=== PATIENT | male | born 1950 | race Caucasian/White ===

== ENCOUNTER → 2018-12-04 09:50 | Outpatient (CLI) | payer MEDICARE, OTHER, SELFPAY ==
[2018-12-04 10:46] LABS: BUN Creatinine Ratio 24.3 (6-22); Blood Urea Nitrogen 34 mg/dL (9-20); Calcium 10.3 mg/dL (8.4-10.2); Carbon Dioxide 28 mmol/L (22-32); Chloride 104 mmol/L (98-107); Estimated Glomerular Filt Rate 50.4 mL/min (>60); Glucose 70 mg/dL (80-110); HEMOLYSIS < 15 (0-50); Potassium 5.2 mmol/L (3.4-5.1); Sodium 141 mmol/L (137-145)
== END ==
PROVIDERS: PCP Internal Medicine; Visit Provider Internal Medicine Advanced Heart Failure and Transplant Cardiology
DX: Z94.1 Heart transplant status (principal)
CPT/HCPCS: 36415; 80048; 80197

== ENCOUNTER → 2019-02-14 08:50 | Outpatient (CLI) | payer MEDICARE, OTHER, SELFPAY ==
[2019-02-14 10:28] LABS: Hematocrit 40.4 % (41-53); Hemoglobin 13.3 g/dL (13.5-17.5); Mean Corpuscular HGB Conc 32.9 % (30-36); Mean Corpuscular Hemoglobin 30.6 PG (26-34); Mean Corpuscular Volume 92.9 fL (80-100); Platelet Count 247 X10^3/uL (150-400); Red Blood Cell Count 4.35 X10^6/uL (4.5-5.9); Red Cell Distribution Width 13.6 % (11.6-14.8)
[2019-02-14 10:31] LABS: Add Manual Diff / Slide Review YES
[2019-02-14 10:45] LABS: Alanine Aminotransferase 32 IU/L (21-72); Albumin 4.7 g/dL (3.5-5.0); Albumin Globulin Ratio 1.3 (1.0-2.8); Alkaline Phosphatase 73 U/L (38-126); Aspartate Aminotransferase 37 IU/L (17-59); BUN Creatinine Ratio 22.5 (6-22); Bilirubin Total 0.5 mg/dL (0.2-1.3); Blood Urea Nitrogen 27 mg/dL (9-20); Calcium 10.3 mg/dL (8.4-10.2); Carbon Dioxide 27 mmol/L (22-32); Chloride 105 mmol/L (98-107); Creatine Kinase 121 U/L (55-170); Estimated Glomerular Filt Rate > 60.0 mL/min (>60); Globulin 3.5 g/dL (1.7-4.1); Glucose 51 mg/dL (80-110); HEMOLYSIS < 15 (0-50); Magnesium 1.6 mg/dL (1.6-2.3); Potassium 4.6 mmol/L (3.4-5.1); Sodium 141 mmol/L (137-145); Total Protein 8.2 g/dL (6.3-8.2)
[2019-02-14 11:03] LABS: Neutrophils Absolute Manual 4550 /uL (3000-5900); RBC Morphology Normal Morphology; Total Cells Counted 100
[2019-02-19 09:43] LABS: Tacrolimus 8.9 mcg/L (5.0-20.0)
== END ==
PROVIDERS: PCP Internal Medicine; Visit Provider Internal Medicine Advanced Heart Failure and Transplant Cardiology
DX: Z94.1 Heart transplant status (principal)
CPT/HCPCS: 36415; 80053; 80197; 82550; 83735; 85025

== ENCOUNTER → 2019-03-13 08:56 | Outpatient (CLI) | payer MEDICARE, OTHER, SELFPAY ==
[2019-03-13 10:51] LABS: BUN Creatinine Ratio 22.3 (6-22); Blood Urea Nitrogen 29 mg/dL (9-20); Calcium 9.3 mg/dL (8.4-10.2); Carbon Dioxide 25 mmol/L (22-32); Chloride 108 mmol/L (98-107); Estimated Glomerular Filt Rate 54.7 mL/min (>60); Glucose 179 mg/dL (80-110); HEMOLYSIS < 15 (0-50); Potassium 4.9 mmol/L (3.4-5.1); Sodium 140 mmol/L (137-145)
[2019-03-17 08:45] LABS: Tacrolimus 6.9 mcg/L (5.0-20.0)
== END ==
PROVIDERS: PCP Internal Medicine; Visit Provider Internal Medicine Advanced Heart Failure and Transplant Cardiology
DX: Z94.1 Heart transplant status (principal)
CPT/HCPCS: 36415; 80048; 80197

== ENCOUNTER → 2019-04-12 09:36 | Outpatient (CLI) | payer MEDICARE, OTHER, SELFPAY ==
[2019-04-12 11:02] LABS: Thyroid Stimulating Hormone 2.56 uIU/mL (0.47-4.68)
== END ==
PROVIDERS: PCP Internal Medicine; Visit Provider Internal Medicine
DX: R79.89 Other specified abnormal findings of blood chemistry (principal); E03.9 Hypothyroidism, unspecified
CPT/HCPCS: 36415; 84443

== ENCOUNTER → 2019-06-05 09:01 | Outpatient (CLI) | payer MEDICARE, OTHER, SELFPAY ==
[2019-06-05 10:41] LABS: Blood Urea Nitrogen 30 mg/dL (9-20); Carbon Dioxide 27 mmol/L (22-32); Chloride 103 mmol/L (98-107); Estimated Glomerular Filt Rate > 60.0 mL/min (>60); Glucose 135 mg/dL (80-110); HEMOLYSIS < 15 (0-50); Sodium 141 mmol/L (137-145)
[2019-06-07 23:52] LABS: Tacrolimus 7.1 mcg/L (5.0-20.0)
== END ==
PROVIDERS: PCP Internal Medicine; Visit Provider Internal Medicine Advanced Heart Failure and Transplant Cardiology
DX: Z94.1 Heart transplant status (principal)
CPT/HCPCS: 36415; 80048; 80197

== ENCOUNTER → 2019-08-02 09:04 | Outpatient (CLI) | payer MEDICARE, OTHER, SELFPAY ==
[2019-08-02 10:05] LABS: Hematocrit 37.9 % (41-53); Hemoglobin 12.6 g/dL (13.5-17.5); Mean Corpuscular HGB Conc 33.4 % (30-36); Mean Corpuscular Hemoglobin 30.8 PG (26-34); Mean Corpuscular Volume 92.3 fL (80-100); Platelet Count 223 X10^3/uL (150-400); Red Cell Distribution Width 14.1 % (11.6-14.8); White Blood Cell Count 5.3 X10^3/uL (4.5-11.0)
[2019-08-02 10:08] LABS: Add Manual Diff / Slide Review YES
[2019-08-02 10:33] LABS: Neutrophils Absolute Manual 3339 /uL (3000-5900); RBC Morphology Normal Morphology; Smudge Cells 1+; Total Cells Counted 100
[2019-08-02 10:34] LABS: Alanine Aminotransferase 34 IU/L (<50); Albumin 4.8 g/dL (3.5-5.0); Albumin Globulin Ratio 1.6 (1.0-2.8); Alkaline Phosphatase 72 U/L (38-126); Aspartate Aminotransferase 33 IU/L (17-59); BUN Creatinine Ratio 23.8 (6-22); Bilirubin Total 0.4 mg/dL (0.2-1.3); Blood Urea Nitrogen 31 mg/dL (9-20); Calcium 10.4 mg/dL (8.4-10.2); Carbon Dioxide 29 mmol/L (22-32); Chloride 103 mmol/L (98-107); Creatine Kinase 112 U/L (55-170); Estimated Glomerular Filt Rate 54.7 mL/min (>60); Glucose 81 mg/dL (80-110); HEMOLYSIS < 15 (0-50); Magnesium 1.7 mg/dL (1.6-2.3); Sodium 142 mmol/L (137-145); Total Protein 7.8 g/dL (6.3-8.2)
[2019-08-05 13:21] LABS: Tacrolimus 6.8 mcg/L (5.0-20.0)
== END ==
PROVIDERS: PCP Internal Medicine; Visit Provider Internal Medicine Advanced Heart Failure and Transplant Cardiology
DX: Z94.1 Heart transplant status (principal)
CPT/HCPCS: 36415; 80053; 80197; 82550; 83735; 85025

== ENCOUNTER → 2019-12-05 08:30 | Outpatient (CLI) | payer MEDICARE, OTHER, SELFPAY ==
[2019-12-05 09:23] LABS: Add Manual Diff / Slide Review NO; Basophils Absolute Auto 100 /uL (0-100); Basophils Percent Auto 1.1 % (0-2); Eosinophils Absolute Auto 200 /uL (0-450); Eosinophils Percent Auto 3.8 % (2-4); Hematocrit 38.5 % (41-53); Hemoglobin 12.9 g/dL (13.5-17.5); Lymphocytes Absolute Auto 1000 /uL (1100-4500); Lymphocytes Percent Auto 16.2 % (25-40); Mean Corpuscular HGB Conc 33.6 % (30-36); Mean Corpuscular Hemoglobin 30.6 PG (26-34); Mean Corpuscular Volume 91.2 fL (80-100); Monocytes Absolute Auto 500 /uL (0-900); Monocytes Percent Auto 9.1 % (3-14); Neutrophils Absolute Auto 4100 /uL (1500-7000); Neutrophils Percent Auto 69.8 % (50-75); Platelet Count 223 X10^3/uL (150-400); Red Blood Cell Count 4.23 X10^6/uL (4.5-5.9); Red Cell Distribution Width 13.7 % (11.6-14.8); White Blood Cell Count 5.9 X10^3/uL (4.5-11.0)
[2019-12-05 10:06] LABS: Alanine Aminotransferase 30 IU/L (<50); Albumin 4.8 g/dL (3.5-5.0); Albumin Globulin Ratio 1.4 (1.0-2.8); Alkaline Phosphatase 66 U/L (38-126); Aspartate Aminotransferase 38 IU/L (17-59); BUN Creatinine Ratio 23.1 (6-22); Bilirubin Total 0.4 mg/dL (0.2-1.3); Blood Urea Nitrogen 28 mg/dL (9-20); Calcium 10.1 mg/dL (8.4-10.2); Carbon Dioxide 26 mmol/L (22-32); Chloride 106 mmol/L (98-107); Cholesterol 151 mg/dL (140-199); Creatine Kinase 121 U/L (55-170); Estimated Glomerular Filt Rate 59.5 mL/min (>60); Globulin 3.5 g/dL (1.7-4.1); Glucose 62 mg/dL (80-110); HDL Cholesterol 27 mg/dL (40-60); HEMOLYSIS < 15 (0-50); LDL Cholesterol Calculated 63 mg/dL (<100); Magnesium 1.7 mg/dL (1.6-2.3); Potassium 4.5 mmol/L (3.4-5.1); Sodium 142 mmol/L (137-145); Total Protein 8.3 g/dL (6.3-8.2); Triglycerides 303 mg/dL (35-150)
[2019-12-06 04:07] LABS: Tacrolimus 7.3 ng/mL (2.0-20.0)
== END ==
PROVIDERS: PCP Internal Medicine; Referring Provider Internal Medicine Advanced Heart Failure and Transplant Cardiology; Visit Provider Internal Medicine Advanced Heart Failure and Transplant Cardiology
DX: Z94.1 Heart transplant status (principal); E78.5 Hyperlipidemia, unspecified
CPT/HCPCS: 36415; 80053; 80061; 80197; 82550; 83735; 85025

== ENCOUNTER → 2020-04-03 08:38 | Outpatient (CLI) | payer MEDICARE, OTHER, SELFPAY ==
[2020-04-03 10:31] LABS: BUN Creatinine Ratio 23.7 (6-22); Blood Urea Nitrogen 27 mg/dL (9-20); Calcium 10.4 mg/dL (8.4-10.2); Carbon Dioxide 26 mmol/L (22-32); Chloride 104 mmol/L (98-107); Estimated Glomerular Filt Rate > 60.0 mL/min (>60); Glucose 61 mg/dL (80-110); HEMOLYSIS < 15 (0-50); Potassium 4.7 mmol/L (3.4-5.1); Sodium 140 mmol/L (137-145)
== END ==
PROVIDERS: PCP Internal Medicine; Referring Provider Internal Medicine; Visit Provider Internal Medicine Advanced Heart Failure and Transplant Cardiology
DX: Z94.1 Heart transplant status (principal)
CPT/HCPCS: 36415; 80048; 80195; 80197

== ENCOUNTER → 2020-04-15 09:21 | Outpatient (CLI) | payer MEDICARE, OTHER, SELFPAY ==
[2020-04-15 10:44] LABS: BUN Creatinine Ratio 24.6 (6-22); Blood Urea Nitrogen 29 mg/dL (9-20); Calcium 10.4 mg/dL (8.4-10.2); Carbon Dioxide 28 mmol/L (22-32); Chloride 105 mmol/L (98-107); Estimated Glomerular Filt Rate > 60.0 mL/min (>60); Glucose 65 mg/dL (80-110); HEMOLYSIS < 15 (0-50); Potassium 5.1 mmol/L (3.4-5.1); Sodium 141 mmol/L (137-145)
== END ==
PROVIDERS: PCP Internal Medicine; Referring Provider Internal Medicine Advanced Heart Failure and Transplant Cardiology; Visit Provider Internal Medicine Advanced Heart Failure and Transplant Cardiology
DX: Z94.1 Heart transplant status (principal)
CPT/HCPCS: 36415; 80048; 80195; 80197

== ENCOUNTER → 2020-05-01 09:14 | Outpatient (CLI) | payer MEDICARE, OTHER, SELFPAY ==
[2020-05-01 11:07] LABS: BUN Creatinine Ratio 22.6 (6-22); Blood Urea Nitrogen 24 mg/dL (9-20); Calcium 10.3 mg/dL (8.4-10.2); Carbon Dioxide 24 mmol/L (22-32); Chloride 106 mmol/L (98-107); Estimated Glomerular Filt Rate > 60.0 mL/min (>60); Glucose 103 mg/dL (80-110); HEMOLYSIS 16 (0-50); Potassium 5.2 mmol/L (3.4-5.1); Sodium 140 mmol/L (137-145)
== END ==
PROVIDERS: PCP Internal Medicine; Referring Provider Internal Medicine Advanced Heart Failure and Transplant Cardiology; Visit Provider Internal Medicine Advanced Heart Failure and Transplant Cardiology
DX: Z94.1 Heart transplant status (principal)
CPT/HCPCS: 36415; 80048; 80195; 80197

== ENCOUNTER 2020-10-30 05:48 | Emergency (ER) | payer MEDICARE, OTHER, SELFPAY ==
[2020-10-30] VITALS (25 sets, daily range): BP systolic 107–133; BP diastolic 55–80; PULSE 92–98; RESP 16–18; TEMP 36.3–37.1; O2SAT 95–98; BMI 24.7
--- NOTE | 2020-10-30 05:55 | DI.RAD.S_ITS ---
PROCEDURE: XR CHEST 1V INDICATIONS: fatigue, weakness TECHNIQUE: One view of the chest was acquired. COMPARISON: [facility], , CHEST 1 VIEW, 03/06/2015, 13:28. FINDINGS: Surgical changes and devices: Right chest wall Port-A-Cath. Abandoned cardiac pacer lead. Median sternotomy wires.. Lungs and pleura: Streaky opacities noted in the left lung base. No pleural effusions or pneumothorax. Mediastinum: Mediastinal contours appear normal. Heart size is normal. Bones and chest wall: No suspicious bony lesions. Overlying soft tissues appear unremarkable. IMPRESSION: Streaky opacities in left lung base which could represent parenchymal scarring, atelectasis or less likely pneumonia. Please correlate with clinical and laboratory data. Dictated by: Karla Dumas MD, PhD on 10/30/2020 at 9:11 Approved by: Karla Dumas MD, PhD on 10/30/2020 at 9:12
--- NOTE | 2020-10-30 05:59 | ED.SYNCOPE ---
HPI - Syncope <Bernabe SchroederDO - Last Filed: 10/31/20 02:45> General Chief Complaint: Syncope Stated Complaint: Syncope Time Seen by Provider: 10/30/20 05:50 Source: patient and EMS Mode of arrival: EMS Limitations: no limitations History of Present Illness HPI narrative: 69-year-old male with history cardiac transplant, pacemaker placement type 2 diabetes and lymphoma was recently started chemotherapy and presents by EMS for weakness, lightheadedness and collapse x3 this morning. His episodes were largely during change in position and he denies injury. He has full recall and states he did not actually pass out. He had outpatient labs a few days ago at an outside facility which were apparently abnormal. He denies any head, neck or back pain. He takes no blood thinners. He denies any chest pain but is short of breath, fatigued and weak. He has had no fever or chills. He is nauseated but denies any vomiting. He denies any dysuria, frequency or urgency. Patient denies the passage of dark/tarry stool. MD complaint: felt faint, almost passed out and collapsed Onset (ago): minute(s) Prodromal symptoms: lightheaded Injuries sustained associated with event: none Current symptoms: lightheaded Treatments prior to arrival: none Related Data Home Medications Medication Instructions Recorded Confirmed acetaminophen-pamabrom 500 mg-25 1 tab PO Q4-6H PRN 02/21/19 02/21/19 mg tablet alendronate 70 mg tablet 70 mg PO QWEEK 02/21/19 02/21/19 allopurinol 100 mg tablet 100 mg PO DAILY 02/21/19 02/21/19 ascorbic acid (vitamin C) 500 mg 500 mg PO DAILY 02/21/19 02/21/19 capsule,extended release aspirin 81 mg tablet,delayed 81 mg PO DAILY 02/21/19 02/21/19 release atorvastatin 20 mg tablet 20 mg PO DAILY 02/21/19 02/21/19 calcium carbonate 215 mg calcium 215 mg PO BID tab 02/21/19 02/21/19 (500 mg) chewable tablet carvedilol 3.125 mg tablet 3.125 mg PO BID 02/21/19 02/21/19 cholecalciferol (vitamin D3) 25 2,000 unit PO DAILY 02/21/19 02/21/19 mcg (1,000 unit) capsule ferrous sulfate 325 mg (65 mg 325 mg PO DAILY tab 02/21/19 02/21/19 iron) tablet hydralazine 50 mg tablet 50 mg PO TID 02/21/19 02/21/19 insulin aspart U-100 100 unit/mL 12 unit SUBCUT TID ml 02/21/19 02/21/19 (3 mL) subcutaneous pen insulin glargine 100 unit/mL (3 15 unit SUBCUT DAILY 02/21/19 02/21/19 mL) subcutaneous pen levothyroxine 100 mcg capsule 100 mcg PO DAILY 02/21/19 02/21/19 mycophenolate sodium 180 mg 180 mg PO BID tab 02/21/19 02/21/19 tablet,delayed release omeprazole 20 mg capsule,delayed 20 mg PO DAILY 02/21/19 02/21/19 release comb no.42-folic acid PO 02/21/19 02/21/19 tacrolimus 5 mg capsule 5 mg PO Q12H 02/21/19 02/21/19 zolpidem 10 mg tablet PO tab 02/21/19 02/21/19 Previous Rx's Medication Instructions Recorded albuterol sulfate 90 mcg/actuation 1 puff INHALATION Q6-8H PRN #6.7 02/21/19 aerosol inhaler gram azithromycin 250 mg tablet See Rx Instructions PO .COMPLEX #6 02/21/19 tab Allergies Allergy/AdvReac Type Severity Reaction Status Date / Time fish oil [FISH OIL] Allergy Unknown Verified 02/21/19 08:56 hydrocodone [HYDROCODONE] Allergy Unknown Verified 02/21/19 08:56 Review of Systems <Bernabe Schroeder DO - Last Filed: 10/31/20 02:45> Constitutional Constitutional: Denies chills, Reports fatigue, Denies fever(s), Denies frequent falls, Reports lethargy and Reports weakness Eyes Eyes: Denies change in vision, Denies eye discharge, Denies irritation and Denies loss of vision ENT Ears, Nose, Mouth, and Throat: Denies change in voice, Denies dizziness, Denies neck pain, Denies sore throat and Denies throat swelling Cardiovascular Cardiovascular: Denies chest pain, Denies irregular heart rhythm, Reports lightheadedness, Denies palpitations, Denies dyspnea, Denies dyspnea on exertion and Denies orthopnea Respiratory Respiratory: Denies cough, Denies dyspnea, Denies dyspnea on exertion and Denies wheezing Gastrointestinal Gastrointestinal: Denies abdominal pain, Denies change in bowel habits, Denies diarrhea, Denies nausea and Denies vomiting Musculoskeletal Musculoskeletal: Denies neck pain and Denies numbness Integumentary/Breasts Skin/Breast: Denies pruritus, Denies erythema, Denies rash and Denies wounds Neurologic Neurologic: Denies behavioral changes, Denies confusion, Denies dizziness, Denies frequent falls, Denies loss of vision, Denies numbness and Reports weakness Psychiatric Psychiatric: Denies anxiety, Denies behavioral changes, Denies confusion, Denies depression, Denies homicidal ideation and Denies suicidal ideation Endocrine Endocrine: Reports fatigue, Denies flushing and Denies palpitations Hematologic/Lymphatic Hematologic/Lymphatic: Denies easy bruising Allergic/Immunologic Allergic/Immunologic: Denies urticaria, Denies throat swelling and Denies wheezing Patient History <Bernabe Schroeder DO - Last Filed: 10/31/20 02:45> Social History Smoking Status: Never smoker Smoking Status: Never smoker Exam <Bernabe Schroeder DO - Last Filed: 10/31/20 02:45> Narrative Exam Narrative: GENERAL: [69] year old patient appears stated age. Well-nourished, well-developed patient, in moderate distress, clearly fatigued. HEAD: Atraumatic. Normocephalic. EYES: Pupils equal round and reactive. Extraocular motions intact. No scleral icterus. No injection or drainage. ENT: Nose without bleeding, purulent drainage. Throat without erythema, tonsillar hypertrophy or exudate. Airway patent. NECK: Trachea midline. Non tender CARDIOVASCULAR: Regular rate and rhythm without murmurs, gallops, or rubs. RESPIRATORY: Clear to auscultation. Breath sounds equal bilaterally. No wheezes, rales, or rhonchi. GASTROINTESTINAL: Abdomen soft, non-tender, nondistended. EXTREMITIES: No edema or joint tenderness. BACK: Nontender without deformity or crepitance. No flank tenderness. NEURO: AOx3. SKIN: No rash or erythema of visible areas Initial Vital Signs Initial Vital Signs: Vital Signs Temperature 97.4 F L 10/30/20 05:50 Pulse Rate 98 H 10/30/20 05:50 Respiratory Rate 18 10/30/20 05:50 Blood Pressure 121/63 10/30/20 05:50 Pulse Oximetry 97 10/30/20 05:50 <Sandra Tripp DO - Last Filed: 10/30/20 13:21> Initial Vital Signs Initial Vital Signs: Vital Signs Temperature 97.4 F L 10/30/20 05:50 Pulse Rate 98 H 10/30/20 05:50 Respiratory Rate 18 10/30/20 05:50 Blood Pressure 121/63 10/30/20 05:50 Pulse Oximetry 97 10/30/20 05:50 Course <Bernabe Schroeder DO - Last Filed: 10/31/20 02:45> Course Course Narrative: Initial evaluation and note performed by myself, records requested from . Packed cells ordered. Patient signed out to Dr. Tripp for final disposition. Orders Ordered: Discontinued Medications Heparin Sodium (Porcine) 5,000 (unit/ Sodium Chloride 50 ml) 0 unit IV NOW ONE Stop: 10/30/20 12:24 Heparin Sodium (Porcine) (Heparin 500 Unit/5 Ml Port Flush) 500 unit IV PRN PRN PRN Reason: Flush Vital Signs Vital signs: Vital Signs - 8 hr 10/30/20 05:50 10/30/20 05:51 10/30/20 06:00 Temperature 97.4 F L Pulse Rate 97 H 98 H 96 H Respiratory Rate 18 Blood Pressure 121/63 121/63 117/59 L Pulse Oximetry 96 97 96 10/30/20 06:30 10/30/20 07:00 10/30/20 07:30 Temperature Pulse Rate 97 H 96 H 96 H Respiratory Rate Blood Pressure 107/55 L 112/63 107/60 Pulse Oximetry 96 98 97 10/30/20 08:00 10/30/20 08:30 10/30/20 08:39 Temperature Pulse Rate 96 H 94 H 97 H Respiratory Rate Blood Pressure 110/56 L 115/56 L Pulse Oximetry 96 97 98 10/30/20 08:52 10/30/20 08:53 10/30/20 09:00 Temperature 98.8 F 98.4 F Pulse Rate 97 H 96 H 96 H Respiratory Rate 16 16 16 Blood Pressure 111/56 L 111/56 L 112/60 Pulse Oximetry 97 97 10/30/20 09:15 10/30/20 09:30 10/30/20 09:45 Temperature 98.4 F Pulse Rate 96 H 98 H 93 H Respiratory Rate 16 Blood Pressure 121/65 121/60 133/68 Pulse Oximetry 95 96 96 10/30/20 10:00 10/30/20 10:15 10/30/20 10:30 Temperature 98.4 F 98.5 F Pulse Rate 94 H 94 H 97 H Respiratory Rate 16 16 Blood Pressure 130/72 131/80 132/68 Pulse Oximetry 97 97 97 10/30/20 10:43 10/30/20 10:45 10/30/20 11:00 Temperature 98.0 F 97.8 F Pulse Rate 98 H 98 H 95 H Respiratory Rate 16 16 16 Blood Pressure 127/70 131/68 131/68 Pulse Oximetry 97 97 97 10/30/20 11:15 10/30/20 11:30 10/30/20 11:45 Temperature 98.5 F Pulse Rate 94 H 93 H 92 H Respiratory Rate 16 16 Blood Pressure 130/73 128/73 121/64 Pulse Oximetry 97 98 98 10/30/20 12:00 Temperature 98.4 F Pulse Rate 95 H Respiratory Rate 16 Blood Pressure 133/68 Pulse Oximetry 98 <Sandra Tripp, DO - Last Filed: 10/30/20 13:21> Orders Ordered: Discontinued Medications Heparin Sodium (Porcine) 5,000 (unit/ Sodium Chloride 50 ml) 0 unit IV NOW ONE Stop: 10/30/20 12:24 Heparin Sodium (Porcine) (Heparin 500 Unit/5 Ml Port Flush) 500 unit IV PRN PRN PRN Reason: Flush Vital Signs Vital signs: Vital Signs - 8 hr 10/30/20 05:50 10/30/20 05:51 10/30/20 06:00 Temperature 97.4 F L Pulse Rate 97 H 98 H 96 H Respiratory Rate 18 Blood Pressure 121/63 121/63 117/59 L Pulse Oximetry 96 97 96 10/30/20 06:30 10/30/20 07:00 10/30/20 07:30 Temperature Pulse Rate 97 H 96 H 96 H Respiratory Rate Blood Pressure 107/55 L 112/63 107/60 Pulse Oximetry 96 98 97 10/30/20 08:00 10/30/20 08:30 10/30/20 08:39 Temperature Pulse Rate 96 H 94 H 97 H Respiratory Rate Blood Pressure 110/56 L 115/56 L Pulse Oximetry 96 97 98 10/30/20 08:52 10/30/20 08:53 10/30/20 09:00 Temperature 98.8 F 98.4 F Pulse Rate 97 H 96 H 96 H Respiratory Rate 16 16 16 Blood Pressure 111/56 L 111/56 L 112/60 Pulse Oximetry 97 97 10/30/20 09:15 10/30/20 09:30 10/30/20 09:45 Temperature 98.4 F Pulse Rate 96 H 98 H 93 H Respiratory Rate 16 Blood Pressure 121/65 121/60 133/68 Pulse Oximetry 95 96 96 10/30/20 10:00 10/30/20 10:15 10/30/20 10:30 Temperature 98.4 F 98.5 F Pulse Rate 94 H 94 H 97 H Respiratory Rate 16 16 Blood Pressure 130/72 131/80 132/68 Pulse Oximetry 97 97 97 10/30/20 10:43 10/30/20 10:45 10/30/20 11:00 Temperature 98.0 F 97.8 F Pulse Rate 98 H 98 H 95 H Respiratory Rate 16 16 16 Blood Pressure 127/70 131/68 131/68 Pulse Oximetry 97 97 97 10/30/20 11:15 10/30/20 11:30 10/30/20 11:45 Temperature 98.5 F Pulse Rate 94 H 93 H 92 H Respiratory Rate 16 16 Blood Pressure 130/73 128/73 121/64 Pulse Oximetry 97 98 98 10/30/20 12:00 Temperature 98.4 F Pulse Rate 95 H Respiratory Rate 16 Blood Pressure 133/68 Pulse Oximetry 98 MDM - Syncope <Bernabe Schroeder, DO - Last Filed: 10/31/20 02:45> Lab Data Result diagrams: 10/30/20 06:30 10/30/20 06:30 Labs: Lab Results 10/30/20 10/30/20 10/30/20 Range/Units 06:30 06:30 06:30 WBC 2.1 L (4.5-11.0) X10^3/uL RBC 2.49 L (4.5-5.9) X10^6/uL Hgb 6.8 L* (13.5-17.5) g/dL Hct 20.4 L* (41-53) % MCV 81.9 (80-100) fL MCH 27.3 (26-34) PG MCHC 33.3 (30-36) % RDW 14.0 (11.6-14.8) % Plt Count 141 L (150-400) X10^3/uL Neut % (Auto) Physician Interventional Cardiologist Lymph % (Auto) Physician Interventional Cardiologist [place] % (Auto) Physician Interventional Cardiologist Eos % (Auto) Physician Interventional Cardiologist Baso % (Auto) Physician Interventional Cardiologist Neut # (Auto) Physician Interventional Cardiologist Lymph # (Auto) Physician Interventional Cardiologist [place] # (Auto) Physician Interventional Cardiologist Eos # (Auto) Physician Interventional Cardiologist Baso # (Auto) Physician Interventional Cardiologist Total Counted 100 Seg Neutrophils % 53.0 (38-70) % Band Neutrophils % 10.0 H (3-7) % Lymphocytes % (Manual) 7.0 L (25-45) % Atypical Lymphs % 1.0 H ( - 0) % Monocytes % (Manual) 18.0 H (2-11) % Metamyelocytes % 9.0 H (-0) % Myelocytes % 2.0 H (-0) % Neutrophils # (Manual) 1323 L (6379-8566) /uL Nucleated RBCs 2 H ( - 0) #/Diff Toxic Granulation Present H Dohle Bodies 2+ H RBC Morphology See below Anisocytosis 1+ H Sodium 131 L (137-145) mmol/L Potassium 3.8 (3.4-5.1) mmol/L Chloride 94 L (98-107) mmol/L Carbon Dioxide 34 H (22-32) mmol/L BUN 22 H (9-20) mg/dL Creatinine 0.82 (0.66-1.25) mg/dL Estimated GFR > 60.0 (>60) mL/min BUN/Creatinine Ratio 26.8 H (6-22) Glucose 163 H (80-110) mg/dL Lactate 1.9 (0.7-2.1) mmol/L Calcium 8.8 (8.4-10.2) mg/dL Total Bilirubin 0.2 (0.2-1.3) mg/dL AST 64 H (17-59) IU/L ALT 112 H (<50) IU/L Alkaline Phosphatase 143 H (38-126) U/L Total Creatine Kinase < 20 L (55-170) U/L CK-MB (CK-2) TNP CK-MB (CK-2) Rel Index TNP Troponin I < 0.012 (0.01-0.034) ng/mL C-Reactive Protein 5.3 H (<1.0) mg/dL NT-Pro-B Natriuret Pep 715 H (<125) pg/mL Total Protein 6.1 L (6.3-8.2) g/dL Albumin 3.2 L (3.5-5.0) g/dL Globulin 2.9 (1.7-4.1) g/dL Albumin/Globulin Ratio 1.1 (1.0-2.8) SARS-CoV-2 (PCR) (Negative) Blood Type Antibody Screen Crossmatch 10/30/20 10/30/20 Range/Units 06:44 07:30 WBC (4.5-11.0) X10^3/uL RBC (4.5-5.9) X10^6/uL Hgb (13.5-17.5) g/dL Hct (41-53) % MCV (80-100) fL MCH (26-34) PG MCHC (30-36) % RDW (11.6-14.8) % Plt Count (150-400) X10^3/uL Neut % (Auto) Lymph % (Auto) [place] % (Auto) Eos % (Auto) Baso % (Auto) Neut # (Auto) Lymph # (Auto) [place] # (Auto) Eos # (Auto) Baso # (Auto) Total Counted Seg Neutrophils % (38-70) % Band Neutrophils % (3-7) % Lymphocytes % (Manual) (25-45) % Atypical Lymphs % ( - 0) % Monocytes % (Manual) (2-11) % Metamyelocytes % (-0) % Myelocytes % (-0) % Neutrophils # (Manual) (6253-8922) /uL Nucleated RBCs ( - 0) #/Diff Toxic Granulation Dohle Bodies RBC Morphology Anisocytosis Sodium (137-145) mmol/L Potassium (3.4-5.1) mmol/L Chloride (98-107) mmol/L Carbon Dioxide (22-32) mmol/L BUN (9-20) mg/dL Creatinine (0.66-1.25) mg/dL Estimated GFR (>60) mL/min BUN/Creatinine Ratio (6-22) Glucose (80-110) mg/dL Lactate (0.7-2.1) mmol/L Calcium (8.4-10.2) mg/dL Total Bilirubin (0.2-1.3) mg/dL AST (17-59) IU/L ALT (<50) IU/L Alkaline Phosphatase (38-126) U/L Total Creatine Kinase (55-170) U/L CK-MB (CK-2) CK-MB (CK-2) Rel Index Troponin I (0.01-0.034) ng/mL C-Reactive Protein (<1.0) mg/dL NT-Pro-B Natriuret Pep (<125) pg/mL Total Protein (6.3-8.2) g/dL Albumin (3.5-5.0) g/dL Globulin (1.7-4.1) g/dL Albumin/Globulin Ratio (1.0-2.8) SARS-CoV-2 (PCR) Negative (Negative) Blood Type O Positive Antibody Screen Negative Crossmatch See Detail <Sandra Tripp DO - Last Filed: 10/30/20 13:21> Lab Data Attestation: I reviewed the patient's lab results. Labs: Lab Results 10/30/20 10/30/20 10/30/20 Range/Units 06:30 06:30 06:30 WBC 2.1 L (4.5-11.0) X10^3/uL RBC 2.49 L (4.5-5.9) X10^6/uL Hgb 6.8 L* (13.5-17.5) g/dL Hct 20.4 L* (41-53) % MCV 81.9 (80-100) fL MCH 27.3 (26-34) PG MCHC 33.3 (30-36) % RDW 14.0 (11.6-14.8) % Plt Count 141 L (150-400) X10^3/uL Neut % (Auto) Physician Interventional Cardiologist Lymph % (Auto) Physician Interventional Cardiologist [place] % (Auto) Physician Interventional Cardiologist Eos % (Auto) Physician Interventional Cardiologist Baso % (Auto) Physician Interventional Cardiologist Neut # (Auto) Physician Interventional Cardiologist Lymph # (Auto) Physician Interventional Cardiologist [place] # (Auto) Physician Interventional Cardiologist Eos # (Auto) Physician Interventional Cardiologist Baso # (Auto) Physician Interventional Cardiologist Total Counted 100 Seg Neutrophils % 53.0 (38-70) % Band Neutrophils % 10.0 H (3-7) % Lymphocytes % (Manual) 7.0 L (25-45) % Atypical Lymphs % 1.0 H ( - 0) % Monocytes % (Manual) 18.0 H (2-11) % Metamyelocytes % 9.0 H (-0) % Myelocytes % 2.0 H (-0) % Neutrophils # (Manual) 1323 L (2805-2974) /uL Nucleated RBCs 2 H ( - 0) #/Diff Toxic Granulation Present H Dohle Bodies 2+ H RBC Morphology See below Anisocytosis 1+ H Sodium 131 L (137-145) mmol/L Potassium 3.8 (3.4-5.1) mmol/L Chloride 94 L (98-107) mmol/L Carbon Dioxide 34 H (22-32) mmol/L BUN 22 H (9-20) mg/dL Creatinine 0.82 (0.66-1.25) mg/dL Estimated GFR > 60.0 (>60) mL/min BUN/Creatinine Ratio 26.8 H (6-22) Glucose 163 H (80-110) mg/dL Lactate 1.9 (0.7-2.1) mmol/L Calcium 8.8 (8.4-10.2) mg/dL Total Bilirubin 0.2 (0.2-1.3) mg/dL AST 64 H (17-59) IU/L ALT 112 H (<50) IU/L Alkaline Phosphatase 143 H (38-126) U/L Total Creatine Kinase < 20 L (55-170) U/L CK-MB (CK-2) TNP CK-MB (CK-2) Rel Index TNP Troponin I < 0.012 (0.01-0.034) ng/mL C-Reactive Protein 5.3 H (<1.0) mg/dL NT-Pro-B Natriuret Pep 715 H (<125) pg/mL Total Protein 6.1 L (6.3-8.2) g/dL Albumin 3.2 L (3.5-5.0) g/dL Globulin 2.9 (1.7-4.1) g/dL Albumin/Globulin Ratio 1.1 (1.0-2.8) SARS-CoV-2 (PCR) (Negative) Blood Type Antibody Screen Crossmatch 10/30/20 10/30/20 Range/Units 06:44 07:30 WBC (4.5-11.0) X10^3/uL RBC (4.5-5.9) X10^6/uL Hgb (13.5-17.5) g/dL Hct (41-53) % MCV (80-100) fL MCH (26-34) PG MCHC (30-36) % RDW (11.6-14.8) % Plt Count (150-400) X10^3/uL Neut % (Auto) Lymph % (Auto) [place] % (Auto) Eos % (Auto) Baso % (Auto) Neut # (Auto) Lymph # (Auto) [place] # (Auto) Eos # (Auto) Baso # (Auto) Total Counted Seg Neutrophils % (38-70) % Band Neutrophils % (3-7) % Lymphocytes % (Manual) (25-45) % Atypical Lymphs % ( - 0) % Monocytes % (Manual) (2-11) % Metamyelocytes % (-0) % Myelocytes % (-0) % Neutrophils # (Manual) (9950-2337) /uL Nucleated RBCs ( - 0) #/Diff Toxic Granulation Dohle Bodies RBC Morphology Anisocytosis Sodium (137-145) mmol/L Potassium (3.4-5.1) mmol/L Chloride (98-107) mmol/L Carbon Dioxide (22-32) mmol/L BUN (9-20) mg/dL Creatinine (0.66-1.25) mg/dL Estimated GFR (>60) mL/min BUN/Creatinine Ratio (6-22) Glucose (80-110) mg/dL Lactate (0.7-2.1) mmol/L Calcium (8.4-10.2) mg/dL Total Bilirubin (0.2-1.3) mg/dL AST (17-59) IU/L ALT (<50) IU/L Alkaline Phosphatase (38-126) U/L Total Creatine Kinase (55-170) U/L CK-MB (CK-2) CK-MB (CK-2) Rel Index Troponin I (0.01-0.034) ng/mL C-Reactive Protein (<1.0) mg/dL NT-Pro-B Natriuret Pep (<125) pg/mL Total Protein (6.3-8.2) g/dL Albumin (3.5-5.0) g/dL Globulin (1.7-4.1) g/dL Albumin/Globulin Ratio (1.0-2.8) SARS-CoV-2 (PCR) Negative (Negative) Blood Type O Positive Antibody Screen Negative Crossmatch See Detail Imaging Data CT scan - head: Radiologist's Impression: PROCEDURE: CT HEAD/BRAIN WO CON INDICATIONS: syncope TECHNIQUE: Noncontrast 4.5 mm thick angled axial sections acquired from the foramen magnum to the vertex, with coronal and sagittal reformats. For radiation dose reduction, the following was used: automated exposure control, adjustment of mA and/or kV according to patient size. COMPARISON: [facility], CT, HEAD WITHOUT CONTRAST, 03/29/2011, 19:05. FINDINGS: Image quality: Excellent. CSF spaces: Basal cisterns are patent. No extra-axial fluid collections. The ventricles are symmetric in size and shape. Brain: No intracranial bleeds or masses. There is moderate cerebral volume loss for age, with resultant ventricular and sulcal prominence. There are moderate periventricular and deep white matter chronic small vessel ischemic changes. There is intracranial internal carotid artery atherosclerosis. Skull and face: Calvarium and visualized facial bones appear intact, without suspicious lesions. Sinuses: Visualized sinuses and mastoids are clear. IMPRESSION: 1. No acute intracranial abnormalities. 2. Cerebral volume loss and chronic microvascular ischemic changes. Dictated by: Samuel Juan M.D. on 10/30/2020 at 8:44 Chest x-ray: Radiologist's Impression: PROCEDURE: XR CHEST 1V INDICATIONS: fatigue, weakness TECHNIQUE: One view of the chest was acquired. COMPARISON: [facility], CR, CHEST 1 VIEW, 03/06/2015, 13:28. FINDINGS: Surgical changes and devices: Right chest wall Port-A-Cath. Abandoned cardiac pacer lead. Median sternotomy wires.. Lungs and pleura: Streaky opacities noted in the left lung base. No pleural effusions or pneumothorax. Mediastinum: Mediastinal contours appear normal. Heart size is normal. Bones and chest wall: No suspicious bony lesions. Overlying soft tissues appear unremarkable. IMPRESSION: Streaky opacities in left lung base which could represent parenchymal scarring, atelectasis or less likely pneumonia. Please correlate with clinical and laboratory data. Dictated by: Karla Dumas MD, PhD on 10/30/2020 at 9:11 ECG Data Attestation: I personally reviewed and interpreted this ECG as follows: Prior ECG tracings: available for review Interpretation: Sinus rhythm rate 96 p.r. interval 166 year are S1 of 4 QTC 442 right bundle branch block noted on previous EKG but not this EKG a Q-wave noted in inferior leads [address] changes MDM Narrative Medical decision making narrative: I received sign-out from Dr. Schroeder X seen and evaluated patient myself. Patient is found to be quite anemic hemoglobin 6.8 hematocrit of 20 which is lower than his previous outpatient blood work which was 7.3 in 22.9. I believe he is symptomatic with frequent syncopal episode weakness and some shortness of breath with exertion. states that the feeling very weak yesterday she assisted him to the ground he did not fall or hit his head. 8:15 a.m. I spoke with patient's oncologist Dr. Boyle, who agrees with transfusion and discharge home if feeling better. He has standing orders to have repeat H&H. He is also scheduled to meet with new oncology Dr. Johnson early next week. Patient ambulatory in ED without difficulty overall feeling better after 2 units. Discharge Plan Departure Patient Disposition: Home Clinical Impression: Anemia Qualifiers: Anemia type: unspecified type Qualified Code(s): D64.9 - Anemia, unspecified Instructions: Anemia Activity Restrictions/Additional Instructions: *You have been diagnosed with anemia *What to do: Your weakness and passing out is likely due to low hemoglobin and blood levels. You will need to have her blood levels rechecked next week *Continue to take medications as directed *Follow up with your primary care provider in 2-3 days *Return to ER if you should have increasing shortness of breath, weakness, passing out, dizziness, lightheadedness or any new, worsening or concerning symptoms Prescriptions: No Action azithromycin 250 mg tablet See Rx Instructions PO .COMPLEX Qty: 6 RF: 0 albuterol sulfate 90 mcg/actuation HFA aerosol inhaler 1 puff INHALATION Q6-8H PRN (Reason: bronchospasm) Qty: 6.7 RF: 0 acetaminophen-pamabrom 500-25 mg tablet 1 tab PO Q4-6H PRNRF: 0 alendronate 70 mg tablet 70 mg PO QWEEK RF: 0 allopurinol 100 mg tablet 100 mg PO DAILY RF: 0 ascorbic acid (vitamin C) 500 mg capsule, extended release 500 mg PO DAILY RF: 0 aspirin [Adult Low Dose Aspirin] 81 mg tablet,delayed release (DR/EC) 81 mg PO DAILY RF: 0 atorvastatin 20 mg tablet 20 mg PO DAILY RF: 0 Antacid (calcium carbonate) 215 mg calcium (500 mg) tablet,chewable 215 mg PO BID RF: 0 carvedilol 3.125 mg tablet 3.125 mg PO BID RF: 0 cholecalciferol (vitamin D3) 1,000 unit capsule 2,000 unit PO DAILY RF: 0 ferrous sulfate 325 mg (65 mg iron) tablet 325 mg PO DAILY RF: 0 hydralazine 50 mg tablet 50 mg PO TID RF: 0 insulin aspart U-100 100 unit/mL insulin pen 12 unit SUBCUT TID RF: 0 Lantus Solostar U-100 Insulin 100 unit/mL (3 mL) insulin pen 15 unit SUBCUT DAILY RF: 0 levothyroxine 100 mcg capsule 100 mcg PO DAILY RF: 0 mycophenolate sodium 180 mg tablet,delayed release (DR/EC) 180 mg PO BID RF: 0 omeprazole 20 mg capsule,delayed release(DR/EC) 20 mg PO DAILY RF: 0 comb no.42-folic acid PO RF: 0 tacrolimus 5 mg capsule 5 mg PO Q12H RF: 0 zolpidem 10 mg tablet PO RF: 0 Referrals: Mendoza Venegas MD [Primary Care Provider] - Vijaya Johnson MD [Physician] -
[2020-10-30] MEDS: LIDOCAINE 1% (PF) 2 ML (06:25)
[2020-10-30 06:47] LABS: Mean Corpuscular HGB Conc 33.3 % (30-36); Mean Corpuscular Hemoglobin 27.3 PG (26-34); Mean Corpuscular Volume 81.9 fL (80-100); Platelet Count 141 X10^3/uL (150-400); Red Blood Cell Count 2.49 X10^6/uL (4.5-5.9); White Blood Cell Count 2.1 X10^3/uL (4.5-11.0)
[2020-10-30 06:52] LABS: Lactate (Lactic Acid) 1.9 mmol/L (0.7-2.1)
[2020-10-30 06:53] LABS: Hematocrit 20.4 % (41-53); Hemoglobin 6.8 g/dL (13.5-17.5)
[2020-10-30 06:54] LABS: Alanine Aminotransferase 112 IU/L (<50); Albumin 3.2 g/dL (3.5-5.0); Albumin Globulin Ratio 1.1 (1.0-2.8); Alkaline Phosphatase 143 U/L (38-126); Aspartate Aminotransferase 64 IU/L (17-59); BUN Creatinine Ratio 26.8 (6-22); Bilirubin Total 0.2 mg/dL (0.2-1.3); Blood Urea Nitrogen 22 mg/dL (9-20); C-Reactive Protein Quant 5.3 mg/dL (<1.0); Calcium 8.8 mg/dL (8.4-10.2); Carbon Dioxide 34 mmol/L (22-32); Chloride 94 mmol/L (98-107); Creatine Kinase < 20 U/L (55-170); Estimated Glomerular Filt Rate > 60.0 mL/min (>60); Globulin 2.9 g/dL (1.7-4.1); Glucose 163 mg/dL (80-110); HEMOLYSIS < 15 (0-50); Potassium 3.8 mmol/L (3.4-5.1); Sodium 131 mmol/L (137-145); Total Protein 6.1 g/dL (6.3-8.2)
[2020-10-30 07:02] LABS: COVID19 -Nasal RAPID Negative (Negative)
[2020-10-30 07:03] LABS: NT-proBNP (BNP-Adult 18+) 715 pg/mL (<125); Troponin I < 0.012 ng/mL (0.01-0.034)
[2020-10-30 07:51] LABS: Add Manual Diff / Slide Review YES
[2020-10-30 07:57] LABS: Neutrophils Absolute Manual 1323 /uL (3000-5900); Nucleated Red Blood Cells 2 #/Diff; Total Cells Counted 100
[2020-10-30 07:58] LABS: Anisocytosis 1+; Dohle Bodies 2+; Toxic Granulation Present
--- NOTE | 2020-10-30 08:05 | PC.NURSE ---
COnsent for blood signed by pt and placed in chart. Pt is currently resting, VSS, at bedside.
--- NOTE | 2020-10-30 08:13 | DI.CT.S_ITS ---
PROCEDURE: CT HEAD/BRAIN WO CON INDICATIONS: syncope TECHNIQUE: Noncontrast 4.5 mm thick angled axial sections acquired from the foramen magnum to the vertex, with coronal and sagittal reformats. For radiation dose reduction, the following was used: automated exposure control, adjustment of mA and/or kV according to patient size. COMPARISON: [facility], CT, HEAD WITHOUT CONTRAST, 03/29/2011, 19:05. FINDINGS: Image quality: Excellent. CSF spaces: Basal cisterns are patent. No extra-axial fluid collections. The ventricles are symmetric in size and shape. Brain: No intracranial bleeds or masses. There is moderate cerebral volume loss for age, with resultant ventricular and sulcal prominence. There are moderate periventricular and deep white matter chronic small vessel ischemic changes. There is intracranial internal carotid artery atherosclerosis. Skull and face: Calvarium and visualized facial bones appear intact, without suspicious lesions. Sinuses: Visualized sinuses and mastoids are clear. IMPRESSION: 1. No acute intracranial abnormalities. 2. Cerebral volume loss and chronic microvascular ischemic changes. Dictated by: Samuel Juan M.D. on 10/30/2020 at 8:44 Approved by: Samuel Juan M.D. on 10/30/2020 at 8:46
--- NOTE | 2020-10-30 12:10 | PC.NURSE ---
PT ambulated down ambrose with standby assist and toerated well. Pt uses walker at home. Pt denies feeling lightheaded or dizzy. called and updated on pending discharge.
== END 2020-10-30 12:33 | disposition home or self-care (01) ==
PROVIDERS: Emergency Medicine; Emergency Provider Emergency Medicine; PCP Internal Medicine
DX: D64.9 Anemia, unspecified (principal); R55 Syncope and collapse; R53.83 Other fatigue; Z95.0 Presence of cardiac pacemaker; R42 Dizziness and giddiness; Z79.82 Long term (current) use of aspirin; E11.8 Type 2 diabetes mellitus with unspecified complications; Z79.4 Long term (current) use of insulin; Z20.822 Contact with and (suspected) exposure to COVID-19
CPT/HCPCS: 36415; 36430; 70450; 71045; 80053; 82550; 83605; 83880; 84484; 85007; 85025; 86140; 86850; 86900; 86901; 87040; 87635; 93005; 99283; 99284; C9803; P9016; J1642

== ENCOUNTER 2020-11-19 09:21 | Emergency (ER) | payer MEDICARE, OTHER, SELFPAY ==
[2020-11-19 09:25] VITALS: BP 113/74; PULSE 111; PULSE 112; RESP 18; O2SAT 96; BMI 25.0
[2020-11-19 09:29] VITALS: BP 109/73; PULSE 112; RESP 21; O2SAT 96
[2020-11-19 09:30] VITALS: BP 113/74; PULSE 110; RESP 22; O2SAT 96
--- NOTE | 2020-11-19 09:35 | ED_ITS ---
HPI - General Adult General Chief complaint: Weakness Stated complaint: Can't stay awake Time Seen by Provider: 11/19/20 09:25 Source: patient and EMS Mode of arrival: EMS Limitations: no limitations History of Present Illness HPI narrative: Patient is a 69-year-old male. 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 His last chemotherapy infusion was 1 week ago. He had a distant history of Hodgkin's lymphoma. The treatment for that caused heart issues which led to a heart transplant. That was done approximately 6 years ago. He is followed by [facility]. 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 Had blood drawn. Had a hemoglobin and hematocrit of 9/28. He was told that his blood counts were low but no transfusion was administered. He did receive a transfusion approximately 1 month ago secondary to anemia. He reports that really over the past 24 hours he has been very fatigued. He states that he just feels like he wants to go to sleep. He denies any other associated symptoms Related Data Home Medications Medication Instructions Recorded Confirmed acetaminophen-pamabrom 500 mg-25 1 tab PO Q4-6H PRN 02/21/19 02/21/19 mg tablet alendronate 70 mg tablet 70 mg PO QWEEK 02/21/19 02/21/19 allopurinol 100 mg tablet 100 mg PO DAILY 02/21/19 02/21/19 ascorbic acid (vitamin C) 500 mg 500 mg PO DAILY 02/21/19 02/21/19 capsule,extended release aspirin 81 mg tablet,delayed 81 mg PO DAILY 02/21/19 02/21/19 release atorvastatin 20 mg tablet 20 mg PO DAILY 02/21/19 02/21/19 calcium carbonate 215 mg calcium 215 mg PO BID tab 02/21/19 02/21/19 (500 mg) chewable tablet carvedilol 3.125 mg tablet 3.125 mg PO BID 02/21/19 02/21/19 cholecalciferol (vitamin D3) 25 2,000 unit PO DAILY 02/21/19 02/21/19 mcg (1,000 unit) capsule ferrous sulfate 325 mg (65 mg 325 mg PO DAILY tab 02/21/19 02/21/19 iron) tablet hydralazine 50 mg tablet 50 mg PO TID 02/21/19 02/21/19 insulin aspart U-100 100 unit/mL 12 unit SUBCUT TID ml 02/21/19 02/21/19 (3 mL) subcutaneous pen insulin glargine 100 unit/mL (3 15 unit SUBCUT DAILY 02/21/19 02/21/19 mL) subcutaneous pen levothyroxine 100 mcg capsule 100 mcg PO DAILY 02/21/19 02/21/19 mycophenolate sodium 180 mg 180 mg PO BID tab 02/21/19 02/21/19 tablet,delayed release omeprazole 20 mg capsule,delayed 20 mg PO DAILY 02/21/19 02/21/19 release comb no.42-folic acid PO 02/21/19 02/21/19 tacrolimus 5 mg capsule 5 mg PO Q12H 02/21/19 02/21/19 zolpidem 10 mg tablet PO tab 02/21/19 02/21/19 famotidine 20 mg FEEDING TUBE BID 11/19/20 11/19/20 fluticasone propionate [Flonase] 2 spray INTRANASAL DAILY 11/19/20 11/19/20 oxycodone 5 mg PO Q4H 11/19/20 11/19/20 potassium chloride 20 meq PO DAILY 11/19/20 11/19/20 prochlorperazine maleate 10 mg PO BID PRN 11/19/20 11/19/20 [Compazine] rosuvastatin 20 mg PO DAILY 11/19/20 11/19/20 simethicone 80 mg PO PRN PRN 11/19/20 11/19/20 tbo-filgrastim [Granix] 300 mcg SUBCUT 11/19/20 Previous Rx's Medication Instructions Recorded albuterol sulfate 90 mcg/actuation 1 puff INHALATION Q6-8H PRN #6.7 02/21/19 aerosol inhaler gram azithromycin 250 mg tablet See Rx Instructions PO .COMPLEX #6 02/21/19 tab Allergies Allergy/AdvReac Type Severity Reaction Status Date / Time fish oil [FISH OIL] Allergy Unknown Verified 11/19/20 09:28 hydrocodone [HYDROCODONE] Allergy Unknown Verified 11/19/20 09:28 Review of Systems Constitutional Constitutional: Denies chills, Reports fatigue, Denies fever(s), Denies headache(s), Reports lethargy and Reports malaise Eyes Eyes: Denies change in vision ENT Ears, Nose, Mouth, and Throat: Denies headache(s) Cardiovascular Cardiovascular: Denies chest pain and Denies dyspnea Respiratory Respiratory: Denies dyspnea Gastrointestinal Gastrointestinal: Denies abdominal pain Musculoskeletal Musculoskeletal: Denies arthralgias and Denies myalgias Integumentary/Breasts Skin/Breast: Denies rash Neurologic Neurologic: Denies behavioral changes and Denies headache(s) Psychiatric Psychiatric: Denies behavioral changes Endocrine Endocrine: Reports fatigue Hematologic/Lymphatic On Anticoagulants: No Allergic/Immunologic Allergic/Immunologic: Denies urticaria Patient History Medical History Diabetes Lymphoma Surgical History Heart transplant status Social History Smoking Status: Never smoker Smoking Status: Never smoker Substance Use Type: does not use Exam Initial Vital Signs Initial Vital Signs: Vital Signs Pulse Rate 112 H 11/19/20 09:25 Respiratory Rate 18 11/19/20 09:25 Blood Pressure 113/74 11/19/20 09:25 Pulse Oximetry 96 11/19/20 09:25 Const General: frail appearing Limitations: mental status not altered HENMT Head: normal to inspection and normocephalic Resp Effort & Inspection: normal respiratory effort Auscultation: clear to auscultation bilaterally Cardio Rate: regular rate Rhythm: regular rhythm GI Inspection: non-distended Palpation: soft Other: G-tube site from left upper abdomen Skin Other: Patient with redness around his G-tube site. Neuro General: patient alert, patient awake and patient oriented x3 Extrem General: capillary refill normal Psych Appearance: well kempt Scores GCS Bill coma scale eye opening: Spontaneous Bill coma scale verbal response: Orientated Bill coma scale motor response: Obey commands [place] coma scale total score: 15 Course Orders Ordered: ED Orders 11/19/20 09:26 Complete Blood Count AUTO DIFF Stat Comprehensive Metabolic Panel Stat Lipase Stat Partial Thromboplastin Time Stat Prothrombin Time INR Stat Troponin & CK Cardiac Panel Stat Type and Screen Stat EKG-12 Lead Stat Vital Signs Vital signs: Vital Signs - 8 hr 11/19/20 09:25 11/19/20 09:29 11/19/20 09:30 Pulse Rate 111 H 112 H 110 H Respiratory Rate 18 21 22 Blood Pressure 113/74 109/73 113/74 Pulse Oximetry 96 96 96 11/19/20 10:00 11/19/20 10:30 11/19/20 11:00 Pulse Rate 109 H 107 H 106 H Respiratory Rate 20 23 21 Blood Pressure 111/73 105/66 104/67 Pulse Oximetry 94 95 97 Medical Decision Making Lab Data Result diagrams: 11/19/20 09:30 11/19/20 09:30 Labs: Lab Results 11/19/20 11/19/20 11/19/20 Range/Units 09:30 09:30 09:30 WBC 1.1 L* (4.5-11.0) X10^3/uL RBC 3.52 L (4.5-5.9) X10^6/uL Hgb 10.0 L (13.5-17.5) g/dL Hct 29.7 L (41-53) % MCV 84.3 (80-100) fL MCH 28.5 (26-34) PG MCHC 33.8 (30-36) % RDW 15.6 H (11.6-14.8) % Plt Count 161 (150-400) X10^3/uL Neut % (Auto) Not Reportable Lymph % (Auto) Not Reportable Rock % (Auto) Not Reportable Eos % (Auto) Not Reportable Baso % (Auto) Not Reportable Lymph # (Auto) Not Reportable [place] # (Auto) Not Reportable Baso # (Auto) Not Reportable Total Counted 50 Seg Neutrophils % 12.0 L (38-70) % Band Neutrophils % 14.0 H (3-7) % Lymphocytes % (Manual) 6.0 L (25-45) % Atypical Lymphs % 2.0 H ( - 0) % Monocytes % (Manual) 44.0 H (2-11) % Eosinophils % (Manual) 4.0 (2-4) % Metamyelocytes % 10.0 H (-0) % Myelocytes % 8.0 H (-0) % Neutrophils # (Manual) 286 L (7623-5698) /uL RBC Morphology See below Polychromasia 1+ H Anisocytosis 1+ H PT 11.5 (10.1-12.7) SECONDS INR 1.0 (0.9-1.3) APTT 27 (26.4-36.2) SECONDS Sodium 133 L (137-145) mmol/L Potassium 4.1 (3.4-5.1) mmol/L Chloride 93 L (98-107) mmol/L Carbon Dioxide 33 H (22-32) mmol/L BUN 24 H (9-20) mg/dL Creatinine 0.79 (0.66-1.25) mg/dL Estimated GFR > 60.0 (>60) mL/min BUN/Creatinine Ratio 30.4 H (6-22) Glucose 251 H (80-110) mg/dL Calcium 9.1 (8.4-10.2) mg/dL Total Bilirubin 0.5 (0.2-1.3) mg/dL AST 28 (17-59) IU/L ALT 28 (<50) IU/L Alkaline Phosphatase 120 (38-126) U/L Total Creatine Kinase 21 L (55-170) U/L CK-MB (CK-2) TNP CK-MB (CK-2) Rel Index TNP Troponin I < 0.012 (0.01-0.034) ng/mL Total Protein 6.7 (6.3-8.2) g/dL Albumin 3.7 (3.5-5.0) g/dL Globulin 3.0 (1.7-4.1) g/dL Albumin/Globulin Ratio 1.2 (1.0-2.8) Lipase 61 (23-300) U/L Blood Type Antibody Screen 11/19/20 Range/Units 09:30 WBC (4.5-11.0) X10^3/uL RBC (4.5-5.9) X10^6/uL Hgb (13.5-17.5) g/dL Hct (41-53) % MCV (80-100) fL MCH (26-34) PG MCHC (30-36) % RDW (11.6-14.8) % Plt Count (150-400) X10^3/uL Neut % (Auto) Lymph % (Auto) Rock % (Auto) Eos % (Auto) Baso % (Auto) Lymph # (Auto) Rock # (Auto) Baso # (Auto) Total Counted Seg Neutrophils % (38-70) % Band Neutrophils % (3-7) % Lymphocytes % (Manual) (25-45) % Atypical Lymphs % ( - 0) % Monocytes % (Manual) (2-11) % Eosinophils % (Manual) (2-4) % Metamyelocytes % (-0) % Myelocytes % (-0) % Neutrophils # (Manual) (7210-0147) /uL RBC Morphology Polychromasia Anisocytosis PT (10.1-12.7) SECONDS INR (0.9-1.3) APTT (26.4-36.2) SECONDS Sodium (137-145) mmol/L Potassium (3.4-5.1) mmol/L Chloride (98-107) mmol/L Carbon Dioxide (22-32) mmol/L BUN (9-20) mg/dL Creatinine (0.66-1.25) mg/dL Estimated GFR (>60) mL/min BUN/Creatinine Ratio (6-22) Glucose (80-110) mg/dL Calcium (8.4-10.2) mg/dL Total Bilirubin (0.2-1.3) mg/dL AST (17-59) IU/L ALT (<50) IU/L Alkaline Phosphatase (38-126) U/L Total Creatine Kinase (55-170) U/L CK-MB (CK-2) CK-MB (CK-2) Rel Index Troponin I (0.01-0.034) ng/mL Total Protein (6.3-8.2) g/dL Albumin (3.5-5.0) g/dL Globulin (1.7-4.1) g/dL Albumin/Globulin Ratio (1.0-2.8) Lipase (23-300) U/L Blood Type O Positive Antibody Screen Negative ECG Data Attestation: I personally reviewed and interpreted this ECG as follows: Prior ECG tracings: not available for review Interpretation: Sinus tachycardia Ventricular rate of 108 Normal axis LVH Normal QRS Nonspecific ST T wave changes T-wave inversions in lead 1 to aVL V2 V3 V4 V5 and V6 are not new compared to an EKG dated 10/30/2020 [facility] Narrative Medical decision making narrative: Patient does have a low white blood cell count however compared to the labs that he has paperwork for that were drawn yesterday it is slightly improved. He also has a slight increase in his hemoglobin and hematocrit today. He is 1 week status post chemotherapy. No indication for blood transfusion. He does have an elevated blood glucose however he states that his facility service manager knows about this and they have been making adjustments to his tube feedings. The redness around the ostomy site appear to have irritation. I have low suspicion this is an infection. I did discuss this with the patient and the . I also discussed the case with Dr. Johnson who is the patient's oncologist who agrees that providing reassurance and follow-up was the appropriate course. No indication for antibiotics or blood. I discussed this with the patient and his . We discussed importance of avoiding falling at home. Patient and expressed understanding and agreement. Discharge Plan Departure Patient Disposition: Home Clinical Impression: Leukopenia, Fatigue Instructions: DI for Cancer Fatigue Activity Restrictions/Additional Instructions: Recommend you continue all of your medications as directed and keep all of your scheduled medical appointments. Your labs today are reassuring and showed no indication for any blood transfusions. I did discuss the your case with Dr. Jenn bhandari who agrees on holding any blood transfusions for now. Recommend you contact his office for a follow-up. Return to the emergency department for any new or worsening symptoms. Prescriptions: No Action azithromycin 250 mg tablet See Rx Instructions PO .COMPLEX Qty: 6 RF: 0 albuterol sulfate 90 mcg/actuation HFA aerosol inhaler 1 puff INHALATION Q6-8H PRN (Reason: bronchospasm) Qty: 6.7 RF: 0 acetaminophen-pamabrom 500-25 mg tablet 1 tab PO Q4-6H RF: 0 alendronate 70 mg tablet 70 mg PO QWEEK RF: 0 allopurinol 100 mg tablet 100 mg PO DAILY RF: 0 ascorbic acid (vitamin C) 500 mg capsule, extended release 500 mg PO DAILY RF: 0 aspirin [Adult Low Dose Aspirin] 81 mg tablet,delayed release (DR/EC) 81 mg PO DAILY RF: 0 atorvastatin 20 mg tablet 20 mg PO DAILY RF: 0 Antacid (calcium carbonate) 215 mg calcium (500 mg) tablet,chewable 215 mg PO BID RF: 0 carvedilol 3.125 mg tablet 3.125 mg PO BID RF: 0 cholecalciferol (vitamin D3) 1,000 unit capsule 2,000 unit PO DAILY RF: 0 ferrous sulfate 325 mg (65 mg iron) tablet 325 mg PO DAILY RF: 0 hydralazine 50 mg tablet 50 mg PO TID RF: 0 insulin aspart U-100 100 unit/mL insulin pen 12 unit SUBCUT TID RF: 0 Lantus Solostar U-100 Insulin 100 unit/mL (3 mL) insulin pen 15 unit SUBCUT DAILY RF: 0 levothyroxine 100 mcg capsule 100 mcg PO DAILY RF: 0 mycophenolate sodium 180 mg tablet,delayed release (DR/EC) 180 mg PO BID RF: 0 omeprazole 20 mg capsule,delayed release(DR/EC) 20 mg PO DAILY RF: 0 comb no.42-folic acid 1 tab PO DAILY RF: 0 tacrolimus 5 mg capsule 5 mg PO Q12H RF: 0 zolpidem 10 mg tablet 5 mg PO BEDTIME RF: 0 famotidine 20 mg Tablet 20 mg feeding tube BID RF: 0 fluticasone propionate [Flonase] 50 mcg/actuation [place],Suspension 2 spray INTRANASAL DAILY RF: 0 Granix 300 mcg/0.5 mL Syringe 300 mcg SUBCUT RF: 0 oxycodone 5 mg Tablet 5 mg PO Q4H RF: 0 prochlorperazine maleate [Compazine] 10 mg Tablet 10 mg PO BID PRN (Reason: Nausea) RF: 0 potassium chloride 40 mEq/15 mL Liquid 20 meq PO DAILY RF: 0 simethicone 80 mg Tablet,Chewable 80 mg PO PRN PRN (Reason: Nausea) RF: 0 rosuvastatin 20 mg Tablet 20 mg PO DAILY RF: 0 Referrals: Mendoza Venegas MD [Primary Care Provider] -
--- NOTE | 2020-11-19 09:39 | PC.NURSE ---
Generalized weakness, patient saw [employer] Ad Supervisor yesterday and noted low blood counts. Patient had a transfusion one month ago here. Denies blood in urine or stool. Denies pain.
[2020-11-19 10:00] VITALS: BP 111/73; PULSE 109; RESP 20; O2SAT 94
[2020-11-19 10:03] LABS: Hematocrit 29.7 % (41-53); Mean Corpuscular HGB Conc 33.8 % (30-36); Mean Corpuscular Hemoglobin 28.5 PG (26-34); Mean Corpuscular Volume 84.3 fL (80-100); Prothrombin Time 11.5 SECONDS (10.1-12.7); Red Blood Cell Count 3.52 X10^6/uL (4.5-5.9); Red Cell Distribution Width 15.6 % (11.6-14.8)
[2020-11-19 10:06] LABS: PTT Partial Thromboplastin Tim 27 SECONDS (26.4-36.2)
[2020-11-19 10:08] LABS: Add Manual Diff / Slide Review YES; Alanine Aminotransferase 28 IU/L (<50); Albumin 3.7 g/dL (3.5-5.0); Albumin Globulin Ratio 1.2 (1.0-2.8); Alkaline Phosphatase 120 U/L (38-126); Aspartate Aminotransferase 28 IU/L (17-59); BUN Creatinine Ratio 30.4 (6-22); Bilirubin Total 0.5 mg/dL (0.2-1.3); Blood Urea Nitrogen 24 mg/dL (9-20); Calcium 9.1 mg/dL (8.4-10.2); Carbon Dioxide 33 mmol/L (22-32); Chloride 93 mmol/L (98-107); Creatine Kinase 21 U/L (55-170); Estimated Glomerular Filt Rate > 60.0 mL/min (>60); Glucose 251 mg/dL (80-110); HEMOLYSIS < 15 (0-50); Lipase 61 U/L (23-300); Potassium 4.1 mmol/L (3.4-5.1); Sodium 133 mmol/L (137-145); Total Protein 6.7 g/dL (6.3-8.2); White Blood Cell Count 1.1 X10^3/uL (4.5-11.0)
[2020-11-19 10:22] LABS: Troponin I < 0.012 ng/mL (0.01-0.034)
[2020-11-19 10:30] VITALS: BP 105/66; PULSE 107; RESP 23; O2SAT 95
[2020-11-19 10:57] LABS: Neutrophils Absolute Manual 286 /uL (3000-5900); Total Cells Counted 50
[2020-11-19 11:00] VITALS: BP 104/67; PULSE 106; RESP 21; O2SAT 97
[2020-11-19 11:04] LABS: Anisocytosis 1+; Polychromasia 1+
[2020-11-19 11:05] LABS: Platelet Count 161 X10^3/uL (150-400)
== END 2020-11-19 11:16 | disposition home or self-care (01) ==
PROVIDERS: Emergency Provider Emergency Medicine; PCP Internal Medicine
DX: D72.819 Decreased white blood cell count, unspecified (principal); R53.83 Other fatigue; R07.9 Chest pain, unspecified; Z85.71 Personal history of Hodgkin lymphoma
CPT/HCPCS: 36415; 80053; 82550; 83690; 84484; 85007; 85025; 85610; 85730; 86850; 86900; 86901; 93005; 99283; 99284

== ENCOUNTER → 2020-11-25 16:22 | Outpatient (CLI) | payer MEDICARE, OTHER, SELFPAY ==
[2020-11-25 17:41] LABS: Add Manual Diff / Slide Review YES; Hematocrit 25.2 % (41-53); Hemoglobin 8.5 g/dL (13.5-17.5); Mean Corpuscular HGB Conc 33.9 % (30-36); Mean Corpuscular Hemoglobin 28.6 PG (26-34); Mean Corpuscular Volume 84.4 fL (80-100); Platelet Count 222 X10^3/uL (150-400); Red Blood Cell Count 2.98 X10^6/uL (4.5-5.9); Red Cell Distribution Width 16.3 % (11.6-14.8); White Blood Cell Count 5.2 X10^3/uL (4.5-11.0)
[2020-11-25 17:58] LABS: Alanine Aminotransferase 42 IU/L (<50); Albumin 3.8 g/dL (3.5-5.0); Albumin Globulin Ratio 1.2 (1.0-2.8); Alkaline Phosphatase 153 U/L (38-126); Aspartate Aminotransferase 42 IU/L (17-59); BUN Creatinine Ratio 28.4 (6-22); Bilirubin Total 0.3 mg/dL (0.2-1.3); Blood Urea Nitrogen 25 mg/dL (9-20); Calcium 9.4 mg/dL (8.4-10.2); Carbon Dioxide 34 mmol/L (22-32); Chloride 96 mmol/L (98-107); Estimated Glomerular Filt Rate > 60.0 mL/min (>60); Globulin 3.2 g/dL (1.7-4.1); Glucose 165 mg/dL (80-110); HEMOLYSIS < 15 (0-50); Potassium 4.5 mmol/L (3.4-5.1); Sodium 135 mmol/L (137-145)
[2020-11-25 17:59] LABS: Anisocytosis 1+; Neutrophils Absolute Manual 4316 /uL (3000-5900); Rouleaux 1+; Total Cells Counted 100
[2020-11-26 08:51] LABS: Sirolimus 7.9 ng/mL (3.0-20.0); Tacrolimus 2.9 ng/mL (2.0-20.0)
== END ==
PROVIDERS: PCP Internal Medicine; Referring Provider Internal Medicine Hematology & Oncology; Visit Provider Internal Medicine Hematology & Oncology
DX: C83.38 Diffuse large B-cell lymphoma, lymph nodes of multiple sites (principal); Z94.1 Heart transplant status
CPT/HCPCS: 36415; 80053; 80195; 80197; 85007; 85025

== ENCOUNTER → 2020-12-09 13:57 | Outpatient (CLI) | payer MEDICARE, OTHER, SELFPAY ==
[2020-12-09] MEDS: COVID-19 VACC #1, MRNA(MOD) 100 MCG/0.5 ML VIAL IM (14:05)
== END ==
PROVIDERS: PCP Internal Medicine; Visit Provider Internal Medicine
DX: Z23 Encounter for immunization (principal)
CPT/HCPCS: 0011A; 91301

== ENCOUNTER → 2020-12-09 14:25 | Outpatient (CLI) | payer MEDICARE, OTHER, SELFPAY ==
[2020-12-09 16:00] LABS: Hematocrit 26.2 % (41-53); Hemoglobin 9.1 g/dL (13.5-17.5); Mean Corpuscular HGB Conc 34.7 % (30-36); Mean Corpuscular Hemoglobin 29.5 PG (26-34); Mean Corpuscular Volume 85.1 fL (80-100); Platelet Count 199 X10^3/uL (150-400); Red Blood Cell Count 3.08 X10^6/uL (4.5-5.9); Red Cell Distribution Width 16.6 % (11.6-14.8)
[2020-12-09 16:02] LABS: Add Manual Diff / Slide Review YES; White Blood Cell Count 1.2 X10^3/uL (4.5-11.0)
--- NOTE | 2020-12-09 16:31 | PC.NURSE ---
CRITICAL VALUE WBC TODAY FAXED TO DR MONTENEGRO AT [facility] AND [facility] INFOR[facility].
[2020-12-09 17:32] LABS: Neutrophils Absolute Manual 288 /uL (3000-5900); Total Cells Counted 25
[2020-12-09 17:34] LABS: RBC Morphology Normal Morphology
[2020-12-09 17:35] LABS: Platelet Estimate Adequate on smear
== END ==
PROVIDERS: PCP Internal Medicine; Referring Provider Internal Medicine Hematology & Oncology; Visit Provider Internal Medicine Hematology & Oncology
DX: C83.38 Diffuse large B-cell lymphoma, lymph nodes of multiple sites (principal)
CPT/HCPCS: 36415; 85007; 85025

== ENCOUNTER 2020-12-10 02:27 | Emergency (ER) | payer MEDICARE, OTHER, SELFPAY ==
--- NOTE | 2020-12-10 02:34 | ED.HEATRA ---
HPI - Head Injury General Chief complaint: Head Injury Stated complaint: GLF Time Seen by Provider: 12/10/20 02:54 Source: patient Mode of arrival: EMS Limitations: no limitations History of Present Illness HPI Narrative: The patient fell at home prior to arrival, lacerated his head. He was up to the bathroom, he realized his too far away from the toilet and leaned forward. He fell forward hitting his head on the back of the toilet. He sustained a laceration to the scalp. Initial bleeding has ceased. He denies LOC, visual changes, bleeding from the nose, use or mouth. Has no neck or back pain. He has no discomfort with his extremities. He was not experiencing chest pain, dyspnea, weakness or dizziness. He is currently on treatment for throat cancer, with a past history of cardiac transplant. He was not experiencing chest pain or palpitations. He has required transfusion due to anemia with his cancer treatment. Labs drawn yesterday, his H/H was 9.1/. Related Data Home Medications Medication Instructions Recorded Confirmed acetaminophen-pamabrom 500 mg-25 1 tab PO Q4-6H 02/21/19 11/19/20 mg tablet alendronate 70 mg tablet 70 mg PO QWEEK 02/21/19 11/19/20 allopurinol 100 mg tablet 100 mg PO DAILY 02/21/19 11/19/20 ascorbic acid (vitamin C) 500 mg 500 mg PO DAILY 02/21/19 11/19/20 capsule,extended release aspirin 81 mg tablet,delayed 81 mg PO DAILY 02/21/19 11/19/20 release atorvastatin 20 mg tablet 20 mg PO DAILY 02/21/19 02/21/19 calcium carbonate 215 mg calcium 215 mg PO BID tab 02/21/19 11/19/20 (500 mg) chewable tablet carvedilol 3.125 mg tablet 3.125 mg PO BID 02/21/19 11/19/20 cholecalciferol (vitamin D3) 25 2,000 unit PO DAILY 02/21/19 02/21/19 mcg (1,000 unit) capsule ferrous sulfate 325 mg (65 mg 325 mg PO DAILY tab 02/21/19 11/19/20 iron) tablet hydralazine 50 mg tablet 50 mg PO TID 02/21/19 11/19/20 insulin aspart U-100 100 unit/mL 12 unit SUBCUT TID ml 02/21/19 11/19/20 (3 mL) subcutaneous pen insulin glargine 100 unit/mL (3 15 unit SUBCUT DAILY 02/21/19 11/19/20 mL) subcutaneous pen levothyroxine 100 mcg capsule 100 mcg PO DAILY 02/21/19 11/19/20 mycophenolate sodium 180 mg 180 mg PO BID tab 02/21/19 02/21/19 tablet,delayed release omeprazole 20 mg capsule,delayed 20 mg PO DAILY 02/21/19 11/19/20 release comb no.42-folic acid 1 tab PO DAILY 02/21/19 11/19/20 tacrolimus 5 mg capsule, 5 mg PO Q12H 02/21/19 11/19/20 immediate-release zolpidem 10 mg tablet 5 mg PO BEDTIME tab 02/21/19 11/19/20 famotidine 20 mg FEEDING TUBE BID 11/19/20 11/19/20 fluticasone propionate [Flonase] 2 spray INTRANASAL DAILY 11/19/20 11/19/20 oxycodone 5 mg PO Q4H 11/19/20 11/19/20 potassium chloride 20 meq PO DAILY 11/19/20 11/19/20 prochlorperazine maleate 10 mg PO BID PRN 11/19/20 11/19/20 [Compazine] rosuvastatin 20 mg PO DAILY 11/19/20 11/19/20 simethicone 80 mg PO PRN PRN 11/19/20 11/19/20 tbo-filgrastim [Granix] 300 mcg SUBCUT 11/19/20 Previous Rx's Medication Instructions Recorded albuterol sulfate 90 mcg/actuation 1 puff INHALATION Q6-8H PRN #6.7 02/21/19 aerosol inhaler gram azithromycin 250 mg tablet See Rx Instructions PO .COMPLEX #6 02/21/19 tab Allergies Allergy/AdvReac Type Severity Reaction Status Date / Time fish oil [FISH OIL] Allergy Unknown Verified 11/19/20 09:28 hydrocodone [HYDROCODONE] Allergy Unknown Verified 11/19/20 09:28 Review of Systems Constitutional Constitutional: Denies fever(s) and Denies headache(s) Comments: No recent illness Eyes Eyes: Denies change in vision ENT Ears, Nose, Mouth, and Throat: Denies vertigo, Denies dizziness and Denies headache(s) Cardiovascular Cardiovascular: Denies chest pain, Denies irregular heart rhythm and Denies dyspnea Respiratory Respiratory: Denies cough and Denies dyspnea Musculoskeletal Comments: No neck pain. No back pain. No extremity injuries. No difficulty with ambulation. Integumentary/Breasts Comments: Left arm hours following the fall. Neurologic Neurologic: Denies vertigo, Denies dizziness and Denies headache(s) Patient History Medical History (Updated 12/10/20 @ 03:57 by Sumeet Barnhart MD) Diabetes Lymphoma Throat cancer Surgical History Heart transplant status Social History Smoking Status: Never smoker Smoking Status: Never smoker Substance Use Type: does not use Exam Initial Vital Signs Initial Vital Signs: Vital Signs Pulse Rate 113 H 12/10/20 02:39 Respiratory Rate 20 12/10/20 02:39 Blood Pressure 137/76 12/10/20 02:39 Pulse Oximetry 98 12/10/20 02:39 Const General: cooperative and well developed Nutritional Appearance: well nourished [facility] Head: laceration (8 cm V-shaped laceration, central anterior scalp.) Mouth: oral mucosae normal Throat: posterior oropharynx normal Eyes General: appearance normal, both eyes and all related structures Eyelids: eyelids normal Conjunctivae: conjunctivae normal Sclera: sclerae normal Pupils: PERRL EOM: EOM intact bilaterally Neck Neck: No tender Chest Chest: normal inspection of the chest and normal palpation of entire chest wall Resp Auscultation: clear to auscultation bilaterally Cardio Rate: regular rate Rhythm: regular rhythm Heart Sounds: no click, no gallops, no murmurs and no rubs Pulses: normal peripheral pulses GI Other: Nontender. No distension. Back/Spine/Pelvis Back: No back tenderness and No ecchymosis Skin Other: Pallor. Occasional contusion. He does insulin injections. No acute findings. Neuro General: patient alert, patient oriented x3, gait normal and no focal motor deficits Speech: speech normal Extrem General: full ROM, no pedal edema and no calf tenderness Procedures Laceration Repair Laceration 1: Site: scalp Size (cm): 8 Description: flap Depth: simple, single layer Local Anesthetic: lidocaine 2% Amount of anesthesia used (mL): 5 Pre-repair: wound explored, irrigated extensively and deep structures intact Skin layer closed with: logan (#5) Course Course Course Narrative: The scalp wound was cleansed with Betadine, rinsed with saline. Lacking was applied. The site was closed without complications. Bandage was applied by the patient's nurse prior to discharge. Orders Ordered: Discontinued Medications Dexamethasone (Dexamethasone 1 Mg Tablet) 6 mg PO NOW ONE Stop: 12/10/20 03:40 Lidocaine HCl (Lidocaine Jelly 2% 5 Ml) 1 applic TOP NOW ONE Stop: 12/10/20 02:42 Last Admin: 12/10/20 02:44 Dose: 1 applic Documented by: IHSAN Vital Signs Vital signs: Vital Signs - 8 hr 12/10/20 02:39 12/10/20 04:08 12/10/20 04:23 Pulse Rate 113 H 109 H Respiratory Rate 20 Blood Pressure 137/76 Pulse Oximetry 98 95 95 12/10/20 04:37 Pulse Rate Respiratory Rate Blood Pressure 109/70 Pulse Oximetry Discharge Plan Departure Patient Disposition: Home Clinical Impression: Laceration of scalp Qualifiers: Encounter type: initial encounter Qualified Code(s): S01.01XA - Laceration without foreign body of scalp, initial encounter Instructions: DI for Laceration Repair Activity Restrictions/Additional Instructions: Keep the laceration recover tonight. You may jorge Mar, clean the site. Follow-up with your doctor in about 10 days for staple removal. Return here if necessary. Prescriptions: No Action azithromycin 250 mg tablet See Rx Instructions PO .COMPLEX Qty: 6 RF: 0 albuterol sulfate 90 mcg/actuation HFA aerosol inhaler 1 puff INHALATION Q6-8H PRN (Reason: bronchospasm) Qty: 6.7 RF: 0 acetaminophen-pamabrom 500-25 mg tablet 1 tab PO Q4-6H RF: 0 alendronate 70 mg tablet 70 mg PO QWEEK RF: 0 allopurinol 100 mg tablet 100 mg PO DAILY RF: 0 ascorbic acid (vitamin C) 500 mg capsule, extended release 500 mg PO DAILY RF: 0 aspirin [Adult Low Dose Aspirin] 81 mg tablet,delayed release (DR/EC) 81 mg PO DAILY RF: 0 atorvastatin 20 mg tablet 20 mg PO DAILY RF: 0 Antacid (calcium carbonate) 215 mg calcium (500 mg) tablet,chewable 215 mg PO BID RF: 0 carvedilol 3.125 mg tablet 3.125 mg PO BID RF: 0 cholecalciferol (vitamin D3) 1,000 unit capsule 2,000 unit PO DAILY RF: 0 ferrous sulfate 325 mg (65 mg iron) tablet 325 mg PO DAILY RF: 0 hydralazine 50 mg tablet 50 mg PO TID RF: 0 insulin aspart U-100 100 unit/mL insulin pen 12 unit SUBCUT TID RF: 0 Lantus Solostar U-100 Insulin 100 unit/mL (3 mL) insulin pen 15 unit SUBCUT DAILY RF: 0 levothyroxine 100 mcg capsule 100 mcg PO DAILY RF: 0 mycophenolate sodium 180 mg tablet,delayed release (DR/EC) 180 mg PO BID RF: 0 omeprazole 20 mg capsule,delayed release(DR/EC) 20 mg PO DAILY RF: 0 comb no.42-folic acid 1 tab PO DAILY RF: 0 tacrolimus 5 mg capsule 5 mg PO Q12H RF: 0 zolpidem 10 mg tablet 5 mg PO BEDTIME RF: 0 famotidine 20 mg Tablet 20 mg feeding tube BID RF: 0 fluticasone propionate [Flonase] 50 mcg/actuation [place],Suspension 2 spray INTRANASAL DAILY RF: 0 Granix 300 mcg/0.5 mL Syringe 300 mcg SUBCUT RF: 0 oxycodone 5 mg Tablet 5 mg PO Q4H RF: 0 prochlorperazine maleate [Compazine] 10 mg Tablet 10 mg PO BID PRN (Reason: Nausea) RF: 0 potassium chloride 40 mEq/15 mL Liquid 20 meq PO DAILY RF: 0 simethicone 80 mg Tablet,Chewable 80 mg PO PRN PRN (Reason: Nausea) RF: 0 rosuvastatin 20 mg Tablet 20 mg PO DAILY RF: 0 Referrals: Mendoza Venegas MD [Primary Care Provider] -
[2020-12-10 02:39] VITALS: BP 137/76; PULSE 113; RESP 20; O2SAT 98; BMI 23.6
[2020-12-10] MEDS: LIDOCAINE JELLY 2% 5 ML 1 APPLIC TOP (02:44)
[2020-12-10 04:08] VITALS: PULSE 109; O2SAT 95
[2020-12-10 04:23] VITALS: O2SAT 95
[2020-12-10 04:37] VITALS: BP 109/70
== END 2020-12-10 04:35 | disposition home or self-care (01) ==
PROVIDERS: Emergency Provider Emergency Medicine; PCP Internal Medicine
DX: S01.01XA Laceration without foreign body of scalp, initial encounter (principal); W18.09XA Striking against other object with subsequent fall, initial encounter
CPT/HCPCS: 12004; 99282; 99283

== ENCOUNTER → 2020-12-16 11:19 | Outpatient (CLI) | payer MEDICARE, OTHER, SELFPAY ==
[2020-12-16 12:07] LABS: Hematocrit 21.9 % (41-53); Hemoglobin 7.4 g/dL (13.5-17.5); Mean Corpuscular Hemoglobin 29.2 PG (26-34); Platelet Count 176 X10^3/uL (150-400); Red Blood Cell Count 2.54 X10^6/uL (4.5-5.9); Red Cell Distribution Width 17.4 % (11.6-14.8); White Blood Cell Count 5.5 X10^3/uL (4.5-11.0)
[2020-12-16 12:08] LABS: Add Manual Diff / Slide Review YES
[2020-12-16 12:33] LABS: Neutrophils Absolute Manual 4510 /uL (3000-5900); Nucleated Red Blood Cells 1 #/Diff; Total Cells Counted 100
[2020-12-16 12:34] LABS: Anisocytosis 3+; Hypochromasia 2+; Poikilocytosis 1+; Polychromasia 1+
== END ==
PROVIDERS: PCP Internal Medicine; Referring Provider Internal Medicine Hematology & Oncology; Visit Provider Internal Medicine Hematology & Oncology
DX: C83.38 Diffuse large B-cell lymphoma, lymph nodes of multiple sites (principal)
CPT/HCPCS: 36415; 85007; 85025

== ENCOUNTER → 2021-01-06 13:18 | Outpatient (CLI) | payer MEDICARE, OTHER, SELFPAY ==
[2021-01-06] MEDS: COVID-19 VACC #2, MRNA(MOD) 100 MCG/0.5 ML VIAL IM (13:29)
== END ==
PROVIDERS: PCP Internal Medicine; Visit Provider Internal Medicine
DX: Z23 Encounter for immunization (principal)
CPT/HCPCS: 0012A; 91301

== ENCOUNTER → 2021-01-06 13:43 | Outpatient (CLI) | payer MEDICARE, OTHER, SELFPAY ==
[2021-01-06 15:18] LABS: Hematocrit 27.1 % (41-53); Hemoglobin 9.2 g/dL (13.5-17.5); Mean Corpuscular Hemoglobin 29.6 PG (26-34); Mean Corpuscular Volume 87.1 fL (80-100); Platelet Count 300 X10^3/uL (150-400); Red Blood Cell Count 3.11 X10^6/uL (4.5-5.9); Red Cell Distribution Width 16.2 % (11.6-14.8); White Blood Cell Count 4.6 X10^3/uL (4.5-11.0)
[2021-01-06 15:19] LABS: Add Manual Diff / Slide Review YES
[2021-01-06 16:10] LABS: Neutrophils Absolute Manual 3404 /uL (3000-5900); Total Cells Counted 100
[2021-01-06 16:11] LABS: RBC Morphology Normal Morphology
== END ==
PROVIDERS: PCP Internal Medicine; Referring Provider Internal Medicine Hematology & Oncology; Visit Provider Internal Medicine Hematology & Oncology
DX: C83.38 Diffuse large B-cell lymphoma, lymph nodes of multiple sites (principal)
CPT/HCPCS: 36415; 85007; 85025

== ENCOUNTER 2021-01-14 11:52 | Emergency (ER) | payer MEDICARE, OTHER, SELFPAY ==
[2021-01-14] VITALS (22 sets, daily range): BP systolic 107–157; BP diastolic 62–85; PULSE 104–116; RESP 13–29; TEMP 36.9–37.2; O2SAT 93–100; BMI 26.3
--- NOTE | 2021-01-14 12:07 | DI.RAD.S_ITS ---
PROCEDURE: XR CHEST 1V INDICATIONS: possibly aspirated TECHNIQUE: One view of the chest was acquired. COMPARISON: [facility], CR, XR CHEST 1 VIEW, 12/28/2020, 17:49. [facility], CT, CT ANGIO CHEST PE, 12/28/2020, 19:06. [facility], CR, XR CHEST 1V, 10/30/2020, 5:59. FINDINGS: Surgical changes and devices: Right-sided tunneled port device remains unchanged in positioning. Median sternotomy wires are present and appear intact. 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 Lungs and pleura: Streaky bibasilar opacities more pronounced on the left. No focal consolidations. Mild blunting of the left costophrenic angle consistent with a small pleural effusion. No pneumothorax. Mediastinum: Mediastinal contours appear stable. Heart size is enlarged. Bones and chest wall: No suspicious bony lesions. Overlying soft tissues appear unremarkable. IMPRESSION: 1. Streaky left greater than right bibasilar opacities which may represent atelectasis. Other considerations include aspiration versus focal airspace disease/pneumonia. Small left pleural effusion. 2. Mild cardiomegaly. Recommend follow up chest radiograph 4-6 weeks after treatment to document resolution of findings and/or return to baseline examination. Dictated by: Nishant Amezcua M.D. on 01/14/2021 at 11:54 Approved by: Nishant Amezcua M.D. on 01/14/2021 at 12:01
[2021-01-14] MEDS: SODIUM CHLORIDE 0.9% 1,000 ML 1000 ML IV (12:41)
[2021-01-14 12:50] LABS: Prothrombin Time 11.9 SECONDS (10.1-12.7)
--- NOTE | 2021-01-14 12:50 | ED.SOB ---
HPI - SOB/Dyspnea General Chief Complaint: Shortness of Breath/Dyspnea Stated Complaint: rattle in chest, weakness, chemo patient Time Seen by Provider: 01/14/21 12:50 Source: patient Mode of arrival: Ambulatory Limitations: no limitations History of Present Illness HPI Narrative: This is a 70-year-old male comes emergency department with complaint of sounds in his chest. Patient's states she noticed that he had some sort of gurgling sounds when she was giving him his feet through his PEG tube. Patient does have a history of aspiration pneumonia and has dysphagia and is unable to drink or swallow anything other than his own saliva. She states that he does have a small amount of soda weekly that he will spit out but accidentally swallowed several days ago. They did not appreciate any coughing or choking at that time but his did the following day. Patient has not had any fevers or chills. He had 1 episode of diaphoresis overnight. He has not had any chest pain, no pressure, no shortness of breath. He has not had any cough. Patient denies any nausea or vomiting. He has had diarrhea for approximately 21 days but that has been improving with Imodium as well as a secondary medication given to him by his oncologist. Patient denies any new urinary symptoms. Neither patient nor his have appreciated any melena or hematochezia in his stool. He was hospitalized about 3 weeks ago for some kind of inflammation or possibly a colitis in his abdomen and was on 2 oral antibiotics which he has completed but is continuing on Bactrim daily which is his normal chronic medication. Patient does have a history of heart transplant, he has a chronic PEG tube. Related Data Home Medications Medication Instructions Recorded Confirmed acetaminophen-pamabrom 500 mg-25 1 tab PO Q4-6H 02/21/19 11/19/20 mg tablet alendronate 70 mg tablet 70 mg PO QWEEK 02/21/19 11/19/20 allopurinol 100 mg tablet 100 mg PO DAILY 02/21/19 11/19/20 ascorbic acid (vitamin C) 500 mg 500 mg PO DAILY 02/21/19 11/19/20 capsule,extended release aspirin 81 mg tablet,delayed 81 mg PO DAILY 02/21/19 11/19/20 release atorvastatin 20 mg tablet 20 mg PO DAILY 02/21/19 02/21/19 calcium carbonate 215 mg calcium 215 mg PO BID tab 02/21/19 11/19/20 (500 mg) chewable tablet carvedilol 3.125 mg tablet 3.125 mg PO BID 02/21/19 11/19/20 cholecalciferol (vitamin D3) 25 2,000 unit PO DAILY 02/21/19 02/21/19 mcg (1,000 unit) capsule ferrous sulfate 325 mg (65 mg 325 mg PO DAILY tab 02/21/19 11/19/20 iron) tablet hydralazine 50 mg tablet 50 mg PO TID 02/21/19 11/19/20 insulin aspart U-100 100 unit/mL 12 unit SUBCUT TID ml 02/21/19 11/19/20 (3 mL) subcutaneous pen insulin glargine 100 unit/mL (3 15 unit SUBCUT DAILY 02/21/19 11/19/20 mL) subcutaneous pen levothyroxine 100 mcg capsule 100 mcg PO DAILY 02/21/19 11/19/20 mycophenolate sodium 180 mg 180 mg PO BID tab 02/21/19 02/21/19 tablet,delayed release omeprazole 20 mg capsule,delayed 20 mg PO DAILY 02/21/19 11/19/20 release comb no.42-folic acid 1 tab PO DAILY 02/21/19 11/19/20 tacrolimus 5 mg capsule, 5 mg PO Q12H 02/21/19 11/19/20 immediate-release zolpidem 10 mg tablet 5 mg PO BEDTIME tab 02/21/19 11/19/20 famotidine 20 mg FEEDING TUBE BID 11/19/20 11/19/20 fluticasone propionate [Flonase] 2 spray INTRANASAL DAILY 11/19/20 11/19/20 oxycodone 5 mg PO Q4H 11/19/20 11/19/20 potassium chloride 20 meq PO DAILY 11/19/20 11/19/20 prochlorperazine maleate 10 mg PO BID PRN 11/19/20 11/19/20 [Compazine] rosuvastatin 20 mg PO DAILY 11/19/20 11/19/20 simethicone 80 mg PO PRN PRN 11/19/20 11/19/20 tbo-filgrastim [Granix] 300 mcg SUBCUT 11/19/20 Previous Rx's Medication Instructions Recorded albuterol sulfate 90 mcg/actuation 1 puff INHALATION Q6-8H PRN #6.7 02/21/19 aerosol inhaler gram azithromycin 250 mg tablet See Rx Instructions PO .COMPLEX #6 02/21/19 tab azithromycin See Rx Instructions .ROUTE 01/14/21 .COMPLEX #6 tab cefpodoxime 200 mg PO BID #20 tab 01/14/21 Allergies Allergy/AdvReac Type Severity Reaction Status Date / Time fish oil [FISH OIL] Allergy Unknown Verified 01/14/21 12:07 hydrocodone [HYDROCODONE] Allergy Unknown Verified 01/14/21 12:07 Review of Systems Review of Systems ROS Unobtainable: All systems reviewed & are unremarkable except as noted in HPI and below Patient History Medical History Diabetes Lymphoma Throat cancer Surgical History Heart transplant status Social History Smoking Status: Never smoker Smoking Status: Never smoker alcohol intake frequency: holidays/special occasions only Substance Use Type: does not use Exam Narrative Exam Narrative: GEN: Elderly male, alert and oriented x 3, patient appears to be in mild distress. Patient has healed laceration on anterior forehead. HEENT: Atraumatic, pupils are equal round reactive to light, extraocular movements are intact. HEART: Regular rate and rhythm without murmur, clicks, rubs. LUNGS:Lungs clear to auscultation, no wheezes, rales, crackles, chest moves symmetrically, no tachypnea accessory muscle use. ABD:bowel sounds normal, soft, non-tender, no guarding, rebound, rigidity, no masses noted, no hepatosplenomegaly, abdomen is nondistended. Peg tube is in place and is clean dry and intact without any erythema or skin changes surrounding. :No CVA tenderness MSCL: Non-tender NEURO:CN 2-12 intact, sensation normal SKIN: Pale, no petechiae, ecchymosis or other skin changes noted. Initial Vital Signs Initial Vital Signs: Vital Signs Temperature 98.5 F 01/14/21 12:00 Pulse Rate 114 H 01/14/21 12:00 Respiratory Rate 24 01/14/21 12:00 Blood Pressure 123/78 01/14/21 12:00 Pulse Oximetry 97 01/14/21 12:00 Course Orders Ordered: Discontinued Medications Azithromycin (Azithromycin 250 Mg Tablet) 500 mg PO NOW ONE Stop: 01/14/21 19:03 Last Admin: 01/14/21 19:10 Dose: 500 mg Documented by: YANETH Cefdinir (Cefdinir 300 Mg Capsule) 300 mg PO NOW ONE Stop: 01/14/21 19:05 Last Admin: 01/14/21 19:10 Dose: 300 mg Documented by: YANETH Furosemide (Furosemide 20 Mg/2 Ml Vial) 20 mg IV NOW ONE Stop: 01/14/21 15:27 Last Admin: 01/14/21 18:42 Dose: 20 mg Documented by: YANETH Sodium Chloride (Normal Saline 0.9%) 1,000 mls @ 1,000 mls/hr IV BOLUS ONE Stop: 01/14/21 13:05 Last Infusion: 01/14/21 16:38 Dose: 0 mls/hr Documented by: Admin: 01/14/21 12:41 Dose: 1,000 mls/hr Documented by: YANETH Consultations Consultation #1: Spoke with Dr. Johnson from oncology, who recommends transfusing 1 unit of PRBCs. He does not recommend more than this secondary to potential for fluid overload with patient's history of heart transplant. Time: 15:24 Consultation #2: [facility] cardiology-Dr. Chavez has no specific recommendations from a cardiac standpoint and states patient has been stable. Time: 15:43 Vital Signs Vital signs: Vital Signs - 8 hr 01/14/21 12:00 01/14/21 12:35 01/14/21 12:48 Temperature 98.5 F Pulse Rate 114 H 108 H 107 H Respiratory Rate 24 18 21 Blood Pressure 123/78 116/69 Pulse Oximetry 97 94 94 01/14/21 13:00 01/14/21 13:30 01/14/21 14:00 Temperature Pulse Rate 107 H 104 H 104 H Respiratory Rate 18 13 23 Blood Pressure 111/73 120/66 Pulse Oximetry 93 93 95 01/14/21 14:01 01/14/21 14:22 01/14/21 14:24 Temperature Pulse Rate 105 H 116 H 109 H Respiratory Rate 25 H 25 H 24 Blood Pressure 122/62 157/85 H 146/81 H Pulse Oximetry 95 100 100 01/14/21 14:30 01/14/21 15:00 01/14/21 15:30 Temperature Pulse Rate 106 H 104 H 111 H Respiratory Rate 24 27 H 24 Blood Pressure Pulse Oximetry 99 97 95 MDM - SOB/Dyspnea Lab Data Attestation: I reviewed the patient's lab results. Result diagrams: 01/14/21 12:18 01/14/21 12:18 Labs: Lab Results 01/14/21 01/14/21 01/14/21 Range/Units 12:18 12:18 12:18 WBC 7.2 (4.5-11.0) X10^3/uL RBC 2.49 L (4.5-5.9) X10^6/uL Hgb 7.2 L (13.5-17.5) g/dL Hct 21.8 L (41-53) % MCV 87.4 (80-100) fL MCH 28.9 (26-34) PG MCHC 33.1 (30-36) % RDW 16.9 H (11.6-14.8) % Plt Count 179 (150-400) X10^3/uL Neut % (Auto) Not Reportable Lymph % (Auto) Not Reportable [place] % (Auto) Not Reportable Eos % (Auto) Not Reportable Baso % (Auto) Not Reportable Lymph # (Auto) Not Reportable [place] # (Auto) Not Reportable Baso # (Auto) Not Reportable Total Counted 100 Seg Neutrophils % 61.0 (38-70) % Band Neutrophils % 13.0 H (3-7) % Lymphocytes % (Manual) 2.0 L (25-45) % Monocytes % (Manual) 18.0 H (2-11) % Metamyelocytes % 4.0 H (-0) % Myelocytes % 2.0 H (-0) % Neutrophils # (Manual) 5328 (8961-0533) /uL RBC Morphology See below Polychromasia 1+ H Anisocytosis 1+ H PT 11.9 (10.1-12.7) SECONDS INR 1.0 (0.9-1.3) APTT 33 D (26.4-36.2) SECONDS Sodium 134 L (137-145) mmol/L Potassium 4.1 (3.4-5.1) mmol/L Chloride 97 L (98-107) mmol/L Carbon Dioxide 31 (22-32) mmol/L BUN 16 (9-20) mg/dL Creatinine 0.86 (0.66-1.25) mg/dL Estimated GFR > 60.0 (>60) mL/min BUN/Creatinine Ratio 18.6 (6-22) Glucose 170 H (80-110) mg/dL Lactate (0.7-2.1) mmol/L Calcium 9.0 (8.4-10.2) mg/dL Total Bilirubin 0.2 (0.2-1.3) mg/dL AST 32 (17-59) IU/L ALT 16 (<50) IU/L Alkaline Phosphatase 96 (38-126) U/L Total Creatine Kinase (55-170) U/L CK-MB (CK-2) CK-MB (CK-2) Rel Index Troponin I (0.01-0.034) ng/mL NT-Pro-B Natriuret Pep (<125) pg/mL Total Protein 6.1 L (6.3-8.2) g/dL Albumin 3.4 L (3.5-5.0) g/dL Globulin 2.7 (1.7-4.1) g/dL Albumin/Globulin Ratio 1.3 (1.0-2.8) Lipase 24 (23-300) U/L Procalcitonin 0.14 (<0.5) ng/mL SARS-CoV-2 (PCR) (Negative) Blood Type Antibody Screen Crossmatch 01/14/21 01/14/21 01/14/21 Range/Units 12:18 13:00 13:05 WBC (4.5-11.0) X10^3/uL RBC (4.5-5.9) X10^6/uL Hgb (13.5-17.5) g/dL Hct (41-53) % MCV (80-100) fL MCH (26-34) PG MCHC (30-36) % RDW (11.6-14.8) % Plt Count (150-400) X10^3/uL Neut % (Auto) Lymph % (Auto) [place] % (Auto) Eos % (Auto) Baso % (Auto) Lymph # (Auto) [place] # (Auto) Baso # (Auto) Total Counted Seg Neutrophils % (38-70) % Band Neutrophils % (3-7) % Lymphocytes % (Manual) (25-45) % Monocytes % (Manual) (2-11) % Metamyelocytes % (-0) % Myelocytes % (-0) % Neutrophils # (Manual) (3355-6408) /uL RBC Morphology Polychromasia Anisocytosis PT (10.1-12.7) SECONDS INR (0.9-1.3) APTT (26.4-36.2) SECONDS Sodium (137-145) mmol/L Potassium (3.4-5.1) mmol/L Chloride (98-107) mmol/L Carbon Dioxide (22-32) mmol/L BUN (9-20) mg/dL Creatinine (0.66-1.25) mg/dL Estimated GFR (>60) mL/min BUN/Creatinine Ratio (6-22) Glucose (80-110) mg/dL Lactate 1.8 (0.7-2.1) mmol/L Calcium (8.4-10.2) mg/dL Total Bilirubin (0.2-1.3) mg/dL AST (17-59) IU/L ALT (<50) IU/L Alkaline Phosphatase (38-126) U/L Total Creatine Kinase 41 L (55-170) U/L CK-MB (CK-2) TNP CK-MB (CK-2) Rel Index TNP Troponin I < 0.012 (0.01-0.034) ng/mL NT-Pro-B Natriuret Pep 745 H (<125) pg/mL Total Protein (6.3-8.2) g/dL Albumin (3.5-5.0) g/dL Globulin (1.7-4.1) g/dL Albumin/Globulin Ratio (1.0-2.8) Lipase (23-300) U/L Procalcitonin (<0.5) ng/mL SARS-CoV-2 (PCR) (Negative) Blood Type O Positive Antibody Screen Negative Crossmatch See Detail 01/14/21 Range/Units 14:32 WBC (4.5-11.0) X10^3/uL RBC (4.5-5.9) X10^6/uL Hgb (13.5-17.5) g/dL Hct (41-53) % MCV (80-100) fL MCH (26-34) PG MCHC (30-36) % RDW (11.6-14.8) % Plt Count (150-400) X10^3/uL Neut % (Auto) Lymph % (Auto) [place] % (Auto) Eos % (Auto) Baso % (Auto) Lymph # (Auto) [place] # (Auto) Baso # (Auto) Total Counted Seg Neutrophils % (38-70) % Band Neutrophils % (3-7) % Lymphocytes % (Manual) (25-45) % Monocytes % (Manual) (2-11) % Metamyelocytes % (-0) % Myelocytes % (-0) % Neutrophils # (Manual) (2478-2813) /uL RBC Morphology Polychromasia Anisocytosis PT (10.1-12.7) SECONDS INR (0.9-1.3) APTT (26.4-36.2) SECONDS Sodium (137-145) mmol/L Potassium (3.4-5.1) mmol/L Chloride (98-107) mmol/L Carbon Dioxide (22-32) mmol/L BUN (9-20) mg/dL Creatinine (0.66-1.25) mg/dL Estimated GFR (>60) mL/min BUN/Creatinine Ratio (6-22) Glucose (80-110) mg/dL Lactate (0.7-2.1) mmol/L Calcium (8.4-10.2) mg/dL Total Bilirubin (0.2-1.3) mg/dL AST (17-59) IU/L ALT (<50) IU/L Alkaline Phosphatase (38-126) U/L Total Creatine Kinase (55-170) U/L CK-MB (CK-2) CK-MB (CK-2) Rel Index Troponin I (0.01-0.034) ng/mL NT-Pro-B Natriuret Pep (<125) pg/mL Total Protein (6.3-8.2) g/dL Albumin (3.5-5.0) g/dL Globulin (1.7-4.1) g/dL Albumin/Globulin Ratio (1.0-2.8) Lipase (23-300) U/L Procalcitonin (<0.5) ng/mL SARS-CoV-2 (PCR) Negative (Negative) Blood Type Antibody Screen Crossmatch Imaging Data Chest x-ray: Radiologist's Impression: [place] [id number] [place] [id number] ReportSigned Patient: Sumeet Cochran JMR#: [id number]: [id number]:[id number]/Sex: 70 / MDate of Service: 01/14/21Loc: EDAccession Number: [id number] Procedure: XR chest 1V Ordering Provider: Stacy Schulte D.O. PROCEDURE: XR CHEST 1V INDICATIONS: possibly aspirated TECHNIQUE: One view of the chest was acquired. COMPARISON: [facility], CR, XR CHEST 1 VIEW, 12/28/2020, 17:49. [facility], CT, CT ANGIO CHEST PE, 12/28/2020, 19:06. [facility], CR, XR CHEST 1V, 10/30/2020, 5:59. FINDINGS: Surgical changes and devices: Right-sided tunneled port device remains unchanged in positioning. Median sternotomy wires are present and appear intact. 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 Lungs and pleura: Streaky bibasilar opacities more pronounced on the left. No focal consolidations. Mild blunting of the left costophrenic angle consistent with a small pleural effusion. No pneumothorax. Mediastinum: Mediastinal contours appear stable. Heart size is enlarged. Bones and chest wall: No suspicious bony lesions. Overlying soft tissues appear unremarkable. IMPRESSION: 1. Streaky left greater than right bibasilar opacities which may represent atelectasis. Other considerations include aspiration versus focal airspace disease/pneumonia. Small left pleural effusion. 2. Mild cardiomegaly. Recommend follow up chest radiograph 4-6 weeks after treatment to document resolution of findings and/or return to baseline examination. Dictated by: Nishant Amezcua M.D. on 01/14/2021 at 11:54 Approved by: Nishant Amezcua M.D. on 01/14/2021 at 12:01 ECG Data Attestation: I personally reviewed and interpreted this ECG as follows: Interpretation: Sinus tachycardia incomplete right bundle, T-wave abnormalities. Patient has prior EKG from 11/19/2020 which has similar EKG findings into waves. Patient does not have any acute new changes in comparison to his prior EKG. [facility] Narrative Medical decision making narrative: This is a 70-year-old female who is brought in with no symptoms other than ?rattle in his chest? and some checked of weakness from the although patient states he feels fine. Patient did have a hypoglycemic episode yesterday. He has history of heart transplant, is treated currently with chemotherapy and has known pancytopenia which is the believed cause of his recurrent anemia and multiple transfusions. Patient chest x-ray does show concerning signs for possible infection. He is otherwise fairly asymptomatic. His hemoglobin today is 7 and discussed with Oncology who recommends 1 unit of packed red blood cells. Also spoke with his cardiology team who did not have any additional recommendations at this time and felt that he was stable from a cardiac standpoint and states that his main issues are from his oncology perspective. Patient tolerated his blood transfusion while in department. Was started on oral antibiotics with plan for follow-up with his oncology team in the short term. All questions were answered and patient was asked to return if he has any new or worsening symptoms. Discharge Plan Departure Patient Disposition: Home Clinical Impression: Aspiration pneumonia, Anemia Instructions: DI for Aspiration Pneumonia Activity Restrictions/Additional Instructions: Your imaging today does show left pleural effusion as well as some changes on her x-ray which can be consistent with aspiration pneumonia. 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 Prescription was sent to [facility]. Take both antibiotics until gone. Continue your home antibiotics as prescribed. You received 1 unit PRBCs here in the department. Please return for fevers, new or worsening chest pain, shortness of breath, weakness, altered mental status, persistent vomiting, black or bloody stools, swelling in her extremities or other new or concerning symptoms. Prescriptions: New cefpodoxime 200 mg tablet 200 mg PO BID Qty: 20 RF: 0 azithromycin 500 mg tablet See Rx Instructions .ROUTE .COMPLEX Qty: 6 RF: 0 No Action azithromycin 250 mg tablet See Rx Instructions PO .COMPLEX Qty: 6 RF: 0 albuterol sulfate 90 mcg/actuation HFA aerosol inhaler 1 puff INHALATION Q6-8H PRN (Reason: bronchospasm) Qty: 6.7 RF: 0 acetaminophen-pamabrom 500-25 mg tablet 1 tab PO Q4-6H RF: 0 alendronate 70 mg tablet 70 mg PO QWEEK RF: 0 allopurinol 100 mg tablet 100 mg PO DAILY RF: 0 ascorbic acid (vitamin C) 500 mg capsule, extended release 500 mg PO DAILY RF: 0 aspirin [Adult Low Dose Aspirin] 81 mg tablet,delayed release (DR/EC) 81 mg PO DAILY RF: 0 atorvastatin 20 mg tablet 20 mg PO DAILY RF: 0 Antacid (calcium carbonate) 215 mg calcium (500 mg) tablet,chewable 215 mg PO BID RF: 0 carvedilol 3.125 mg tablet 3.125 mg PO BID RF: 0 cholecalciferol (vitamin D3) 1,000 unit capsule 2,000 unit PO DAILY RF: 0 ferrous sulfate 325 mg (65 mg iron) tablet 325 mg PO DAILY RF: 0 hydralazine 50 mg tablet 50 mg PO TID RF: 0 insulin aspart U-100 100 unit/mL insulin pen 12 unit SUBCUT TID RF: 0 Lantus Solostar U-100 Insulin 100 unit/mL (3 mL) insulin pen 15 unit SUBCUT DAILY RF: 0 levothyroxine 100 mcg capsule 100 mcg PO DAILY RF: 0 mycophenolate sodium 180 mg tablet,delayed release (DR/EC) 180 mg PO BID RF: 0 omeprazole 20 mg capsule,delayed release(DR/EC) 20 mg PO DAILY RF: 0 comb no.42-folic acid 1 tab PO DAILY RF: 0 tacrolimus 5 mg capsule 5 mg PO Q12H RF: 0 zolpidem 10 mg tablet 5 mg PO BEDTIME RF: 0 famotidine 20 mg Tablet 20 mg feeding tube BID RF: 0 fluticasone propionate [Flonase] 50 mcg/actuation [place],Suspension 2 spray INTRANASAL DAILY RF: 0 Granix 300 mcg/0.5 mL Syringe 300 mcg SUBCUT RF: 0 oxycodone 5 mg Tablet 5 mg PO Q4H RF: 0 prochlorperazine maleate [Compazine] 10 mg Tablet 10 mg PO BID PRN (Reason: Nausea) RF: 0 potassium chloride 40 mEq/15 mL Liquid 20 meq PO DAILY RF: 0 simethicone 80 mg Tablet,Chewable 80 mg PO PRN PRN (Reason: Nausea) RF: 0 rosuvastatin 20 mg Tablet 20 mg PO DAILY RF: 0 Referrals: Mendoza Venegas MD [Primary Care Provider] -
[2021-01-14] MEDS: LIDOCAINE 1% (PF) 2 ML (12:51)
[2021-01-14 12:53] LABS: PTT Partial Thromboplastin Tim 33 SECONDS (26.4-36.2)
[2021-01-14 13:17] LABS: Hemoglobin 7.2 g/dL (13.5-17.5); Mean Corpuscular HGB Conc 33.1 % (30-36); Mean Corpuscular Hemoglobin 28.9 PG (26-34); Mean Corpuscular Volume 87.4 fL (80-100); Platelet Count 179 X10^3/uL (150-400); Red Blood Cell Count 2.49 X10^6/uL (4.5-5.9); Red Cell Distribution Width 16.9 % (11.6-14.8); White Blood Cell Count 7.2 X10^3/uL (4.5-11.0)
[2021-01-14 13:18] LABS: Add Manual Diff / Slide Review YES; Hematocrit 21.8 % (41-53)
[2021-01-14 13:29] LABS: Alanine Aminotransferase 16 IU/L (<50); Albumin 3.4 g/dL (3.5-5.0); Albumin Globulin Ratio 1.3 (1.0-2.8); Alkaline Phosphatase 96 U/L (38-126); Aspartate Aminotransferase 32 IU/L (17-59); BUN Creatinine Ratio 18.6 (6-22); Bilirubin Total 0.2 mg/dL (0.2-1.3); Blood Urea Nitrogen 16 mg/dL (9-20); Carbon Dioxide 31 mmol/L (22-32); Chloride 97 mmol/L (98-107); Estimated Glomerular Filt Rate > 60.0 mL/min (>60); Globulin 2.7 g/dL (1.7-4.1); Glucose 170 mg/dL (80-110); HEMOLYSIS < 15 (0-50); Lipase 24 U/L (23-300); Potassium 4.1 mmol/L (3.4-5.1); Sodium 134 mmol/L (137-145); Total Protein 6.1 g/dL (6.3-8.2)
[2021-01-14 13:31] LABS: Lactate (Lactic Acid) 1.8 mmol/L (0.7-2.1)
[2021-01-14 13:57] LABS: Neutrophils Absolute Manual 5328 /uL (3000-5900); Total Cells Counted 100
[2021-01-14 14:00] LABS: Anisocytosis 1+; Procalcitonin 0.14 ng/mL (<0.5)
[2021-01-14 14:01] LABS: Polychromasia 1+
[2021-01-14 14:48] LABS: Creatine Kinase 41 U/L (55-170)
[2021-01-14 15:00] LABS: NT-proBNP (BNP-Adult 18+) 745 pg/mL (<125); Troponin I < 0.012 ng/mL (0.01-0.034)
[2021-01-14 15:44] LABS: COVID19 - ADMIT (NP swab/PCR) Negative (Negative)
[2021-01-14] MEDS: FUROSEMIDE 20 MG/2 ML VIAL IV (18:42)
[2021-01-14] MEDS: AZITHROMYCIN 250 MG TABLET 500 MG PO (19:10)
[2021-01-14] MEDS: CEFDINIR 300 MG CAPSULE PO (19:10)
== END 2021-01-14 19:26 | disposition home or self-care (01) ==
PROVIDERS: Emergency Provider Emergency Medicine; PCP Internal Medicine
DX: J69.0 Pneumonitis due to inhalation of food and vomit (principal); D64.9 Anemia, unspecified; R00.0 Tachycardia, unspecified; Z20.822 Contact with and (suspected) exposure to COVID-19
CPT/HCPCS: 36415; 36430; 71045; 80053; 82550; 83605; 83690; 83880; 84145; 84484; 85007; 85025; 85610; 85730; 86850; 86900; 86901; 87040; 87635; 93005; 93010; 96361; 96374; 99285; C9803; P9016; J1940

== ENCOUNTER 2021-01-25 20:40 | Inpatient (IN) | payer MEDICARE, OTHER, SELFPAY ==
[2021-01-25 20:54] VITALS: BP 154/77; PULSE 118; RESP 19; TEMP 36.8; O2SAT 95; BMI 25.0
--- NOTE | 2021-01-25 20:56 | DI.RAD.S_ITS ---
PROCEDURE: XR CHEST 1V INDICATIONS: sepsis TECHNIQUE: One view of the chest was acquired. COMPARISON: [facility], CR, XR CHEST 1V, 01/14/2021, 12:13. FINDINGS: Surgical changes and devices: Right Port-A-Cath is present. Sternal wires are present. Lungs and pleura: Lungs are clear. No pleural effusions or pneumothorax. Mediastinum: Mediastinal contours appear normal. Heart size is enlarged. Bones and chest wall: No suspicious bony lesions. Overlying soft tissues appear unremarkable. IMPRESSION: No acute pulmonary process. Dictated by: Hodan Rachel M.D. on 01/25/2021 at 21:37 Approved by: Hodan Rachel M.D. on 01/25/2021 at 21:38
[2021-01-25 21:30] VITALS: BP 135/71; PULSE 114; RESP 19; O2SAT 95
[2021-01-25 21:40] LABS: Mean Corpuscular HGB Conc 33.5 % (30-36); Mean Corpuscular Hemoglobin 28.7 PG (26-34); Mean Corpuscular Volume 85.4 fL (80-100); Platelet Count 185 X10^3/uL (150-400); Red Blood Cell Count 3.16 X10^6/uL (4.5-5.9); Red Cell Distribution Width 16.5 % (11.6-14.8)
--- NOTE | 2021-01-25 21:41 | ED.FEVER ---
HPI - Fever General Chief Complaint: Fever Stated Complaint: FEVER AND DIARRHEA Time Seen by Provider: 01/25/21 20:44 Source: patient and family Mode of arrival: Wheelchair Limitations: no limitations History of Present Illness HPI Narrative: 70-year-old male nonsmoker with history of heart transplant on anti-rejection meds, throat cancer receiving chemotherapy and recent the admission for aspiration pneumonia presents with his and a chief complaint of diarrhea, weakness, fever and chills over the course of the day. He last had chemotherapy last week and often has diarrhea but this has been significantly worse than normal. He denies any blood or foul smell. He has had a significant number of recent antibiotics due to the aspiration pneumonia and prior to that an episode of what was thought to be diverticulitis. His maximum temperature measured at home was 102 F. he feels fatigued denies a poor overall sense of how he is feeling. He denies runny nose or sore throat (more than normal). He denies any chest pain and becomes short of breath with exertion. He denies any recent travel or exposure to persons known to have COVID. He states that he has been having diarrhea for about 1 month and has multiple episodes per day, denies any blood in it, recent travel or bad food. He was tested for C diff about a week ago and it was negative. MD complaint: fever, malaise and weakness Onset (ago): hour(s) Maximum Temperature: 102 F Temperature Source: oral Context: recent antibiotic use, on chemotherapy and on immunosuppressant(s) Associated symptoms: chills and diarrhea Relieving factors: nothing Exacerbating factors: nothing Treatments prior to arrival fever: none Related Data Home Medications Medication Instructions Recorded Confirmed acetaminophen-pamabrom 500 mg-25 1 tab PO Q4-6H 02/21/19 11/19/20 mg tablet alendronate 70 mg tablet 70 mg PO QWEEK 02/21/19 11/19/20 allopurinol 100 mg tablet 100 mg PO DAILY 02/21/19 11/19/20 ascorbic acid (vitamin C) 500 mg 500 mg PO DAILY 02/21/19 11/19/20 capsule,extended release aspirin 81 mg tablet,delayed 81 mg PO DAILY 02/21/19 11/19/20 release atorvastatin 20 mg tablet 20 mg PO DAILY 02/21/19 02/21/19 calcium carbonate 215 mg calcium 215 mg PO BID tab 02/21/19 11/19/20 (500 mg) chewable tablet carvedilol 3.125 mg tablet 3.125 mg PO BID 02/21/19 11/19/20 cholecalciferol (vitamin D3) 25 2,000 unit PO DAILY 02/21/19 02/21/19 mcg (1,000 unit) capsule ferrous sulfate 325 mg (65 mg 325 mg PO DAILY tab 02/21/19 11/19/20 iron) tablet hydralazine 50 mg tablet 50 mg PO TID 02/21/19 11/19/20 insulin aspart U-100 100 unit/mL 12 unit SUBCUT TID ml 02/21/19 11/19/20 (3 mL) subcutaneous pen insulin glargine 100 unit/mL (3 15 unit SUBCUT DAILY 02/21/19 11/19/20 mL) subcutaneous pen levothyroxine 100 mcg capsule 100 mcg PO DAILY 02/21/19 11/19/20 mycophenolate sodium 180 mg 180 mg PO BID tab 02/21/19 02/21/19 tablet,delayed release omeprazole 20 mg capsule,delayed 20 mg PO DAILY 02/21/19 11/19/20 release comb no.42-folic acid 1 tab PO DAILY 02/21/19 11/19/20 tacrolimus 5 mg capsule, 5 mg PO Q12H 02/21/19 11/19/20 immediate-release zolpidem 10 mg tablet 5 mg PO BEDTIME tab 02/21/19 11/19/20 famotidine 20 mg FEEDING TUBE BID 11/19/20 11/19/20 fluticasone propionate [Flonase] 2 spray INTRANASAL DAILY 11/19/20 11/19/20 oxycodone 5 mg PO Q4H 11/19/20 11/19/20 potassium chloride 20 meq PO DAILY 11/19/20 11/19/20 prochlorperazine maleate 10 mg PO BID PRN 11/19/20 11/19/20 [Compazine] rosuvastatin 20 mg PO DAILY 11/19/20 11/19/20 simethicone 80 mg PO PRN PRN 11/19/20 11/19/20 tbo-filgrastim [Granix] 300 mcg SUBCUT 11/19/20 Previous Rx's Medication Instructions Recorded albuterol sulfate 90 mcg/actuation 1 puff INHALATION Q6-8H PRN #6.7 02/21/19 aerosol inhaler gram azithromycin 250 mg tablet See Rx Instructions PO .COMPLEX #6 02/21/19 tab azithromycin See Rx Instructions .ROUTE 01/14/21 .COMPLEX #6 tab cefpodoxime 200 mg PO BID #20 tab 01/14/21 Allergies Allergy/AdvReac Type Severity Reaction Status Date / Time fish oil [FISH OIL] Allergy Unknown Verified 01/14/21 12:07 hydrocodone [HYDROCODONE] Allergy Unknown Verified 01/14/21 12:07 Review of Systems Constitutional Constitutional: Reports chills, Reports fatigue, Reports fever(s), Denies frequent falls, Denies lethargy and Reports weakness Eyes Eyes: Denies change in vision, Denies eye discharge, Denies irritation and Denies loss of vision ENT Ears, Nose, Mouth, and Throat: Denies change in voice, Denies dizziness, Denies neck pain, Denies sore throat and Denies throat swelling Cardiovascular Cardiovascular: Denies chest pain, Denies irregular heart rhythm, Denies lightheadedness, Denies palpitations, Denies dyspnea, Denies dyspnea on exertion and Denies orthopnea Respiratory Respiratory: Denies cough, Denies dyspnea, Denies dyspnea on exertion and Denies wheezing Gastrointestinal Gastrointestinal: Denies abdominal pain, Denies change in bowel habits, Denies diarrhea, Reports nausea and Reports vomiting Musculoskeletal Musculoskeletal: Denies neck pain and Denies numbness Integumentary/Breasts Skin/Breast: Denies pruritus, Denies erythema, Denies rash and Denies wounds Neurologic Neurologic: Denies behavioral changes, Denies confusion, Denies dizziness, Denies frequent falls, Denies loss of vision, Denies numbness and Reports weakness Psychiatric Psychiatric: Denies anxiety, Denies behavioral changes, Denies confusion, Denies depression, Denies homicidal ideation and Denies suicidal ideation Endocrine Endocrine: Reports fatigue, Denies flushing and Denies palpitations Hematologic/Lymphatic Hematologic/Lymphatic: Denies easy bruising Allergic/Immunologic Allergic/Immunologic: Denies urticaria, Denies throat swelling and Denies wheezing Patient History Medical History Diabetes Lymphoma Throat cancer Surgical History Heart transplant status Social History Smoking Status: Never smoker Smoking Status: Never smoker alcohol intake frequency: holidays/special occasions only Substance Use Type: does not use Exam Narrative Exam Narrative: GENERAL: [70] year old patient older than appears stated age. Thin, ill-appearing, dry mucous membranes HEAD: Atraumatic. Normocephalic. EYES: Pupils equal round and reactive. Extraocular motions intact. No scleral icterus. No injection or drainage. ENT: Nose without bleeding, purulent drainage. Throat without erythema, tonsillar hypertrophy or exudate. Airway patent. NECK: Trachea midline. Non tender CARDIOVASCULAR: Tachycardic and regular rhythm without murmurs, gallops, or rubs. RESPIRATORY: Clear to auscultation. Breath sounds equal bilaterally. No wheezes, rales, or rhonchi. GASTROINTESTINAL: Abdomen soft, non-tender, nondistended. EXTREMITIES: No edema or joint tenderness. BACK: Nontender without deformity or crepitance. No flank tenderness. NEURO: AOx3. SKIN: No rash or erythema of visible areas Initial Vital Signs Initial Vital Signs: Vital Signs Temperature 98.2 F 01/25/21 20:54 Pulse Rate 118 H 01/25/21 20:54 Respiratory Rate 19 01/25/21 20:54 Blood Pressure 154/77 H 01/25/21 20:54 Pulse Oximetry 95 01/25/21 20:54 Course Orders Ordered: ED Orders 01/25/21 20:56 XR chest 1V Stat Urinalysis and Microscopic Stat 01/25/21 20:57 GI Panel (Film Array) Stat 01/25/21 20:58 EKG-12 Lead Stat RT Consult Eval and Treat Now 01/25/21 21:06 COVID19 - ADMIT ([employer] swab/PCR) Stat 01/25/21 21:20 Complete Blood Count AUTO DIFF Stat Comprehensive Metabolic Panel Stat Lactate (Lactic Acid) Stat Lipase Stat Partial Thromboplastin Time Stat Procalcitonin Stat Prothrombin Time INR Stat Troponin & CK Cardiac Panel Stat 01/25/21 21:28 Blood Culture Stat Sodium Chloride (Normal Saline 0.9%) 500 mls @ 1,000 mls/hr IV BOLUS ONE Stop: 01/25/21 23:33 Last Admin: 01/25/21 23:06 Dose: 1,000 mls/hr Documented by: KARL Discontinued Medications Sodium Chloride (Normal Saline 0.9%) 1,000 mls @ 1,000 mls/hr IV BOLUS ONE Stop: 01/25/21 21:56 Last Infusion: 01/25/21 23:19 Dose: 0 mls/hr Documented by: Admin: 01/25/21 21:46 Dose: 1,000 mls/hr Documented by: KARL Sodium Chloride (Normal Saline 0.9%) 1,000 mls @ 1,000 mls/hr IV BOLUS ONE Stop: 01/25/21 22:40 Last Admin: 01/25/21 22:39 Dose: 1,000 mls/hr Documented by: KARL Levofloxacin (Levaquin) 500 mg in 100 mls @ 100 mls/hr IV NOW ONE Stop: 01/25/21 23:21 Last Admin: 01/25/21 22:37 Dose: 100 mls/hr Documented by: KARL Vital Signs Vital signs: Vital Signs - 8 hr 01/25/21 20:54 01/25/21 21:30 01/25/21 22:00 Temperature 98.2 F Pulse Rate 118 H 114 H 110 H Respiratory Rate 19 19 19 Blood Pressure 154/77 H 135/71 135/70 Pulse Oximetry 95 95 01/25/21 22:30 Temperature Pulse Rate 107 H Respiratory Rate 15 Blood Pressure 145/78 H Pulse Oximetry 96 MDM - Fever Lab Data Result diagrams: 01/25/21 21:20 01/25/21 21:20 Labs: Lab Results 01/25/21 01/25/21 01/25/21 Range/Units 21:06 21:20 21:20 WBC 1.9 L* (4.5-11.0) X10^3/uL RBC 3.16 L (4.5-5.9) X10^6/uL Hgb 9.0 L (13.5-17.5) g/dL Hct 27.0 L (41-53) % MCV 85.4 (80-100) fL MCH 28.7 (26-34) PG MCHC 33.5 (30-36) % RDW 16.5 H (11.6-14.8) % Plt Count 185 (150-400) X10^3/uL Neut % (Auto) Not Reportable Lymph % (Auto) Not Reportable [place] % (Auto) Not Reportable Eos % (Auto) Not Reportable Baso % (Auto) Not Reportable Lymph # (Auto) Not Reportable [place] # (Auto) Not Reportable Baso # (Auto) Not Reportable Total Counted 50 Seg Neutrophils % 78.0 H (38-70) % Band Neutrophils % 10.0 H (3-7) % Lymphocytes % (Manual) 4.0 L (25-45) % Monocytes % (Manual) 8.0 (2-11) % Neutrophils # (Manual) 1672 L (7657-3336) /uL RBC Morphology Normal morphology PT 12.0 (10.1-12.7) SECONDS INR 1.1 (0.9-1.3) APTT 28 D (26.4-36.2) SECONDS Sodium (137-145) mmol/L Potassium (3.4-5.1) mmol/L Chloride (98-107) mmol/L Carbon Dioxide (22-32) mmol/L BUN (9-20) mg/dL Creatinine (0.66-1.25) mg/dL Estimated GFR (>60) mL/min BUN/Creatinine Ratio (6-22) Glucose (80-110) mg/dL Lactate (0.7-2.1) mmol/L Calcium (8.4-10.2) mg/dL Total Bilirubin (0.2-1.3) mg/dL AST (17-59) IU/L ALT (<50) IU/L Alkaline Phosphatase (38-126) U/L Total Creatine Kinase (55-170) U/L CK-MB (CK-2) CK-MB (CK-2) Rel Index Troponin I (0.01-0.034) ng/mL Total Protein (6.3-8.2) g/dL Albumin (3.5-5.0) g/dL Globulin (1.7-4.1) g/dL Albumin/Globulin Ratio (1.0-2.8) Lipase (23-300) U/L Procalcitonin (<0.5) ng/mL SARS-CoV-2 (PCR) Negative (Negative) 01/25/21 01/25/21 Range/Units 21:20 21:20 WBC (4.5-11.0) X10^3/uL RBC (4.5-5.9) X10^6/uL Hgb (13.5-17.5) g/dL Hct (41-53) % MCV (80-100) fL MCH (26-34) PG MCHC (30-36) % RDW (11.6-14.8) % Plt Count (150-400) X10^3/uL Neut % (Auto) Lymph % (Auto) [place] % (Auto) Eos % (Auto) Baso % (Auto) Lymph # (Auto) [place] # (Auto) Baso # (Auto) Total Counted Seg Neutrophils % (38-70) % Band Neutrophils % (3-7) % Lymphocytes % (Manual) (25-45) % Monocytes % (Manual) (2-11) % Neutrophils # (Manual) (2987-4644) /uL RBC Morphology PT (10.1-12.7) SECONDS INR (0.9-1.3) APTT (26.4-36.2) SECONDS Sodium 135 L (137-145) mmol/L Potassium 3.7 (3.4-5.1) mmol/L Chloride 94 L (98-107) mmol/L Carbon Dioxide 29 (22-32) mmol/L BUN 32 H (9-20) mg/dL Creatinine 0.70 (0.66-1.25) mg/dL Estimated GFR > 60.0 (>60) mL/min BUN/Creatinine Ratio 45.7 H (6-22) Glucose 280 H (80-110) mg/dL Lactate 2.8 H (0.7-2.1) mmol/L Calcium 8.7 (8.4-10.2) mg/dL Total Bilirubin 0.4 (0.2-1.3) mg/dL AST 35 (17-59) IU/L ALT 28 (<50) IU/L Alkaline Phosphatase 132 H (38-126) U/L Total Creatine Kinase 33 L (55-170) U/L CK-MB (CK-2) TNP CK-MB (CK-2) Rel Index TNP Troponin I < 0.012 (0.01-0.034) ng/mL Total Protein 6.5 (6.3-8.2) g/dL Albumin 3.7 (3.5-5.0) g/dL Globulin 2.8 (1.7-4.1) g/dL Albumin/Globulin Ratio 1.3 (1.0-2.8) Lipase 34 (23-300) U/L Procalcitonin 0.18 (<0.5) ng/mL SARS-CoV-2 (PCR) (Negative) Urine Dip Bedside Urine Glucose 1000 mg/dl Bedside Urine Bilirubin - Negative Bedside Urine Ketone - Negative Urine Specific [place] 1.025 Bedside Urine Occult Blood + Bedside Urine pH 6.0 Bedside Urine Protein ++ 100 Bedside Urine Urobilinogen - Negative Bedside Urine Nitrite - Negative Bedside Urine Leukocytes - Negative Esterase Imaging Data Chest x-ray: Radiologist's Impression: [address] [id number] ReportSigned Patient: Sumeet Cochran JMR#: [id number]: [id number]:[id number]/Sex: 70 / MDate of Service: 01/25/21Loc: EDAccession Number: [id number] Procedure: XR chest 1V Ordering Provider: Bernabe Schroeder D.O. PROCEDURE: XR CHEST 1V INDICATIONS: sepsis TECHNIQUE: One view of the chest was acquired. COMPARISON: [facility], , XR CHEST 1V, 01/14/2021, 12:13. FINDINGS: Surgical changes and devices: Right Port-A-Cath is present. Sternal wires are present. Lungs and pleura: Lungs are clear. No pleural effusions or pneumothorax. Mediastinum: Mediastinal contours appear normal. Heart size is enlarged. Bones and chest wall: No suspicious bony lesions. Overlying soft tissues appear unremarkable. IMPRESSION: No acute pulmonary process. Dictated by: Hodan Rachel M.D. on 01/25/2021 at 21:37 Approved by: Hodan Rachel M.D. on 01/25/2021 at 21:38 Discharge Plan Departure Patient Disposition: Admitted As Inpatient Clinical Impression: Acquired immunocompromised state Sepsis Qualifiers: Sepsis type: sepsis due to unspecified organism Sepsis acute organ dysfunction status: without acute organ dysfunction Qualified Code(s): A41.9 - Sepsis, unspecified organism Admit Date/Time: 01/25/21 22:44 Admit Provider: Diamond Lr
[2021-01-25 21:42] LABS: Add Manual Diff / Slide Review YES; INR 1.1 (0.9-1.3)
[2021-01-25 21:43] LABS: White Blood Cell Count 1.9 X10^3/uL (4.5-11.0)
[2021-01-25 21:44] LABS: PTT Partial Thromboplastin Tim 28 SECONDS (26.4-36.2)
[2021-01-25 21:46] LABS: Alanine Aminotransferase 28 IU/L (<50); Albumin 3.7 g/dL (3.5-5.0); Albumin Globulin Ratio 1.3 (1.0-2.8); Alkaline Phosphatase 132 U/L (38-126); Aspartate Aminotransferase 35 IU/L (17-59); BUN Creatinine Ratio 45.7 (6-22); Bilirubin Total 0.4 mg/dL (0.2-1.3); Blood Urea Nitrogen 32 mg/dL (9-20); Calcium 8.7 mg/dL (8.4-10.2); Carbon Dioxide 29 mmol/L (22-32); Chloride 94 mmol/L (98-107); Creatine Kinase 33 U/L (55-170); Estimated Glomerular Filt Rate > 60.0 mL/min (>60); Globulin 2.8 g/dL (1.7-4.1); Glucose 280 mg/dL (80-110); HEMOLYSIS < 15 (0-50); Lactate (Lactic Acid) 2.8 mmol/L (0.7-2.1); Lipase 34 U/L (23-300); Potassium 3.7 mmol/L (3.4-5.1); Sodium 135 mmol/L (137-145); Total Protein 6.5 g/dL (6.3-8.2)
[2021-01-25] MEDS: SODIUM CHLORIDE 0.9% 1,000 ML 1000 ML IV ×2 (21:46→22:39)
[2021-01-25 21:57] LABS: Troponin I < 0.012 ng/mL (0.01-0.034)
[2021-01-25 22:00] VITALS: BP 135/70; PULSE 110; RESP 19
[2021-01-25 22:02] LABS: Procalcitonin 0.18 ng/mL (<0.5)
[2021-01-25 22:04] LABS: Neutrophils Absolute Manual 1672 /uL (3000-5900); RBC Morphology Normal Morphology; Total Cells Counted 50
[2021-01-25 22:10] LABS: COVID19 - ADMIT (NP swab/PCR) Negative (Negative)
[2021-01-25 22:30] VITALS: BP 145/78; PULSE 107; RESP 15; O2SAT 96
[2021-01-25] MEDS: levoFLOXacin 500 MG/100 ML PIGGYBACK 100 MG IV (22:37)
[2021-01-25 23:00] VITALS: BP 141/75; PULSE 108; RESP 10
[2021-01-25] MEDS: SODIUM CHLORIDE 0.9% 500 ML 1000 ML IV (23:06)
[2021-01-25 23:24] LABS: Reflexed Lactate in 2 Hours Y
[2021-01-25 23:57] LABS: Lactate 2HR (Lactic Acid Rflx) 2.5 mmol/L (0.7-2.1)
[2021-01-26 00:30] VITALS: BP 141/85; PULSE 108; RESP 18; TEMP 37.7; O2SAT 94
--- NOTE | 2021-01-26 00:32 | P.HP_ITS ---
History of Present Illness History of Present Illness Date Patient Seen: 01/25/21 Time Patient Seen: 23:45 Chief complaint: FEVER AND DIARRHEA Narrative: Sumeet Cochran is a 70 y.o. 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 The patient's provides much of the history due to the patient being somewhat lethargic and unable to speak while I was seeing him in the emergency department. She states that he woke up from a nap at 3:00 p.m. with the fever and had an episode of urinary incontinence which is not normal for him. He states like that he felt like he was going to pass out. 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 He sipped some soft drink and developed an aspiration pneumonia which landed him at [facility] a little over a week and half ago. He has had diarrhea for month and had an incontinence episode which is also not normal for him. states he has 4 feedings a day and was instructed to slow down or even reduce his feedings while he has the diarrhea. He denies chest pain, difficulty breathing, he has been nauseous, he denies abdominal pain, again states he has been incontinent of urine and stool. is also concerned with his feeding tube stoma stating that it has been soaking his dressings and that it has been discharging a yellow pus-like discharge that has been is bad is completely soaking the dressing. He is currently being treated for a post-transplant associated large B-cell lymphoma initially treated at [facility] and now being seen by Dr. Johnson. He takes sirolimus and tacrolimus anti-rejection drugs. Approximately 1 month ago he was admitted to [facility] and discharged on January 03 for similar presentation of acute colitis with a suspected neutropenic fever, pancytopenia, and acute hypokalemia. He was treated with IV Zosyn and was consulted on with Infectious Disease. He presented to the emergency department afebrile and currently his temperature is 98.2?, blood pressure 141/75, heart rate 108, respiratory rate 10, oxygen saturation 96% on room air he weighs 70.3 kg with a BMI of 25. WBC today is 1.9 it was within normal limits on discharge from [facility] at 7.2 on December 24, RBC 3.16, hemoglobin 9.0, hematocrit 27, he has 10% bands, and neutrophil manual count of 1672, sodium 135, potassium 3.7, chloride 94, bicarb 29, BUN 32, creatinine 0.70, GFR is greater than 60, glucose was 280, lactate was 2.8 and then follow-up lactate was 2.5, he had a normal procalcitonin and COVID-19 19 PCR was negative. 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 Safety & Behavioral: Feels Safe in Current Yes Environment Tobacco & Substance use: Smoking Status Never smoker alcohol intake frequency holiday/special occasion Substance Use Type does not use Meds Home Medications and Allergies Home Medications Medication Instructions Recorded Confirmed Type acetaminophen-pamabrom 500 mg-25 1 tab PO Q4-6H 02/21/19 11/19/20 History mg tablet albuterol sulfate 90 mcg/actuation 1 puff INHALATION Q6-8H PRN #6.7 02/21/19 11/19/20 Rx aerosol inhaler gram alendronate 70 mg tablet 70 mg PO QWEEK 02/21/19 11/19/20 History allopurinol 100 mg tablet 100 mg PO DAILY 02/21/19 11/19/20 History ascorbic acid (vitamin C) 500 mg 500 mg PO DAILY 02/21/19 11/19/20 History capsule,extended release aspirin 81 mg tablet,delayed 81 mg PO DAILY 02/21/19 11/19/20 History release atorvastatin 20 mg tablet 20 mg PO DAILY 02/21/19 02/21/19 History azithromycin 250 mg tablet See Rx Instructions PO .COMPLEX #6 02/21/19 02/21/19 Rx tab calcium carbonate 215 mg calcium 215 mg PO BID tab 02/21/19 11/19/20 History (500 mg) chewable tablet carvedilol 3.125 mg tablet 3.125 mg PO BID 02/21/19 11/19/20 History cholecalciferol (vitamin D3) 25 2,000 unit PO DAILY 02/21/19 02/21/19 History mcg (1,000 unit) capsule ferrous sulfate 325 mg (65 mg 325 mg PO DAILY tab 02/21/19 11/19/20 History iron) tablet hydralazine 50 mg tablet 50 mg PO TID 02/21/19 11/19/20 History insulin aspart U-100 100 unit/mL 12 unit SUBCUT TID ml 02/21/19 11/19/20 History (3 mL) subcutaneous pen insulin glargine 100 unit/mL (3 15 unit SUBCUT DAILY 02/21/19 11/19/20 History mL) subcutaneous pen levothyroxine 100 mcg capsule 100 mcg PO DAILY 02/21/19 11/19/20 History mycophenolate sodium 180 mg 180 mg PO BID tab 02/21/19 02/21/19 History tablet,delayed release omeprazole 20 mg capsule,delayed 20 mg PO DAILY 02/21/19 11/19/20 History release comb no.42-folic acid 1 tab PO DAILY 02/21/19 11/19/20 History tacrolimus 5 mg capsule, 5 mg PO Q12H 02/21/19 11/19/20 History immediate-release zolpidem 10 mg tablet 5 mg PO BEDTIME tab 02/21/19 11/19/20 History famotidine 20 mg FEEDING TUBE BID 11/19/20 11/19/20 History fluticasone propionate [Flonase] 2 spray INTRANASAL DAILY 11/19/20 11/19/20 History oxycodone 5 mg PO Q4H 11/19/20 11/19/20 History potassium chloride 20 meq PO DAILY 11/19/20 11/19/20 History prochlorperazine maleate 10 mg PO BID PRN 11/19/20 11/19/20 History [Compazine] rosuvastatin 20 mg PO DAILY 11/19/20 11/19/20 History simethicone 80 mg PO PRN PRN 11/19/20 11/19/20 History tbo-filgrastim [Granix] 300 mcg SUBCUT 11/19/20 History azithromycin See Rx Instructions .ROUTE 01/14/21 Rx .COMPLEX #6 tab cefpodoxime 200 mg PO BID #20 tab 01/14/21 Rx Allergies Allergy/AdvReac Type Severity Reaction Status Date / Time fish oil [FISH OIL] Allergy Unknown Verified 01/14/21 12:07 hydrocodone [HYDROCODONE] Allergy Unknown Verified 01/14/21 12:07 Review of Systems Review of Systems ROS: Yes All systems reviewed with the patient and are negative except as othe rwise documented Exam Vital Signs (past 8 hours): - 01/25/21 20:54 01/25/21 21:30 01/25/21 22:00 Temperature 98.2 F Pulse Rate 118 H 114 H 110 H Respiratory Rate 19 19 19 Blood Pressure 154/77 H 135/71 135/70 Pulse Oximetry 95 95 01/25/21 22:30 01/25/21 23:00 Temperature Pulse Rate 107 H 108 H Respiratory Rate 15 10 L Blood Pressure 145/78 H 141/75 H Pulse Oximetry 96 Oxygen Delivery Method Room Air Narrative Exam Narrative: Gen: Alert, oriented, pale appearing 70 y.o. male, mildly lethargic HEENT: normocephalic, atraumatic, conjunctiva clear, sclera non-icteric, oral mucosa pink and moist Neck: supple, full ROM, no JVD, trachea is midline Resp: Lungs CTA, non-labored breathing CV: RRR, no murmur or rubs Abd: soft, non-tender, normoactive BTs Skin: Port in upper right chest, feeding tube in left side of his abdomen. Feeding tube stoma with mild erythema and draining yellow/beige exudate Neuro: Alert and oriented X 4 w/no focal deficits. Speech clear and coherent. Extremities: no edema, moves all 4 extremities, is ambulatory, negative Juan?s sign Psyche: normal mood and affect. Objective Labs Result Diagrams: 01/25/21 21:20 01/25/21 21:20 Labs: Laboratory Results - last 24 hr 01/25/21 01/25/21 01/25/21 21:06 21:20 21:20 WBC 1.9 L* RBC 3.16 L Hgb 9.0 L Hct 27.0 L MCV 85.4 MCH 28.7 MCHC 33.5 RDW 16.5 H Plt Count 185 Neut % (Auto) Not Reportable Lymph % (Auto) Not Reportable Vance % (Auto) Not Reportable Eos % (Auto) Not Reportable Baso % (Auto) Not Reportable Lymph # (Auto) Not Reportable Vance # (Auto) Not Reportable Baso # (Auto) Not Reportable Total Counted 50 Seg Neutrophils % 78.0 H Band Neutrophils % 10.0 H Lymphocytes % (Manual) 4.0 L Monocytes % (Manual) 8.0 Neutrophils # (Manual) 1672 L RBC Morphology Normal morphology PT 12.0 INR 1.1 APTT 28 D Sodium Potassium Chloride Carbon Dioxide BUN Creatinine Estimated GFR BUN/Creatinine Ratio Glucose Lactate Calcium Total Bilirubin AST ALT Alkaline Phosphatase Total Creatine Kinase CK-MB (CK-2) CK-MB (CK-2) Rel Index Troponin I Total Protein Albumin Globulin Albumin/Globulin Ratio Lipase Procalcitonin SARS-CoV-2 (PCR) Negative 01/25/21 01/25/21 01/25/21 21:20 21:20 23:32 WBC RBC Hgb Hct MCV MCH MCHC RDW Plt Count Neut % (Auto) Lymph % (Auto) Vance % (Auto) Eos % (Auto) Baso % (Auto) Lymph # (Auto) Vance # (Auto) Baso # (Auto) Total Counted Seg Neutrophils % Band Neutrophils % Lymphocytes % (Manual) Monocytes % (Manual) Neutrophils # (Manual) RBC Morphology PT INR APTT Sodium 135 L Potassium 3.7 Chloride 94 L Carbon Dioxide 29 BUN 32 H Creatinine 0.70 Estimated GFR > 60.0 BUN/Creatinine Ratio 45.7 H Glucose 280 H Lactate 2.8 H 2.5 H Calcium 8.7 Total Bilirubin 0.4 AST 35 ALT 28 Alkaline Phosphatase 132 H Total Creatine Kinase 33 L CK-MB (CK-2) TNP CK-MB (CK-2) Rel Index TNP Troponin I < 0.012 Total Protein 6.5 Albumin 3.7 Globulin 2.8 Albumin/Globulin Ratio 1.3 Lipase 34 Procalcitonin 0.18 SARS-CoV-2 (PCR) Assessment & Plan Assessment & Plan narrative: Sumeet Cochran will be admitted for acute colitis and suspected neutropenic fever. Neutropenic fever secondary to post transplant lymphoproliferative disorder, acute and present on admission - patient is borderline neutopenic with an estimated ANC of 1672 - Patient had a self reported temparature of 100 .2 that progressed to 102, but was afebrile on admission - He was adminstered levoquin 500 mg IV in the ED, this will be continued pending cultures - Dr. Johnson should be notified in the am of the patient's admission Suspected tube feeding stoma infection - Aerobic and anaerobic wound cultures are pending. Gram stain indicates large amount of Gram positives, suseptability pending Acute colitis present on admission - I have added metronidiazole 500 mg IV qid - GI stool series pending - Immodium prn Post heart transplant anti-rejection therapy - Continue home doses of tacralimus and Sirolimus suspension anti-rejection medication - Patient has elixer formulation and will use own medication Insulin dependent diabetes, chronic and poorly controlled at this time - Continue home dose of glargine 16 units at bedtime - Low dose correctional insulin - He is NPO and receives tube feedings - POC glucose checks q 6 hours Essential hypertension, chronic and stable - Continue home doses of Carvedilol 3.125 per tube bid - Continue aspirin 81 mg per tube daily Obstructive sleep apnea, chronic and stable - Patient will use own CPAP machine brought in by his Hyperlipidemia, chronic and stable - Continue home dose of rosuvastatin 20 mg per tube at bedtime VTE prophylaxis: Wells risk score: 2.5 Enoxaparin 40 mg subQ daily Consults: telephone consult ordered from Dr. Johnson, Oncology Patient is admitted under inpatient status with expected length of stay greater than 2 midnights due to severity of presenting symptoms, risk of adverse event, and complexity of treatment plan. FEN: NS at 100 ml/hour, NPO, tube feedings, BMP and magnesium in the am. Dispo: probable discharge to home Code Status: Full code as discussed with patient and Sharri his DPOA. She will bring in his advanced directive to scan. COVID-19 COVID-19 status: Negative Result date/Date tested (Pos, Neg/Pending): 01/25/21 Scores Wells' Criteria for PE Clinical signs and symptoms of DVT: No PE is #1 Dx or equally likely: No Heart rate > 100: Yes Immobilization at least 3 days or surg in previous 4 weeks: No History of PE or DVT: No Hemoptysis: No Malignancy w/Treatment within 6 months or palliative: Yes Wells' PE Score total: 2.5 Quality VTE Deep Vein Thrombosis/Pulmonary Embolism Present on Admission: No MIPS - Admit I confirm the patient?s Advance Care Plan is present, Code status is documented, Surrogate decision maker is in patient?s record [If Yes, STOP here]: Yes
[2021-01-26 00:35] VITALS: BMI 25.0
[2021-01-26] MEDS: SODIUM CHLORIDE 0.9% 1,000 ML 100 ML IV (01:53)
[2021-01-26] MEDS: metroNIDAZOLE 500 MG/100 ML PIGGYBACK 100 MG IV ×2 (02:01→06:12)
[2021-01-26] MEDS: OXYCODONE IR 5 MG TABLET TUBE ×6 (02:24→23:19)
[2021-01-26 06:04] LABS: Hemoglobin 8.4 g/dL (13.5-17.5); Mean Corpuscular HGB Conc 33.9 % (30-36); Mean Corpuscular Hemoglobin 28.2 PG (26-34); Mean Corpuscular Volume 83.1 fL (80-100); Platelet Count 131 X10^3/uL (150-400); Red Blood Cell Count 2.97 X10^6/uL (4.5-5.9); Red Cell Distribution Width 16.8 % (11.6-14.8)
[2021-01-26 06:06] LABS: BUN Creatinine Ratio 36.8 (6-22); Blood Urea Nitrogen 21 mg/dL (9-20); Calcium 7.5 mg/dL (8.4-10.2); Carbon Dioxide 31 mmol/L (22-32); Chloride 96 mmol/L (98-107); Estimated Glomerular Filt Rate > 60.0 mL/min (>60); Glucose 142 mg/dL (80-110); HEMOLYSIS < 15 (0-50); Potassium 2.9 mmol/L (3.4-5.1); Sodium 133 mmol/L (137-145)
[2021-01-26 06:07] LABS: Add Manual Diff / Slide Review YES; Hematocrit 24.7 % (41-53)
[2021-01-26 06:09] LABS: White Blood Cell Count 0.7 X10^3/uL (4.5-11.0)
[2021-01-26] MEDS: LEVOTHYROXINE 100 MCG TABLET PO (06:13)
[2021-01-26 06:31] LABS: Neutrophils Absolute Manual 532 /uL (3000-5900); Total Cells Counted 50
[2021-01-26 06:33] LABS: RBC Morphology Normal Morphology
[2021-01-26 07:09] LABS: Appearance Urine UA CLEAR; Bilirubin Urine UA NEGATIVE (NEGATIVE); Color Urine UA YELLOW; Glucose Urine UA 1+ g/dL (Negative); Ketones Urine UA NEGATIVE (NEGATIVE); Leukocyte Esterase Urine UA NEGATIVE (NEGATIVE); Nitrite Urine UA NEGATIVE (Negative); Occult Blood Urine UA 2+ (Negative); Protein Urine UA 2+ (Negative); Specific Gravity Urine UA 1.025 (1.000-1.035); Urobilinogen Urine UA 0.2 E.U./dL (0.2)
[2021-01-26 07:32] LABS: Bacteria Urine Few (2-10); Culture Indicated Urine Cult Not Indicated; Hyaline Casts Urine 0-1/LPF; RBC Urine 5-10/HPF (0-5/HPF); Squamous Epithelial Cell Urine 0-1 /HPF (0-5/HPF); WBC Urine 1-5/HPF (0-5/HPF)
[2021-01-26 08:00] VITALS: BP 145/85; PULSE 107; RESP 16; TEMP 36.5; O2SAT 96
[2021-01-26] MEDS: ASPIRIN EC 81 MG TABLET PO (08:30)
[2021-01-26] MEDS: FAMOTIDINE 20 MG TABLET PO ×2 (08:30→21:26)
[2021-01-26] MEDS: ROSUVASTATIN 10 MG TABLET 20 MG PO (08:31)
[2021-01-26] MEDS: POTASSIUM CHLORIDE 20 MEQ/15 ML UDC TUBE (08:31)
[2021-01-26] MEDS: TACROLIMUS 1.5 EACH PO ×2 (08:31→21:18)
[2021-01-26] MEDS: ENOXAPARIN 40 MG/0.4 ML SYRINGE SUBCUT (08:31)
[2021-01-26] MEDS: INSULIN LISPRO 100 UNIT/ML 3ML VIAL SUBCUT ×4 (08:31→21:30)
[2021-01-26] MEDS: carvediloL 3.125 MG TABLET TUBE ×2 (08:31→21:19)
[2021-01-26 09:03] VITALS: PULSE 74; RESP 16; O2SAT 92
[2021-01-26] MEDS: ONDANSETRON 4 MG/2 ML INJ IV (11:22)
--- NOTE | 2021-01-26 12:21 | DIET.PN ---
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 Pt referred to nutrition as pt is strict NPO c PEG tube since September 2020. Tube Feed Hx: Pt had PEG placed in 10/15 secondary to obstructing esophageal tumor resulting in aspiration pneumonia. Pt originally placed on fiber-free EN formula but TGs were in 500s so cardiologists requested formula change. Pt then prescribed 1.5 liters daily Nestle Isosource 1.5 given as six 250mL boluses c 120mL free water flushes 6x/d. When pt started having diarrhea four weeks ago, oncologist recommended reducing to four 250mL boluses daily. Pts now mixes 250mL formula c 250mL free water and continues 120mL free water four times per day. Pt getting 1500kcal (76% EER), 68g PRO (76% EER) and 2,240mL free water (32mL/kg). Pt often feeling overfull after these new feeds. Pts diarrhea type and quality has changed since his last chemo tx 3d ago, now c more urgency and no warning and often occuring in middle of the night. Pt was seen by his PCP 2 weeks ago because his PEG button was tight to his stomach, almost sunken, PCP pulled it out some and since pt has had yellow discharge from around the tubing which often soaks through 4x4 and 2x2 dressings even onto his undershirt. To note: pt past cancer tx left his LES scarred open so pt remains very high risk for aspiration after PEG feeds. Pt has hive type reaction to fish oil. HT: 167.6cm WT:70.3kg (-11% in 6mo, severe) UBW: 79kg BMI: 25 Labs: WBC 0.7 L, hgb 8.4 L, K+ 2.9 L, Cr 0.57 L, lactate 2.5, BG ranging from 142 to 265 MNA: 12 Alber:18 Nutrition Diagnosis: Severe Acute on Chronic PCM r/t feeding intolerance and chemo side effects aeb 11% unintentional weight loss in 6mo (severe), pt has 1mo uncontrolled diarrhea, pts reports only giving pt 4/6 enteral boluses daily and supplements with free water, pts current feeding regimen meets 76% kcal and pro needs. Interventions: 1. Recc pt continue Isosource 1.5 formula as this is lowFODMAP fiber formula indicated for diarrhea. 2. Recc increasing bolus to 5/d c 120mL flush c each bolus and an additional two free water flushes of 280mL daily. Pt likely feeling overfilled secondary to pushing 620mL into stomach when 360mL should be high end of total volume each feed. Additionally, this high volume of dilute formula may contribute to diarrhea. 3. Recc final bolus no later than 7pm as pt often having last feed at 8pm and sleeping by 10pm. Diet Order: strict NPO c bolus PEG feeds EER: 1980kcal (28kcal per kg), 90g PRO (1.3g/kg per PCM), 2100mL free water (30mL/kg) Monitoring/Evaluations: EN tolerance
[2021-01-26 12:42] LABS: Adenovirus F 40/41 Not Detected (Not Detect); Astrovirus Not Detected (Not Detect); Campylobacter Not Detected (Not Detect); Clostridium difficile toxin AB Not Detected (Not Detect); Cryptosporidium Not Detected (Not Detect); Cyclospora cayetanensis Not Detected (Not Detect); Entamoeba histolytica Not Detected (Not Detect); Enteroaggregative E.coli Not Detected (Not Detect); Enteropathogenic E.coli Not Detected (Not Detect); Enterotoxigenic E.coli It/st Not Detected (Not Detect); Giardia lamblia Not Detected (Not Detect); Norovirus GI/GII Not Detected (Not Detect); Plesiomonsa shigelloides Not Detected (Not Detect); Rotavirus A Not Detected (Not Detect); Salmonella Not Detected (Not Detect); Sapovirus Not Detected (Not Detect); Shiga-like toxin-prod E.coli Not Detected (Not Detect); Shigella/Enteroinvasive E.coli Not Detected (Not Detect); Vibrio Not Detected (Not Detect); Vibrio cholerae Not Detected (Not Detect); Yersinia enterocolitica Not Detected (Not Detect)
[2021-01-26] MEDS: levoFLOXacin 750 MG/150 ML PIGGYBACK 100 MG IV (12:54)
--- NOTE | 2021-01-26 14:33 | PM.PN.1 ---
Subjective Subjective Date Patient Seen: 01/26/21 Interval history: Patient is a 70-year-old male who was admitted to the hospital with neutropenic fever, diarrhea, and overall feeling poorly. He has had decreased diarrhea. He has had minimal drainage from his PEG site. He has had low-grade fever to 99. He has been tachycardic intermittently throughout the day. The patient's ANC is around 532. His antibiotics will be switched to broad-spectrum antibiotics. Patient complains of shaking chills. Exam Vital Signs (past 8 hours): - 01/26/21 08:00 01/26/21 09:03 Temperature 97.7 F Pulse Rate 107 H 74 Respiratory Rate 16 16 Blood Pressure 145/85 H Pulse Oximetry 96 92 Oxygen Delivery Method Room Air Oxygen Flow Rate 0 Narrative Exam Narrative: Pale ill-appearing male lying in bed Lungs: Decreased breath sounds but clear to auscultation Cardiac exam: Tachycardic regular rate and rhythm normal S1-S2 with a 2/6 systolic ejection Abdomen: Soft nontender nondistended, peg site clean and dry with minimal drainage Extremities: No edema Objective Labs Result Diagrams: 01/26/21 05:35 01/26/21 05:35 Labs: Laboratory Results - last 24 hr 01/25/21 01/25/21 01/25/21 21:06 21:20 21:20 WBC 1.9 L* RBC 3.16 L Hgb 9.0 L Hct 27.0 L MCV 85.4 MCH 28.7 MCHC 33.5 RDW 16.5 H Plt Count 185 Neut % (Auto) Not Reportable Lymph % (Auto) Not Reportable [place] % (Auto) Not Reportable Eos % (Auto) Not Reportable Baso % (Auto) Not Reportable Lymph # (Auto) Not Reportable [place] # (Auto) Not Reportable Baso # (Auto) Not Reportable Total Counted 50 Seg Neutrophils % 78.0 H Band Neutrophils % 10.0 H Lymphocytes % (Manual) 4.0 L Monocytes % (Manual) 8.0 Neutrophils # (Manual) 1672 L RBC Morphology Normal morphology PT 12.0 INR 1.1 APTT 28 D Sodium Potassium Chloride Carbon Dioxide BUN Creatinine Estimated GFR BUN/Creatinine Ratio Glucose Lactate Calcium Magnesium Total Bilirubin AST ALT Alkaline Phosphatase Total Creatine Kinase CK-MB (CK-2) CK-MB (CK-2) Rel Index Troponin I Total Protein Albumin Globulin Albumin/Globulin Ratio Lipase Procalcitonin Urine Color Urine Appearance Urine pH Ur Specific [place] Urine Protein Urine Glucose (UA) Urine Ketones Urine Occult Blood Urine Nitrate Urine Bilirubin Urine Urobilinogen Ur Leukocyte Esterase Urine RBC Urine WBC Ur Squamous Epith Cells Urine Bacteria Hyaline Casts Ur Culture Indicated? Stl C. cayetanensis PCR Stool Rotavirus (PCR) Stool Adenovirus (PCR) Stool Astrovirus (PCR) Stool Cryptosporidium PCR Stl E.coli Shiga Tox PCR St Sh/Enteroin Ecoli PCR Stool E coli O157 PCR Stl Enterotoxigenic E PCR Stool EPEC (PCR) Stl E. histolytica PCR Stool Giardia Lamblia PCR Stool Sapovirus (PCR) Stl P. shigelloides PCR St Y.enterocolitica PCR Stool Vibrio (PCR) Stl Vibrio cholerae PCR Stl Enteroaggr Ecoli PCR Stl Norovirus GI/GII PCR Campylobacter (PCR) C. difficile Tox (PCR) SARS-CoV-2 (PCR) Negative Salmonella (PCR) 01/25/21 01/25/21 01/25/21 21:20 21:20 21:52 WBC RBC Hgb Hct MCV MCH MCHC RDW Plt Count Neut % (Auto) Lymph % (Auto) [place] % (Auto) Eos % (Auto) Baso % (Auto) Lymph # (Auto) [place] # (Auto) Baso # (Auto) Total Counted Seg Neutrophils % Band Neutrophils % Lymphocytes % (Manual) Monocytes % (Manual) Neutrophils # (Manual) RBC Morphology PT INR APTT Sodium 135 L Potassium 3.7 Chloride 94 L Carbon Dioxide 29 BUN 32 H Creatinine 0.70 Estimated GFR > 60.0 BUN/Creatinine Ratio 45.7 H Glucose 280 H Lactate 2.8 H Calcium 8.7 Magnesium Total Bilirubin 0.4 AST 35 ALT 28 Alkaline Phosphatase 132 H Total Creatine Kinase 33 L CK-MB (CK-2) TNP CK-MB (CK-2) Rel Index TNP Troponin I < 0.012 Total Protein 6.5 Albumin 3.7 Globulin 2.8 Albumin/Globulin Ratio 1.3 Lipase 34 Procalcitonin 0.18 Urine Color Yellow Urine Appearance Clear Urine pH 6.0 Ur Specific [place] 1.025 Urine Protein 2+ H Urine Glucose (UA) 1+ H Urine Ketones Negative Urine Occult Blood 2+ H Urine Nitrate Negative Urine Bilirubin Negative Urine Urobilinogen 0.2 Ur Leukocyte Esterase Negative Urine RBC 5-10/hpf H Urine WBC 1-5/hpf Ur Squamous Epith Cells 0-1 /hpf Urine Bacteria Few (2-10) H Hyaline Casts 0-1/lpf Ur Culture Indicated? Cult not indicated Stl C. cayetanensis PCR Stool Rotavirus (PCR) Stool Adenovirus (PCR) Stool Astrovirus (PCR) Stool Cryptosporidium PCR Stl E.coli Shiga Tox PCR St Sh/Enteroin Ecoli PCR Stool E coli O157 PCR Stl Enterotoxigenic E PCR Stool EPEC (PCR) Stl E. histolytica PCR Stool Giardia Lamblia PCR Stool Sapovirus (PCR) Stl P. shigelloides PCR St Y.enterocolitica PCR Stool Vibrio (PCR) Stl Vibrio cholerae PCR Stl Enteroaggr Ecoli PCR Stl Norovirus GI/GII PCR Campylobacter (PCR) C. difficile Tox (PCR) SARS-CoV-2 (PCR) Salmonella (PCR) 01/25/21 01/26/21 01/26/21 23:32 05:35 05:35 WBC 0.7 L* D RBC 2.97 L Hgb 8.4 L Hct 24.7 L MCV 83.1 MCH 28.2 MCHC 33.9 RDW 16.8 H Plt Count 131 L Neut % (Auto) Not Reportable Lymph % (Auto) Not Reportable [place] % (Auto) Not Reportable Eos % (Auto) Not Reportable Baso % (Auto) Not Reportable Lymph # (Auto) Not Reportable [place] # (Auto) Not Reportable Baso # (Auto) Not Reportable Total Counted 50 Seg Neutrophils % 68.0 Band Neutrophils % 8.0 H Lymphocytes % (Manual) 12.0 L Monocytes % (Manual) 12.0 H Neutrophils # (Manual) 532 L RBC Morphology Normal morphology PT INR APTT Sodium 133 L Potassium 2.9 L Chloride 96 L Carbon Dioxide 31 BUN 21 H Creatinine 0.57 L Estimated GFR > 60.0 BUN/Creatinine Ratio 36.8 H Glucose 142 H D Lactate 2.5 H Calcium 7.5 L Magnesium 1.0 L Total Bilirubin AST ALT Alkaline Phosphatase Total Creatine Kinase CK-MB (CK-2) CK-MB (CK-2) Rel Index Troponin I Total Protein Albumin Globulin Albumin/Globulin Ratio Lipase Procalcitonin Urine Color Urine Appearance Urine pH Ur Specific [place] Urine Protein Urine Glucose (UA) Urine Ketones Urine Occult Blood Urine Nitrate Urine Bilirubin Urine Urobilinogen Ur Leukocyte Esterase Urine RBC Urine WBC Ur Squamous Epith Cells Urine Bacteria Hyaline Casts Ur Culture Indicated? Stl C. cayetanensis PCR Stool Rotavirus (PCR) Stool Adenovirus (PCR) Stool Astrovirus (PCR) Stool Cryptosporidium PCR Stl E.coli Shiga Tox PCR St Sh/Enteroin Ecoli PCR Stool E coli O157 PCR Stl Enterotoxigenic E PCR Stool EPEC (PCR) Stl E. histolytica PCR Stool Giardia Lamblia PCR Stool Sapovirus (PCR) Stl P. shigelloides PCR St Y.enterocolitica PCR Stool Vibrio (PCR) Stl Vibrio cholerae PCR Stl Enteroaggr Ecoli PCR Stl Norovirus GI/GII PCR Campylobacter (PCR) C. difficile Tox (PCR) SARS-CoV-2 (PCR) Salmonella (PCR) 01/26/21 10:40 WBC RBC Hgb Hct MCV MCH MCHC RDW Plt Count Neut % (Auto) Lymph % (Auto) [place] % (Auto) Eos % (Auto) Baso % (Auto) Lymph # (Auto) [place] # (Auto) Baso # (Auto) Total Counted Seg Neutrophils % Band Neutrophils % Lymphocytes % (Manual) Monocytes % (Manual) Neutrophils # (Manual) RBC Morphology PT INR APTT Sodium Potassium Chloride Carbon Dioxide BUN Creatinine Estimated GFR BUN/Creatinine Ratio Glucose Lactate Calcium Magnesium Total Bilirubin AST ALT Alkaline Phosphatase Total Creatine Kinase CK-MB (CK-2) CK-MB (CK-2) Rel Index Troponin I Total Protein Albumin Globulin Albumin/Globulin Ratio Lipase Procalcitonin Urine Color Urine Appearance Urine pH Ur Specific [place] Urine Protein Urine Glucose (UA) Urine Ketones Urine Occult Blood Urine Nitrate Urine Bilirubin Urine Urobilinogen Ur Leukocyte Esterase Urine RBC Urine WBC Ur Squamous Epith Cells Urine Bacteria Hyaline Casts Ur Culture Indicated? Stl C. cayetanensis PCR Not detected Stool Rotavirus (PCR) Not detected Stool Adenovirus (PCR) Not detected Stool Astrovirus (PCR) Not detected Stool Cryptosporidium PCR Not detected Stl E.coli Shiga Tox PCR Not detected St Sh/Enteroin Ecoli PCR Not detected Stool E coli O157 PCR Not Reportable Stl Enterotoxigenic E PCR Not detected Stool EPEC (PCR) Not detected Stl E. histolytica PCR Not detected Stool Giardia Lamblia PCR Not detected Stool Sapovirus (PCR) Not detected Stl P. shigelloides PCR Not detected St Y.enterocolitica PCR Not detected Stool Vibrio (PCR) Not detected Stl Vibrio cholerae PCR Not detected Stl Enteroaggr Ecoli PCR Not detected Stl Norovirus GI/GII PCR Not detected Campylobacter (PCR) Not detected C. 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 Gram stain indicates large amount of Gram positives, suseptability pending -will continue antibiotics, difficult to determine whether there was a stomal infection are not given the fact that the patient has no white count and is unable to form pus -broad-spectrum antibiotics will cover any stomal infection Acute colitis present on admission -given severe neutropenia continue meropenem -will continue to follow closely -no significant diarrhea today -discontinue docusate Post heart transplant anti-rejection therapy - Continue home doses of tacralimus and Sirolimus suspension anti-rejection medication - Patient has elixer formulation and will use own medication Insulin dependent diabetes, chronic and poorly controlled at this time - Continue home dose of glargine 16 units at bedtime - Low dose correctional insulin - He is NPO and receives tube feedings - POC glucose checks q 6 hours Essential hypertension, chronic and stable - Continue home doses of Carvedilol 3.125 per tube bid - Continue aspirin 81 mg per tube daily Obstructive sleep apnea, chronic and stable - Patient will use own CPAP machine brought in by his Hyperlipidemia, chronic and stable - Continue home dose of rosuvastatin 20 mg per tube at bedtime Quality VTE Deep Vein Thrombosis/Pulmonary Embolism Present on Admission: No
[2021-01-26 15:45] VITALS: BP 119/81; PULSE 108; RESP 20; TEMP 37.3; O2SAT 93
[2021-01-26] MEDS: CALCIUM GLUCONATE 4.65 MEQ in SODIUM CHLORIDE 0.9% 50 ML 180 ML IV (15:48)
--- NOTE | 2021-01-26 15:55 | PC.NURSE ---
Patient VSS, Tachy today in the 108's, up to the teens. Patient has stated all day that he has been very cold. Temp has been 99.1. Patient lung sounds coarse in the right lower anterior base, cough that is intermittent and dry. Patient has PEG tube feedings and medications through PEG tube. brings in own feeding formula, and has pulp grinder feeder to grind medications for PEG tube. states he aspirates and that his throat muscles are atrophied. Patient has difficulty urinating, penis is retracted and he has a hard time getting it to the urinal. Patient has been up to the bedside commode and has had diarrhea and had some nausea treated w/ 4mg Zofran IV. Sharri has been at bedside today and is very involved in the patient's care.
[2021-01-26 15:58] VITALS: BP 119/81; PULSE 108
[2021-01-26] MEDS: PROCHLORPERAZINE 10 MG/2 ML VIAL IV (15:58)
[2021-01-26] MEDS: DEXTROSE 5%-0.45NS W/KCL 40MEQ 1,000 ML 150 MEQ IV (16:25)
[2021-01-26] MEDS: MEROPENEM 2 GM in SODIUM CHLORIDE 0.9% 100 ML 200 ML IV ×2 (16:32→22:49)
--- NOTE | 2021-01-26 16:38 | CM.DANOTE ---
DCP ASSESSMENT: Patient is a 70 year-old male admitted for acute colitis and suspected neutropenic fever. PCP is Mendoza Venegas. Primary Payer is Medicare and appiris. Patient has had three trips to the ER in the last two month, two at [facility] (12/10/20 & 01/14/21) and one at [facility] per . Dr. Lara is in agreement with occupational and physical therapy evaluation. Patient is currently receiving care from [facility] from Dr. Francisco and receives Chemotherapy treatment from Dr. Johnson at [facility]. Per he has x1 chemo therapy treatment left. and have been managing at home alone, they have DME and patient does use a FWW at home. manages his tube feeding and provides transportation. enquired about possible jail placement due to current increased level of care. PLAN: Will place therapy consults. Anticipate home with upon D/C. CM Team to closely follow. TATA Aguilera MSW Student Discharge Planning/Care Management CM Discharge Assessment Start: 01/26/21 15:06 Freq: Status: Active Protocol: Document 01/26/21 15:06 AL (Rec: 01/26/21 15:09 AL [id number]) Discharge Planning Assessment Assigned Daily Release And [employer] Printer [place] [place] Student Contact Information Sharri Cochran, [phone] Advance Directives? Yes Advance Directives on File Yes: copie brought in by History Provided By Patient,Family Member,Medical Record Has Patient been admitted in last 30 Yes days? Comment 12/10/20 and 01/14 Fall and weakness Prior Living Arrangements House Household Members spouse Type of transporation used prior to Relies on Others admit Comment provides transportation Independent with ADL's No Is patient alert and oriented? Yes Caregiver for Another No DME Already Rented / Owned FWW / Walker Barriers to Discharge No Discharge Plan Home Transportation Arrangement will provide transportation Whiteboard Updated in Patient Room with Yes name and ext. # of Daily Release And Dupe Printer Review Status In Process Document 01/26/21 15:13 AL (Rec: 01/26/21 15:13 AL [id number]) Discharge Planning Assessment Assigned Daily Release And [employer]inter [employer] [place] Student Contact Information Sharri Cochran, Advance Directives? Yes Advance Directives on File Yes: copie brought in by History Provided By Patient,Family Member,Medical Record Has Patient been admitted in last 30 Yes days? Comment 12/10/20 and 01/14 Fall and weakness Prior Living Arrangements House Household Members spouse Type of transporation used prior to Relies on Others admit Comment provides transportation Independent with ADL's No Is patient alert and oriented? Yes Caregiver for Another No DME Already Rented / Owned FWW / Walker Barriers to Discharge No Discharge Plan Home Transportation Arrangement will provide transportation Whiteboard Updated in Patient Room with Yes name and ext. # of Daily Release And Dupe Printer Review Status In Process
[2021-01-26] MEDS: DIPHENOXYLATE/ATROP 2.5/0.025 TABLET 1 EACH PO (18:55)
--- NOTE | 2021-01-26 19:22 | PC.NURSE ---
Report received, care assumed 1530. VSS. Pt. denies pain but c/o nausea. Zofran ordered but not yet due; obtained order of Compazine from Dr. Lara. JANETTE to [facility]. Pt. transferred with gait belt, walker, and 1-person assist. Was strong and appropriate. Small loose stool. Encouraged to sit up in chair but asked to go back to bed. Declined [id number] repositioning. Meds administered via G-tube. Spouse administered tube feeding formula per at-home routine.
[2021-01-26] MEDS: [UNRECOGNIZED DRUG - OTHER] 3 EACH PO (21:18)
[2021-01-26 21:19] VITALS: BP 160/98; PULSE 112
[2021-01-26] MEDS: hydrOXYzine pamoate 25 MG CAPSULE PO (21:19)
[2021-01-26] MEDS: TRAZODONE 50 MG TABLET PO (21:19)
[2021-01-26] MEDS: OXYCODONE 5 MG/5 ML ORAL SOLUTION TUBE (21:26)
[2021-01-26] MEDS: INSULIN GLARGINE 100 UNIT/ML 3ML PEN 16 UNIT SUBCUT (21:36)
[2021-01-27] VITALS (9 sets, daily range): BP systolic 117–156; BP diastolic 72–98; PULSE 93–113; RESP 15–18; TEMP 36.4–37.5; O2SAT 92–94
[2021-01-27] MEDS: OXYCODONE IR 5 MG TABLET TUBE ×4 (03:03→16:39)
[2021-01-27] MEDS: DEXTROSE 5%-0.45NS W/KCL 40MEQ 1,000 ML 150 MEQ IV (03:06)
[2021-01-27] MEDS: MEROPENEM 2 GM in SODIUM CHLORIDE 0.9% 100 ML 200 ML IV ×2 (06:05→14:12)
[2021-01-27] MEDS: LEVOTHYROXINE 100 MCG TABLET PO (06:05)
[2021-01-27 06:38] LABS: Mean Corpuscular HGB Conc 34.4 % (30-36); Mean Corpuscular Hemoglobin 28.3 PG (26-34); Mean Corpuscular Volume 82.2 fL (80-100); Platelet Count 95 X10^3/uL (150-400); Red Blood Cell Count 3.16 X10^6/uL (4.5-5.9); Red Cell Distribution Width 16.6 % (11.6-14.8)
[2021-01-27 06:48] LABS: White Blood Cell Count 0.4 X10^3/uL (4.5-11.0)
[2021-01-27 06:58] LABS: Alanine Aminotransferase 32 IU/L (<50); Albumin 3.4 g/dL (3.5-5.0); Albumin Globulin Ratio 1.2 (1.0-2.8); Alkaline Phosphatase 104 U/L (38-126); Aspartate Aminotransferase 49 IU/L (17-59); BUN Creatinine Ratio 24.6 (6-22); Bilirubin Total 0.4 mg/dL (0.2-1.3); Blood Urea Nitrogen 14 mg/dL (9-20); Calcium 7.7 mg/dL (8.4-10.2); Carbon Dioxide 31 mmol/L (22-32); Chloride 92 mmol/L (98-107); Estimated Glomerular Filt Rate > 60.0 mL/min (>60); Globulin 2.8 g/dL (1.7-4.1); Glucose 147 mg/dL (80-110); HEMOLYSIS < 15 (0-50); Potassium 2.8 mmol/L (3.4-5.1); Sodium 130 mmol/L (137-145); Total Protein 6.2 g/dL (6.3-8.2)
[2021-01-27] MEDS: INSULIN LISPRO 100 UNIT/ML 3ML VIAL SUBCUT ×4 (08:36→21:24)
[2021-01-27] MEDS: ASPIRIN EC 81 MG TABLET PO (09:24)
[2021-01-27] MEDS: carvediloL 3.125 MG TABLET TUBE ×2 (09:24→21:21)
[2021-01-27] MEDS: FAMOTIDINE 20 MG TABLET PO ×2 (09:25→21:21)
[2021-01-27] MEDS: ROSUVASTATIN 10 MG TABLET 20 MG PO (09:25)
[2021-01-27] MEDS: POTASSIUM CHLORIDE 20 MEQ/15 ML UDC TUBE (09:27)
[2021-01-27] MEDS: DIPHENOXYLATE/ATROP 2.5/0.025 TABLET 1 EACH PO (09:31)
[2021-01-27] MEDS: TACROLIMUS 1.5 EACH PO ×2 (09:39→21:22)
[2021-01-27] MEDS: ENOXAPARIN 40 MG/0.4 ML SYRINGE SUBCUT (10:40)
--- NOTE | 2021-01-27 11:48 | PC.NURSE ---
Patient is alert and oriented x3. He has a ryan cath with ivf infusing. Sumeet also has a feeding tube present to lElimid abdomen. His crushes up his meds given by nurse and also does his feeds. She is very involved with his care. He is NPO as he is an aspiration risk from Esophageal Cancer. Patient is comfortable.
--- NOTE | 2021-01-27 16:04 | PM.PN.1 ---
Subjective Subjective Date Patient Seen: 01/27/21 Interval history: Patient reports overall he feels significantly improved. He has had no significant diarrhea today. He has tolerated his diet without difficulty. He has been afebrile. He has had no further shaking chills. Exam Vital Signs (past 8 hours): - 01/27/21 09:24 01/27/21 11:15 01/27/21 15:24 Temperature 98 F 98.0 F Pulse Rate 107 H 101 H 101 H Respiratory Rate 15 18 Blood Pressure 145/94 H 139/79 140/82 Pulse Oximetry 93 94 Oxygen Delivery Method Room Air Oxygen Flow Rate 0 Narrative Exam Narrative: Pleasant gentleman lying in bed in no obvious distress Lungs decreased breath sound with occasional basilar scattered crackles Cardiac exam: Regular rate and rhythm normal S1-S2 with a 2/6 systolic ejection murmur Abdomen: Soft and nontender dressing in place over PEG site,, no exudate noted, belly is nontender without palpable mass Extremities: No edema Objective Labs Result Diagrams: 01/27/21 06:21 01/27/21 06:21 Labs: Laboratory Results - last 24 hr 01/27/21 01/27/21 06:21 06:21 WBC 0.4 L* RBC 3.16 L Hgb 9.0 L Hct 26.0 L MCV 82.2 MCH 28.3 MCHC 34.4 RDW 16.6 H Plt Count 95 L Neut % (Auto) Not Reportable Lymph % (Auto) Not Reportable [place] % (Auto) Not Reportable Eos % (Auto) Not Reportable Baso % (Auto) Not Reportable Lymph # (Auto) Not Reportable [place] # (Auto) Not Reportable Baso # (Auto) Not Reportable Sodium 130 L Potassium 2.8 L Chloride 92 L Carbon Dioxide 31 BUN 14 Creatinine 0.57 L Estimated GFR > 60.0 BUN/Creatinine Ratio 24.6 H Glucose 147 H Calcium 7.7 L Total Bilirubin 0.4 AST 49 ALT 32 Alkaline Phosphatase 104 Total Protein 6.2 L Albumin 3.4 L Globulin 2.8 Albumin/Globulin Ratio 1.2 [facility] Medical History (Updated 01/26/21 @ 01:23 by MANE Alvarado) Diabetes History of Hodgkin's lymphoma Hypothyroidism Insulin dependent diabetes mellitus Large B-cell lymphoma Surgical History Heart transplant status Family History Father Myocardial infarction Mother Old age Social History household members: spouse Smoking Status: Never smoker Assessment & Plan Assessment & Plan narrative: Impression 1. 70-year-old male admitted to the hospital with neutropenic fevers -neutropenia most likely related to prior chemotherapy -patient with a documented ANC of less than 500, the past 24 hours, shaking chills have resolved, heart rate has and -patient is on meropenem will continue -as his diarrhea has resolved will Hep-Lock IV for fluids given his increased oral intake 2. Hypokalemia -likely related to diarrhea - will replace 3. Hyponatremia\ -related to volume losses -will follow, IVF discontinued today 4. Hodgkins's lymphoma- s/p chemotherapy 5. Acute Colitis -likely related to neutropenia, improved -continue IV antibiotics for now -no evidence of bacterial infection 6. History of Heart Transplant -continue antirejection treatment 7. Type 2 diabetes -continue basal bolus insulin 8. Hypertension -continue usual home medications 9. Obstructive Sleep Apnea -continue bipap 10/ Hyperlipidemia -continue statin 11. Acute on chronic protein calorie malnutrition -likely related to Hodgkin's lymphoma a affecting the throat 12. No evidence of pneumonia recent chest x-rays Plan: will recheck CBC/ lytes in am If no further diarrhea with improving WBC anticipate discharge home Quality VTE Deep Vein Thrombosis/Pulmonary Embolism Present on Admission: No
[2021-01-27] MEDS: POTASSIUM CHLORIDE 20 MEQ/15 ML UDC 40 MEQ TUBE (16:39)
[2021-01-27] MEDS: TRAZODONE 50 MG TABLET PO (21:20)
[2021-01-27] MEDS: hydrOXYzine pamoate 25 MG CAPSULE PO (21:22)
[2021-01-27] MEDS: [UNRECOGNIZED DRUG - OTHER] 3 EACH PO (21:23)
[2021-01-27] MEDS: OXYCODONE 5 MG/5 ML ORAL SOLUTION TUBE (21:23)
[2021-01-27] MEDS: INSULIN GLARGINE 100 UNIT/ML 3ML PEN 16 UNIT SUBCUT (21:24)
[2021-01-28] MEDS: MEROPENEM 2 GM in SODIUM CHLORIDE 0.9% 100 ML 200 ML IV ×3 (01:10→15:53)
[2021-01-28] MEDS: OXYCODONE IR 5 MG TABLET TUBE ×3 (01:10→15:37)
[2021-01-28 06:43] LABS: Hematocrit 25.3 % (41-53); Hemoglobin 8.8 g/dL (13.5-17.5); Mean Corpuscular HGB Conc 34.7 % (30-36); Mean Corpuscular Hemoglobin 28.6 PG (26-34); Mean Corpuscular Volume 82.3 fL (80-100); Platelet Count 100 X10^3/uL (150-400); Red Blood Cell Count 3.08 X10^6/uL (4.5-5.9); Red Cell Distribution Width 16.8 % (11.6-14.8)
[2021-01-28 06:48] LABS: Add Manual Diff / Slide Review YES; White Blood Cell Count 0.5 X10^3/uL (4.5-11.0)
[2021-01-28 06:56] LABS: BUN Creatinine Ratio 23.8 (6-22); Blood Urea Nitrogen 15 mg/dL (9-20); Calcium 8.1 mg/dL (8.4-10.2); Carbon Dioxide 31 mmol/L (22-32); Chloride 95 mmol/L (98-107); Estimated Glomerular Filt Rate > 60.0 mL/min (>60); Glucose 154 mg/dL (80-110); HEMOLYSIS < 15 (0-50); Sodium 130 mmol/L (137-145)
[2021-01-28 07:00] VITALS: BP 126/63; PULSE 109; RESP 16; TEMP 36.7; O2SAT 95
[2021-01-28 07:24] LABS: Neutrophils Absolute Manual 200 /uL (3000-5900); Total Cells Counted 50
[2021-01-28 07:25] LABS: Anisocytosis 1+; Dohle Bodies 3+; Platelet Estimate Decreased on smear
--- NOTE | 2021-01-28 08:13 | P.DS_ITS ---
History of Present Illness History of Present Illness Date Patient Seen: 01/28/21 Chief complaint: FEVER AND DIARRHEA Narrative: Sumeet Cochran is a 70 y.o. 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 The patient's provides much of the history due to the patient being somewhat lethargic and unable to speak while I was seeing him in the emergency department. She states that he woke up from a nap at 3:00 p.m. with the fever and had an episode of urinary incontinence which is not normal for him. He states like that he felt like he was going to pass out. 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 He sipped some soft drink and developed an aspiration pneumonia which landed him at [facility] a little over a week and half ago. He has had diarrhea for month and had an incontinence episode which is also not normal for him. states he has 4 feedings a day and was instructed to slow down or even reduce his feedings while he has the diarrhea. He denies chest pain, difficulty breathing, he has been nauseous, he denies abdominal pain, again states he has been incontinent of urine and stool. is also concerned with his feeding tube stoma stating that it has been soaking his dressings and that it has been discharging a yellow pus-like discharge that has been is bad is completely soaking the dressing. He is currently being treated for a post-transplant associated large B-cell lymphoma initially treated at [facility] [place] and now being seen by Dr. Johnson. He takes sirolimus and tacrolimus anti-rejection drugs. Approximately 1 month ago he was admitted to [facility] and discharged on January 03 for similar presentation of acute colitis with a suspected neutropenic fever, pancytopenia, and acute hypokalemia. He was treated with IV Zosyn and was consulted on with Infectious Disease. He presented to the emergency department afebrile and currently his temperature is 98.2?, blood pressure 141/75, heart rate 108, respiratory rate 10, oxygen saturation 96% on room air he weighs 70.3 kg with a BMI of 25. WBC today is 1.9 it was within normal limits on discharge from [facility] at 7.2 on January 03, RBC 3.16, hemoglobin 9.0, hematocrit 27, he has 10% bands, and neutrophil manual count of 1672, sodium 135, potassium 3.7, chloride 94, bicarb 29, BUN 32, creatinine 0.70, GFR is greater than 60, glucose was 280, lactate was 2.8 and then follow-up lactate was 2.5, he had a normal procalcitonin and COVID-19 19 PCR was negative. Discharge Providers Provider Date of admission: 01/25/21 22:44 Discharge Date: 01/28/21 Primary care physician: Mendoza Venegas MD Consults: 01/25/21 23:58 Consult to Physician Routine Comment: Consulting Provider: Vijaya Johnson Reason for consultation: neutropenic fever Has provider been notified: No 01/26/21 00:23 Consult to Dietitian, Adult Routine Comment: Reason For Exam: tube feeding, has brought in from home. 01/27/21 18:26 Consult to Occupational Therapy Evaluate & Treat Comment: Physician Instructions: Evaluate and treat Consult to Physical Therapy Evaluate & Treat Comment: Physician Instructions: Evaluate and Treat Discharge provider: Nadine Lara MD Summary Hospital Course Discharge Diagnosis: 1. Neutropenic fever, likely secondary to recent chemotherapy 2. Chronic colitis, doubt bacteria, etiology unclear 3. Hodgkin's lymphoma 4. Protein calorie malnutrition, likely contributing to his overall weakness, tube feeding contributing to diarrhea as well. 5. Type 2 diabetes 6. Hypothyroid 7. History of large B-cell lymphoma 8. Hypokalemia, 9. Pancytopenia, likely secondary to recent chemotherapy 10. Hyponatremia Hospital Course: Patient was admitted to the hospital for fever, persistent diarrhea, incontinence, and dizziness. The patient was recently hospitalized at [facility] for an aspiration episode. He has had chronic diarrhea. His was concerned regarding a stomal infection as he had pus coming from his peg site. The patient had mild neutropenia on admission with a white count of 1900 he subsequently developed severe neutropenia with an ANC of less than 500. He was placed on broad-spectrum antibiotics. The patient defervesced and had no further fever. His diarrhea improved. The patient had decreased drainage from his PEG site. this may be related to the fact that he was neutropenic and unable to form actual pus. The patient's appetite improved P he had no further dizziness. He had several electrolyte abnormalities which were corrected. Overall the patient made significant improved and was deemed appropriate for discharge home. The patient has a follow-up appointment with Dr. Johnson on February 12. Is referred to follow-up with Dr. Johnson in 1-2 weeks given his neutropenia. Patient has made significant improvement and will be discharged home with his today. Status at Discharge Cognitive/behavioral status at discharge: oriented Functional status at discharge: independent ambulation Overall status at discharge: patient is back to baseline Time Spent with Patient Time spent: Less than 30 minutes Exam Vital Signs (past 8 hours): Oxygen Delivery Method Room Air Oxygen Flow Rate 0 Narrative Exam Narrative: Pleasant gentleman in no obvious distress HEENT cephalic atraumatic, oropharynx is clear,, neck Lungs decreased breath sounds but clear to auscultate with occasional scattered crackle Cardiac exam: Regular rate and rhythm normal S1-S2 with a 2/6 systolic ejection Abdomen: Soft nontender nondistended peg site clean and dry without drainage Extremities no edema Objective Labs Result Diagrams: 01/28/21 06:15 01/28/21 06:15 Labs: Laboratory Results - last 24 hr 01/28/21 01/28/21 06:15 06:15 WBC 0.5 L* RBC 3.08 L Hgb 8.8 L Hct 25.3 L MCV 82.3 MCH 28.6 MCHC 34.7 RDW 16.8 H Plt Count 100 L Neut % (Auto) Not Reportable Lymph % (Auto) Not Reportable [place] % (Auto) Not Reportable Eos % (Auto) Not Reportable Baso % (Auto) Not Reportable Lymph # (Auto) Not Reportable [place] # (Auto) Not Reportable Baso # (Auto) Not Reportable Total Counted 50 Seg Neutrophils % 10.0 L Band Neutrophils % 30.0 H Lymphocytes % (Manual) 12.0 L Monocytes % (Manual) 36.0 H Eosinophils % (Manual) 12.0 H Neutrophils # (Manual) 200 L Dohle Bodies 3+ H Platelet Estimate Decreased on smear Plt Morphology Comment RBC Morphology See below Anisocytosis 1+ H Sodium 130 L Potassium 3.0 L Chloride 95 L Carbon Dioxide 31 BUN 15 Creatinine 0.63 L Estimated GFR > 60.0 BUN/Creatinine Ratio 23.8 H Glucose 154 H Calcium 8.1 L PFSH Medical History (Updated 01/26/21 @ 01:23 by MANE Alvarado) Diabetes History of Hodgkin's lymphoma Hypothyroidism Insulin dependent diabetes mellitus Large B-cell lymphoma Surgical History Heart transplant status Family History Father Myocardial infarction Mother Old age Social History household members: spouse Smoking Status: Never smoker Discharge Assessment & Plan Assessment and Plan Assessment: 1. Pancytopenia secondary to recent chemotherapy, neutropenic fever 2. Hodgkin's Lymphoma 3. Chronic colitis 4. Hypokalemia, hyponatremia, hypomagnesemia 5. History of heart transplant on anti-rejection therapy 6. Type 2 diabetes 7. Hypertension. 8. Hyperlipidemia 9. Obstructive sleep apnea 10. Severe Acute on Chronic Protein Calorie malnutrition Plan of Treatment: follow up with Dr. Johnson 1-2 weeks Medications as prescribed Discharge Plan Discharge Plan Patient Disposition: Home Discharge orders & Medications Prescriptions: Continued albuterol sulfate 90 mcg/actuation HFA aerosol inhaler 1 puff INHALATION Q6-8H PRN (Reason: bronchospasm) Qty: 6.7 RF: 0 alendronate 70 mg tablet 70 mg PO QWEEK RF: 0 ascorbic acid (vitamin C) 500 mg capsule, extended release 500 mg PO DAILY RF: 0 aspirin [Adult Low Dose Aspirin] 81 mg tablet,delayed release (DR/EC) 81 mg PO DAILY RF: 0 carvedilol 3.125 mg tablet 3.125 mg PO BID RF: 0 hydralazine 50 mg tablet 50 mg PO TID RF: 0 insulin aspart U-100 100 unit/mL insulin pen 12 unit SUBCUT TID RF: 0 Lantus Solostar U-100 Insulin 100 unit/mL (3 mL) insulin pen 15 unit SUBCUT DAILY RF: 0 levothyroxine 100 mcg capsule 100 mcg PO DAILY RF: 0 tacrolimus 5 mg capsule 3 mg PO Q12H RF: 0 famotidine 20 mg Tablet 20 mg feeding tube BID RF: 0 oxycodone 5 mg Tablet 5 mg PO Q4H RF: 0 potassium chloride 40 mEq/15 mL Liquid 20 meq PO DAILY RF: 0 simethicone 80 mg Tablet,Chewable 80 mg PO PRN PRN (Reason: Nausea) RF: 0 rosuvastatin 20 mg Tablet 20 mg PO DAILY RF: 0 cefpodoxime 200 mg tablet 200 mg PO BID Qty: 20 RF: 0 Follow up/Referrals: Mendoza Venegas MD [Primary Care Provider] - Discharge Health Status Multidrug resistant organism: No MDRO Diet/Activity/Treatments Diet: Tube Feeding Diet comment: continue Isosource, increase bolus to 5/dayc 120 ml flush, w/2 280 ml flush Activity: final bolus no later than 7pm Skin/Wound/Dressing Care Report to your healthcare provider any signs of infection, such as:: chills, fever and unusual drainage Discharge Data Primary Care Provider: Mendoza Venegas Quality VTE Deep Vein Thrombosis/Pulmonary Embolism Present on Admission: No
[2021-01-28] MEDS: INSULIN LISPRO 100 UNIT/ML 3ML VIAL SUBCUT ×2 (08:18→12:22)
--- NOTE | 2021-01-28 09:18 | OT.IP.EVAL ---
Current Diagnoses Neutropenia, unspecified (01/25/21) Past Medical History (Last Updated 01/26/21 @ 01:23 by MANE Alvarado) Diabetes History of Hodgkin's lymphoma Hypothyroidism Insulin dependent diabetes mellitus Large B-cell lymphoma Surgical History (Last Reviewed 01/26/21 @ 00:53 by MANE Alvarado) Heart transplant status Occupational Therapy Inpatient Evaluation/Re-Eval M1 PT/OT-IP Prior Functional Status Start: 01/28/21 09:59 Freq: NEEDED Status: Active Protocol: Document 01/28/21 09:59 [facility] (Rec: 01/28/21 10:16 [facility] [id number]) Medical Review Prior Functional Status Communication Independent Mobility and Gait Pt states use of FWW at all times. Activities of Daily Living and IADL's Pt prior able to do all his ADl's including shower on his own. Pt requires assist with tube feedings, medications, and bills. Social History Household Members spouse Living Arrangements House Number of Stairs To Enter/Railing? One step to enter the home and pt can use his FWW to negotiate the step. Home Environment Standard Height Toilet,Tub/ Shower Home Equipment Front Wheel Walker,Grab Bars In Shower M2 OT-IP Current Condition Start: 01/28/21 09:59 Freq: Status: Active Protocol: Document 01/28/21 09:59 [facility] (Rec: 01/28/21 10:16 [facility] [id number]) Occupational Therapy Current Condition Current Condition Evaluation Date 01/28/21 Treatment Diagnosis Neutropenic fever Diagnosis Onset Date 01/25/21 M3 OT- IP Subjective and Pain Start: 01/28/21 09:59 Freq: Status: Active Protocol: Document 01/28/21 09:59 [facility] (Rec: 01/28/21 10:16 [facility] [id number]) OT- Subjective Occupational Therapy Visit Type Type Initial Evaluation Visit Start Time 09:03 Visit Stop Time 09:18 Total Visit Minutes 15 Occupational Therapy Visit Comments Patient Comments Pt agreed to get up for OT eval. Patient/Caregiver Goals TO go home. OT Pain Assessment Pain When Pain Assessed At Rest Pain Present Pain Present Denied Pain M4 OT- IP ADL's Start: 01/28/21 09:59 Freq: Status: Active Protocol: Document 01/28/21 09:59 [facility] (Rec: 01/28/21 10:16 [facility] [id number]) OT ADC-Sydf-Kszteru Comments OT Self-Feeding Comments Pt gets tube feedings completed by his . OT ADL-Grooming Comments OT Grooming Comments Pt states already performed this morning. OT ADL-Dressing General Eval Lower Body Dressing Ability Standby Assistance Comments OT Dressing Comments Able to [place]/doff socks while seated at the edge of the bed. OT ADL-Toileting Comments OT Toileting Comments Pt states just used the toilet prior and had no issues. Pt states has to get up 3-4 ties at night and has a urinal at home. Per pt , his states has picked up a BSC. OT ADL-Bathing Comments OT Bathing Comments Pt states to shower at home. Suggested for pt to get either shower chair or tub bench to use at home especially when pt is feeling weak. Pt states good understanding for safety suggestion. M5 OT- IP IADL's Start: 01/28/21 09:59 Freq: Status: Active Protocol: Document 01/28/21 09:59 [facility] (Rec: 01/28/21 10:16 [facility] [id number]) OT-Instrumental Activities of Daily Living Home Safety Awareness Awareness of Need for Assistance at Home Good Awareness Medication Management Medication Management Caregiver Administers Money Management Money Management Caregiver Provides Assistance Meal Preparation Meal Preparation Caregiver Provides Assist Director Of Recreation Therapy Director Of Recreation Therapy Caregiver Provides Assist M6 OT- IP Functional Cognition Start: 01/28/21 09:59 Freq: Status: Active Protocol: Document 01/28/21 09:59 [facility] (Rec: 01/28/21 10:16 [facility] [id number]) Cognitive Factors Limiting Selfcare Function Cognitive Ability Level of Alertness Alert Patient Orientation Name,Age,Birthday,Month,Date, Year,Day of Week,Place, Situation Attention Span Ability Capable of Focused Attention, Capable of Sustained Attention Ability to Follow Commands Able to Follow Multi-Step Commands Memory Description No Deficits Noted Safety Awareness No Deficits Noted Cognitive Comments Cognitive Assessment Comments Pt on OT eval appears intact with no cognitive deficits. Pt states use of Arina at home to call for his for help if needed as she does not sleep on the same bedroom. OT- Vision and Hearing OT- Hearing Assessment OT- Hearing Assessment WFL OT- Vision Assessment Visual Acuity Glasses All The Time M7 OT- IP Mobility and Balance Start: 01/28/21 09:59 Freq: Status: Active Protocol: Document 01/28/21 09:59 [facility] (Rec: 01/28/21 10:16 [facility] [id number]) OT- Bed Mobility Assessment Rolling Type of Rolling Roll to Right Level of Assistance Standby Assistance,Bedrails Supine to Sit Supine to Sit Assist Standby Assistance OT-Transfer Assessment Sit to and From Stand Sit to and from Stand Standby Assistance Transfers Transfer Ability Standby Assistance Technique Transfer Destination Bed,Chair Transfer Technique Stand Step Pivot Devices Transfer Assistive Devices Gait Belt,Front Wheeled Walker Comments Mobility Comments Heavy use of bed rail to roll. SBA to stand to FWW and able to get around in the room on his own. OT- Balance Assessment Sitting Balance and Reactions Static Sitting Balance Ability Normal Dynamic Sitting Balance Ability Good Standing Balance and Reactions Static Standing Balance Ability Good M8 OT- IP Objective Assessments Start: 01/28/21 09:59 Freq: Status: Active Protocol: Document 01/28/21 09:59 [facility] (Rec: 01/28/21 10:16 [facility] [id number]) OT Gross Range of Motion Upper Extremity Range of Motion Assessment Within Functional Limits OT Strength Upper Extremity Strength Assessment Bilaterally Impaired Comments Strength Comments RUE 4-/5 to 4/5 and LUE 4/5 throughout. M9 OT- IP Assessment and Plan Start: 01/28/21 09:59 Freq: Status: Active Protocol: Document 01/28/21 09:59 [facility] (Rec: 01/28/21 10:16 [facility] [id number]) OT Summary Assessment and Plan Potential Rehabilitation Potential Good Analytic Complexity at Evaluation Low Summary OT Impairments Strength,Balance,Bathing, Activity Tolerance Progress Towards Goals Progressing Toward Goals Assessment Summary Pt low complexity and here due to neutropenic fever and now looking to go home. Pt has a supportive who is able to assist the pt at home. OT suggested pt get a shower chair /tub bench to help increase safety and independence for showering needs especially when the pt is feeling weak. Pt looking to go home today. Goals Grooming Goal Independent Dressing Goal Independent Toileting Goal Independent Bathing Goal Independent Toilet Transfer Goal Independent Shower Transfer Goal Independent Days to Meet Goals 3 Frequency of Treatment Frequency Of Treatment Once a Day Treatment Plan OT Treatment Plan ADL Training,Functional Mobility,Patient/Family Education,Discharge Planning Other Treatment Recommendations and Next Shower if still here. Treatment Focus Discharge Recommendations OT Discharge Recommendations Home with Assistance,Home Health Home Equipment Needs Shower chair versus tub bench, bed rail? Transportation Needs at Discharge Private Vehicle
--- NOTE | 2021-01-28 10:10 | PT.IIE ---
Current Diagnoses Neutropenia, unspecified (01/25/21) Surgical History (Last Reviewed 01/26/21 @ 00:53 by MANE Alvarado) Heart transplant status Medical History (Last Updated 01/26/21 @ 01:23 by MANE Alvarado) Diabetes History of Hodgkin's lymphoma Hypothyroidism Insulin dependent diabetes mellitus Large B-cell lymphoma Physical Therapy Inpatient Evaluation/Re-Eval M1 PT/OT-IP Prior Functional Status Start: 01/28/21 09:59 Freq: NEEDED Status: Active Protocol: Document 01/28/21 10:10 AB (Rec: 01/28/21 13:06 AB [id number]) Medical Review Prior Functional Status Medical History Reviewed Yes Communication able to make needs known Mobility and Gait spouse in room and also gave info regarding pt. stated that pt is modified independent with mobility using FWW. stated that pt has been using a FWW since he started chemo last Oct. Activities of Daily Living and IADL's per OT note: Pt prior able to do all his ADl's including shower on his own. Pt requires assist with tube feedings, medications, and bills. Social History Household Members spouse Living Arrangements House Number of Floors (Floors) One Floor Number of Stairs To Enter/Railing? 1 step to enter Home Environment Standard Height Toilet,Tub/ Shower Home Equipment Front Wheel Walker,Bedside Commode,Tub Transfer Bench, Hand Held Shower,Grab Bars Near Toilet,Grab Bars In Shower Additional Social History Comment pt uses a bedside commode at night and spouse stated that during the day, they place the bedside commode on the toilet and pt is able to ambulate to the toilet pt has an adjustable bed M2 PT-IP Current Condition Start: 01/28/21 12:51 Freq: NEEDED Status: Active Protocol: Document 01/28/21 10:10 AB (Rec: 01/28/21 13:06 AB [id number]) Physical Therapy Current Condition Current Condition Evaluation Date 01/28/21 Treatment Diagnosis sepsis; difficulty in walking Onset Date 01/25/21 Precautions Other Precautions falls; contact precaution M3 PT-IP Subjective Start: 01/28/21 12:51 Freq: NEEDED Status: Active Protocol: Document 01/28/21 10:10 AB (Rec: 01/28/21 13:06 AB [id number]) Subjective Physical Therapy Visit Type Type Initial Evaluation Visit Start Time 10:10 Visit Stop Time 10:40 Total Visit Minutes 30 Number of BILINGUAL TRAINER Visits 0 Physical Therapy Visit Comments Patient Comments pt is agreeable to do PT Therapy Pain Assessment Pain Present Pain Present Denied Pain M4 PT-IP Mobility and Gait Start: 01/28/21 12:51 Freq: NEEDED Status: Active Protocol: Document 01/28/21 10:10 AB (Rec: 01/28/21 13:06 AB [id number]) PT-Bed Mobility Assessment Supine to Sit Supine to Sit Standby Assistance,Head of Bed Elevated Sit to Supine Sit to Supine Standby Assistance,Head of Bed Elevated PT-Transfer Assessment Sit to and From Stand Sit to and from Stand Contact Guard Assistance,1 Person Assistance,Use of Upper Extremities Equipment Transfer Assistive Device Gait Belt,Front Wheeled Walker Orthotic/Prosthetic Devices or Brace: No Transfers Transfer Destination Bed Transfer Technique ambulated using FWW Transfer Ability Level of Assist Contact Guard Assistance, Minimal Assistance,1 Person Assistance,Use of Upper Extremities Comments Mobility Comments pt sitting on chair. spouse assisting pt with tube feeding . pt agreed to do PT. completed sit to stand CGA. ambulated towards the bed ~ 12 ft using FWW CGA to min A. pt can be impulsive. pt completed sit<>supine SBA with HOB elevate. pt has an adjustable bed at home. platform step set up. pt ambulated to the platform step CGA using FWW and completed up/down step using FWW min A. ambulated to the chair CGA using FWW. caregiver education conducted. educated spouse on how to use safety belt and how to assist pt. spouse was able to pus safety belt on. assisted pt with sit to stand and ambulated pt towards the step. assisted pt with up/down platform step and completed safely. pt ambulated back to the chair. positioned on the chair. call light and table placed within reach. Pt and spouse has no other concerns. Gait Assessment Gait Gait Assistance Required: Contact Guard Assist,Minimum Assistance Distance (Feet) 20 Able to Maintain Weight Bearing Status Yes During Gait Assistive Devices Assistive Device Gait Belt,Front Wheeled Walker Orthotic/Prosthetic Devices or Brace: No Gait Deviations General Gait Pattern Antalgic,Decreased Stride Length,Decreased Feet Clearance Factors Limiting Gait Function Factors Limiting Gait Function Decreased Activity Tolerance, Decreased Strength,Poor Balance,Poor Safety Awareness Stair Climbing Assessment Evaluation Level of Assist On Stairs Minimal Assistance Devices Stair Climbing Assistive Devices Front Wheel Walker Technique/Endurance Stair Climbing Direction Ascend and Descend Stair Climbing Technique Step to Step Number of Steps Climbed 1 Query Text: Stair Climbing Set # Repetitions (reps) 2 PT-Balance Assessment Sitting Balance and Reactions Static Sitting Balance Ability Good Dynamic Sitting Balance Ability Good Standing Balance and Reactions Static Standing Balance Ability Fair Dynamic Standing Balance Ability Fair Device Used FWW M5 PT-IP Objective Assessments Start: 01/28/21 12:51 Freq: NEEDED Status: Active Protocol: Document 01/28/21 10:10 AB (Rec: 01/28/21 13:06 AB [id number]) Orientation Orientation/Cognition Level of Alertness Alert Orientation Name,Place,Situation Language Function Ability Hard of Hearing Safety Awareness Decreased Safety Awareness Gross Range of Motion Lower Extremity ROM Assessment Within Functional Limits Strength Comments Strength Comments RLE 3+/5 LLE 4-/5 Coordination Assessment Gross Coordination Gross Coordination WNL Sensation Assessment Sensation Gross Sensation WNL Muscle Tone Muscle Tone WNL Yes M6 PT-IP Treatment Start: 01/28/21 12:51 Freq: NEEDED Status: Active Protocol: Document 01/28/21 10:10 AB (Rec: 01/28/21 13:06 AB [id number]) Physical Therapy Treatment Education Education Provided Safety M7 PT-IP Assessment and Plan Start: 01/28/21 12:51 Freq: NEEDED Status: Active Protocol: Document 01/28/21 10:10 AB (Rec: 01/28/21 13:06 AB [id number]) PT Summary Assessment and Plan Potential Rehabilitation Potential Good Status of Condition at Evaluation Evolving Summary Impairments Pain,ROM,Strength,Balance, Coordination,Sensation,Tone, Cognition,Bed Mobility, Transfers,Gait,Activity Tolerance Assessment Summary pt requiring CGA to min A with mobility. caregiver training conducted and pt's spouse is able to assist pt safely. pt may go home when medically stable and will need HHPT to improve overall strength and independence. Goals Bed Mobility Goal Independent Transfer Goal Standby Assistance,Front Wheeled Walker Gait Goal Standby Assistance,Front Wheel Walker Gait Distance 100 Other Goals up/down 1 steps SBA using FWW Days to Meet Goals 5 Frequency of Treatment Frequency Of Treatment Once a Day Treatment Plan Physical Therapy Treatment Plan Bed Mobility Training,Transfer Training,Gait Training, Therapeutic Exercise,Balance Retraining,Discharge Planning, Hot or Cold Pack,Neuromuscular Re-ed,Coordination Retraining Precautions Other Precautions falls; contact precautions Recommendations To Nursing Amount of Assist Needed 1 Person Assist Discharge Recommendations PT Discharge Recommendations Home with 17/04 Assist Available,Home Health Transportation Needs at Discharge Private Vehicle
[2021-01-28] MEDS: LEVOTHYROXINE 100 MCG TABLET PO (10:33)
[2021-01-28] MEDS: ASPIRIN EC 81 MG TABLET PO (10:36)
[2021-01-28] MEDS: FAMOTIDINE 20 MG TABLET PO (10:38)
[2021-01-28] MEDS: ROSUVASTATIN 10 MG TABLET 20 MG PO (10:41)
[2021-01-28] MEDS: ENOXAPARIN 40 MG/0.4 ML SYRINGE SUBCUT (10:44)
[2021-01-28 10:50] VITALS: BP 119/76; PULSE 118
[2021-01-28] MEDS: carvediloL 3.125 MG TABLET TUBE (10:50)
[2021-01-28] MEDS: TACROLIMUS 1.5 EACH PO (10:55)
[2021-01-28] MEDS: POTASSIUM CHLORIDE 20 MEQ/15 ML UDC 40 MEQ PO ×2 (11:10→14:20)
[2021-01-28] MEDS: MAGNESIUM SULFATE 4 GM/100 ML PIGGYBACK IV (11:11)
[2021-01-28 12:04] VITALS: BP 135/84; PULSE 111; RESP 16; TEMP 36.8; O2SAT 97
--- NOTE | 2021-01-28 14:41 | CM.DPNOTE ---
Addendum entered by TATA Mitchell 01/28/21 15:13: IMM reviewed and provided. Original Note: DC Note According to Dr Lara, patient is discharged home w/ today and close outpatient f/u, no needs from DCP team at this time JW
[2021-01-28 16:02] VITALS: BP 132/80; PULSE 105; RESP 24; TEMP 35.9; O2SAT 96
--- NOTE | 2021-01-28 17:44 | PC.NURSE ---
Patient d/c home with . Patient teaching done at bedside with present. All questions and concerns were address. Patient chest port was de-accessed with no difficulty, pt tolerated well. Tele monitor removed. Belongings were gathered by and packed up, took downstairs to personal vehicle. Patient ambulated on own to wheelchair and was taken down to personal vehicle. VSS. Patient left in stable condition A&O x4. Patient able to ambulate from wc to car on own with little to no assistance.
--- NOTE | 2021-01-29 16:14 | CM.DPNOTE ---
Post DC coordination: Spoke w/spouse Sharri today, P# [phone], she is concerned she will not be able to safely care for her spouse Sumeet at home. Discussed patient's 3 night inpatient stay (5.3-5.6, DC home 5.6.21) and encouraged connection w/ [facility]. Sharri gives permission to call [facility] to review this referral Placed call to Farhana at [facility], reviewed this referral and Farhana requested to connect directly with spouse Sharri Discussed above w/spouse Sharri and provided Farhana's number, P# [phone], Farhana will be working over w/e and is anticipating spouse's call to discuss this referral. Orders would be needed from a PCP or ED provider to admit patient to SNF JW
== END 2021-01-28 17:50 | disposition home or self-care (01) | DRG 808 ==
LOC: ED 22:32 → AC 22:45
PROVIDERS: Admitting Provider Internal Medicine; Emergency Provider Emergency Medicine; PCP Internal Medicine; Referring Provider Emergency Medicine; Visit Provider Nurse Practitioner Family
DX: D61.810 Antineoplastic chemotherapy induced pancytopenia (principal); E43 Unspecified severe protein-calorie malnutrition; T86.298 Other complications of heart transplant; K94.22 Gastrostomy infection; C85.11 Unspecified B-cell lymphoma, lymph nodes of head, face, and neck; Z94.1 Heart transplant status; E87.1 Hypo-osmolality and hyponatremia; D84.821 Immunodeficiency due to drugs; K52.9 Noninfective gastroenteritis and colitis, unspecified; R50.81 Fever presenting with conditions classified elsewhere; Z68.25 Body mass index [BMI] 25.0-25.9, adult; E11.9 Type 2 diabetes mellitus without complications; E03.9 Hypothyroidism, unspecified; Z79.4 Long term (current) use of insulin; Z20.822 Contact with and (suspected) exposure to COVID-19; I10 Essential (primary) hypertension; G47.33 Obstructive sleep apnea (adult) (pediatric); E78.5 Hyperlipidemia, unspecified; E87.6 Hypokalemia; Z79.899 Other long term (current) drug therapy
CPT/HCPCS: 36415; 36591; 71045; 80048; 80053; 81001; 81003; 82550; 82962; 83605; 83690; 83735; 84145; 84484; 85007; 85025; 85610; 85730; 87040; 87070; 87075; 87077; 87205; 87507; 87635; 93005; 94762; 96361; 96365; 97162; 97165; 99284; C9803; A9270; J0610; J0780; J1642; J1650; J1815; J1956; J2185; J2405; J3475

== ENCOUNTER → 2021-03-24 12:56 | Outpatient (CLI) | payer MEDICARE, OTHER, SELFPAY ==
--- NOTE | 2021-03-24 | DI.RAD.S_ITS ---
PROCEDURE: FL BARIUM SWALLOW W SPEECH INDICATIONS: Dysphagia, oropharyngeal phase COMPARISON: None. TECHNIQUE: Examination was conducted in conjunction with speech pathology per standard protocol. In the lateral projection, filming was performed of the patient swallowing. AP projection filming may also be performed with patient swallowing. COMPARISON: FINDINGS: Function: The oral preparatory phase appears prominently diminished, but with with proper containment. The subsequent oral propulsive phase, pharyngeal phase, and upper esophageal phase of swallowing also appear prominently diminished with all proffered substances. No laryngotracheal penetration or aspiration. No pathologic vallecular pooling. Morphology: No cricopharyngeal bar is identified. No cervical esophageal webs. No Zenker's diverticulum. No strictures. IMPRESSION: Prominent diminished motility through the swallowing mechanism from the oropharynx posteriorly into the esophagus. Please also refer to the dedicated speech therapy swallowing evaluation report which will be independently generated. Dictated by: Osmel Kuo M.D. on 03/24/2021 at 15:38 Approved by: Osmel Kuo M.D. on 03/24/2021 at 15:39
--- NOTE | 2021-03-24 17:46 | ST.SWALLOW ---
Visit Care Team Role Provider Type Mendoza Venegas MD Attending Provider Non-Staff Family Provider Primary Care Provider Referring Provider Specialty: Internal Medicine Address: [facility] [address] , [place], [address] Email: Modified Barium Swallow Study CARD MOUNTER Modified Barium Swallow Study Start: 03/24/21 17:59 Freq: Status: Active Protocol: Document 03/24/21 18:00 GERDA (Rec: 03/24/21 18:01 GERDA [id number]) Modified Barium Swallow Study Total Time Visit Start Time 13:30 Visit Stop Time 14:00 Total Visit Minutes [address] Mendoza Venegas Reason for Referral Dysphagia with PEG tube feeding Setting Setting Outpatient Care Patient Information Identification Type Name,ID Card Patient History The pt is a 70-yr-old male who was recently seen by this CARD MOUNTER for outpatient dysphagia therapy. The pt has a complicated medical history including severe oropharyngeal dysphagia secondary to a right tonsilar tumor and large B-cell non-Hodgkin lymphoma at right side of throat (dx Aug 2020). He underwent chemotherapy treatment, which eliminated tumor but resulted in a large open wound inside his throat, per pt/spouse report. The pt continued with severe dysphagia with silent aspiration observed via MBSS in Sep 2020, resulting in PEG tube placement. Since then, the pt has had several hospitalizations d/t aspiration pneumonia, falls, and sickness related to chemotherapy. At initial outpatient dysphagia evaluation, MBSS was requested for safe and thorough evaluation of swallow function/safety. Subjective Observations The pt arrived on time accompanied by his , who was present after the procedure for education of initial findings and recommendations. Also present was a student CARD MOUNTER, with the pt 's oral permission. Per pt/spouse report and this clinician's recommendation, the pt has consumed no oral trials since last seen in the outpatient clinic. Patient Positioning Position View Lateral Imaging Lateral View Textures Administered Trials Presented Thin Liquid via Spoon,[place] Liquid via Spoon,Honey Liquid via Spoon Oral Phase Source: MBSIMP (TM) (C) Bolus Specific Scoring Grid Lip Closure No Impairment (WNL) Tongue Control During Bolus Hold WFL Bolus Prep/Mastication WFL Bolus Transport/Lingual Motion Mild Impairment A/P Lingual Propulsion Delay Yes: Occasional minimal delay Oral Residue Mild Impairment Residue Clearing Mild Impairment Nasal Regurgitation No Additional Oral Phase Observations Oral Peripheral Exam: Features were symmetrical. Mildly reduced lingual and buccal strength and ROM were observed . A white substance was present on the pt's tongue, which he stated may be toothpaste residue, as he had brushed his teeth prior to arrival. The substance did not appear to be thrush; questionable if toothpaste. Pt has natural dentition WNL for age. Oral Phase: Occasional slowed a/p propulsion. Reduced posterior containment and delayed swallow trigger permitted early escape of all substances to pharynx, increasing pt's risk for aspiration. Mild oral residue observed, which cleared with subsequent swallows. Pharyngeal Phase Source: MBSIMP (TM) (C) Bolus Specific Scoring Grid Delayed Initiation of Pharyngeal Swallow Yes Soft Palate Elevation No Impairment (WNL) Residue Along the Tongue Base Yes Clearance of Residue Along Tongue Base Moderate Impairment Laryngeal Elevation Severe Impairment Anterior Hyoid Movement Moderate Impairment Epiglottic Range of Motion Severe Impairment Vallecular Residue Yes: Significant, consistent Clearance of Vallecular Residue Severe Impairment Laryngeal Vestibular Closure Mild Impairment Pharyngeal Stripping Wave Moderate Impairment Posterior Pharyngeal Wall Residue Yes Clearance of Posterior Pharyngeal Wall Minimal Impairment Residue Upper Esophageal Sphincter Opening Moderate Impairment Residue in the Pyriform Sinuses Yes: Mild-moderate Clearance of Residue in the Pyriform Moderate Impairment Sinuses Pharyngoesophageal Backflow Observed No Additional Pharyngeal Phase Observations Minimal epiglottic inversion was present with all boluses, improved mildly with increased bolus bulk. This resulted in consistent significant vallecular residue that spilled to pyriform sinuses post-swallow while the airway was open, further increasing risk of aspiration. Minimal distension and duration of UES opening was observed, resulting in partial obstruction of bolus flow. Hyolaryngeal elevation and anterior excursion is present but diminished, further contributing to reduced epiglottic inversion and opening of UES, and subsequent pharyngeal residue. The pt required >5 swallows to clear pharyngeal residue. No laryngeal penetration or tracheal aspiration was observed. Chin tuck reduced spillage from vallecula but was not otherwise significantly beneficial. Due to difficulty in clearing pharyngeal residue, trials were limited in bolus size (1/ 4-1/2 tsp) and number for pt protection. A/P View Clinical Impressions Dysphagia Type Mild Oral and Severe Pharyngeal Dysphagia Findings Mild oral dysphagia is secondary to reduced lingual and buccal strength, resulting in slowed oral prep and swallow phases, posterior escape to pharynx prior to swallow trigger, and mild- moderate oral residue that clears with multiple swallows. Severe pharyngeal dysphagia is secondary to reduced strength and ROM of hyolaryngeal elevation and anterior excursion which contributes to minimal epiglottic inversion and partial extension and duration of UES opening. Moderate weakness of base of tongue and pharyngeal constrictors is also present. These deficits result in significant pharyngeal residue , primarily at vallecula, which spills aryepiglottic folds and pyriform sinuses while the airway is open post- swallow. While no laryngeal penetration or tracheal aspiration was observed during this study, the pt is at high risk of aspiration under these conditions. Rehabilitation Potential Good Patient Appropriate for Therapy Yes Recommendations Diet Liquids Order Nothing by Mouth Diet Order NPO Medication Recommendation Not Recommended by Mouth Comments Minimal oral trials of thin/ NTLs. Discontinue upon any s/ sx of aspiration. Aspiration Precautions Additional Precautions Limit trials to 1/2 tsp and no more than 3 boluses at a time . Treatment Plan Therapy Recommendations Outpatient Speech Therapy,Oral Motor Exercises,Lingual Exercises,Base of Tongue Exercises,Compensatory Strategy Education Short Term Goals 1. The pt will perform exercises to improve strength, ROM, and coordination of swallow musculature to improve swallow function and safety. 2. The pt will participate in clinical oral trials for ongoing assessment of swallow function and development of compensatory strategies as indicated. Senior Care Goals 1. The pt will demonstrate swallow function/safety adequate to resume oral intake as primary source of nutrition and hydration, as measured by MBS.
== END ==
PROVIDERS: Family Provider Internal Medicine; PCP Internal Medicine; Referring Provider Internal Medicine; Visit Provider Internal Medicine
DX: R13.12 Dysphagia, oropharyngeal phase (principal)
CPT/HCPCS: 74230; 92611

== ENCOUNTER → 2021-04-02 08:50 | Outpatient (CLI) | payer MEDICARE, OTHER, SELFPAY ==
[2021-04-02 09:51] LABS: BUN Creatinine Ratio 29.6 (6-22); Blood Urea Nitrogen 24 mg/dL (9-20); Calcium 9.6 mg/dL (8.4-10.2); Carbon Dioxide 32 mmol/L (22-32); Chloride 99 mmol/L (98-107); Estimated Glomerular Filt Rate > 60.0 mL/min (>60); Glucose 236 mg/dL (80-110); HEMOLYSIS < 15 (0-50); Potassium 4.3 mmol/L (3.4-5.1); Sodium 137 mmol/L (137-145)
[2021-04-03 13:07] LABS: Sirolimus 7.7 ng/mL (3.0-20.0); Tacrolimus 1.8 ng/mL (2.0-20.0)
== END ==
PROVIDERS: Family Provider Internal Medicine; PCP Internal Medicine; Referring Provider Internal Medicine Advanced Heart Failure and Transplant Cardiology; Visit Provider Internal Medicine Advanced Heart Failure and Transplant Cardiology
DX: Z94.1 Heart transplant status (principal)
CPT/HCPCS: 36415; 80048; 80195; 80197

== ENCOUNTER → 2021-06-16 11:06 | Outpatient (CLI) | payer MEDICARE, OTHER, SELFPAY ==
--- NOTE | 2021-06-16 | DI.RAD.S_ITS ---
PROCEDURE: FL BARIUM SWALLOW W SPEECH INDICATIONS: Dysphagia, oropharyngeal phase COMPARISON: TECHNIQUE: Examination was conducted in conjunction with speech pathology per standard protocol. In the lateral projection, filming was performed of the patient swallowing. AP projection filming may also be performed with patient swallowing. COMPARISON: [facility], [place], [place] BARIUM SWALLOW W SPEECH, 03/24/2021, 13:23. Merged With [facility], XA, PACER ADD LEAD INSERT (PNL), 05/19/2010, 10:30. FINDINGS: Function: The oral preparatory phase appears normal, with proper containment. The subsequent oral propulsive phase, pharyngeal phase, and esophageal phase of swallowing demonstrated mild delay with all proffered substances. No laryngotracheal penetration or aspiration. Minimal pathologic vallecular pooling. There was delayed transit of ingested standard barium tablet with visualized moderate tertiary contractions of the esophagus. The tablet eventually passed. Morphology: No cricopharyngeal bar is identified. No cervical esophageal webs. No Zenker's diverticulum. No strictures. IMPRESSION: Slight delayed swallowing. Moderate tertiary contractions of the esophagus. Delayed transit of standard barium tablet without definite fixed strictures. Please see speech pathology report for further details. Dictated by: Nishant Amezcua M.D. on 06/16/2021 at 17:45 Approved by: Nishant Amezcua M.D. on 06/16/2021 at 17:47
--- NOTE | 2021-06-18 16:57 | ST.SWALLOW ---
Visit Care Team Role Provider Type Mendoza Venegas MD Attending Provider Non-Staff Family Provider Primary Care Provider Referring Provider Specialty: Internal Medicine Address: [facility] [address] , [place], [address] Email: Modified Barium Swallow Study MASSAGE COORDINATOR Modified Barium Swallow Study Start: 06/16/21 16:26 Freq: Status: Active Protocol: Document 06/16/21 16:29 LNK (Rec: 06/16/21 16:53 LNK [id number]) Modified Barium Swallow Study Total Time Visit Start Time 11:30 Visit Stop Time 12:15 Total Visit Minutes [address] Mendoza Venegas Reason for Referral dysphagia; Setting Setting Outpatient Care Patient Information Identification Type Name,Date of Patient History PER MASSAGE COORDINATOR RECORDS: The pt is a 70-yr-old male who was recently seen by this MASSAGE COORDINATOR for outpatient dysphagia therapy. 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 He underwent chemotherapy treatment, which eliminated tumor but resulted in a large open wound inside his throat , per pt/spouse report. The pt continued with severe dysphagia with silent aspiration observed via MBSS in Sep 2020, resulting in PEG tube placement. Since then, the pt has had several hospitalizations d/t aspiration pneumonia, falls, and sickness related to chemotherapy. Subjective Observations Pt presented for a MBSS following swallowing therapy program. Pt's was present after the procedure to discuss findings. Patient Positioning Position View Lat-A/P Imaging Lateral View Textures Administered Trials Presented Thin Liquid via Spoon,Thin Liquid via Cup,[place] Liquid via Cup,Pudding Thick Liquid via Spoon,Dysphagia Blenderized Textures,Dysphagia Advanced Textures,Regular Textures,Barium Tablet Oral Phase Source: MBSIMP (TM) (C) Bolus Specific Scoring Grid Lip Closure WFL Tongue Control During Bolus Hold WFL Bolus Prep/Mastication WFL Bolus Transport/Lingual Motion Mild Impairment A/P Lingual Propulsion Delay Yes: occasional minimal delay with more advanced texture Oral Residue Mild Impairment Residue Clearing Mild Impairment Nasal Regurgitation No Additional Oral Phase Observations Pt presented with natural dentition adequate for mastication. Diadochokinesis was WFL. Lingual strength and ROM were mildly reduced. During the trials, there was reduced bolus control and posterior containment resulting in premature spillage to the pharynx. Mild oral residue was noted, which cleared with subsequent swallows. Pharyngeal Phase Source: MBSIMP (TM) (C) Bolus Specific Scoring Grid Delayed Initiation of Pharyngeal Swallow Yes: spillage to the pyriform sinuses pre-swallow Soft Palate Elevation No Impairment (WNL) Tongue Base Strength/Range of Motion Moderate Impairment Residue Along the Tongue Base Yes Clearance of Residue Along Tongue Base Moderate Impairment Laryngeal Elevation Severe Impairment Anterior Hyoid Movement Mild Impairment Epiglottic Range of Motion Moderate Impairment Vallecular Residue Yes: Significant residue across all trials Clearance of Vallecular Residue Moderate Impairment Laryngeal Vestibular Closure Mild Impairment Pharyngeal Stripping Wave Moderate Impairment Posterior Pharyngeal Wall Residue Yes Clearance of Posterior Pharyngeal Wall Minimal Impairment Residue Upper Esophageal Sphincter Opening Moderate Impairment Residue in the Pyriform Sinuses Yes Clearance of Residue in the Pyriform Mild Impairment Sinuses Pharyngoesophageal Backflow Observed No Additional Pharyngeal Phase Observations Premature spillage of the bolu to the pyriform sinuses was observed, increasing risk of aspiration. Hyolaryngeal elevation was diminished affecting the epiglottic inversion and UES opening extension and duration. The epiglottis was observed to inconsistently invert fully. Also, the epiglottis appeared to be slow in returning to upright position. There was adequate laryngeal seal. Significant pooling and residue was noted in the pharyngeal cavities with the pt needing 3-4 swallows/trial to clear the residual pooling/ residue. Cuing the pt to swallow hard was effective in clearing more residue than spontaneous swallows. No penetration or aspiration was observed. pooled residue was observed throughout the pharyngeal cavity and at the UES. Bolus trials were small as per pt preference. He was able to swallow thin liquid, nectar thick liquid, diced peaches and 1/2 of a small cookie. Comparison of the results of the current MBSS to those in February 2021 appear to demonstrate increased strength and ROM improvement. However , it should be noted that the pt remains at risk for aspiration if not following/ implementing the exercises and strategies established through the dysphagia therapy program. A/P View Textures Administered Trials Presented Thin Liquid via Cup,Dysphagia Blenderized Textures,Barium Tablet A/P View Observations Pharyngeal Contraction Severe Impairment Vocal Fold Function Fair Esophageal Function Slowed Clearing,Poor Motility, Reverse Peristalsis,Stasis, Narrowing Esophageal Clearance Upright Position Severe Impairment Additional Observations Following the lateral trial of the 11mm barium tablet, the pt was placed in the A-P view. The barium tablet had lodged in the esophagus at mid-chest area. Contrast was observed from near the UES to narrowing proximal to the stomach. Despite several sips of water, pureed texture and thin barium the tablet remained at mid chest area for more than 12 minutes before slowly moving through to the stomach . Significant narrowing of the distal esophagus to the stomach that restricted flow to the stomach was observed. Clinical Impressions Dysphagia Type mild oral and moderate-severe pharyngeal dysphagia; espohageal dysphagia Patient Appropriate for Therapy Yes: continued dysphagia therapy Recommendations Diet Comments no changes in diet Aspiration Precautions Recommended Precautions Upright at 90 Degrees,Frequent Rest Periods,Small Bites/Sips ,Effortful Swallow,Liquids from Cup,Liquids from Spoon Treatment Plan Therapy Recommendations Outpatient Speech Therapy Recommended Referrals Primary Care Physician,GI Consult Compensatory Strategies Recommendations Sitting Upright (90 deg) Additional Compensatory Strategies Remain upright for minimum of Recommended 30 minutes to allow esophagus to empty Placement Recommendation After Discharge Home
== END ==
PROVIDERS: Family Provider Internal Medicine; PCP Internal Medicine; Referring Provider Internal Medicine; Visit Provider Internal Medicine
DX: R13.12 Dysphagia, oropharyngeal phase (principal); Z93.4 Other artificial openings of gastrointestinal tract status
CPT/HCPCS: 74230; 92611

== ENCOUNTER → 2021-07-02 08:31 | Outpatient (CLI) | payer MEDICARE, OTHER, SELFPAY ==
[2021-07-02 09:36] LABS: BUN Creatinine Ratio 18.3 (6-22); Blood Urea Nitrogen 17 mg/dL (9-20); Calcium 9.3 mg/dL (8.4-10.2); Carbon Dioxide 36 mmol/L (22-32); Chloride 97 mmol/L (98-107); Estimated Glomerular Filt Rate > 60.0 mL/min (>60); Glucose 145 mg/dL (80-110); HEMOLYSIS < 15 (0-50); Magnesium 1.1 mg/dL (1.6-2.3); Potassium 3.6 mmol/L (3.4-5.1); Sodium 139 mmol/L (137-145)
[2021-07-03 09:49] LABS: Sirolimus 5.9 ng/mL (3.0-20.0); Tacrolimus 2.3 ng/mL (2.0-20.0)
== END ==
PROVIDERS: Family Provider Internal Medicine; PCP Internal Medicine; Referring Provider Internal Medicine Advanced Heart Failure and Transplant Cardiology; Visit Provider Internal Medicine Advanced Heart Failure and Transplant Cardiology
DX: Z94.1 Heart transplant status (principal)
CPT/HCPCS: 80048; 80195; 80197; 83735

== ENCOUNTER → 2021-07-13 10:51 | Outpatient (CLI) | payer MEDICARE, OTHER, SELFPAY ==
--- NOTE | 2021-07-13 16:13 | DIET.PN1 ---
Dietary Progress Note Assessment: 70y M with hx DM2, heart transplant, cancer of tonsil with PEG tube secondary to dysphagia c silent aspiration attending RD visit c spouse for help with nutrition reccs for PO feeding now that pt has been cleared by Speech Therapy for PO intake at level of Dysphagia Advanced/Thin Liquids. Pt no longer taking tube feed x3w (Isosource 1.5 up to 6x/d) secondary to formula intolerance and being cleared for PO intake by WIRE FRAME LAMP SHADE MAKER. Pt still receiving some pills via PEG and gets ~4c free water flushes daily. Current Supplements/PO intake: Pt is taking magnesium plus protein- new from heart transplant doctor because Slow Mag was giving diarrhea as pts Mg levels ~1.0 L. Nutrisource fiber currently 2 scoops daily, used to do 4 for diarrhea 2 Ensure Max/d (60g PRO) B: Cream of wheat c cinnamon and 1% milk Pills through PEG tube still with 2c water L: Lean Cuisine or Smart Ones meal Sn: pudding D: fish, hamburger helper, soups also mini meal before bed Likes: Fruit: canned peaches, bananas, apples (not applesauce), pineapple, berries Vegetables: sweet corn, broccoli, green beans, potatoes, sweet potatoes, cauliflower, carrots, spinach, Ht: 5'6 Wt: 160# BMI: 25.8 RD Impression: Pt is compliant to practicing safe swallow strategies and practicing swallow exercises for 1.5hr each day. Pt would like as normal diet as possible, with goal of getting magnesium, potassium, protein from food sources rather than supplement products. Pts current PO minus supplements is not adequate in protein, magnesium, or potassium. Focus today was on introducing safe sources of these nutrients from food while maintaining good glycemic control. Pt getting nutrients for healing (Pro, zinc, Vit A, Vit C) will help to repair tissues in GI lining, this with avoiding triggers for diarrhea will hopefully help balance electrolytes. Nutrition Diagnosis: Electrolyte derangement (K+, Mg) r/t chronic diarrhea and inadequate intake electrolytes in PO diet aeb pt labs showing consistently low lab values for K+ and Mg, pts EN formula causing loose stools, pt transitioning from 100% enteral nutrition to PO intake with modified diet. Interventions: 1. Using handouts High Potassium Foods High Magnesium Foods Sources of Soluble Fiber Dysphagia Advanced Diet MNT Smoothie Formula educated pt and spouse on safe texture foods to support pts nutrient deficiencies. Worked c pt and spouse to translate information into tangible actions: Breakfast: Cream of Wheat (or oatmeal) additions: Pour hot water on raisins, let soak, blend into puree Stir 1 tbs almond butter very thoroughly into cream of wheat Have with strained diced peaches on side Lunch: Continue with microwave meals but also add some homemade soups throughout the week and smoothies. For soups, either blenderize or separate liquids from solids to reduce aspiration risk. Dinner: Fish, well masticated will be great protein source. Consider looking into Premier Protein from [employer] if wanting variety of nutrition supplement drinks. Consider banana flakes as a soluble fiber source 2. Encouraged pt to continue MVI and Ensure Max drinks until diarrhea subsides and is attaining adequate intake via PO. Reiterated pt can use PEG for feedings if pt feeling fatigued or if safe swallow techniques are at risk. Pt can feed Ensure Max through PEG. Recc pt weight on scale weekly and assess skin for good wound healing. Provided coupons for Ensure Max. EER: 25g fiber, 70g PRO (1g/kg), 3g K+, 420mg Magnesium Monitoring/Evaluations: Pts spouse will call RD with questions and schedule visits prn. Electronically Signed by: Yolanda Poewll 07/13/21 10:58 Clinical Dietitian [address] [id number]
== END ==
PROVIDERS: Family Provider Internal Medicine; PCP Internal Medicine; Referring Provider Internal Medicine; Visit Provider Internal Medicine
DX: E11.9 Type 2 diabetes mellitus without complications (principal); R13.10 Dysphagia, unspecified; Z94.1 Heart transplant status; Z71.3 Dietary counseling and surveillance
CPT/HCPCS: 97802

== ENCOUNTER 2021-07-14 14:44 | Outpatient (RCR) | payer MEDICARE, OTHER, SELFPAY ==
--- NOTE | 2021-07-14 16:26 | PT.OIE ---
Current Diagnoses Other malaise (07/14/21) Past Medical History (Last Updated 01/26/21 @ 01:23 by MANE Alvarado) Diabetes Heart transplant status History of Hodgkin's lymphoma Hypothyroidism Insulin dependent diabetes mellitus Large B-cell lymphoma Past Surgical History (Last Reviewed 01/26/21 @ 00:53 by MAEN Alvarado) Heart transplant status Visit Care Team Role Provider Type Mendoza Venegas MD Attending Provider Non-Staff Family Provider Primary Care Provider Referring Provider Specialty: Internal Medicine Address: [address] [place] [address], [id number] Email: Physical Therapy Initial Evaluation PT-OP-A Visit Information Start: 07/14/21 16:03 Freq: Status: Active Protocol: Document 07/14/21 15:00 DCW (Rec: 07/14/21 16:26 [facility] [id number]) Out-Patient Physical Therapy Visit Information Visit Information Visit Type Initial Evaluation Visit Start Time 15:00 Visit Stop Time 15:55 Total Visit Minutes 55 Visit Number 1 Number of GAS STATION SUPERVISOR Visits 0 Evaluation Information Evaluation Date 07/14/21 PT-OP-B Current Condition Start: 07/14/21 16:03 Freq: Status: Active Protocol: Document 07/14/21 15:00 DCW (Rec: 07/14/21 16:26 DCW [id number]) Current Condition History of Current Condition Onset Date Five months Current Complaints General fatigue, deconditioning History of Current Condition Pt is a 70 year old male presenting with general fatigue after finishing cancer treatment in January. Feels like he has just been sitting around and getting deconditioned. Pt has a very complicated medical history, including history of large B- cell lymphoma, throat cancer, heart transplant, and DM II. Pt reports he is feeling much better than he was at the end of his cancer treatment, but his was not allowing him to get on their treadmill until he was cleared by a physical therapist. Treatment Goals Patient/Caregiver Goals I just want to get back to normal. PT-OP-C Subjective Start: 07/14/21 16:03 Freq: Status: Active Protocol: Document 07/14/21 15:00 DCW (Rec: 07/14/21 16:26 DCW [id number]) OP-PT Pain Assessment Pain Assessment Grid Paper Pain Assessment Grid Completed Yes: None PT-OP-D Balance Start: 07/14/21 16:03 Freq: Status: Active Protocol: Document 07/14/21 15:00 DCW (Rec: 07/14/21 16:26 [facility] [id number]) OP-PT Balance Assessment Sitting Balance Static Sitting Balance Ability Normal Dynamic Sitting Balance Ability Normal Standing Balance Static Standing Balance Ability Normal Dynamic Standing Balance Ability Normal Balance Tests Lloyd Balance Test Lloyd Balance Test Score 51/56 Lloyd Impairment Rating 1 to 19% Impaired (Score 45-55 ) Lloyd Balance Assessment Evaluation Sitting to Standing Ability Independent w/out Hands Unsupported Stance Safely- 2 minutes Sitting Unsupported, Feet on Floor Safely- 2 minutes Standing to Sitting Ability Safely, Minimal Hand Use Transfer Ability Safely, Minimal Hand Use Unsupported Stance- Eyes Closed Safely, 10 seconds Unsupported Stance- Eyes Open Independent, 1 minute Reaching Forward Standing Safely, 5 inches Pick- Up Object From Floor Independent/Safe Look Behind Shoulder - Standing Shifts Weight Well Turning 360 Degrees Turns Bilateral, < 4 secs Unsupported Stance, Alternating Feet on (I)- 8 Steps in 20 secs Stair Unsupported Tandem Stance Holds Tandem- 30 seconds Unilateral Leg Stance Lifts Leg/Unable to Hold Total Score Lloyd Total Score (out of 56 points) 51 Lloyd Impairment Rating 1 to 19% Impaired (Score 45-55 ) [place] Fall Scale Copyright Permission PT-OP-E Functional Tests Start: 07/14/21 16:03 Freq: Status: Active Protocol: Document 07/14/21 15:00 DCW (Rec: 07/14/21 16:26 [facility] [id number]) Functional Tests 6 Minute Walk Test Distance 1143' Device Used none Comments 3.18 ft/sec Dynamic Gait Index (DGI) Score 22/24 DGI Impairment Rating 1 to <20% Impaired (Score 20- 23) Timed Up and Go (TUG) Score 7.8 seconds Comments 3-trial average (7.71, 7.70, 7 .98) PT-OP-M Strength Start: 07/14/21 16:03 Freq: Status: Active Protocol: Document 07/14/21 15:00 DCW (Rec: 07/14/21 16:26 [facility] [id number]) Hip Strength Hip Manual Muscle Testing Bilateral Flexion (L2) 4 Good Abduction 4 Good Adduction 4 Good Knee Strength Knee Manual Muscle Testing Bilateral Flexion (S2) 4 Good Extension (L3) 4 Good Ankle/Foot Strength Ankle and Foot Manual Muscle Testing Bilateral Dorsiflexion (L4) 4 Good Plantarflexion (S1) 4 Good PT-OP-T Assessment and Plan Start: 07/14/21 16:03 Freq: Status: Active Protocol: Document 07/14/21 15:00 DCW (Rec: 07/14/21 16:26 [facility] [id number]) Physical Therapy Assessment Evaluation Complexity Number of Personal Factors/Comorbidities 3 or More Number of Body Systems Impaired 1-2 Clinical Presentation at Evaluation Stable Assessment Summary Assessment Pt presents with complaints of general deconditioning. All testing today unremarkable. Lloyd and DGI show pt has great static and dynamic balance, with score of 51/56 and 22/24 being well above cut-off for falls risk. Pt TUG score of 7. 80 also significantly better than needed to show increased falls risk. Pt able to ambulate 1143' during 6 MWT, for a gait speed of 3.18 ft/ sec. Since pt's goal is to return to using his home Treadmill, pt also demonstrated ability to use the Treadmill in this clinic with no problems or safety concerns. Pt doing very well for such a complicated medical history, and really demonstrates no functional deficits which would justify the need for skilled therapy. Pt understands, and is agreeable to discharge at this time. Pt did ask the therapist write a note to his , stating that he was cleared for walking on their treadmill, and therapist complied with the request. Pt instructed to increase mobility at home in a safe manner. Physical Therapy Plan Frequency and Duration Frequency of Treatment 1x/Week Duration of Treatment One day Plan of Care Start Date 07/14/21 Plan of Care End Date 07/15/21 Discharge Physical Therapy Discharge Reasons No Longer Attending PT Next Visit Focus/Plan Next Note Type Discharge Summary
--- NOTE | 2021-07-14 16:27 | PT.OPPOC ---
Physical, Occupational & Speech Therapy At [facility] Current Diagnoses Other malaise (07/14/21) Visit Care Team Role Provider Type Mendoza Venegas MD Attending Provider Non-Staff Family Provider Primary Care Provider Referring Provider Specialty: Internal Medicine Address: [address] [place], [address] Email: Plan Of Care PT-OP-T Assessment and Plan Start: 07/14/21 16:03 Freq: Status: Active Protocol: Document 07/14/21 15:00 DCW (Rec: 07/14/21 16:26 DCW [id number]) Physical Therapy Assessment Evaluation Complexity Number of Personal Factors/Comorbidities 3 or More Number of Body Systems Impaired 1-2 Clinical Presentation at Evaluation Stable Assessment Summary Assessment Pt presents with complaints of general deconditioning. All testing today unremarkable. Lloyd and DGI show pt has great static and dynamic balance, with score of 51/56 and 22/24 being well above cut-off for falls risk. Pt TUG score of 7. 80 also significantly better than needed to show increased falls risk. Pt able to ambulate 1143' during 6 MWT, for a gait speed of 3.18 ft/ sec. Since pt's goal is to return to using his home Treadmill, pt also demonstrated ability to use the Treadmill in this clinic with no problems or safety concerns. Pt doing very well for such a complicated medical history, and really demonstrates no functional deficits which would justify the need for skilled therapy. Pt understands, and is agreeable to discharge at this time. Pt did ask the therapist write a note to his , stating that he was cleared for walking on their treadmill, and therapist complied with the request. Pt instructed to increase mobility at home in a safe manner. Physical Therapy Plan Frequency and Duration Frequency of Treatment 1x/Week Duration of Treatment One day Plan of Care Start Date 07/14/21 Plan of Care End Date 07/15/21 Discharge Physical Therapy Discharge Reasons No Longer Attending PT Next Visit Focus/Plan Next Note Type Discharge Summary Plan of Care Dates Plan of Care Start Date 07/14/21 Plan of Care End Date 07/15/21 Electronically Signed by: Mac Cutler, PT 07/14/21 1627 Please Sign and Return: I have reviewed this Plan of Care and certify that the skilled therapy services above are required to meet the patient?s needs. Physician Signature Date Printed Name and Credentials Clinical Instructor Signature Printed Name and Credentials
== END 2021-10-26 09:51 ==
LOC: PHYS 14:44
PROVIDERS: Family Provider Internal Medicine; PCP Internal Medicine; Referring Provider Internal Medicine; Visit Provider Internal Medicine
DX: R53.81 Other malaise (principal)
CPT/HCPCS: 97161

== ENCOUNTER → 2021-07-16 11:18 | Outpatient (CLI) | payer MEDICARE, OTHER, SELFPAY ==
[2021-07-16 13:04] LABS: Magnesium 1.5 mg/dL (1.6-2.3)
== END ==
PROVIDERS: Family Provider Internal Medicine; PCP Internal Medicine; Referring Provider Internal Medicine Advanced Heart Failure and Transplant Cardiology; Visit Provider Internal Medicine Advanced Heart Failure and Transplant Cardiology
DX: Z94.1 Heart transplant status (principal)
CPT/HCPCS: 36415; 83735

== ENCOUNTER 2021-07-21 13:30 | Outpatient (RCR) | payer MEDICARE, OTHER, SELFPAY ==
--- NOTE | 2021-03-02 15:30 | ST.OPIE ---
Visit Care Team Role Provider Type Mendoza Venegas MD Attending Provider Non-Staff Family Provider Primary Care Provider Referring Provider Specialty: Internal Medicine Address: [address], [place], [address] Email: Speech-Language Pathology Initial Evaluation BAKERY DELIVERER Clinical Swallow Evaluation Start: 03/02/21 14:32 Freq: Status: Active Protocol: Document 03/02/21 14:43 GERDA (Rec: 03/02/21 15:30 GERDA [id number]) Clinical Swallow Evaluation Session Time Visit Start Time 14:30 Visit Stop Time 15:30 Total Visit Minutes 60 Visit Information Visit Number Initial Evaluation Plan of Care Dates 03/02/21 - 06/02/21 Insurance Information Medicare Referral Referring Provider Dr. Mendoza Venegas Reason for Referral Dysphagia with PEG tube feeding Setting Assessment Location Outpatient Care Visit Type Note Type Initial evaluation Next Note Type Next Note Type Treatment Note Patient Information Identification Type Name,ID Card History The pt is a 70-yr-old male with complicated and extensive medical history. 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 The pt underwent chemotherapy treatment, which eliminated tumor but resulted in a large open wound inside his throat , per pt/spouse report. The pt continued with severe dysphagia with silent aspiration observed via MBSS in Sep 2020, resulting in PEG tube placement. Since then, the pt has had several hospitalizations d/t aspiration pneumonia (from swish and spit activity), falls, and sickness related to chemotherapy. Recently, the pt was receiving HH dysphagia therapy; however, after oral trials resulted in severe choking requiring suction, it was felt that the pt was in need of higher level of care, and care was transferred to this clinic. 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 The pt's PMHx includes cancer with radiation across his chest 50 years ago. 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 The pt also has a hx of large numbers of colon polyps, has been experiencing diarrhea for two months, and is scheduled for colonoscopy this summer. Subjective Observations The pt arrived on time accompanied by his . The couple provided case history. The pt's stated goal is to resume oral intake and eliminate PEG tube. Reported by Patient Other Symptoms Choking,Coughing,Difficulty swallowing liquids,Difficulty swallowing pills,Difficulty swallowing solids,History of aspiration or pneumonia Current Diet Tube feeding Patient Questionnaire No Objective Assessment Mental Status Alert,Responsive,Cooperative Oral Integrity Thrush,Xerostomia/Dry mouth Dentition Within normal limits Lip Function Within normal limits Observation of Lips at Rest Symmetrical Pucker Reduced range of motion, Reduced strength Lip Retraction Within normal limits Alternating Pucker/Lip Retraction Within normal limits Tongue Function Mild impairment Observations of Tongue at Rest Abnormal color Tongue Protrusion Deviates to the right Tongue Lateralization Within normal limits Jaw Function Within normal limits Observations of Jaw at Rest Within normal limits Jaw Opening Within normal limits Jaw Closing Within normal limits Jaw Lateralization Within normal limits Hard/Soft Palate Function Mild impairment Observations of Hard/Soft Palate Reduced strength/ROM of soft palate elevation Nasality Hypernasal Phonation Within normal limits Respiratory Sufficiency Within normal limits Comment White patches were observed on pt's tongue blade. Possible thrush. No oral trials were administered during evaluation for pt safety. Recommend MBSS for assessment and to guide POC. Pt/spouse were educated on procedure and in agreement with recommendation. The pt's requested suction be available during the study for pt safety. BAKERY DELIVERER in agreement. Findings Swallowing Function Oropharyngeal phase dysphagia Severity of Swallow Impairment Profoundly impaired Contributing Factors to Swallow Impaired airway protection Impairment Prognosis Guarded Based on History of aspiration/ aspiration pneumonia, Comorbidities,Duration of symptoms/severity Impact on Safety and Functioning Risk for aspiration,Risk for inadequate nutrition/hydration Recommendations Instrumental Assessment Yes Swallowing Treatment Yes Frequency TBD pending MBS results. Anticipate 1x/wk initially, then tapering Duration 4-8 mos Recommended Solids Nothing by Mouth Recommended Liquids Nothing by Mouth Other Recommendations Suction to be available during MBSS for pt safety. Medication Recommendations Not Recommended by Mouth Education Patient/Caregiver Education Described results of evaluation,Patient expressed understanding of evaluation, Patient expressed agreement with goals & treatment plans, Family/caregivers expressed understanding of evaluation, Family/caregivers expressed agreement with goals & treatment plans,Patient expressed understanding of safety precautions,Patient expressed understanding of feeding recommendations,Family /caregivers expressed understanding of safety precautions,Family/caregivers expressed understanding of feeding recommendations, Patient requires further education/training,Family/ caregivers require further education/training Goals Short-term Goals The pt will participate in MBSS to assess swallow function/safety and guide POC. Additional goals to be added pending results. Anticipate therapy to target exercises to increase strength, coordination and ROM of swallow mechanism. Likely to include consultation with Oncology, ENT, and PCP for assessment/treatment of internal wound in conjunction with dysphagia therapy. Long-term Goals The pt will safely tolerate oral trials to transition from PEG tube to oral intake.
--- NOTE | 2021-04-05 16:54 | ST.IPDYTX ---
Visit Care Team Role Provider Type Mendoza Venegas MD Attending Provider Non-Staff Family Provider Primary Care Provider Referring Provider Specialty: Internal Medicine Address: [address], [place], [address] Email: KINESIOLOGIST Dysphagia Treatment KINESIOLOGIST Dysphagia Treatment Start: 03/02/21 14:32 Freq: Status: Active Protocol: Document 04/05/21 16:46 GERDA (Rec: 04/05/21 16:53 GERDA [email or web address]) Dysphagia Treatment Session Time Visit Start Time 14:30 Visit Stop Time 15:20 Total Visit Minutes 50 Visit Information Visit Number 11/04 Plan of Care Dates 03/02/21 - 06/02/21 Insurance Information Medicare Setting Assessment Location Outpatient Care Visit Type Note Type Treatment Note Next Note Type Next Note Type Treatment Note Patient Information Subjective Observations Pt arrived on time unaccompanied. He reported having attempted a few trials of applesauce since last seen for MBSS (03/24/21) but discontinued d/t coughing, per KINESIOLOGIST instruction. No other complaints. Treatment Treatment Activities No oral trials were administered today for pt safety. Educated pt on MBSS findings including review of MBSS video, as well as normal swallow function via animation . Pt verbalized understanding of all information. Initiated training of swallow exercises, which the pt performed with KINESIOLOGIST instruction and demonstration. Pt was unable to perform exhale through occluded straw d/t insufficient velopharyngeal closure, resulting in nasal emission. Pt was able to inhale through occluded straw with elevation of larynx. Pt also exhibited difficulty with Jarek maneuver but able to achieve laryngeal elevation when humming at a high pitch. Assessment Patient Response to Treatment Good Rehab Potential Good Assessment of Improvement Pt was responsive to all education and training today, verbalizing understanding and able to perform most exercises with modifications as needed. Diet Recommendations Recommendations Continue Current Diet Liquids Order Nothing by Mouth Diet Order NPO Medication Recommendations Not Recommended by Mouth Treatment Plan Appropriate for Continued Therapy Yes Therapy Recommendations Continue POC. Dysphagia Goals 1. The pt will perform exercises to improve swallow function/safety to resume oral intake. 2. The pt will safely tolerate oral trials to transition from PEG tube to oral intake.
--- NOTE | 2021-04-12 17:11 | ST.IPDYTX ---
Visit Care Team Role Provider Type Mendoza Venegas MD Attending Provider Non-Staff Family Provider Primary Care Provider Referring Provider Specialty: Internal Medicine Address: [address] [place], [place] [address], [address] Email: DISHWASHING MACHINE REPAIRER Dysphagia Treatment DISHWASHING MACHINE REPAIRER Clinical Instructor Line Start: 04/12/21 15:32 Freq: Status: Active Protocol: Document 04/12/21 17:11 GERDA (Rec: 04/12/21 17:11 GERDA [email or web address]) Clinical Instructor Signature Clinical Instructor Clinical Instructor Yes DISHWASHING MACHINE REPAIRER Dysphagia Treatment Start: 03/02/21 14:32 Freq: Status: Active Protocol: Document 04/12/21 13:36 EB (Rec: 04/12/21 14:07 EB [email or web address]) Dysphagia Treatment Session Time Visit Start Time 12:30 Visit Stop Time 13:20 Total Visit Minutes 50 Visit Information Visit Number 12/02 Plan of Care Dates 03/02/21 - 06/02/21 Insurance Information Medicare Setting Assessment Location Outpatient Care Visit Type Note Type Treatment Note Next Note Type Next Note Type Treatment Note Patient Information Subjective Observations Pt arrived on time and unaccompanied. He reported that he has been working through his HEP during over the past week. No other comments or complaints. Session conducted and note written by student DISHWASHING MACHINE REPAIRER Temitope Kelly. Treatment Liquids Trialed [place] Solids Trialed Puree Administration Type Tea Spoon,Cup Single Sip,Self- Feeding Oral Strategies Double Swallow Pharyngeal Strategies Double Swallow Treatment Activities Reviewed and provided skilled feedback RE swallow exercises, which the pt performed with DISHWASHING MACHINE REPAIRER instruction and demonstration. Pt initially reported that the effortful swallow exercise was causing discomfort on the right portion of his tongue. Once pt was told to focus on the muscles in his throat instead of his tongue, he stated that the exercise was no longer uncomfortable. Pt self-fed 2 teaspoons of applesauce and 2 sips of NTL. No obvious signs of penetration or aspiration were noted and pt's vocal quality remained clear throughout the session. Pt reported some difficulty in manipulating applesauce and felt there was leftover residue which he felt was cleared after several swallows . Pt reported that NTL went down without difficulty. DISHWASHING MACHINE REPAIRER recommended minimal oral trials of puree/NTLs at home and to discontinue upon any s/ sx of aspiration. Pt continues to demonstrate insufficient velopharyngeal closure, resulting in nasal emission. Additional exercises were added to HEP to specifically target this skill . Pt also continued to exhibit difficulty with Jarek maneuver but achieved laryngeal elevation when humming at a high pitch. Pt expressed understanding and agreement of therapy activities and HEP. [ End ] Assessment Patient Response to Treatment Good Rehab Potential Good Assessment of Improvement Pt was responsive to all education and training today, verbalizing understanding and was proficient in exercises with modifications as needed. Pt demonstrated reduced coordination with a/p transport of puree, pt agreed to continue with HEP to improve strength and coordination. Continues to be hypernasal and was stimuable to soft palate exercises. Diet Recommendations Recommendations Continue Current Diet Liquids Order Nothing by Mouth Diet Order NPO Medication Recommendations Not Recommended by Mouth Aspiration Precautions Recommended Precautions Double Swallow Treatment Plan Appropriate for Continued Therapy Yes Therapy Recommendations Continue POC. Dysphagia Goals 1. The pt will perform exercises to improve swallow function/safety to resume oral intake. 2. The pt will safely tolerate oral trials to transition from PEG tube to oral intake.
--- NOTE | 2021-04-19 17:12 | ST.IPDYTX ---
Visit Care Team Role Provider Type Mendoza Venegas MD Attending Provider Non-Staff Family Provider Primary Care Provider Referring Provider Specialty: Internal Medicine Address: [address] [place] [address], [address] Email: ASSISTED LIVING COORDINATOR Dysphagia Treatment ASSISTED LIVING COORDINATOR Clinical Instructor Line Start: 04/12/21 15:32 Freq: Status: Active Protocol: Document 04/19/21 17:11 GERDA (Rec: 04/19/21 17:11 GERDA [email or web address]) Clinical Instructor Signature Clinical Instructor Clinical Instructor Yes ASSISTED LIVING COORDINATOR Dysphagia Treatment Start: 03/02/21 14:32 Freq: Status: Active Protocol: Document 04/19/21 16:34 EB (Rec: 04/19/21 16:54 EB [id number]) Dysphagia Treatment Session Time Visit Start Time 15:30 Visit Stop Time 16:20 Total Visit Minutes 50 Visit Information Visit Number 01/02 Plan of Care Dates 03/02/21 - 06/02/21 Insurance Information Medicare Setting Assessment Location Outpatient Care Visit Type Note Type Treatment Note Next Note Type Next Note Type Treatment Note Patient Information Subjective Observations Pt arrived on time and unaccompanied. He reported that he has been working through his HEP during over the past week. No other comments or complaints. Session conducted and note written by student ASSISTED LIVING COORDINATOR Temitope Kelly. Treatment Liquids Trialed Thin,[place] Solids Trialed Puree Administration Type Cup Single Sip,Straw,Self- Feeding Oral Strategies Double Swallow Pharyngeal Strategies Sitting Upright (90 deg), Double Swallow,Effortful Swallow,Small Bites and Sips Treatment Activities Reviewed and provided skilled feedback RE swallow and soft palate exercises. Pt performed soft palate exercises with ASSISTED LIVING COORDINATOR instruction and demonstration, notable improvement in holding air in cheeks and blowing bubbles in water which indicates that pt is achieving improved soft palate elevation. Pt reported that he trialed pudding and NTL at home. Pt self-fed 4 teaspoons of applesauce and 3 sips of NTL and three sips of thin liquid. Pt reported minor difficulty with bolus manipulation but stated that this was improved with the use of a straw. No obvious signs of penetration or aspiration were noted and pt's vocal quality remained clear throughout the session. Pt independently utilized a double swallow across all trials. Pt instructed to slightly increase the number of oral trials at home but to closely monitor for s/s of penetration or aspiration. Education provided RE oral hygiene reducing the risk for developing aspiration pneumonia. Pt expressed understanding and agreement of therapy activities and HEP. [ End ] Assessment Patient Response to Treatment Good Rehab Potential Good Assessment of Improvement Pt was responsive to all education and training today, verbalizing understanding and was proficient in exercises. Both ASSISTED LIVING COORDINATOR and ASSISTED LIVING COORDINATOR student noted significant improvement in completion of soft palate elevation exercises. This skill, along with swallowing exercises, will continue to be targeted. Diet Recommendations Recommendations Continue Current Diet Liquids Order Nothing by Mouth Diet Order NPO Medication Recommendations Not Recommended by Mouth Comments Oral trials at home in small amounts are ok; discontinue if s/s of asp. Aspiration Precautions Recommended Precautions Upright at 90 Degrees,Small Bites/Sips,Effortful Swallow, Double Swallow Treatment Plan Appropriate for Continued Therapy Yes Therapy Recommendations Continue POC. Dysphagia Goals 1. The pt will perform exercises to improve swallow function/safety to resume oral intake. 2. The pt will safely tolerate oral trials to transition from PEG tube to oral intake.
--- NOTE | 2021-04-26 17:55 | ST.IPDYTX ---
Visit Care Team Role Provider Type Mendoza Venegas MD Attending Provider Non-Staff Family Provider Primary Care Provider Referring Provider Specialty: Internal Medicine Address[address] [address] [place] [address] [facility], [place], [address] Email: TRANSFORMER BUILDER Dysphagia Treatment TRANSFORMER BUILDER Clinical Instructor Line Start: 04/12/21 15:32 Freq: Status: Active Protocol: Document 04/26/21 17:50 GERDA (Rec: 04/26/21 17:50 GERDA [email or web address]) Clinical Instructor Signature Clinical Instructor Clinical Instructor Yes TRANSFORMER BUILDER Dysphagia Treatment Start: 03/02/21 14:32 Freq: Status: Active Protocol: Document 04/26/21 17:26 EB (Rec: 04/26/21 17:43 EB [id number]) Dysphagia Treatment Session Time Visit Start Time 12:30 Visit Stop Time 13:20 Total Visit Minutes 50 Visit Information Visit Number 02/01 Plan of Care Dates 03/02/21 - 06/02/21 Insurance Information Medicare Setting Assessment Location Outpatient Care Visit Type Note Type Treatment Note Next Note Type Next Note Type Treatment Note Patient Information Subjective Observations Pt arrived on time and accompanied by his . He reported that he has been working through his HEP during over the past week. No other comments or complaints. Session conducted and note written by student TRANSFORMER BUILDER Temitope Kelly. Treatment Liquids Trialed Thin Solids Trialed Puree,Dysphagia Mechanical Administration Type Cup Single Sip,Self-Feeding Oral Strategies Double Swallow Pharyngeal Strategies Sitting Upright (90 deg), Double Swallow,Effortful Swallow,Small Bites and Sips Treatment Activities Consulted pt on HEP program and provided skilled feedback RE exercises and facilitation of home trials. Pt reported that he ate a popsicle this last week without difficulty; pt also trialed chewing gum but found his teeth started to become sore after a couple minutes. Pt also reported that he did experience a coughing episode several hours after chewing gum and discontinued home trials after this episode . No other signs or symptoms of aspiration or penetration were reported. During session, pt trialed thin liquid, puree , and dysphagia mechanical. No obvious signs of aspiration/ penetration and pt's voice remained clear throughout session. Pt implemented a double swallow to coordinate bolus transport; appeared to have less difficulty manipulating dysphagia mech texture and noted it feels like I am actually eating again. Pt is going to continue with HEP and trialing small amounts of thin liquids , puree, and begin trialing dysphagia mech textures. Assessment Patient Response to Treatment Good Rehab Potential Good Assessment of Improvement Pt continues to show improvement in strength and coordination. Today pt was able to alternate air from cheek to cheek, a task he was unable to do in previous sessions. This indicates improvement in soft palate elevation. Diet Recommendations Recommendations Continue Current Diet Liquids Order Nothing by Mouth Diet Order NPO Medication Recommendations Not Recommended by Mouth Comments Oral trials at home in small amounts are ok; discontinue if s/s of asp. Aspiration Precautions Recommended Precautions Upright at 90 Degrees,Small Bites/Sips,Effortful Swallow, Double Swallow Treatment Plan Appropriate for Continued Therapy Yes Therapy Recommendations Continue POC. Dysphagia Goals 1. The pt will perform exercises to improve swallow function/safety to resume oral intake. 2. The pt will safely tolerate oral trials to transition from PEG tube to oral intake.
--- NOTE | 2021-05-03 13:32 | ST.IPDYTX ---
Visit Care Team Role Provider Type Mendoza Venegas MD Attending Provider Non-Staff Family Provider Primary Care Provider Referring Provider Specialty: Internal Medicine Address: [address] [place] [address], [place], [address] Email: PRICE LISTER Dysphagia Treatment PRICE LISTER Clinical Instructor Line Start: 04/12/21 15:32 Freq: Status: Active Protocol: Document 04/26/21 17:50 GERDA (Rec: 04/26/21 17:50 GERDA [email or web address]) Clinical Instructor Signature Clinical Instructor Clinical Instructor Yes PRICE LISTER Dysphagia Treatment Start: 03/02/21 14:32 Freq: Status: Active Protocol: Document 05/03/21 13:25 GERDA (Rec: 05/03/21 13:32 GERDA [email or web address]) Dysphagia Treatment Session Time Visit Start Time 12:30 Visit Stop Time 13:20 Total Visit Minutes 50 Visit Information Visit Number 02/01 Plan of Care Dates 03/02/21 - 06/02/21 Insurance Information Medicare Setting Assessment Location Outpatient Care Visit Type Note Type Treatment Note Next Note Type Next Note Type Treatment Note Patient Information Subjective Observations Pt arrived on time unaccompanied. Reported oral trials at home 3-4x/wk. Pt successfully swallowed posicyl , watter, pudding with cracker in it but had difficulty with a/p transport when attempting to eat a bite of cake. Treatment Liquids Trialed Thin Solids Trialed Puree,Dysphagia Mechanical Administration Type Cup Single Sip,Self-Feeding Oral Strategies Double Swallow Pharyngeal Strategies Sitting Upright (90 deg), Double Swallow,Effortful Swallow,Small Bites and Sips Treatment Activities Pt safely tolerated trials of purreed and dysphagia mechanical textures. Wet vocal quality observed with trial of dry cracker + small sip of water. Pt reported pocketing at L/R cheeks with cracker and diced fruit. Trained pt in postural changes including head tilt back and to unaffected side, which assisted both with a/p transport and to reduce pocketing. Trained pt in intraoral pressure exercise to promote oral prep phase and a /p transport. Pt completed without difficulty. Instructions for exercise and posture changes, as well as dysphagia mechanical foods to try and foods to avoid in home trials were provided in writing. Pt verbalized understanding. Assessment Patient Response to Treatment Good Rehab Potential Good Assessment of Improvement Pt continues to show improvement in strength and coordination but occ difficulty with pocketing and a/p transport. He benefited from postural modifications to increase gravity involvement. He was able to perform intraoral pressure exercise to increase oral prep phase. Diet Recommendations Recommendations Continue Current Diet Liquids Order Nothing by Mouth Diet Order NPO Medication Recommendations Not Recommended by Mouth Comments Oral trials at home in small amounts are ok; discontinue if s/s of asp. Aspiration Precautions Recommended Precautions Upright at 90 Degrees,Small Bites/Sips,Effortful Swallow, Double Swallow Treatment Plan Appropriate for Continued Therapy Yes Therapy Recommendations Continue POC. Dysphagia Goals 1. The pt will perform exercises to improve swallow function/safety to resume oral intake. 2. The pt will safely tolerate oral trials to transition from PEG tube to oral intake. Follow Up Plan Repeat MBS after ~3 mos treatment
--- NOTE | 2021-05-12 18:13 | ST.IPDYTX ---
Visit Care Team Role Provider Type Mendoza Venegas MD Attending Provider Non-Staff Family Provider Primary Care Provider Referring Provider Specialty: Internal Medicine Address: [address] [place] [address], [place], [address] Email: MEDICAL AIDE Dysphagia Treatment MEDICAL AIDE Clinical Instructor Line Start: 04/12/21 15:32 Freq: Status: Active Protocol: Document 04/26/21 17:50 GERDA (Rec: 04/26/21 17:50 GERDA [email or web address]) Clinical Instructor Signature Clinical Instructor Clinical Instructor Yes MEDICAL AIDE Dysphagia Treatment Start: 03/02/21 14:32 Freq: Status: Active Protocol: Document 05/12/21 18:02 GERDA (Rec: 05/12/21 18:13 GERDA [email or web address]) Dysphagia Treatment Session Time Visit Start Time 10:30 Visit Stop Time 11:20 Total Visit Minutes 50 Visit Information Visit Number 03/04 Plan of Care Dates 03/02/21 - 06/02/21 Insurance Information Medicare Setting Assessment Location Outpatient Care Visit Type Note Type Treatment Note Next Note Type Next Note Type Treatment Note Patient Information Subjective Observations Pt arrived on time unaccompanied. Reported increasing both frequency and variety of oral trials at home , including pureed and dysphagia mechanical textures, without difficulty or overt or clinical s/sx of aspiration . He had questions related to appropriate textures and asked if he could replace one tube feeding meal with an oral meal . Treatment Liquids Trialed Thin Solids Trialed Puree,Dysphagia Mechanical, Mechanical Soft Administration Type Cup Single Sip,Cup Consecutive Sips,Self-Feeding Oral Strategies Upright at 90 degrees,Double Swallow,Alternate Liquids/ Solids Pharyngeal Strategies Sitting Upright (90 deg), Double Swallow,Effortful Swallow,Small Bites and Sips, Alternate Liquids/Solids Treatment Activities Pt safely tolerated trials of purreed, dysphagia mechanical and mechanical soft textures. Mildly wet vocal quality was observed x1 but cleared immediately. Throat clearing and mild cough were observed x1 each, indicating sensation of laryngeal penetration and cough response. Consulted with pt RE POC. Agreed that it is repeat MBS and consultation with Nutrition is appropriate at this time, and request for such orders was faxed to pt's PCP. Instructed pt in role of Customer Advisor Specialist vs MEDICAL AIDE and advised that meal replacement should take place only under the Customer Advisor Specialist's guidance. Pt verbalized understanding and agreement. A variety of dysphagia mechanical texture options were provided to the pt to increase variety of oral trials at home. He was advised to avoid dry crumbly textures, bulky textures such as sticky bread, stringy textures such as pineapple, and tough textures such as steak. He verbalized understanding and agreement. Assessment Patient Response to Treatment Good Rehab Potential Good Assessment of Improvement The pt is tolerating significantly greater variety of foods/liquids without overt s/sx of aspiration. Follow-up MBS is recommended for further evaluation of progress and to guide POC. Recommend consultation with Customer Advisor Specialist at this time to guide in balancing nutrition and hydration between oral trials and tube feeding. Depending on MBS findings, it is anticipated the pt may be able to soon begin weaning from tube feeding to oral intake. Diet Recommendations Recommendations Continue Current Diet Liquids Order Nothing by Mouth Diet Order NPO Medication Recommendations Not Recommended by Mouth Comments Oral trials at home in mod amounts are ok; discontinue if s/s of asp. Aspiration Precautions Recommended Precautions Upright at 90 Degrees,Small Bites/Sips,Effortful Swallow, Double Swallow Additional Precautions Pureed and dysphagia mechanical textures only for home trials Treatment Plan Appropriate for Continued Therapy Yes Therapy Recommendations Continue POC. Dysphagia Goals 1. The pt will perform exercises to improve swallow function/safety to resume oral intake. 2. The pt will safely tolerate oral trials to transition from PEG tube to oral intake. Follow Up Plan Repeat MBS Referrals/Other Recommended Referrals Dietary Consult
--- NOTE | 2021-05-17 13:39 | ST.IPDYTX ---
Visit Care Team Role Provider Type Mendoza Venegas MD Attending Provider Non-Staff Family Provider Primary Care Provider Referring Provider Specialty: Internal Medicine Address: [address] [place] [address], [place], [address] Email: TOOL TURRET LATHE SET UP OPERATOR Dysphagia Treatment TOOL TURRET LATHE SET UP OPERATOR Clinical Instructor Line Start: 04/12/21 15:32 Freq: Status: Active Protocol: Document 04/26/21 17:50 GERDA (Rec: 04/26/21 17:50 GERDA [email or web address]) Clinical Instructor Signature Clinical Instructor Clinical Instructor Yes TOOL TURRET LATHE SET UP OPERATOR Dysphagia Treatment Start: 03/02/21 14:32 Freq: Status: Active Protocol: Document 05/17/21 13:30 GERDA (Rec: 05/17/21 13:39 GERDA [email or web address]) Dysphagia Treatment Session Time Visit Start Time 12:30 Visit Stop Time 13:20 Total Visit Minutes 50 Visit Information Visit Number 04/03 Plan of Care Dates 03/02/21 - 06/02/21 Insurance Information Medicare Setting Assessment Location Outpatient Care Visit Type Note Type Treatment Note Next Note Type Next Note Type Treatment Note Patient Information Subjective Observations Pt arrived on time unaccompanied. Reported increasing both frequency and variety of oral trials at home , including pureed, dysphagia mechanical, and mechanical soft textures without difficulty or overt or clinical s/sx of aspiration. The only difficulty was with a /p transport with cake, which resolved with thin liquid wash . Treatment Liquids Trialed Thin Solids Trialed Puree,Dysphagia Mechanical, Mechanical Soft Administration Type Cup Single Sip,Cup Consecutive Sips,Self-Feeding Oral Strategies Upright at 90 degrees,Double Swallow,Alternate Liquids/ Solids Pharyngeal Strategies Sitting Upright (90 deg), Double Swallow,Effortful Swallow,Small Bites and Sips, Alternate Liquids/Solids Treatment Activities Pt safely tolerated trials of tapioca pudding and carbonated liquid. Mildly wet vocal quality was observed x2 but cleared immediately with additional swallow and/or throat clearing, initiated independently by the pt, indicating good pharyngeal/ laryngeal sensation. 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 This, in addition to tissue removed around right tonsil area, likely accounts for occasional difficulty with a/p oral transit and hypernasality. Pt verbalized understanding of this and asked if surgery was possible to rebuild this area. TOOL TURRET LATHE SET UP OPERATOR advised pt to discuss with his Oncologist, whom he will see on Monday of this week. Pt in agreement. Orders were received for follow-up MBS and scheduled with Radiology during today's session (06/02/21). Will f/u in outpatient clinic on to review and determine POC . TOOL TURRET LATHE SET UP OPERATOR agreed to discuss pt care with Wheel Press Clerk in preparation for possible titrating of tube feeding to compensate for increased oral intake. Pt in agreement with this. Assessment Patient Response to Treatment Good Rehab Potential Good Assessment of Improvement The pt is tolerating significantly greater variety of foods/liquids without overt s/sx of aspiration. Follow-up MBS is scheduled 06/02/21 for further evaluation of progress and to guide POC. TOOL TURRET LATHE SET UP OPERATOR will discuss case with Wheel Press Clerk to whom referral is pending. Pt will discuss with Oncologist the possibility of tissue grafting to rebuild oral structures that were removed during resection surgery. Diet Recommendations Recommendations Continue Current Diet Liquids Order Nothing by Mouth Diet Order NPO Medication Recommendations Not Recommended by Mouth Comments Oral trials at home in mod amounts are ok; discontinue if s/s of asp. Aspiration Precautions Recommended Precautions Upright at 90 Degrees,Small Bites/Sips,Effortful Swallow, Double Swallow Treatment Plan Appropriate for Continued Therapy Yes Therapy Recommendations Continue POC. Dysphagia Goals 1. The pt will perform exercises to improve swallow function/safety to resume oral intake. 2. The pt will safely tolerate oral trials to transition from PEG tube to oral intake. Follow Up Plan Repeat MBS 06/02/21; Follow up in outpatient clinic 06/07/21 Referrals/Other Recommended Referrals Dietary Consult
--- NOTE | 2021-06-21 15:24 | ST.IPDYTX ---
Visit Care Team Role Provider Type Mendoza Venegas MD Attending Provider Non-Staff Family Provider Primary Care Provider Referring Provider Specialty: Internal Medicine Address: [address] [place] [address], [address] Email: SENIOR INFORMATION SECURITY ANALYST Dysphagia Treatment SENIOR INFORMATION SECURITY ANALYST Clinical Instructor Line Start: 04/12/21 15:32 Freq: Status: Active Protocol: Document 04/26/21 17:50 GERDA (Rec: 04/26/21 17:50 GERDA [email or web address]) Clinical Instructor Signature Clinical Instructor Clinical Instructor Yes SENIOR INFORMATION SECURITY ANALYST Dysphagia Treatment Start: 03/02/21 14:32 Freq: Status: Active Protocol: Document 06/21/21 13:33 GERDA (Rec: 06/21/21 14:27 GERDA [email or web address]) Dysphagia Treatment Session Time Visit Start Time 12:30 Visit Stop Time 13:25 Total Visit Minutes 55 Visit Information Visit Number 05/04 Plan of Care Dates 06/21/21 - 09/20/21 Insurance Information Medicare Setting Assessment Location Outpatient Care Visit Type Note Type Progress Note Next Note Type Next Note Type Treatment Note Patient Information Subjective Observations Pt arrived on time accompanied by his , who was present throughout the session. The couple attend today for follow -up to MBSS that was administered last week, . Treatment Treatment Activities No oral trials were administered today. Educated pt/spouse on MBSS results from 06/16/21, including video review. Mild improvements to oral and pharyngeal swallow phases were observed via MBSS as compared to previous MBSS on 03/24/21. No penetration or aspiration was observed. Mildly improved hyolaryngeal and epiglottic movement was noted. The pt continues with significant pharyngeal residue that mostly clears with multiple effortful swallows. Residue appears to result primarily from reduced extension and duration of UES opening and also impacted by reduced pharyngeal constriction and epiglottic inversion. Risk of aspiration is elevated while pharyngeal residue is present. A 13mm barium tablet lodged at the medial esophagus for >12 min, despite subsequent swallows of pureed solids and thin liquids, which filled the esophagus superiorly to the tablet. (See MBSS report for details; GI consult was recommended.) Such esophageal stasis increases the risk of reflux and aspiration. The pt was instructed to masticate all oral intake well, to a size smaller than the 13mm tablet and to remain upright for at least 1 hr after meals and at least 30 min after snacks. Pt/spouse verbalized understanding and agreement. Discussed POC. Recommended the pt consult with PCP RE possible GI consultation, as well as transitioning from tube feeding to oral intake under the supervision of a Salvage Clerk. All questions were answered. Agreed to follow up after pt has seen both PCP and Salvage Clerk for ongoing assessment of swallow safety with increased oral intake. Assessment Patient Response to Treatment Good Rehab Potential Good Assessment of Improvement Mild improvement in swallow function/safety observed via MBSS. The pt continues with considerable pharyngeal residue that he is able to manage with swallow strategies . No penetration or aspiration was observed during swallow study. The pt has been increasing oral intake at home , up to 2 meals/day, without overt or clinical s/sx of aspiration over the last ~2 mos. He demonstrates excellent awareness of deficits and safety risks and follows safety recommendations independently. His also pays close attention to the pt 's oral intake and is actively involved with his care. Based on this history and MBSS results, the pt demonstrates swallow safety sufficient to resume oral intake, and it is recommended he transition from tube feeding to oral intake under the supervision of a Salvage Clerk and his PCP. Request for orders to Salvage Clerk has been made to the pt's PCP, Dr. Venegas. The pt/spouse are in agreement with these recommendations. A copy of the pt's MBSS studies were provided to them per their request to share with Dr Eli Venegas, whom they will see in 2 days. Diet Recommendations Recommendations Upgrade Diet Order Liquids Order Thin Diet Order Dysphagia Advanced Medication Recommendations As Tolerated Aspiration Precautions Recommended Precautions Upright at 90 Degrees,Small Bites/Sips,Effortful Swallow, Double Swallow Treatment Plan Placement Recommendation after Discharge Home Appropriate for Continued Therapy Yes Therapy Recommendations Follow up after consultation with PCP and Salvage Clerk. Dysphagia Goals 1. The pt will perform exercises to improve swallow function/safety to resume oral intake. 2. The pt will follow safe swallow strategies independently to reduce risk of aspiration. 3. The pt will tolerate least restrictive oral diet to meet his nutrition and hydration needs. Referrals/Other Recommended Referrals Primary Care Physician,GI Consult
--- NOTE | 2021-07-21 17:19 | ST.IPDYTX ---
Visit Care Team Role Provider Type Mendoza Venegas MD Attending Provider Non-Staff Family Provider Primary Care Provider Referring Provider Specialty: Internal Medicine Address: [facility] [address] , [place], [address] Email: SUPERVISOR TILE [employer] MOTTLE Dysphagia Treatment SUPERVISOR TILE [employer] MOTTLE Clinical Instructor Line Start: 04/12/21 15:32 Freq: Status: Active Protocol: Document 04/26/21 17:50 GERDA (Rec: 04/26/21 17:50 [facility] [id number]) Clinical Instructor Signature Clinical Instructor Clinical Instructor Yes SUPERVIS[employer] MOTT[employer] Dysphagia Treatment Start: 03/02/21 14:32 Freq: Status: Active Protocol: Document 07/21/21 14:03 GERDA (Rec: 07/21/21 14:23 [facility] [email or web address]) Dysphagia Treatment Session Time Visit Start Time 13:30 Visit Stop Time 14:00 Total Visit Minutes 30 Visit Information Visit Number 06/04 Plan of Care Dates 06/21/21 - 09/20/21 Insurance Information Medicare Setting Assessment Location Outpatient Care Visit Type Note Type Discharge Summary Patient Information Subjective Observations Pt arrived on time unaccompanied. He and his have met with Photo Checker And Assembler Yolanda Powell and received helpful information for oral intake. The pt is now consuming all meals orally, using feeding tube only for large pills (crushed) d/t concern from difficulty swallowing barium tablet during MBS. Pt reported bread as giving him some trouble, as it becomes bulky and sticky. Also is a leery of trying large lettuce pieces and steak but has consumed other meats such as sausage, hot dogs, ground meat, etc. Pt questioned if these concerns were merely psychological. Treatment Liquids Trialed Thin Solids Trialed Mechanical Soft,Regular Administration Type Cup Single Sip,Cup Consecutive Sips,Self-Feeding Oral Strategies Upright at 90 degrees Pharyngeal Strategies Sitting Upright (90 deg),Small Bites and Sips Additional Dysphagia Treatment Pt added liquid as needed. Strategies Treatment Activities The pt consumed all trials of string cheese, cracker with peanut butter, chocolate chip cookie, and thin liquid without overt s/sx of aspiration, change in vocal quality, or complaints of difficulty. Recommended the pt consume large pills whole, split, or crushed in carrier to transition to oral intake, and recommended small bite sizes of lettuce, bread, and meat with extensive chewing to break down into small pieces. 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 Therefore, recommended the pt add moisture in form of sauces, gravies, condiments, and/or liquid to dry foods or other foods that he has difficulty with or concern of adequately masticating and swallowing. The pt had questions RE whether he should keep the feeding tube placed and if he needed to continue with swallow exercises. SUPERVISOR TILE AND MOTTLE recommended he discuss feeding tube concerns with Dr. Venegas. Recommended he continue swallow exercises at least a few times per week to maintain highest level of function, although it was acknowledged that the act of chewing and swallowing provided exercise to swallow muscles that they were not getting when he was NPO and entirely feeding tube dependent. The pt was in agreement with all recommendations. Discussed POC and agreed discharge from skilled intervention was appropriate at this time. Assessment Patient Response to Treatment Excellent Rehab Potential Excellent Assessment of Improvement The pt is now safely consuming all meals orally, transitioning with nutritional advice from [facility] Heat Pump Installer. He is avoiding some items, such as advanced meats, lettuce, breads and large pills d/t concern for comfort and safety. It is anticipated that with some modifications to texture, size and oral prep strategies, he will be able to safely consume these items soon. Recommend the pt discuss with his PCP whether or not to remove feeding tube. Recommend the pt continue with a maintenance program of swallow exercises to maintain highest level of function and progress made. Over the course of treatment, both the pt and his have demonstrated excellent awareness of deficits and strictly followed safely precautions, which has greatly contributed to the progress he has made. I am very happy to say the pt has met all goals and is independent in safe oral consumption. He is discharged from dysphagia therapy. Diet Recommendations Recommendations Upgrade Diet Order Liquids Order Thin Diet Order Regular Medication Recommendations As Tolerated Aspiration Precautions Recommended Precautions Upright at 90 Degrees,Small Bites/Sips,Effortful Swallow, Double Swallow Treatment Plan Placement Recommendation after Discharge Home Appropriate for Continued Therapy No Dysphagia Goals ALL GOALS HAVE BEEN MET. 1. The pt will perform exercises to improve swallow function/safety to resume oral intake. 2. The pt will follow safe swallow strategies independently to reduce risk of aspiration. 3. The pt will tolerate least restrictive oral diet to meet his nutrition and hydration needs. 4. The pt will resume oral intake as primary source of nutrition and hydration. Referrals/Other Recommended Referrals Primary Care Physician
--- NOTE | 2021-08-25 17:44 | ST.OPDS ---
Visit Care Team Role Provider Type Mendoza Venegas MD Attending Provider Non-Staff Family Provider Primary Care Provider Referring Provider Address: [place], [address] STUDENT MINISTRIES DIRECTOR Treatment Note STUDENT MINISTRIES DIRECTOR Clinical Instructor Line Start: 04/12/21 15:32 Freq: Status: Active Protocol: Document 04/26/21 17:50 GERDA (Rec: 04/26/21 17:50 [email or web address] [email or web address]) Clinical Instructor Signature Clinical Instructor Clinical Instructor Yes Pt was discharged 07/21/21. See treatment note.
== END 2021-10-26 09:35 ==
LOC: SP 13:30
PROVIDERS: Family Provider Internal Medicine; PCP Internal Medicine; Referring Provider Internal Medicine; Visit Provider Internal Medicine
DX: R13.10 Dysphagia, unspecified (principal)
CPT/HCPCS: 92526; 92610

== ENCOUNTER → 2021-08-06 08:57 | Outpatient (CLI) | payer MEDICARE, OTHER, SELFPAY ==
[2021-08-06 10:10] LABS: Magnesium 1.5 mg/dL (1.6-2.3)
[2021-08-07 17:33] LABS: Sirolimus 3.7 ng/mL (3.0-20.0); Tacrolimus 1.5 ng/mL (2.0-20.0)
[2021-08-09 13:29] LABS: BUN Creatinine Ratio 24.5 (6-22); Blood Urea Nitrogen 24 mg/dL (9-20); Calcium 9.5 mg/dL (8.4-10.2); Carbon Dioxide 29 mmol/L (22-32); Chloride 100 mmol/L (98-107); Estimated Glomerular Filt Rate > 60.0 mL/min (>60); Glucose 194 mg/dL (80-110); HEMOLYSIS < 15 (0-50); Potassium 3.8 mmol/L (3.4-5.1); Sodium 140 mmol/L (137-145)
== END ==
PROVIDERS: Family Provider Internal Medicine; PCP Internal Medicine; Referring Provider Internal Medicine Advanced Heart Failure and Transplant Cardiology; Visit Provider Internal Medicine Advanced Heart Failure and Transplant Cardiology
DX: Z94.1 Heart transplant status (principal)
CPT/HCPCS: 36415; 80048; 80195; 80197; 83735

== ENCOUNTER → 2021-08-20 09:34 | Outpatient (CLI) | payer MEDICARE, OTHER, SELFPAY ==
[2021-08-20 10:20] LABS: BUN Creatinine Ratio 25.3 (6-22); Blood Urea Nitrogen 25 mg/dL (9-20); Calcium 9.2 mg/dL (8.4-10.2); Carbon Dioxide 34 mmol/L (22-32); Chloride 94 mmol/L (98-107); Estimated Glomerular Filt Rate > 60.0 mL/min (>60); Glucose 212 mg/dL (80-110); HEMOLYSIS < 15 (0-50); Magnesium 1.5 mg/dL (1.6-2.3); Potassium 4.6 mmol/L (3.4-5.1); Sodium 136 mmol/L (137-145)
[2021-08-20 16:17] LABS: Tacrolimus 2.1 ng/mL (2.0-20.0)
[2021-08-21 10:07] LABS: Sirolimus 8.4 ng/mL (3.0-20.0)
== END ==
PROVIDERS: Family Provider Internal Medicine; PCP Internal Medicine; Referring Provider Internal Medicine Advanced Heart Failure and Transplant Cardiology; Visit Provider Internal Medicine Advanced Heart Failure and Transplant Cardiology
DX: Z79.4 Long term (current) use of insulin (principal); Z94.1 Heart transplant status
CPT/HCPCS: 36415; 80048; 80195; 80197; 83735

== ENCOUNTER → 2021-11-02 10:05 | Outpatient (CLI) | payer MEDICARE, OTHER, SELFPAY ==
[2021-11-02 11:01] LABS: Hematocrit 32.9 % (41-53); Hemoglobin 11.3 g/dL (13.5-17.5); Mean Corpuscular HGB Conc 34.4 % (30-36); Mean Corpuscular Hemoglobin 27.1 PG (26-34); Mean Corpuscular Volume 78.7 fL (80-100); Platelet Count 226 X10^3/uL (150-400); Red Blood Cell Count 4.19 X10^6/uL (4.5-5.9); Red Cell Distribution Width 15.3 % (11.6-14.8); White Blood Cell Count 3.1 X10^3/uL (4.5-11.0)
[2021-11-02 11:02] LABS: Add Manual Diff / Slide Review YES
[2021-11-02 11:17] LABS: Alanine Aminotransferase 29 IU/L (<50); Albumin 3.9 g/dL (3.5-5.0); Albumin Globulin Ratio 1.3 (1.0-2.8); Alkaline Phosphatase 76 U/L (38-126); Aspartate Aminotransferase 35 IU/L (17-59); BUN Creatinine Ratio 12.1 (6-22); Bilirubin Total 0.3 mg/dL (0.2-1.3); Blood Urea Nitrogen 12 mg/dL (9-20); Calcium 9.6 mg/dL (8.4-10.2); Carbon Dioxide 33 mmol/L (22-32); Chloride 103 mmol/L (98-107); Cholesterol 214 mg/dL (140-199); Creatine Kinase 80 U/L (55-170); Estimated Glomerular Filt Rate > 60.0 mL/min (>60); Globulin 3.1 g/dL (1.7-4.1); Glucose 120 mg/dL (80-110); HDL Cholesterol 39 mg/dL (40-60); HEMOLYSIS < 15 (0-50); Magnesium 1.5 mg/dL (1.6-2.3); Potassium 3.5 mmol/L (3.4-5.1); Sodium 141 mmol/L (137-145)
[2021-11-02 11:26] LABS: Neutrophils Absolute Manual 1705 /uL (3000-5900); RBC Morphology Normal Morphology; Total Cells Counted 100
[2021-11-02 11:27] LABS: Triglycerides 633 mg/dL (35-150)
[2021-11-03 08:14] LABS: Sirolimus 2.9 ng/mL (3.0-20.0); Tacrolimus 1.7 ng/mL (2.0-20.0)
== END ==
PROVIDERS: Family Provider Internal Medicine; PCP Internal Medicine; Referring Provider Internal Medicine Advanced Heart Failure and Transplant Cardiology; Visit Provider Internal Medicine Advanced Heart Failure and Transplant Cardiology
DX: Z94.1 Heart transplant status (principal); E78.2 Mixed hyperlipidemia
CPT/HCPCS: 36415; 80053; 80061; 80195; 80197; 82550; 83735; 85007; 85025

== ENCOUNTER → 2021-11-10 09:32 | Outpatient (CLI) | payer MEDICARE, OTHER, SELFPAY ==
[2021-11-10 10:42] LABS: BUN Creatinine Ratio 12.3 (6-22); Blood Urea Nitrogen 13 mg/dL (9-20); Calcium 9.1 mg/dL (8.4-10.2); Carbon Dioxide 37 mmol/L (22-32); Chloride 96 mmol/L (98-107); Cholesterol 206 mg/dL (140-199); Estimated Glomerular Filt Rate > 60.0 mL/min (>60); Glucose 168 mg/dL (80-110); HDL Cholesterol 48 mg/dL (40-60); HEMOLYSIS < 15 (0-50); LDL Cholesterol Calculated 89 mg/dL (<100); Potassium 2.8 mmol/L (3.4-5.1); Sodium 140 mmol/L (137-145); Triglycerides 345 mg/dL (35-150)
[2021-11-11 09:01] LABS: Sirolimus 3.7 ng/mL (3.0-20.0); Tacrolimus 1.4 ng/mL (2.0-20.0)
== END ==
PROVIDERS: Family Provider Internal Medicine; PCP Internal Medicine; Referring Provider Internal Medicine Advanced Heart Failure and Transplant Cardiology; Visit Provider Internal Medicine Advanced Heart Failure and Transplant Cardiology
DX: Z94.1 Heart transplant status (principal)
CPT/HCPCS: 36415; 80048; 80061; 80195; 80197

== ENCOUNTER → 2021-11-12 08:49 | Outpatient (CLI) | payer MEDICARE, OTHER, SELFPAY ==
[2021-11-12 09:24] LABS: HEMOLYSIS < 15 (0-50)
== END ==
PROVIDERS: Family Provider Internal Medicine; PCP Internal Medicine; Referring Provider Internal Medicine Advanced Heart Failure and Transplant Cardiology; Visit Provider Internal Medicine Advanced Heart Failure and Transplant Cardiology
DX: Z94.1 Heart transplant status (principal)
CPT/HCPCS: 36415; 84132

== ENCOUNTER → 2021-11-15 08:59 | Outpatient (CLI) | payer MEDICARE, OTHER, SELFPAY ==
[2021-11-15 09:31] LABS: HEMOLYSIS < 15 (0-50); Potassium 3.8 mmol/L (3.4-5.1)
== END ==
PROVIDERS: Family Provider Internal Medicine; PCP Internal Medicine; Referring Provider Internal Medicine Advanced Heart Failure and Transplant Cardiology; Visit Provider Internal Medicine Advanced Heart Failure and Transplant Cardiology
DX: Z94.1 Heart transplant status (principal)
CPT/HCPCS: 36415; 84132

== ENCOUNTER → 2021-11-19 09:22 | Outpatient (CLI) | payer MEDICARE, OTHER, SELFPAY ==
[2021-11-19 11:11] LABS: BUN Creatinine Ratio 13.9 (6-22); Blood Urea Nitrogen 16 mg/dL (9-20); Calcium 9.9 mg/dL (8.4-10.2); Carbon Dioxide 31 mmol/L (22-32); Chloride 103 mmol/L (98-107); Estimated Glomerular Filt Rate > 60.0 mL/min (>60); Glucose 134 mg/dL (80-110); HEMOLYSIS < 15 (0-50); Potassium 4.3 mmol/L (3.4-5.1); Sodium 141 mmol/L (137-145)
[2021-11-20 09:22] LABS: Sirolimus 7.4 ng/mL (3.0-20.0)
[2021-11-20 10:22] LABS: Tacrolimus 2.6 ng/mL (2.0-20.0)
== END ==
PROVIDERS: Family Provider Internal Medicine; PCP Internal Medicine; Referring Provider Internal Medicine Advanced Heart Failure and Transplant Cardiology; Visit Provider Internal Medicine Advanced Heart Failure and Transplant Cardiology
DX: Z94.1 Heart transplant status (principal)
CPT/HCPCS: 36415; 80048; 80195; 80197

== ENCOUNTER 2021-11-23 13:03 | Outpatient (RCR) | payer MEDICARE, OTHER, SELFPAY ==
--- NOTE | 2021-11-23 16:45 | ST.OPIE ---
Visit Care Team Role Provider Type Mendoza Venegas MD Family Provider Non-Staff Primary Care Provider Specialty: Internal Medicine Address: [address] , [place], [address] Email: Onofre Patel MD Attending Provider Physician Referring Provider Specialty: Ear, Nose, Throat Address: [address] [place] [address], [address] Email: [email or web address] Speech-Language Pathology Initial Evaluation TOWBOAT CAPTAIN Clinical Swallow Evaluation Start: 11/23/21 15:13 Freq: Status: Active Protocol: Document 11/23/21 15:14 GERDA (Rec: 11/23/21 16:41 [facility]DA [email or web address]) Clinical Swallow Evaluation Session Time Visit Start Time 13:30 Visit Stop Time 14:30 Total Visit Minutes 60 Visit Information Visit Number Initial Evaluation Plan of Care Dates 11/23/21 - 03/21/22 Insurance Information Medicare Referral Referring Provider Dr. Onofre Patel Reason for Referral Diffuse large B-cell lymphoma; dysphonia Setting Assessment Location Outpatient Care Visit Type Note Type Initial evaluation Next Note Type Next Note Type Treatment Note Patient Information Identification Type Name,ID Card History The pt is a 70-yr-old male familiar to this clinician from previous dysphagia therapy last year, during which the pt weaned off of PEG -tube feeding. 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 This was treated with chemotherapy and no radiation and resulted in severe dysphagia with PEG-tube feeding for ~6 mos. The pt returns today with c/o of excessive phlegm in throat. The pt's reported a change in the pt's vocal resonance, sounding full, like there's something in his throat. Laryngoscopy did reveal phlegm buildup in right vallecula. The pt/spouse have appt with [facility] in 2 wks as well as follow up with sleep clinic for replacement of CPAP machine and updated sleep study. The pt denies changes in swallow. PEG tube has been removed several months ago, and the port is scheduled for removal in the coming weeks as well. The couple attend today wondering if new swallow exercises might be beneficial. The pt has been mostly compliant with dysphagia HEP with exception of around [place]. Subjective Observations The pt arrived on time accompanied by his , who provided most of the case history update. The pt was in agreement with her reports. During discussions, they commented that the pt's current CPAP is cleaned daily with a substance that has a strong odor. His doctor has recommended cleaning with soap and water only, which they have not yet done. They also mentioned that his sleep doctor has suggested the pt is not fully or effectively exhaling, causing an increase in CO2. They are anticipating scheduling an appt for a new sleep study to evaluate this. Reported by Patient Comment The pt is doing well with oral intake. He lost ~20 lbs during cancer treatment and has not gained the weight back . However, his weight has been consistent. The pt's molars are in poor condition d/t the cancer and he is in the process of having them removed . Current Diet Dysphagia advanced,Chopped, Thin liquids Baseline Feeding Method Independent in self-feeding Objective Assessment Mental Status Alert,Responsive,Cooperative Comment Oral exam and oral trials were not administered d/t the nature of the pt's concerns and desires for treatment. The pt's voice was perceived as NFL, clear with higher than normal fundamental frequency, which is the pt's baseline. Mild cul-de-sac resonance was perceived occasionally. Findings Prognosis Good Based on Cognitive status,Family support,Duration of symptoms/ severity Comment Given ENT findings and the pt' s and spouse's reports, as well as past MBSS findings of greater than normal pharyngeal residue with oral intake, suspect the pt is pooling phlegm at vallecula secondary to loss of muscle/tissue mass from removal of right tonsil and tumor, as well as effects of cancer and chemotherapy. Instructed pt to apply manual pressure against his neck at the level of the right vallecula and swallow. He did this and reported feeling that he was swallowing phlegm. Education was provided regarding potential effectiveness of this compensatory strategy for reducing pooling of phlegm and food/liquid and recommended the pt perform this with oral intake and periodically throughout the day to reduce buildup in this area. Also, question the potential impact of the CPAP cleaning solution that may contribute to cause of excessive phlegm production. Recommended the couple discontinue its use and clean equipment with soap and water only, as suggested by , to see if symptoms dissipate. They were in agreement with this. Also discussed the possibility of respiratory muscle strength training to increase the pt's exhalatory efficiency and reduce buildup of CO2. Recommended the couple discuss this with the pt's sleep doctor before pursuing, as such exercise might be contraindicated d/t wiring that is present in the pt's ribcage secondary to heart surgery and cancer treatment. If recommended by MD, RMST exercise may be added to Speech Therapy POC. Finally, trained pt in rapid jaw opening exercise to add to dysphagia HEP to increase laryngeal elevation and opening of UES to promote pharyngeal clearance. Training was provided orally with demonstration and in writing. The pt returned demonstration and verbalized understanding. Recommendations Instrumental Assessment No Swallowing Treatment Yes Frequency Up to 5 visits Duration in 3 mos Recommended Solids Chopped Recommended Liquids Thin Other Recommendations Follow up after pt is seen by [facility] and sleep study has been completed. Safety Precautions/Swallowing Reduce distractions,Remain Recommendations upright (90 degrees) during all oral intake,Upright position at least 30 minutes after meals,Small bites and sips when eating,Slow rate; swallow between bites,Multiple swallows,Strict oral care after intake Medication Recommendations As Tolerated Education Patient/Caregiver Education Described results of evaluation,Patient expressed understanding of evaluation, Patient expressed agreement with goals & treatment plans, Family/caregivers expressed understanding of evaluation, Family/caregivers expressed agreement with goals & treatment plans,Patient expressed understanding of safety precautions,Patient expressed understanding of feeding recommendations,Family /caregivers expressed understanding of safety precautions,Family/caregivers expressed understanding of feeding recommendations Goals Short-term Goals 1. The pt will perform exercises to increase/maintain strength, coordination and ROM of swallow musculature to increase pharyngeal clearance and protect the airway. 2. The pt will employ manual pressure to right side of neck with oral intake and periodically with swallow with prompts as needed to reduce pooling of phlegm and food/ liquid at right side vallecula . Long-term Goals 1. The pt will reduce pharyngeal pooling of phlegm, food and liquid to WFL to improve swallow safety and vocal resonance, as measured by pt/spouse report and clinical judgment.
--- NOTE | 2022-03-30 16:01 | ST.OPDS ---
Visit Care Team Role Provider Type Mendoza Venegas MD Family Provider Non-Staff Primary Care Provider Address: [address] , [place], [address] Onofre Patel MD Attending Provider Physician Referring Provider Address: [address] [place] [address], [id number] OBSTETRICAL NURSE Treatment Note OBSTETRICAL NURSE Treatment Note Start: 11/23/21 15:13 Freq: Status: Active Protocol: Document 03/30/22 15:58 GERDA (Rec: 03/30/22 15:58 GERDA [id number]) Speech Pathology Treatment Note Visit Information Plan of Care Dates 11/23/21 - 03/21/22 Insurance Information Medicare Setting Treatment Setting Outpatient Care Visit Type Note Type Discharge Summary General Information Patient History The pt is a now 71-yr-old male familiar to this clinician from previous dysphagia therapy last year, during which the pt weaned off of PEG -tube feeding. 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 This was treated with chemotherapy and no radiation and resulted in severe dysphagia with PEG-tube feeding for ~6 mos. The pt returns today with c/o of excessive phlegm in throat. The pt's reported a change in the pt's vocal resonance, sounding full, like there's something in his throat. Laryngoscopy did reveal phlegm buildup in right vallecula. The pt/spouse have appt with [facility] in 2 wks as well as follow up with sleep clinic for replacement of CPAP machine and updated sleep study. The pt denies changes in swallow. PEG tube has been removed several months ago, and the port is scheduled for removal in the coming weeks as well. The couple attend today wondering if new swallow exercises might be beneficial. The pt has been mostly compliant with dysphagia HEP with exception of around [place]. Subjective Observations/Patient Presentation The pt was last seen 11/23/21 and has not returned for ongoing treatment. He is discharged from services. Chief Complaint(s) Swallowing Objective Short Term Goals 1. The pt will perform exercises to increase/maintain strength, coordination and ROM of swallow musculature to increase pharyngeal clearance and protect the airway. 2. The pt will employ manual pressure to right side of neck with oral intake and periodically with swallow with prompts as needed to reduce pooling of phlegm and food/ liquid at right side vallecula . Mock Up Builder Goals 1. The pt will reduce pharyngeal pooling of phlegm, food and liquid to WFL to improve swallow safety and vocal resonance, as measured by pt/spouse report and clinical judgement. Plan Therapy Recommendations Discharge from Speech Therapy
== END 2022-04-06 12:43 ==
LOC: SP 13:03
PROVIDERS: Family Provider Internal Medicine; PCP Internal Medicine; Referring Provider Otolaryngology; Visit Provider Otolaryngology
DX: R09.89 Other specified symptoms and signs involving the circulatory and respiratory systems (principal); R49.0 Dysphonia; C83.38 Diffuse large B-cell lymphoma, lymph nodes of multiple sites
CPT/HCPCS: 92610

== ENCOUNTER → 2021-12-15 09:01 | Outpatient (CLI) | payer MEDICARE, OTHER, SELFPAY ==
[2021-12-15 10:14] LABS: Hematocrit 32.5 % (41-53); Mean Corpuscular HGB Conc 33.9 % (30-36); Mean Corpuscular Hemoglobin 27.4 PG (26-34); Platelet Count 187 X10^3/uL (150-400); Red Blood Cell Count 4.01 X10^6/uL (4.5-5.9); White Blood Cell Count 2.6 X10^3/uL (4.5-11.0)
[2021-12-15 10:15] LABS: Add Manual Diff / Slide Review YES
[2021-12-15 10:39] LABS: Neutrophils Absolute Manual 1326 /uL (3000-5900); RBC Morphology Normal Morphology; Total Cells Counted 100
== END ==
PROVIDERS: Family Provider Internal Medicine; PCP Internal Medicine; Referring Provider Internal Medicine Advanced Heart Failure and Transplant Cardiology; Visit Provider Internal Medicine Advanced Heart Failure and Transplant Cardiology
DX: Z94.1 Heart transplant status (principal)
CPT/HCPCS: 36415; 85007; 85025

== ENCOUNTER → 2021-12-16 11:10 | Outpatient (CLI) | payer MEDICARE, OTHER, SELFPAY ==
[2021-12-18 16:42] LABS: CMV DNA, Quant Real Time PCR Negative (Negative)
== END ==
PROVIDERS: Family Provider Internal Medicine; PCP Internal Medicine; Referring Provider Internal Medicine Advanced Heart Failure and Transplant Cardiology; Visit Provider Internal Medicine Advanced Heart Failure and Transplant Cardiology
DX: Z94.1 Heart transplant status (principal); R19.7 Diarrhea, unspecified
CPT/HCPCS: 36415; 87497

== ENCOUNTER → 2021-12-17 09:51 | Outpatient (CLI) | payer MEDICARE, OTHER, SELFPAY ==
[2021-12-17 14:26] LABS: Clostridium Difficile Tox PCR Positive for C. diff (Negative)
[2021-12-18 13:32] LABS: C difficie Toxins A and B, EIA Positive (Negative)
== END ==
PROVIDERS: Family Provider Internal Medicine; PCP Internal Medicine; Referring Provider Internal Medicine Advanced Heart Failure and Transplant Cardiology; Visit Provider Internal Medicine Advanced Heart Failure and Transplant Cardiology
DX: Z94.1 Heart transplant status (principal); R19.7 Diarrhea, unspecified
CPT/HCPCS: 87324; 87493

== ENCOUNTER → 2022-01-31 09:10 | Outpatient (CLI) | payer MEDICARE, OTHER, SELFPAY ==
[2022-01-31 09:46] LABS: Hematocrit 36.6 % (41-53); Hemoglobin 12.3 g/dL (13.5-17.5); Mean Corpuscular HGB Conc 33.5 % (30-36); Mean Corpuscular Hemoglobin 27.8 PG (26-34); Platelet Count 164 X10^3/uL (150-400); Red Blood Cell Count 4.41 X10^6/uL (4.5-5.9); Red Cell Distribution Width 15.3 % (11.6-14.8); White Blood Cell Count 2.3 X10^3/uL (4.5-11.0)
[2022-01-31 09:47] LABS: Add Manual Diff / Slide Review YES
[2022-01-31 10:06] LABS: BUN Creatinine Ratio 10.6 (6-22); Blood Urea Nitrogen 13 mg/dL (9-20); Calcium 9.1 mg/dL (8.4-10.2); Carbon Dioxide 29 mmol/L (22-32); Chloride 106 mmol/L (98-107); Estimated Glomerular Filt Rate > 60 mL/min (>60); Glucose 99 mg/dL (80-110); HEMOLYSIS 33 (0-50); Potassium 4.8 mmol/L (3.4-5.1); Sodium 141 mmol/L (137-145)
[2022-01-31 10:12] LABS: Neutrophils Absolute Manual 828 /uL (3000-5900); Total Cells Counted 50
[2022-01-31 10:13] LABS: Anisocytosis 1+
[2022-02-01 08:40] LABS: Sirolimus 7.7 ng/mL (3.0-20.0)
== END ==
PROVIDERS: Family Provider Internal Medicine; PCP Internal Medicine; Referring Provider Internal Medicine Advanced Heart Failure and Transplant Cardiology; Visit Provider Internal Medicine Advanced Heart Failure and Transplant Cardiology
DX: Z94.1 Heart transplant status (principal)
CPT/HCPCS: 36415; 80048; 80195; 80197; 85007; 85025

== ENCOUNTER → 2022-02-23 10:15 | Outpatient (CLI) | payer MEDICARE, OTHER, SELFPAY ==
[2022-02-23 12:52] LABS: Add Manual Diff / Slide Review YES; Hematocrit 34.9 % (41-53); Mean Corpuscular HGB Conc 34.5 % (30-36); Mean Corpuscular Hemoglobin 28.8 PG (26-34); Mean Corpuscular Volume 83.6 fL (80-100); Platelet Count 163 X10^3/uL (150-400); Red Blood Cell Count 4.17 X10^6/uL (4.5-5.9); Red Cell Distribution Width 14.1 % (11.6-14.8); White Blood Cell Count 2.1 X10^3/uL (4.5-11.0)
[2022-02-23 13:20] LABS: Neutrophils Absolute Manual 882 /uL (3000-5900); Total Cells Counted 100
[2022-02-23 13:22] LABS: RBC Morphology Norm
[2022-02-23 13:24] LABS: Alanine Aminotransferase 23 IU/L (<50); Albumin 3.9 g/dL (3.5-5.0); Albumin Globulin Ratio 1.6 (1.0-2.8); Alkaline Phosphatase 80 U/L (38-126); Aspartate Aminotransferase 33 IU/L (17-59); BUN Creatinine Ratio 14.8 (6-22); Bilirubin Total 0.3 mg/dL (0.2-1.3); Blood Urea Nitrogen 17 mg/dL (9-20); Calcium 9.3 mg/dL (8.4-10.2); Carbon Dioxide 32 mmol/L (22-32); Chloride 102 mmol/L (98-107); Estimated Glomerular Filt Rate > 60 mL/min (>60); Globulin 2.5 g/dL (1.7-4.1); Glucose 188 mg/dL (80-110); HEMOLYSIS < 15 (0-50); Lactate Dehydrogenase 645 U/L (313-618); Potassium 5.1 mmol/L (3.4-5.1); Sodium 139 mmol/L (137-145); Total Protein 6.4 g/dL (6.3-8.2)
== END ==
PROVIDERS: Family Provider Internal Medicine; PCP Internal Medicine; Referring Provider Internal Medicine Hematology & Oncology; Visit Provider Internal Medicine Hematology & Oncology
DX: C83.38 Diffuse large B-cell lymphoma, lymph nodes of multiple sites (principal); D47.Z1 Post-transplant lymphoproliferative disorder (PTLD)
CPT/HCPCS: 36415; 80053; 83615; 85007; 85025

== ENCOUNTER → 2022-05-05 08:34 | Outpatient (CLI) | payer MEDICARE, OTHER, SELFPAY ==
[2022-05-05 09:20] LABS: Hematocrit 34.1 % (41-53); Hemoglobin 11.8 g/dL (13.5-17.5); Mean Corpuscular HGB Conc 34.7 % (30-36); Mean Corpuscular Hemoglobin 28.6 PG (26-34); Mean Corpuscular Volume 82.5 fL (80-100); Platelet Count 197 X10^3/uL (150-400); Red Blood Cell Count 4.13 X10^6/uL (4.5-5.9); Red Cell Distribution Width 13.4 % (11.6-14.8); White Blood Cell Count 2.7 X10^3/uL (4.5-11.0)
[2022-05-05 09:28] LABS: Add Manual Diff / Slide Review YES
[2022-05-05 10:30] LABS: Neutrophils Absolute Manual 1377 /uL (3000-5900); RBC Morphology Norm; Total Cells Counted 100
[2022-05-05 13:02] LABS: Alanine Aminotransferase 24 IU/L (<50); Albumin 3.9 g/dL (3.5-5.0); Albumin Globulin Ratio 1.5 (1.0-2.8); Alkaline Phosphatase 89 U/L (38-126); Aspartate Aminotransferase 33 IU/L (17-59); BUN Creatinine Ratio 17.1 (6-22); Bilirubin Total 0.3 mg/dL (0.2-1.3); Blood Urea Nitrogen 21 mg/dL (9-20); Calcium 9.1 mg/dL (8.4-10.2); Carbon Dioxide 29 mmol/L (22-32); Chloride 104 mmol/L (98-107); Estimated Glomerular Filt Rate > 60 mL/min (>60); Globulin 2.6 g/dL (1.7-4.1); Glucose 170 mg/dL (80-110); HEMOLYSIS < 15 (0-50); Magnesium 1.4 mg/dL (1.6-2.3); Potassium 4.7 mmol/L (3.4-5.1); Sodium 142 mmol/L (137-145); Total Protein 6.5 g/dL (6.3-8.2)
[2022-05-06 08:36] LABS: Sirolimus 7.4 ng/mL (3.0-20.0); Tacrolimus 3.2 ng/mL (2.0-20.0)
[2022-05-12 06:06] LABS: CK-BB 0 % (0); CK-MB 0 % (0-3); CK-MM 100 % (97-100); Macro Type 1 0 % (Not Observed); Macro Type 2 0 % (Not Observed)
== END ==
PROVIDERS: Family Provider Internal Medicine; PCP Internal Medicine; Referring Provider Internal Medicine Advanced Heart Failure and Transplant Cardiology; Visit Provider Internal Medicine Advanced Heart Failure and Transplant Cardiology
DX: Z94.1 Heart transplant status (principal)
CPT/HCPCS: 36415; 80053; 80195; 80197; 82550; 82553; 83735; 85007; 85025

== ENCOUNTER → 2022-06-06 08:53 | Outpatient (CLI) | payer MEDICARE, OTHER, SELFPAY ==
[2022-06-06 13:35] LABS: Adenovirus F 40/41 Not Detected (Not Detect); Astrovirus Not Detected (Not Detect); Campylobacter Not Detected (Not Detect); Clostridium difficile toxin AB Detected (Not Detect); Cryptosporidium Not Detected (Not Detect); Cyclospora cayetanensis Not Detected (Not Detect); Entamoeba histolytica Not Detected (Not Detect); Enteroaggregative E.coli Not Detected (Not Detect); Enteropathogenic E.coli Not Detected (Not Detect); Enterotoxigenic E.coli It/st Not Detected (Not Detect); Giardia lamblia Not Detected (Not Detect); Norovirus GI/GII Not Detected (Not Detect); Plesiomonsa shigelloides Not Detected (Not Detect); Rotavirus A Not Detected (Not Detect); Salmonella Not Detected (Not Detect); Sapovirus Not Detected (Not Detect); Shiga-like toxin-prod E.coli Not Detected (Not Detect); Shigella/Enteroinvasive E.coli Not Detected (Not Detect); Vibrio Not Detected (Not Detect); Vibrio cholerae Not Detected (Not Detect); Yersinia enterocolitica Not Detected (Not Detect)
== END ==
PROVIDERS: Family Provider Internal Medicine; PCP Internal Medicine; Referring Provider Internal Medicine Infectious Disease; Visit Provider Internal Medicine Infectious Disease
DX: Z94.1 Heart transplant status (principal)
CPT/HCPCS: 87507

== ENCOUNTER → 2022-06-21 12:13 | Outpatient (CLI) | payer MEDICARE, OTHER, SELFPAY ==
[2022-06-21 14:11] LABS: Alanine Aminotransferase 21 IU/L (<50); Albumin 4.1 g/dL (3.5-5.0); Albumin Globulin Ratio 1.2 (1.0-2.8); Alkaline Phosphatase 89 U/L (38-126); Aspartate Aminotransferase 31 IU/L (17-59); BUN Creatinine Ratio 15.7 (6-22); Bilirubin Total 0.3 mg/dL (0.2-1.3); Blood Urea Nitrogen 20 mg/dL (9-20); Calcium 9.4 mg/dL (8.4-10.2); Carbon Dioxide 32 mmol/L (22-32); Chloride 102 mmol/L (98-107); Estimated Glomerular Filt Rate > 60 mL/min (>60); Globulin 3.5 g/dL (1.7-4.1); Glucose 72 mg/dL (80-110); HEMOLYSIS < 15 (0-50); Hematocrit 34.5 % (41-53); Hemoglobin 11.9 g/dL (13.5-17.5); Lactate Dehydrogenase 742 U/L (313-618); Mean Corpuscular HGB Conc 34.6 % (30-36); Mean Corpuscular Hemoglobin 28.8 PG (26-34); Mean Corpuscular Volume 83.2 fL (80-100); Platelet Count 223 X10^3/uL (150-400); Potassium 4.7 mmol/L (3.4-5.1); Red Blood Cell Count 4.14 X10^6/uL (4.5-5.9); Red Cell Distribution Width 13.5 % (11.6-14.8); Sodium 141 mmol/L (137-145); Total Protein 7.6 g/dL (6.3-8.2); White Blood Cell Count 3.3 X10^3/uL (4.5-11.0)
[2022-06-21 14:14] LABS: Add Manual Diff / Slide Review YES
[2022-06-21 14:39] LABS: Neutrophils Absolute Manual 2079 /uL (3000-5900); Nucleated Red Blood Cells 1 #/Diff; Total Cells Counted 100
[2022-06-21 14:40] LABS: Rouleaux 1+
== END ==
PROVIDERS: Family Provider Internal Medicine; PCP Internal Medicine; Referring Provider Internal Medicine Hematology & Oncology; Visit Provider Internal Medicine Hematology & Oncology
DX: C83.38 Diffuse large B-cell lymphoma, lymph nodes of multiple sites (principal)
CPT/HCPCS: 36415; 80053; 83615; 85007; 85025

== ENCOUNTER → 2022-07-05 09:53 | Outpatient (CLI) | payer MEDICARE, OTHER, SELFPAY ==
[2022-07-05 11:51] LABS: COVID-19 CEPHEID PCR (VTM/NP) Negative (Negative)
== END ==
PROVIDERS: Family Provider Internal Medicine; PCP Internal Medicine; Referring Provider Internal Medicine Gastroenterology; Visit Provider Internal Medicine Gastroenterology
DX: Z20.822 Contact with and (suspected) exposure to COVID-19 (principal)
CPT/HCPCS: C9803; U0003; U0005

== ENCOUNTER → 2022-08-22 09:16 | Outpatient (CLI) | payer MEDICARE, OTHER, SELFPAY ==
[2022-08-22 11:20] LABS: BUN Creatinine Ratio 16.5 (6-22); Blood Urea Nitrogen 22 mg/dL (9-20); Calcium 9.9 mg/dL (8.4-10.2); Carbon Dioxide 32 mmol/L (22-32); Chloride 103 mmol/L (98-107); Estimated Glomerular Filt Rate 57 mL/min (>60); Glucose 154 mg/dL (80-110); HEMOLYSIS 37 (0-50); Potassium 5.1 mmol/L (3.4-5.1); Sodium 142 mmol/L (137-145)
[2022-08-23 09:01] LABS: Tacrolimus 2.4 ng/mL (2.0-20.0)
[2022-08-23 16:57] LABS: Sirolimus 9.3 ng/mL (3.0-20.0)
== END ==
PROVIDERS: Family Provider Internal Medicine; PCP Internal Medicine; Referring Provider Physician Assistant Medical; Visit Provider Physician Assistant Medical
DX: Z94.1 Heart transplant status (principal)
CPT/HCPCS: 36415; 80048; 80195; 80197

== ENCOUNTER → 2022-09-08 09:23 | Outpatient (CLI) | payer MEDICARE, OTHER, SELFPAY ==
[2022-09-08 11:15] LABS: Hematocrit 34.9 % (41-53); Hemoglobin 11.9 g/dL (13.5-17.5); Mean Corpuscular HGB Conc 34.1 % (30-36); Mean Corpuscular Hemoglobin 28.1 PG (26-34); Mean Corpuscular Volume 82.4 fL (80-100); Platelet Count 209 X10^3/uL (150-400); Red Blood Cell Count 4.23 X10^6/uL (4.5-5.9); Red Cell Distribution Width 13.3 % (11.6-14.8); White Blood Cell Count 2.6 X10^3/uL (4.5-11.0)
[2022-09-08 11:16] LABS: Add Manual Diff / Slide Review YES
[2022-09-08 11:57] LABS: Alanine Aminotransferase 36 IU/L (<50); Albumin 4.1 g/dL (3.5-5.0); Albumin Globulin Ratio 1.2 (1.0-2.8); Alkaline Phosphatase 87 U/L (38-126); Aspartate Aminotransferase 39 IU/L (17-59); BUN Creatinine Ratio 17.6 (6-22); Bilirubin Total 0.4 mg/dL (0.2-1.3); Blood Urea Nitrogen 22 mg/dL (9-20); Calcium 9.6 mg/dL (8.4-10.2); Carbon Dioxide 30 mmol/L (22-32); Chloride 98 mmol/L (98-107); Creatine Kinase 108 U/L (55-170); Estimated Glomerular Filt Rate > 60 mL/min (>60); Globulin 3.3 g/dL (1.7-4.1); Glucose 202 mg/dL (80-110); HEMOLYSIS 42 (0-50); Magnesium 1.4 mg/dL (1.6-2.3); Potassium 4.3 mmol/L (3.4-5.1); Sodium 138 mmol/L (137-145); Total Protein 7.4 g/dL (6.3-8.2)
[2022-09-08 12:02] LABS: Neutrophils Absolute Manual 1118 /uL (3000-5900); Total Cells Counted 100
[2022-09-08 12:04] LABS: RBC Morphology Normal Morphology
[2022-09-09 07:36] LABS: Tacrolimus 3.2 ng/mL (2.0-20.0)
[2022-09-09 09:01] LABS: Sirolimus 6.7 ng/mL (3.0-20.0)
== END ==
PROVIDERS: Family Provider Internal Medicine; PCP Internal Medicine; Referring Provider Internal Medicine Advanced Heart Failure and Transplant Cardiology; Visit Provider Internal Medicine Advanced Heart Failure and Transplant Cardiology
DX: Z94.1 Heart transplant status (principal)
CPT/HCPCS: 36415; 80053; 80195; 80197; 82550; 83735; 85007; 85025

== ENCOUNTER → 2022-09-14 09:59 | Outpatient (CLI) | payer MEDICARE, OTHER, SELFPAY ==
[2022-09-14 10:54] LABS: BUN Creatinine Ratio 14.2 (6-22); Blood Urea Nitrogen 19 mg/dL (9-20); Calcium 9.1 mg/dL (8.4-10.2); Carbon Dioxide 35 mmol/L (22-32); Chloride 98 mmol/L (98-107); Estimated Glomerular Filt Rate 56 mL/min (>60); Glucose 156 mg/dL (80-110); HEMOLYSIS < 15 (0-50); Potassium 4.5 mmol/L (3.4-5.1); Sodium 138 mmol/L (137-145)
== END ==
PROVIDERS: Family Provider Internal Medicine; PCP Internal Medicine; Referring Provider Physician Assistant Medical; Visit Provider Physician Assistant Medical
DX: Z94.1 Heart transplant status (principal)
CPT/HCPCS: 36415; 80048

== ENCOUNTER 2022-09-18 22:39 | Inpatient (IN) | payer MEDICARE, OTHER, SELFPAY ==
[2022-09-18 22:40] VITALS: BP 154/86; PULSE 109; RESP 18; TEMP 37.4; O2SAT 92; BMI 25.9
--- NOTE | 2022-09-18 22:40 | ED_ITS ---
HPI - General Adult General Chief complaint: Upper Respiratory Symptoms Stated complaint: cough/high blood pressure x2 days Time Seen by Provider: 09/18/22 22:40 History of Present Illness HPI narrative: 71-year-old gentleman with a history of restrictive cardiomyopathy and valvular disease status post heart transplant 2015 currently on tacrolimus and sirolimus as antirejection drugs and followed at the [facility]. Also has a post transplant associated B cell lymphoma, currently in remission, chronic C diff. Additional medical issues include diabetes, hypothyroidism, hypertension presents complaining of chest pain with coughing, congestion, runny nose, elevated blood pressures(goal posttransplant is with a systolic below 135) and exertional dyspnea. He states that he felt under the weather yesterday but did not have any specific findings overall. He is not complaining of abdominal pain constipation or diarrhea. Related Data Home Medications Medication Instructions Recorded Confirmed alendronate 70 mg tablet 70 mg PO QWEEK 02/21/19 09/19/22 ascorbic acid (vitamin C) 500 mg 500 mg PO DAILY 02/21/19 09/19/22 capsule,extended release aspirin 81 mg tablet,delayed 81 mg PO DAILY 02/21/19 09/19/22 release (Adult Low Dose Aspirin) carvedilol 3.125 mg tablet 3.125 mg PO BID 02/21/19 09/19/22 hydralazine 50 mg tablet 50 mg PO TID 02/21/19 01/26/21 insulin aspart U-100 100 unit/mL 12 unit SUBCUT TID 02/21/19 09/19/22 (3 mL) subcutaneous pen insulin glargine 100 unit/mL (3 15 unit SUBCUT DAILY 02/21/19 09/19/22 mL) subcutaneous pen (Lantus Solostar U-100 Insulin) levothyroxine 100 mcg capsule 100 mcg PO DAILY 02/21/19 09/19/22 tacrolimus 5 mg capsule, 3 mg PO Q12H 02/21/19 01/26/21 immediate-release famotidine 20 mg tablet 20 mg feeding tube BID 11/19/20 09/19/22 oxycodone 5 mg tablet 5 mg PO Q4H 11/19/20 01/26/21 potassium chloride 40 mEq/15 mL 20 meq PO DAILY 11/19/20 09/19/22 oral liquid rosuvastatin 20 mg tablet 20 mg PO DAILY 11/19/20 09/19/22 simethicone 80 mg chewable tablet 80 mg PO PRN PRN Nausea 11/19/20 01/26/21 Previous Rx's Medication Instructions Recorded albuterol sulfate 90 mcg/actuation 1 puff inhalation Q6-8H PRN 02/21/19 aerosol inhaler bronchospasm #6.7 grams cefpodoxime 200 mg tablet 200 mg PO BID #20 tabs 01/14/21 Allergies Allergy/AdvReac Type Severity Reaction Status Date / Time fish oil [FISH OIL] Allergy Unknown Verified 01/14/21 12:07 hydrocodone [HYDROCODONE] Allergy Unknown Verified 01/14/21 12:07 Review of Systems Review of Systems Narrative: Remainder of complete review of systems is otherwise unremarkable except for that included in the HPI. Patient History Medical History Acquired immunocompromised state History of Hodgkin's lymphoma Hypothyroidism Insulin dependent diabetes mellitus Large B-cell lymphoma Obstructive sleep apnea on CPAP Surgical History Heart transplant status Family History Father Myocardial infarction Mother Old age Social History household members: spouse Smoking Status: Never smoker Smoking Status: Never smoker alcohol intake frequency: holidays/special occasions only Substance Use Type: does not use Exam Initial Vital Signs Initial Vital Signs: Vital Signs Temperature 99.4 F 09/18/22 22:40 Pulse Rate 109 H 09/18/22 22:40 Respiratory Rate 18 09/18/22 22:40 Blood Pressure 154/86 H 09/18/22 22:40 Pulse Oximetry 92 09/18/22 22:40 Oxygen Delivery Method 09/18/22 22:40 General: Congested and appears to feel unwell but in no acute distress. HEENT: Moist mucous membranes, normal sclera with reactive pupils, Neck: No JVD, supple Respiratory: Lungs with basilar crackles, scattered minor wheeze, no accessory muscle use no consolidated findings. Able to speak in complete sentences. Cardiac: Tachycardia with otherwise Regular rate and rhythm no murmurs no bruits Abdomen: Soft, nontender, good bowel tones, no flank pain Skin: Warm and dry, no rashes Neurologic: Grossly neurologically intact with no obvious asymmetries or abnormalities Extremities: No trauma, well perfused Psych: Cooperative, appropriate insight and affect Course Orders Ordered: ED Orders 09/18/22 22:55 Complete Blood Count AUTO DIFF Stat Comprehensive Metabolic Panel Stat Lactate (Lactic Acid) Stat Magnesium Stat NT-proBNP (BNP-Adult 18+) Stat Procalcitonin Stat Troponin & CK Cardiac Panel Stat 09/18/22 22:58 Respiratory Panel (Film Array) Stat 09/18/22 23:04 XR chest 1V Stat Acetaminophen (Acetaminophen 325 Mg Tablet) 650 mg PO Q6H PRN PRN Reason: Fever/Mild Pain (1-3) Albuterol (Albuterol 2.5 Mg/3 Ml Neb (Adult)) 2.5 mg INH [id number] YOAN Albuterol/Ipratropium (Albuterol/Ipratropium 3 Ml Ampul) 3 ml INH RTQ6HR PRN PRN Reason: Shortness Of Breath Aspirin (Aspirin Ec 81 Mg Tablet) 81 mg PO DAILY [facility] Atorvastatin Calcium (Atorvastatin 20 Mg Tablet) 40 mg PO DAILY [facility] Carvedilol (Carvedilol 3.125 Mg Tablet) 3.125 mg PO BID [facility] Last Admin: 09/19/22 04:46 Dose: 3.125 mg Documented By: OW Dextrose (Dextrose 50 % In Water 25 Gm/50 Ml Syringe) 25 gm IV PRN PRN PRN Reason: Hypoglycemia Enoxaparin Sodium (Enoxaparin 40 Mg/0.4 Ml Syringe) 40 mg SUBCUT DAILY [facility] Enoxaparin Sodium (Enoxaparin 40 Mg/0.4 Ml Syringe) 40 mg SUBCUT DAILY [facility] Famotidine (Famotidine 20 Mg Tablet) 20 mg PO BID [facility] Guaifenesin (Guaifenesin Er 600 Mg Tab) 600 mg PO BID [facility] Piperacillin Sod/Tazobactam (Sod 3.375 gm/ Sodium Chloride) 100 mls @ 25 mls/hr IV Q8H [facility] Last Admin: 09/19/22 04:46 Dose: 25 mls/hr Documented By: OW Insulin Glargine (Insulin Glargine 100 Unit/Ml 3ml Pen) 15 unit SUBCUT DAILY [facility] Insulin Human Lispro (Insulin Lispro 100 Unit/Ml 3ml Vial) 0 unit SUBCUT ACHS YOAN; Protocol Insulin Human Lispro (Insulin Lispro 100 Unit/Ml 3ml Vial) 12 unit SUBCUT TID [facility] Levothyroxine Sodium (Levothyroxine 100 Mcg Tablet) 100 mcg PO 0600 [facility] Naloxone HCl (Naloxone 0.4 Mg/Ml Vial) 0.2 mg IV Q2MIN PRN PRN Reason: Opiate Reversal Non-Formulary Medication (Sirolimus) 3.5 mg PO DAILY [facility] Ondansetron HCl (Ondansetron 4 Mg/2 Ml Inj) 4 mg IV Q6HR PRN PRN Reason: Nausea And Vomiting Oxycodone HCl (Oxycodone Ir 10 Mg Tablet) 10 mg PO Q3H PRN PRN Reason: Pain, Severe (7-10) Pantoprazole Sodium (Pantoprazole Dr 20 Mg Tablet) 20 mg PO 0600 [facility] Scopolamine (Scopolamine 1 Patch) 1 patch TOP Q72H [facility] Last Admin: 09/19/22 04:46 Dose: 1 patch Documented By: OW Tacrolimus (Tacrolimus 0.5 Mg Capsule) 2.5 mg PO Q12H [facility] Last Admin: 09/19/22 03:45 Dose: 2.5 mg Documented By: OW Trazodone HCl (Trazodone 50 Mg Tablet) 50 mg PO BEDTIME [facility] Trimethoprim/Sulfamethoxazole (Trimeth/Sulfa 160/800 (Ds) Tablet) 0.5 tab PO DAILY [facility] Vancomycin HCl (Vancomycin 125 Mg Capsule) 125 mg PO DAILY [facility] Discontinued Medications Carvedilol (Carvedilol 3.125 Mg Tablet) 3.125 mg PO DAILY [facility] Hydralazine HCl (Hydralazine 25 Mg Tablet) 50 mg PO NOW ONE Stop: 09/19/22 02:02 Hydralazine HCl (Hydralazine 25 Mg Tablet) 50 mg PO TID [facility] Hydralazine HCl (Hydralazine 25 Mg Tablet) 25 mg PO NOW ONE Stop: 09/19/22 03:46 Last Admin: 09/19/22 04:45 Dose: 25 mg Documented By: OW Piperacillin Sod/Tazobactam (Sod 4.5 gm/ Sodium Chloride) 100 mls @ 200 mls/hr IV NOW ONE Stop: 09/18/22 23:57 Last Infusion: 09/19/22 01:01 Dose: 0 mls/hr Documented By: Admin: 09/19/22 00:31 Dose: 200 mls/hr Documented By: MENDEL Magnesium Sulfate (Magnesium Sulfate) 2 gm in 50 mls @ 25 mls/hr IV NOW ONE Stop: 09/19/22 05:32 Last Admin: 09/19/22 04:47 Dose: 25 mls/hr Documented By: QUE Co-signed By: RHONA Non-Formulary Medication (Sulfamethoxazole Tmp) 4,080 mg PO DAILY [facility] Trimethoprim/Sulfamethoxazole (Trimeth/Sulfa 160/800 (Ds) Tablet) 1 tab PO DAILY [facility] Vital Signs Vital signs: Vital Signs - 8 hr 09/18/22 22:40 09/18/22 23:00 09/18/22 23:01 Temperature 99.4 F Pulse Rate 109 H 105 H Respiratory Rate 18 Blood Pressure 154/86 H 125/73 Pulse Oximetry 92 95 Oxygen Delivery Method Room Air 09/18/22 23:30 09/18/22 23:30 09/19/22 00:00 Temperature Pulse Rate 103 H Respiratory Rate 34 H Blood Pressure 136/83 126/82 Pulse Oximetry 95 Oxygen Delivery Method 09/19/22 00:00 09/19/22 00:30 09/19/22 00:31 Temperature Pulse Rate 101 H 100 H Respiratory Rate 27 H 34 H Blood Pressure 156/79 H Pulse Oximetry 96 96 Oxygen Delivery Method 09/19/22 00:31 09/19/22 01:00 09/19/22 01:00 Temperature Pulse Rate 100 H 100 H Respiratory Rate 21 23 Blood Pressure 118/84 Pulse Oximetry 97 96 Oxygen Delivery Method 09/19/22 01:30 09/19/22 01:30 09/19/22 01:44 Temperature Pulse Rate 102 H 102 H Respiratory Rate 24 24 Blood Pressure 175/100 H Pulse Oximetry 98 97 Oxygen Delivery Method 09/19/22 01:44 09/19/22 02:00 09/19/22 02:00 Temperature Pulse Rate 100 H Respiratory Rate 28 H Blood Pressure 147/83 H 146/88 H Pulse Oximetry 98 Oxygen Delivery Method Medical Decision Making Lab Data Result diagrams: 09/18/22 22:55 09/18/22 22:55 Labs: Lab Results 09/18/22 09/18/22 09/18/22 Range/Units 22:55 22:55 22:55 WBC 2.8 L (4.5-11.0) X10^3/uL RBC 4.06 L (4.5-5.9) X10^6/uL Hgb 11.3 L (13.5-17.5) g/dL Hct 33.3 L (41-53) % MCV 82.0 (80-100) fL MCH 27.8 (26-34) PG MCHC 33.9 (30-36) % RDW 13.6 (11.6-14.8) % Plt Count 172 (150-400) X10^3/uL Neut % (Auto) Not Reportable Lymph % (Auto) Not Reportable [place] % (Auto) Not Reportable Eos % (Auto) Not Reportable Baso % (Auto) Not Reportable Lymph # (Auto) Not Reportable [place] # (Auto) Not Reportable Baso # (Auto) Not Reportable Total Counted 100 Seg Neutrophils % 38.0 (38-70) % Band Neutrophils % 9.0 H (3-7) % Lymphocytes % (Manual) 10.0 L (25-45) % Atypical Lymphs % 2.0 H ( - 0) % Monocytes % (Manual) 27.0 H (2-11) % Eosinophils % (Manual) 4.0 (2-4) % Basophils % (Manual) 2.0 H (0-1) % Metamyelocytes % 7.0 H (-0) % Myelocytes % 1.0 H (-0) % Neutrophils # (Manual) 1316 L (3971-9834) /uL RBC Morphology Normal morphology Sodium 137 (137-145) mmol/L Potassium 4.3 (3.4-5.1) mmol/L Chloride 101 (98-107) mmol/L Carbon Dioxide 29 (22-32) mmol/L BUN 18 (9-20) mg/dL Creatinine 1.23 (0.66-1.25) mg/dL Estimated GFR > 60 (>60) mL/min BUN/Creatinine Ratio 14.6 (6-22) Glucose 178 H (80-110) mg/dL Hemoglobin A1c (4.0-6.0) % Lactate 1.3 (0.7-2.1) mmol/L Calcium 8.6 (8.4-10.2) mg/dL Magnesium 1.5 L (1.6-2.3) mg/dL Total Bilirubin 0.5 (0.2-1.3) mg/dL AST 69 H (17-59) IU/L ALT 60 H (<50) IU/L Alkaline Phosphatase 116 (38-126) U/L Total Creatine Kinase 213 H (55-170) U/L CK-MB (CK-2) 1.74 (<2.37) ng/mL CK-MB (CK-2) Rel Index 0.8 L (1.5-5.0) % Troponin I < 0.012 (0.01-0.034) ng/mL NT-Pro-B Natriuret Pep 655 H (<125) pg/mL Total Protein 7.0 (6.3-8.2) g/dL Albumin 3.8 (3.5-5.0) g/dL Globulin 3.2 (1.7-4.1) g/dL Albumin/Globulin Ratio 1.2 (1.0-2.8) Procalcitonin 0.09 (<0.5) ng/mL Chlamy pneumoniae PCR (Not Detect) Adenovirus (PCR) (Not Detect) B. pertussis DNA (PCR) (Not Detecte) B.parapertussis DNA PCR (Not Detecte) Coronavirus OC43 (PCR) (Not Detect) Coronavirus HKU1 (PCR) (Not Detect) Coronavirus 229E (PCR) (Not Detect) SARS-CoV-2 (PCR) (Not Detecte) Coronavirus NL63 (PCR) (Not Detect) Human Metapneumovir PCR (Not Detect) Influenza Type A (PCR) (Not Detect) Influenza Type B (PCR) (Not Detect) M. pneumoniae (PCR) (Not Detect) Parainfluenza 1 (PCR) (Not Detect) Parainfluenza 2 (PCR) (Not Detect) Parainfluenza 3 (PCR) (Not Detect) Parainfluenza 4 (PCR) (Not Detect) RSV (PCR) (Not Detect) Entero/Rhino (PCR) (Not Detect) 09/18/22 09/18/22 Range/Units 22:55 22:58 WBC (4.5-11.0) X10^3/uL RBC (4.5-5.9) X10^6/uL Hgb (13.5-17.5) g/dL Hct (41-53) % MCV (80-100) fL MCH (26-34) PG MCHC (30-36) % RDW (11.6-14.8) % Plt Count (150-400) X10^3/uL Neut % (Auto) Lymph % (Auto) [place] % (Auto) Eos % (Auto) Baso % (Auto) Lymph # (Auto) [place] # (Auto) Baso # (Auto) Total Counted Seg Neutrophils % (38-70) % Band Neutrophils % (3-7) % Lymphocytes % (Manual) (25-45) % Atypical Lymphs % ( - 0) % Monocytes % (Manual) (2-11) % Eosinophils % (Manual) (2-4) % Basophils % (Manual) (0-1) % Metamyelocytes % (-0) % Myelocytes % (-0) % Neutrophils # (Manual) (4502-7506) /uL RBC Morphology Sodium (137-145) mmol/L Potassium (3.4-5.1) mmol/L Chloride (98-107) mmol/L Carbon Dioxide (22-32) mmol/L BUN (9-20) mg/dL Creatinine (0.66-1.25) mg/dL Estimated GFR (>60) mL/min BUN/Creatinine Ratio (6-22) Glucose (80-110) mg/dL Hemoglobin A1c 7.1 H (4.0-6.0) % Lactate (0.7-2.1) mmol/L Calcium (8.4-10.2) mg/dL Magnesium (1.6-2.3) mg/dL Total Bilirubin (0.2-1.3) mg/dL AST (17-59) IU/L ALT (<50) IU/L Alkaline Phosphatase (38-126) U/L Total Creatine Kinase (55-170) U/L CK-MB (CK-2) (<2.37) ng/mL CK-MB (CK-2) Rel Index (1.5-5.0) % Troponin I (0.01-0.034) ng/mL NT-Pro-B Natriuret Pep (<125) pg/mL Total Protein (6.3-8.2) g/dL Albumin (3.5-5.0) g/dL Globulin (1.7-4.1) g/dL Albumin/Globulin Ratio (1.0-2.8) Procalcitonin (<0.5) ng/mL Chlamy pneumoniae PCR Not detected (Not Detect) Adenovirus (PCR) Not detected (Not Detect) B. pertussis DNA (PCR) Not detected (Not Detecte) B.parapertussis DNA PCR Not detected (Not Detecte) Coronavirus OC43 (PCR) Not detected (Not Detect) Coronavirus HKU1 (PCR) Not detected (Not Detect) Coronavirus 229E (PCR) Not detected (Not Detect) SARS-CoV-2 (PCR) Not detected (Not Detecte) Coronavirus NL63 (PCR) Not detected (Not Detect) Human Metapneumovir PCR Not detected (Not Detect) Influenza Type A (PCR) Not detected (Not Detect) Influenza Type B (PCR) Not detected (Not Detect) M. pneumoniae (PCR) Not detected (Not Detect) Parainfluenza 1 (PCR) Not detected (Not Detect) Parainfluenza 2 (PCR) Not detected (Not Detect) Parainfluenza 3 (PCR) Not detected (Not Detect) Parainfluenza 4 (PCR) Not detected (Not Detect) RSV (PCR) Not detected (Not Detect) Entero/Rhino (PCR) Not detected (Not Detect) Imaging Data Chest x-ray: My Impression: Independently evaluated Radiologist's Impression: Stable interval exam demonstrating predominantly basilar opacities suspected to represent mild effusions with likely superimposed airspace disease such as pneumonia particularly within the left base Olivia Rachel MD ECG Data Interpretation: Independently reviewed Sinus tachycardia at a rate of 106 Incomplete right bundle branch block Nonspecific T-wave changes No prior EKGs available for comparison MDM Narrative Medical decision making narrative: 71-year-old gentleman presents with cough and chest pain mostly described as pleuritic however in the setting of a heart transplant and immunocompromised status the differential is wide. Patient is a are interviewed. They do br ing in records from [facility] that are reviewed He is slightly hypoxic with sats at 88-92 improved to the upper 90s on 2 L. His notes he is chronically tachycardic and initial heart rate is regular at 110. CBC has his chronic pancytopenia, procalcitonin is not elevated Chemistries show a slight increase in LFTs both AST and ALT over the last 10 da ys going from 39-69 and 36-60 respectively. Normal bilirubin at 0.5 and normal outlined phosphatase. Full Respiratory panel is negative Troponin, CK-MB are unremarkable. EKG does not suggest acute ischemic injury Chest x-ray does show bibasilar infiltrates possible pneumonia. Will add blood cultures, lactic acid and begin Zosyn. midnight: Patient and his are updated. Still on 2 L with sats at 95% feeling bit more comfortable. We will coordinate with the [facility] Cardiac transplant team regarding presentation and recommendations in moving forward. Did let patient and his know that with his mild hypoxia, recommendation will likely be hospital admission and decision as to admitting to [facility] versus transfer to the [facility] will be sarah waddell. 133pm discussed with transfer center. Will talk to pulmonary team as they work closely with the cardiac transplant team. Patient and notified 157am Transfer center: care was reviewed with Dr Richmond, medicine attending. She felt that Zosyn was an appropriate initial starting medications. Given the mild symptoms otherwise without acute cardiac complications currently did not feel that emergent transfer to the [facility] was required. Did recommend transplant ID Service consultation, this is only available during the day with no on-call coverage. Given this review and recommendation will suggest that this gentleman be admitted to our hospital for presumed community-acquired pneumonia in the absence of identified virus with additional risk factors of immune compromised status. Inpatient team can contact transfer center to discuss recommendations with transplant ID service tomorrow. Will have patient continue current antirejection medications which he has with him. Blood pressures are actually creeping up some go ahead and give his hydralazine which is typically 50 mg 3 times a day. Discharge Plan Departure Patient Disposition: Admitted As Inpatient Clinical Impression: Acquired immunocompromised state, Hypoxia, Heart transplant recipient Pneumonia Qualifiers: Pneumonia type: due to unspecified organism Laterality: bilateral Lung location: lower lobe of lung Qualified Code(s): J18.9 - Pneumonia, unspecified organism Admit Date/Time: 09/19/22 02:10 Admit Provider: Diamond Lr
[2022-09-18 23:00] VITALS: BP 125/73
[2022-09-18 23:01] VITALS: PULSE 105; O2SAT 95
--- NOTE | 2022-09-18 23:04 | DI.RAD.S_ITS ---
PROCEDURE: XR CHEST 1V INDICATIONS: cough TECHNIQUE: One view of the chest was acquired. COMPARISON: [facility], CR, XR CHEST 1V, 01/25/2021, 21:02. FINDINGS: Surgical changes and devices: Sternal wires and vascular stent. Lungs and pleura: Hazy bibasilar, left greater than right appearance. There is blunting of the costophrenic angles, left greater than right. Mediastinum: Mediastinal contours appear normal. Heart size is enlarged. Bones and chest wall: No suspicious bony lesions. Overlying soft tissues appear unremarkable. IMPRESSION: Hazy appearance of the bases bilaterally, left greater than right suspicious for pneumonia with effusion. Dictated by: Hodan Rachel M.D. on 09/18/2022 at 23:36 Approved by: Hodan Rachel M.D. on 09/18/2022 at 23:36
[2022-09-18 23:18] LABS: Alanine Aminotransferase 60 IU/L (<50); Albumin 3.8 g/dL (3.5-5.0); Albumin Globulin Ratio 1.2 (1.0-2.8); Alkaline Phosphatase 116 U/L (38-126); Aspartate Aminotransferase 69 IU/L (17-59); BUN Creatinine Ratio 14.6 (6-22); Bilirubin Total 0.5 mg/dL (0.2-1.3); Blood Urea Nitrogen 18 mg/dL (9-20); Calcium 8.6 mg/dL (8.4-10.2); Carbon Dioxide 29 mmol/L (22-32); Chloride 101 mmol/L (98-107); Creatine Kinase 213 U/L (55-170); Estimated Glomerular Filt Rate > 60 mL/min (>60); Globulin 3.2 g/dL (1.7-4.1); Glucose 178 mg/dL (80-110); Magnesium 1.5 mg/dL (1.6-2.3); Potassium 4.3 mmol/L (3.4-5.1); Sodium 137 mmol/L (137-145)
[2022-09-18 23:19] LABS: Add Manual Diff / Slide Review YES; Hematocrit 33.3 % (41-53); Hemoglobin 11.3 g/dL (13.5-17.5); Mean Corpuscular HGB Conc 33.9 % (30-36); Mean Corpuscular Hemoglobin 27.8 PG (26-34); Platelet Count 172 X10^3/uL (150-400); Red Blood Cell Count 4.06 X10^6/uL (4.5-5.9); Red Cell Distribution Width 13.6 % (11.6-14.8); White Blood Cell Count 2.8 X10^3/uL (4.5-11.0)
[2022-09-18 23:29] LABS: NT-proBNP (BNP-Adult 18+) 655 pg/mL (<125); Troponin I < 0.012 ng/mL (0.01-0.034)
[2022-09-18 23:30] VITALS: BP 136/83; PULSE 103; RESP 34; O2SAT 95
[2022-09-18 23:33] LABS: CKMB % Relative Index 0.8 % (1.5-5.0); Creatine Kinase MB 1.74 ng/mL (<2.37); HEMOLYSIS 19 (0-50)
[2022-09-18 23:34] LABS: Procalcitonin 0.09 ng/mL (<0.5)
[2022-09-18 23:46] LABS: Neutrophils Absolute Manual 1316 /uL (3000-5900); RBC Morphology Normal Morphology; Total Cells Counted 100
[2022-09-18 23:52] LABS: Adenovirus Not Detected (Not Detect); B. parapertussis Not Detected (Not Detecte); Bordetella pertussis Not Detected (Not Detecte); Chlamydophila pneumoniae Not Detected (Not Detect); Coronavirus 229E Not Detected (Not Detect); Coronavirus HKU1 Not Detected (Not Detect); Coronavirus NL 63 Not Detected (Not Detect); Coronavirus OC43 Not Detected (Not Detect); Human Metapneumovirus Not Detected (Not Detect); Human Rhinovirus/Enterovirus Not Detected (Not Detect); Influenza A Not Detected (Not Detect); Influenza B Not Detected (Not Detect); Mycoplasma pneumoniae Not Detected (Not Detect); Parainfluenza Virus 1 Not Detected (Not Detect); Parainfluenza Virus 2 Not Detected (Not Detect); Parainfluenza Virus 3 Not Detected (Not Detect); Parainfluenza Virus 4 Not Detected (Not Detect); Respiratory Syncytial Virus Not Detected (Not Detect); SARS- CoV-2 Not Detected (Not Detecte)
[2022-09-19] VITALS (19 sets, daily range): BP systolic 115–175; BP diastolic 75–100; PULSE 100–114; RESP 16–34; TEMP 36.1–38.3; O2SAT 93–98; BMI 25.9
[2022-09-19 00:10] LABS: Lactate (Lactic Acid) 1.3 mmol/L (0.7-2.1)
[2022-09-19] MEDS: PIPERACILLIN/TAZO 4.5 GM in SODIUM CHLORIDE 0.9% 100 ML IV (00:31)
--- NOTE | 2022-09-19 02:11 | PM.HP.1 ---
History of Present Illness History of Present Illness Date Patient Seen: 09/19/22 Time Patient Seen: 03:24 Chief complaint: cough/high blood pressure x2 days Narrative: Sumeet Cochran is a 70 y.o. 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 He also apparently spiked a fever of 100.4 this afternoon. He does also note that he has been wheezing and when in the ED felt having supplemental O2 helped. Apparently according to his , the myeloproliferative disorder that is now currently admission did leave him with thickening of the mucous membranes in his throat and that he needs to have anti mucous medications. He takes sirolimus and tacrolimus anti-rejection drugs as well as low-dose oral antibiotics for cardiac transplant prophylaxis. X-ray done in the ED reported bilateral hazy appearance left greater than right suspicious for pneumonia. Currently he is afebrile, blood pressure 148/99 heart rate 109 respiratory rate 21 oxygen saturation of 93% on room air he weighs 73.9 kg with a BMI of 25.9. He has a depressed WBC of 2.8 RBC 4.06 hemoglobin 11.3 hematocrit 33 is borderline pandemic at 9% with a neutrophil count of 1300. Glucose is 178 with an A1c of 7.1 magnesium is 1.5 AST 69 ALT 60 proBNP is mildly elevated at 655 and viral PCR and COVID-19 PCR are all negative. ED discuss the patient's case with the heart transplant center. He sees Dr. Chavez transplant machine try out setter phone number [phone] and they seem to feel he could be treated for the pneumonia here. They would like us to coordinate his care with transplant infectious disease. Ana Garica is at [phone]. He is followed by Dr. Darline Francisco at [facility] Oncology Department. Patient History Medical History Acquired immunocompromised state History of Hodgkin's lymphoma Hypothyroidism Insulin dependent diabetes mellitus Large B-cell lymphoma Obstructive sleep apnea on CPAP Surgical History Heart transplant status Family & Social History Family History Father Myocardial infarction Mother Old age Social History: household members spouse Safety & Behavioral: Feels Safe in Current Yes Environment Been Physically Hurt or No Threatened By a Person Tobacco & Substance use: Smoking Status Never smoker alcohol intake frequency holiday/special occasion Substance Use Type does not use Meds Home Medications and Allergies Home Medications Medication Instructions Recorded Confirmed Type albuterol sulfate 90 mcg/actuation 1 puff inhalation Q6-8H PRN 02/21/19 01/26/21 Rx aerosol inhaler bronchospasm #6.7 grams alendronate 70 mg tablet 70 mg PO QWEEK 02/21/19 01/26/21 History ascorbic acid (vitamin C) 500 mg 500 mg PO DAILY 02/21/19 01/26/21 History capsule,extended release aspirin 81 mg tablet,delayed 81 mg PO DAILY 02/21/19 01/26/21 History release (Adult Low Dose Aspirin) carvedilol 3.125 mg tablet 3.125 mg PO BID 02/21/19 01/26/21 History hydralazine 50 mg tablet 50 mg PO TID 02/21/19 01/26/21 History insulin aspart U-100 100 unit/mL 12 unit SUBCUT TID 02/21/19 01/26/21 History (3 mL) subcutaneous pen insulin glargine 100 unit/mL (3 15 unit SUBCUT DAILY 02/21/19 01/26/21 History mL) subcutaneous pen (Lantus Solostar U-100 Insulin) levothyroxine 100 mcg capsule 100 mcg PO DAILY 02/21/19 01/26/21 History tacrolimus 5 mg capsule, 3 mg PO Q12H 02/21/19 01/26/21 History immediate-release famotidine 20 mg tablet 20 mg feeding tube BID 11/19/20 01/26/21 History oxycodone 5 mg tablet 5 mg PO Q4H 11/19/20 01/26/21 History potassium chloride 40 mEq/15 mL 20 meq PO DAILY 11/19/20 01/26/21 History oral liquid rosuvastatin 20 mg tablet 20 mg PO DAILY 11/19/20 01/26/21 History simethicone 80 mg chewable tablet 80 mg PO PRN PRN Nausea 11/19/20 01/26/21 History cefpodoxime 200 mg tablet 200 mg PO BID #20 tabs 01/14/21 01/26/21 Rx Allergies Allergy/AdvReac Type Severity Reaction Status Date / Time fish oil [FISH OIL] Allergy Unknown Verified 01/14/21 12:07 hydrocodone [HYDROCODONE] Allergy Unknown Verified 01/14/21 12:07 Review of Systems Review of Systems ROS: Yes All systems reviewed with the patient and are negative except as otherwise documented Exam Vital Signs (past 8 hours): - 09/18/22 22:40 09/18/22 23:00 09/18/22 23:01 Temperature 99.4 F Pulse Rate 109 H 105 H Respiratory Rate 18 Blood Pressure 154/86 H 125/73 Pulse Oximetry 92 95 Oxygen Delivery Method Room Air 09/18/22 23:30 09/18/22 23:30 09/19/22 00:00 Temperature Pulse Rate 103 H Respiratory Rate 34 H Blood Pressure 136/83 126/82 Pulse Oximetry 95 Oxygen Delivery Method 09/19/22 00:00 09/19/22 00:30 09/19/22 00:31 Temperature Pulse Rate 101 H 100 H Respiratory Rate 27 H 34 H Blood Pressure 156/79 H Pulse Oximetry 96 96 Oxygen Delivery Method 09/19/22 00:31 09/19/22 01:00 09/19/22 01:00 Temperature Pulse Rate 100 H 100 H Respiratory Rate 21 23 Blood Pressure 118/84 Pulse Oximetry 97 96 Oxygen Delivery Method 09/19/22 01:30 09/19/22 01:30 Temperature Pulse Rate 102 H Respiratory Rate 24 Blood Pressure 175/100 H Pulse Oximetry 98 Oxygen Delivery Method Oxygen Delivery Method Room Air Narrative Exam Narrative: Gen: Alert, oriented, well-developed ill appearing 71 y.o. male, appears fatigued HEENT: normocephalic, atraumatic, conjunctiva clear, sclera non-icteric, oral mucosa pink and moist Neck: supple, full ROM, no JVD, trachea is midline Resp: Lungs w/bilateral wheezes,, non-labored breathing CV: RRR, no murmur or rubs Abd: soft, non-tender, normoactive BTs Skin: pale, no lesions or rashes, dry and intact Neuro: Alert and oriented X 4 w/no focal deficits. Speech clear and coherent. Extremities: moves all 4 extremities, is ambulatory, negative Juan?s sign Psyche: normal mood and affect. Objective Labs Result Diagrams: 09/18/22 22:55 09/18/22 22:55 Labs: Laboratory Results - last 24 hr 09/18/22 09/18/22 09/18/22 22:55 22:55 22:55 WBC 2.8 L RBC 4.06 L Hgb 11.3 L Hct 33.3 L MCV 82.0 MCH 27.8 MCHC 33.9 RDW 13.6 Plt Count 172 Neut % (Auto) Not Reportable Lymph % (Auto) Not Reportable [place] % (Auto) Not Reportable Eos % (Auto) Not Reportable Baso % (Auto) Not Reportable Lymph # (Auto) Not Reportable [place] # (Auto) Not Reportable Baso # (Auto) Not Reportable Total Counted 100 Seg Neutrophils % 38.0 Band Neutrophils % 9.0 H Lymphocytes % (Manual) 10.0 L Atypical Lymphs % 2.0 H Monocytes % (Manual) 27.0 H Eosinophils % (Manual) 4.0 Basophils % (Manual) 2.0 H Metamyelocytes % 7.0 H Myelocytes % 1.0 H Neutrophils # (Manual) 1316 L RBC Morphology Normal morphology Sodium 137 Potassium 4.3 Chloride 101 Carbon Dioxide 29 BUN 18 Creatinine 1.23 Estimated GFR > 60 BUN/Creatinine Ratio 14.6 Glucose 178 H Lactate 1.3 Calcium 8.6 Magnesium 1.5 L Total Bilirubin 0.5 AST 69 H ALT 60 H Alkaline Phosphatase 116 Total Creatine Kinase 213 H CK-MB (CK-2) 1.74 CK-MB (CK-2) Rel Index 0.8 L Troponin I < 0.012 NT-Pro-B Natriuret Pep 655 H Total Protein 7.0 Albumin 3.8 Globulin 3.2 Albumin/Globulin Ratio 1.2 Procalcitonin 0.09 Chlamy pneumoniae PCR Adenovirus (PCR) B. pertussis DNA (PCR) B.parapertussis DNA PCR Coronavirus OC43 (PCR) Coronavirus HKU1 (PCR) Coronavirus 229E (PCR) SARS-CoV-2 (PCR) Coronavirus NL63 (PCR) Human Metapneumovir PCR Influenza Type A (PCR) Influenza Type B (PCR) M. pneumoniae (PCR) Parainfluenza 1 (PCR) Parainfluenza 2 (PCR) Parainfluenza 3 (PCR) Parainfluenza 4 (PCR) RSV (PCR) Entero/Rhino (PCR) 09/18/22 22:58 WBC RBC Hgb Hct MCV MCH MCHC RDW Plt Count Neut % (Auto) Lymph % (Auto) [place] % (Auto) Eos % (Auto) Baso % (Auto) Lymph # (Auto) [place] # (Auto) Baso # (Auto) Total Counted Seg Neutrophils % Band Neutrophils % Lymphocytes % (Manual) Atypical Lymphs % Monocytes % (Manual) Eosinophils % (Manual) Basophils % (Manual) Metamyelocytes % Myelocytes % Neutrophils # (Manual) RBC Morphology Sodium Potassium Chloride Carbon Dioxide BUN Creatinine Estimated GFR BUN/Creatinine Ratio Glucose Lactate Calcium Magnesium Total Bilirubin AST ALT Alkaline Phosphatase Total Creatine Kinase CK-MB (CK-2) CK-MB (CK-2) Rel Index Troponin I NT-Pro-B Natriuret Pep Total Protein Albumin Globulin Albumin/Globulin Ratio Procalcitonin Chlamy pneumoniae PCR Not detected Adenovirus (PCR) Not detected B. pertussis DNA (PCR) Not detected B.parapertussis DNA PCR Not detected Coronavirus OC43 (PCR) Not detected Coronavirus HKU1 (PCR) Not detected Coronavirus 229E (PCR) Not detected SARS-CoV-2 (PCR) Not detected Coronavirus NL63 (PCR) Not detected Human Metapneumovir PCR Not detected Influenza Type A (PCR) Not detected Influenza Type B (PCR) Not detected M. pneumoniae (PCR) Not detected Parainfluenza 1 (PCR) Not detected Parainfluenza 2 (PCR) Not detected Parainfluenza 3 (PCR) Not detected Parainfluenza 4 (PCR) Not detected RSV (PCR) Not detected Entero/Rhino (PCR) Not detected Assessment & Plan Assessment & Plan narrative: Som Cochran will be admitted to the inpatient service for treatment and management of a likely left-sided bacterial pneumonia. Left-sided bacterial pneumonia - He received 1 dose of IV Zosyn 4.5 mg and this will be continued at 3.75 mg starting at 8:00 a.m. this morning. Post heart transplant anti-rejection therapy - Continue home doses of tacralimus 2.5 mg po qam and bedtime and Sirolimus 3.5 mg po qam - He takes sulfamethoxazole/TMP 400-80 in the morning for heart prophylaxis History of post transplant lymphoproliferative disorder with an obstructing tumor and resultant tissue scarring - patient takes Mucinex twice daily for mucus suppression and this will be continued and I have ordered a scopolamine patch for secretion control History of tube feedings -he takes oral vancomycin 125 mg p.o. in the morning Insulin dependent diabetes, chronic and poorly controlled at this time - Continue home dose of glargine 15 units at bedtime - Humalog 12 units w/meals - POC glucose checks ACHS ?Essential hypertension, chronic and stable - Continue home doses of Carvedilol 3.125 po bid - Continue aspirin 81 mg po daily Obstructive sleep apnea, chronic and stable - Patient will use own CPAP machine brought in by his Hyperlipidemia, chronic and stable - Continue home dose of rosuvastatin 20 mg per tube at bedtime Other independent historians: Sharri Cochran, his Discussion of results, plan of care with independent HCP/other ED provider Reviewed outside records: no VTE Prophylaxis: Wells risk score 2.5 X Enoxaparin 40 mg subQ once daily Bilateral SCDs Patient is admitted to the inpatient service due to the severity of disease, risks of further disease progression and this stay is expected to exceed 2 midnights. FEN: IV fluids: saline lock, diet: diabetic carb control, labs: CBC, C/BMP, liver enzymes, Mag, PT/INR Consultants None Dispo: Admit to inpatient, discharge to home Code status: Full code as discussed with the patient who identifies his Sharri as his surrogate and POA. Advanced care planning [ ] minutes. [X] I have utilized all available immediate resources to obtain, update, or review of the patient's current medications VTE Deep Vein Thrombosis/Pulmonary Embolism Present on Admission: No MIPS - Admit I confirm the patient?s Advance Care Plan is present, Code status is documented, Surrogate decision maker is in patient?s record: Yes MIPS - DC The patient has current or prior documentation of left ventricular ejection fraction (LVEF) less than 40%, or moderate or severely depressed left ventricular systolic function.: No COVID-19 COVID-19 status: Negative Result date/Date tested (Pos, Neg/Pending): 09/19/22 Scores Wells' Criteria for PE Clinical signs and symptoms of DVT: No PE is #1 Dx or equally likely: No Heart rate > 100: Yes Immobilization at least 3 days or surg in previous 4 weeks: No History of PE or DVT: No Hemoptysis: No Malignancy w/Treatment within 6 months or palliative: Yes Wells' PE Score total: 2.5
[2022-09-19 02:57] LABS: Hemoglobin A1C% w Est Avg Glu 7.1 % (4.0-6.0)
[2022-09-19] MEDS: TACROLIMUS 0.5 MG CAPSULE 2.5 MG PO ×2 (03:45→14:07)
[2022-09-19] MEDS: HYDRALAZINE 25 MG TABLET PO (04:45)
[2022-09-19] MEDS: SCOPOLAMINE 1 PATCH TOP (04:46)
[2022-09-19] MEDS: PIPERACILLIN/TAZO 3.375 GM in SODIUM CHLORIDE 0.9% 100 ML IV ×3 (04:46→20:17)
[2022-09-19] MEDS: carvediloL 3.125 MG TABLET PO ×3 (04:46→20:25)
[2022-09-19] MEDS: MAGNESIUM SULFATE 2 GM/50 ML PIGGYBACK IV (04:47)
--- NOTE | 2022-09-19 05:56 | PC.NURSE ---
Pt is AxOx4, independent and cooperative. VSS, pt denies pain. Pt is on RA and sats 95% now. Lungs sound crackles on posterior bilateral middle and lower lobes. Lungs sound diminished anterior all area. Pt has some dry cough. Tele is sinus tach. No other changes. Continue monitor.
[2022-09-19] MEDS: LEVOTHYROXINE 100 MCG TABLET PO (05:58)
[2022-09-19] MEDS: PANTOPRAZOLE DR 20 MG TABLET PO (06:07)
[2022-09-19 07:08] LABS: Hematocrit 33.6 % (41-53); Hemoglobin 11.3 g/dL (13.5-17.5); Mean Corpuscular HGB Conc 33.5 % (30-36); Mean Corpuscular Hemoglobin 27.6 PG (26-34); Mean Corpuscular Volume 82.5 fL (80-100); Red Blood Cell Count 4.08 X10^6/uL (4.5-5.9); Red Cell Distribution Width 13.6 % (11.6-14.8); White Blood Cell Count 3.1 X10^3/uL (4.5-11.0)
[2022-09-19 07:09] LABS: Add Manual Diff / Slide Review YES
[2022-09-19 07:46] LABS: Alanine Aminotransferase 117 IU/L (<50); Albumin 3.8 g/dL (3.5-5.0); Albumin Globulin Ratio 1.2 (1.0-2.8); Alkaline Phosphatase 141 U/L (38-126); Aspartate Aminotransferase 153 IU/L (17-59); BUN Creatinine Ratio 14.2 (6-22); Bilirubin Total 0.6 mg/dL (0.2-1.3); Blood Urea Nitrogen 15 mg/dL (9-20); Calcium 8.3 mg/dL (8.4-10.2); Carbon Dioxide 26 mmol/L (22-32); Chloride 97 mmol/L (98-107); Estimated Glomerular Filt Rate > 60 mL/min (>60); Globulin 3.3 g/dL (1.7-4.1); Glucose 209 mg/dL (80-110); HEMOLYSIS 30 (0-50); Magnesium 2.2 mg/dL (1.6-2.3); Sodium 135 mmol/L (137-145); Total Protein 7.1 g/dL (6.3-8.2)
[2022-09-19 07:50] LABS: Neutrophils Absolute Manual 1395 /uL (3000-5900); Total Cells Counted 100
[2022-09-19 07:51] LABS: Anisocytosis 1+
[2022-09-19 07:55] LABS: Platelet Count 152 X10^3/uL (150-400)
[2022-09-19] MEDS: INSULIN LISPRO 100 UNIT/ML 3ML VIAL SUBCUT ×3 (07:57→17:12)
[2022-09-19] MEDS: ACETAMINOPHEN 325 MG TABLET 650 MG PO (07:58)
[2022-09-19] MEDS: VANCOMYCIN 125 MG CAPSULE PO (09:21)
[2022-09-19] MEDS: guaiFENesin ER 600 MG TAB PO ×2 (09:21→20:24)
[2022-09-19] MEDS: ASPIRIN EC 81 MG TABLET PO (09:21)
[2022-09-19] MEDS: ATORVASTATIN 20 MG TABLET 40 MG PO (09:21)
[2022-09-19] MEDS: FAMOTIDINE 20 MG TABLET PO ×2 (09:21→20:25)
[2022-09-19] MEDS: VANCOMYCIN 1,000 MG/200 ML PIGGYBACK 200 MG IV ×2 (09:22→20:33)
[2022-09-19] MEDS: TRIMETH/SULFA 160/800 (DS) TABLET 0.5 TAB PO (09:25)
[2022-09-19] MEDS: AZITHROMYCIN 500 MG in DEXTROSE 5% IN WATER 250 ML 250 MG IV (10:38)
[2022-09-19] MEDS: SIROLIMUS 3 MG 3 EACH PO (11:00)
[2022-09-19] MEDS: SIROLIMUS 3 MG 3.5 EACH PO (11:47)
[2022-09-19] MEDS: INSULIN LISPRO 100 UNIT/ML 3ML VIAL 12 UNIT SUBCUT ×2 (12:07→20:22)
--- NOTE | 2022-09-19 12:37 | PC.NURSE ---
Patient is getting ready to discharge back to [facility] living. He states that he is excited to go back. BS 160s, and 198. Insulin given to patient.
[2022-09-19] MEDS: POTASSIUM CHLORIDE 20 MEQ TAB 40 MEQ PO (14:02)
--- NOTE | 2022-09-19 14:04 | P.PN_ITS ---
Subjective Subjective Interval history: 70 yo male w/prior cardiac transplant in 2015 dt restrictive/constrictive CM and valvular disease, chronic immunosuppression d/t antirejection medication, post- transplant lymphoproliferative d/o in remission after chemo, dysphagia d/t tumor (?lymphadenopathy related), DM2 admitted w/L>R pneumonia. Pt reports he is feeling a bit better today than when he came in. He notes his cough is dry and has been since it started. He did have a fever this am, but has since defervesced after receiving tylenol. Denies N/V. Reports good po intake of food and fluids. Does have some chronic diarrhea. He notes that he hasn't had an increase in diarrhea here. Exam Vital Signs (past 8 hours): - 09/19/22 06:06 09/19/22 07:58 09/19/22 07:40 Temperature 101 F H 101.0 F H Pulse Rate 114 H 109 H Respiratory Rate 20 Blood Pressure 137/87 126/83 Pulse Oximetry 93 Oxygen Flow Rate 0 Oxygen Delivery Method Nasal Cannula Oxygen Flow Rate 0 Narrative Exam Narrative: GEN: Very pleasant middle-aged gentleman, Alert and oriented x 3, NAD HEENT:NC, Face symmetric CHEST: Respiratory excursions symmetric, course with left-sided inspiratory wheezes CV: RRR, no M/R/G ABD: Soft, NT/ND, BT present in all 4 quadrants, no organomegaly or masses EXTR: warm, well perfused, no C/C/E SKIN: warm and dry, no rash NEURO: Alert and oriented x 3, nonfocal Objective Labs Result Diagrams: 09/19/22 06:58 09/19/22 06:58 Labs: Laboratory Results - last 24 hr 09/18/22 09/18/22 09/18/22 22:55 22:55 22:55 WBC 2.8 L RBC 4.06 L Hgb 11.3 L Hct 33.3 L MCV 82.0 MCH 27.8 MCHC 33.9 RDW 13.6 Plt Count 172 Neut % (Auto) Not Reportable Lymph % (Auto) Not Reportable [place] % (Auto) Not Reportable Eos % (Auto) Not Reportable Baso % (Auto) Not Reportable Lymph # (Auto) Not Reportable [place] # (Auto) Not Reportable Baso # (Auto) Not Reportable Total Counted 100 Seg Neutrophils % 38.0 Band Neutrophils % 9.0 H Lymphocytes % (Manual) 10.0 L Atypical Lymphs % 2.0 H Monocytes % (Manual) 27.0 H Eosinophils % (Manual) 4.0 Basophils % (Manual) 2.0 H Metamyelocytes % 7.0 H Myelocytes % 1.0 H Neutrophils # (Manual) 1316 L RBC Morphology Normal morphology Anisocytosis Sodium 137 Potassium 4.3 Chloride 101 Carbon Dioxide 29 BUN 18 Creatinine 1.23 Estimated GFR > 60 BUN/Creatinine Ratio 14.6 Glucose 178 H Hemoglobin A1c Lactate 1.3 Calcium 8.6 Magnesium 1.5 L Total Bilirubin 0.5 AST 69 H ALT 60 H Alkaline Phosphatase 116 Total Creatine Kinase 213 H CK-MB (CK-2) 1.74 CK-MB (CK-2) Rel Index 0.8 L Troponin I < 0.012 NT-Pro-B Natriuret Pep 655 H Total Protein 7.0 Albumin 3.8 Globulin 3.2 Albumin/Globulin Ratio 1.2 Procalcitonin 0.09 Chlamy pneumoniae PCR Adenovirus (PCR) B. pertussis DNA (PCR) B.parapertussis DNA PCR Coronavirus OC43 (PCR) Coronavirus HKU1 (PCR) Coronavirus 229E (PCR) SARS-CoV-2 (PCR) Coronavirus NL63 (PCR) Human Metapneumovir PCR Influenza Type A (PCR) Influenza Type B (PCR) M. pneumoniae (PCR) Parainfluenza 1 (PCR) Parainfluenza 2 (PCR) Parainfluenza 3 (PCR) Parainfluenza 4 (PCR) RSV (PCR) Entero/Rhino (PCR) 09/18/22 09/18/22 09/19/22 22:55 22:58 06:58 WBC 3.1 L RBC 4.08 L Hgb 11.3 L Hct 33.6 L MCV 82.5 MCH 27.6 MCHC 33.5 RDW 13.6 Plt Count 152 Neut % (Auto) Not Reportable Lymph % (Auto) Not Reportable [place] % (Auto) Not Reportable Eos % (Auto) Not Reportable Baso % (Auto) Not Reportable Lymph # (Auto) Not Reportable [place] # (Auto) Not Reportable Baso # (Auto) Not Reportable Total Counted 100 Seg Neutrophils % 28.0 L Band Neutrophils % 17.0 H Lymphocytes % (Manual) 9.0 L Atypical Lymphs % 1.0 H Monocytes % (Manual) 33.0 H Eosinophils % (Manual) 4.0 Basophils % (Manual) 1.0 Metamyelocytes % 5.0 H Myelocytes % 2.0 H Neutrophils # (Manual) 1395 L RBC Morphology Not Reportable Anisocytosis 1+ H Sodium Potassium Chloride Carbon Dioxide BUN Creatinine Estimated GFR BUN/Creatinine Ratio Glucose Hemoglobin A1c 7.1 H Lactate Calcium Magnesium Total Bilirubin AST ALT Alkaline Phosphatase Total Creatine Kinase CK-MB (CK-2) CK-MB (CK-2) Rel Index Troponin I NT-Pro-B Natriuret Pep Total Protein Albumin Globulin Albumin/Globulin Ratio Procalcitonin Chlamy pneumoniae PCR Not detected Adenovirus (PCR) Not detected B. pertussis DNA (PCR) Not detected B.parapertussis DNA PCR Not detected Coronavirus OC43 (PCR) Not detected Coronavirus HKU1 (PCR) Not detected Coronavirus 229E (PCR) Not detected SARS-CoV-2 (PCR) Not detected Coronavirus NL63 (PCR) Not detected Human Metapneumovir PCR Not detected Influenza Type A (PCR) Not detected Influenza Type B (PCR) Not detected M. pneumoniae (PCR) Not detected Parainfluenza 1 (PCR) Not detected Parainfluenza 2 (PCR) Not detected Parainfluenza 3 (PCR) Not detected Parainfluenza 4 (PCR) Not detected RSV (PCR) Not detected Entero/Rhino (PCR) Not detected 09/19/22 06:58 WBC RBC Hgb Hct MCV MCH MCHC RDW Plt Count Neut % (Auto) Lymph % (Auto) [place] % (Auto) Eos % (Auto) Baso % (Auto) Lymph # (Auto) [place] # (Auto) Baso # (Auto) Total Counted Seg Neutrophils % Band Neutrophils % Lymphocytes % (Manual) Atypical Lymphs % Monocytes % (Manual) Eosinophils % (Manual) Basophils % (Manual) Metamyelocytes % Myelocytes % Neutrophils # (Manual) RBC Morphology Anisocytosis Sodium 135 L Potassium 4.0 Chloride 97 L Carbon Dioxide 26 BUN 15 Creatinine 1.06 Estimated GFR > 60 BUN/Creatinine Ratio 14.2 Glucose 209 H Hemoglobin A1c Lactate Calcium 8.3 L Magnesium 2.2 Total Bilirubin 0.6 AST 153 H ALT 117 H Alkaline Phosphatase 141 H Total Creatine Kinase CK-MB (CK-2) CK-MB (CK-2) Rel Index Troponin I NT-Pro-B Natriuret Pep Total Protein 7.1 Albumin 3.8 Globulin 3.3 Albumin/Globulin Ratio 1.2 Procalcitonin Chlamy pneumoniae PCR Adenovirus (PCR) B. pertussis DNA (PCR) B.parapertussis DNA PCR Coronavirus OC43 (PCR) Coronavirus HKU1 (PCR) Coronavirus 229E (PCR) SARS-CoV-2 (PCR) Coronavirus NL63 (PCR) Human Metapneumovir PCR Influenza Type A (PCR) Influenza Type B (PCR) M. pneumoniae (PCR) Parainfluenza 1 (PCR) Parainfluenza 2 (PCR) Parainfluenza 3 (PCR) Parainfluenza 4 (PCR) RSV (PCR) Entero/Rhino (PCR) [facility] Medical History Acquired immunocompromised state History of Hodgkin's lymphoma Hypothyroidism Insulin dependent diabetes mellitus Large B-cell lymphoma Obstructive sleep apnea on CPAP Surgical History Heart transplant status Family History Father Myocardial infarction Mother Old age Social History household members: spouse Smoking Status: Never smoker Assessment & Plan Assessment & Plan narrative: 1. Left-sided pneumonia in a chronically immunosuppressed patient Patient is presently on Zosyn, azithromycin, and vancomycin. Clinically, he appears nontoxic. He is leukopenic and chronically immunosuppressed on t acrolimus and sirolimus. No evidence of aspiration. He has previously been followed by speech therapy and was discharged last summer. Plan to continue Zosyn and azithromycin. Will obtain a MRSA swab and if negative will discontinue vancomycin. Presently is not requiring supplemental oxygen. Should he develop a productive cough, will send sputum for culture. 2. Status post heart transplant Patient is chronically on tacrolimus and sirolimus. These medications have been ordered. Will send a tacrolimus level as well. 3. Chronic immunosuppression Secondary to antirejection medications. Patient is leukopenic but does have a 17% bandemia. He is empirically treated with oral vancomycin once daily for C diff prophylaxis (he has had prior C diff when he had his G-tube placed for his previous cancer treatment). He is also on daily Bactrim for Pneumocystis prophylaxis. We will continue oral vancomycin (consider increasing to treatment dose if he develops worsening diarrhea). Will also add probiotics. Holding Bactrim as he is covered with azithromycin presently. 4. Post transplant lymphoproliferative disorder and obstructing tumor, presently in remission Patient received chemo and did have a G-tube in place at that time. He did have the G-tube discontinued earlier this year. He has been tolerating an oral diet well. Does continue scopolamine patch for resultant secretion issues following treatment of his malignancy. Additionally, he is on a PPI and H2 alice. 5. Insulin-dependent diabetes mellitus, type 2 Continue fingersticks and sliding scale. He is on a controlled carb diet. Remains on Lantus and lispro t.i.d.. No documented fingersticks in the EMR yet today. 6. Obstructive sleep apnea Continue CPAP at night. 7. Hypertension Continue outpatient dose of carvedilol. 8. Hyperlipidemia Typically on rosuvastatin 20 mg daily. Receiving atorvastatin 40 mg here per formulary substitution 9. Transaminitis AST was 69 on admission, now up to 153. ALT was 60 and is up to 117. Alk-phos up. He does not have any abdominal pain. Would have a low threshold for further imaging. Additionally, tacrolimus can cause hepatic toxicity. As noted above, a tacrolimus level has been sent. Will continue to monitor his LFTs closely. 10. Chronic diarrhea Patient is on loperamide b.i.d. as needed. He has had difficulties with diarrhea since his previously treated malignancy and G-tube placement/tube feeds. As noted above, he also has prior history of C diff. He is on prophylaxis with oral vancomycin. Probiotics have been added as noted. 11. Hypothyroidism Continue usual outpatient thyroid replacement Code status Full Prophylaxis On Lovenox Disposition Continue acute inpatient care Time Spent With Patient Critical Care time: I spent a total of [] minutes of critical care time on this patient's care today; this time is exclusive of procedural time. Quality VTE Deep Vein Thrombosis/Pulmonary Embolism Present on Admission: No
--- NOTE | 2022-09-19 14:38 | CM.DANOTE ---
DCP/assessment: Reviewed chart. Patient is a 71yr old male admitted to [facility] with [facility]. Patient with h/o heart transplant. PCP is Dr. Venegas. Primary Payor is 1)Medicare 2)[employer]. Met with patient and spouse/Sharri at bedside explained CM/SW role. Patient alert and oriented resting comfortably in bed. Patient reports that he is primarily I with all ADL's. Patient uses CPAP at night. Spouse reports that they have been for 50yrs. Spouse expresses concerns about medication management for patient. He takes approximately 30 pills per day. Recently insurance changed and medication is not being delivered via the mail instead of her picking it up in daily packs. Spouse does not anticipate needing HH for a short time to help with medications, spouse more interested in some assistance multimedia production assistant. Spouse provided with some phone numbers of pharmacies that might be able to provide her suggestions. Patient also 100% service connected and they hope that they can also assist with sending an RN out to the house to help manage medications long-term. Spouse only wants an RN. In addition, patient and spouse do not want different people in their residence because of patient's low immunity. Spouse indicates that the heart medication he takes for the transplant caused Cancer. P: Home when medically stable, resources provided. Encouraged [facility] with [facility] to assist patient/spouse in the residence. TATA Aguilera Discharge Planning/Care Management CM Discharge Assessment Start: 09/19/22 14:27 Freq: Status: Active Protocol: Document 09/19/22 14:27 [facility] (Rec: 09/19/22 14:38 KJS [id number]) Discharge Planning Assessment Assigned Director Speech TATA Aguilera Contact Information Sharri Cochran (spouse) # [phone] Advance Directives? Yes Advance Directives on File Yes: copie brought in by History Provided By Patient,Family Member,Medical Record Prior Living Arrangements House Household Members spouse Type of transporation used prior to Relies on Others admit Comment Spouse drives for safety purposes. Independent with ADL's Yes: Patient is I with ambulation Is patient alert and oriented? Yes Caregiver for Another No Comment Patietn uses CPAP at night Comment None at this time but patient/ spouse aware that they can borrow DME at [facility] if needed. Comment At this time there are no anticipated d/c planning needs . Barriers to Discharge No Discharge Plan Home Transportation Arrangement will provide transportation Referrals Initiated Other Additional Comment Provided spouse with some resources for pharmacy companies that could assist her with managing all of patient's medications. Patient takes approximately 30 pills a day. Previously, [facility] could put the medication in packs. However, insurance has now contracted with agency that delivers them via mail. Spouse having horrible time trying to keep everything organized. However, she does have everything organized through October. Whiteboard Updated in Patient Room with Yes name and ext. # of Director Speech Comment Patient's spouse reports that patient is 100% [facility] service [facility] therefore, she hopes to obtain help from them with medication management senior care. Review Status In Process Next Review Type Continued Stay Review
[2022-09-19] MEDS: LACTOBACILLUS ACIDOPHILUS TABLET 1 EACH PO (17:13)
[2022-09-19] MEDS: PROTEIN 2 EACH PO (17:13)
--- NOTE | 2022-09-19 18:32 | PC.NURSE ---
Patient is alert and oriented x4, he denies pain. Patient is coughing up a brown yellow sputum. His was here today and med list has been all updated. Patient has a hx of heart transplant, using urinal to void. Up with one person assist and walker. Patient is resting comfortably and has gone home for the evening. Patient has a decent appetite.
[2022-09-19] MEDS: INSULIN GLARGINE 100 UNIT/ML 3ML PEN 15 UNIT SUBCUT (20:19)
[2022-09-19] MEDS: LOPERAMIDE 2 MG CAPSULE PO (20:24)
[2022-09-19] MEDS: TRAZODONE 50 MG TABLET PO (20:25)
[2022-09-20] VITALS (11 sets, daily range): BP systolic 137–155; BP diastolic 87–96; PULSE 98–114; RESP 15–19; TEMP 36.3–36.9; O2SAT 92–95
[2022-09-20] MEDS: PIPERACILLIN/TAZO 3.375 GM in SODIUM CHLORIDE 0.9% 100 ML IV (03:22)
[2022-09-20 05:36] LABS: Hematocrit 32.4 % (41-53); Mean Corpuscular HGB Conc 33.8 % (30-36); Mean Corpuscular Hemoglobin 27.8 PG (26-34); Mean Corpuscular Volume 82.2 fL (80-100); Platelet Count 149 X10^3/uL (150-400); Red Blood Cell Count 3.94 X10^6/uL (4.5-5.9); Red Cell Distribution Width 13.8 % (11.6-14.8); White Blood Cell Count 2.6 X10^3/uL (4.5-11.0)
[2022-09-20 05:38] LABS: Add Manual Diff / Slide Review YES
[2022-09-20 05:57] LABS: Alanine Aminotransferase 79 IU/L (<50); Albumin 3.6 g/dL (3.5-5.0); Albumin Globulin Ratio 1.1 (1.0-2.8); Alkaline Phosphatase 111 U/L (38-126); Aspartate Aminotransferase 71 IU/L (17-59); BUN Creatinine Ratio 14.4 (6-22); Bilirubin Total 0.4 mg/dL (0.2-1.3); Blood Urea Nitrogen 17 mg/dL (9-20); Calcium 8.1 mg/dL (8.4-10.2); Carbon Dioxide 27 mmol/L (22-32); Chloride 100 mmol/L (98-107); Estimated Glomerular Filt Rate > 60 mL/min (>60); Globulin 3.2 g/dL (1.7-4.1); Glucose 185 mg/dL (80-110); HEMOLYSIS 34 (0-50); Magnesium 1.7 mg/dL (1.6-2.3); Potassium 3.9 mmol/L (3.4-5.1); Sodium 138 mmol/L (137-145); Total Protein 6.8 g/dL (6.3-8.2)
[2022-09-20] MEDS: TACROLIMUS 0.5 MG CAPSULE 2.5 MG PO ×2 (06:56→18:58)
[2022-09-20] MEDS: PANTOPRAZOLE DR 20 MG TABLET PO (06:56)
[2022-09-20] MEDS: LEVOTHYROXINE 100 MCG TABLET PO (06:56)
[2022-09-20 07:20] LABS: Neutrophils Absolute Manual 1092 /uL (3000-5900); RBC Morphology Normal Morphology; Total Cells Counted 100
[2022-09-20] MEDS: SIROLIMUS 3 MG 3 EACH PO (08:27)
[2022-09-20] MEDS: PROTEIN 2 EACH PO ×2 (08:27→16:32)
[2022-09-20] MEDS: INSULIN LISPRO 100 UNIT/ML 3ML VIAL SUBCUT ×2 (08:28→16:41)
[2022-09-20] MEDS: INSULIN LISPRO 100 UNIT/ML 3ML VIAL 12 UNIT SUBCUT ×2 (08:29→15:34)
[2022-09-20] MEDS: ASPIRIN EC 81 MG TABLET PO (08:34)
[2022-09-20] MEDS: POTASSIUM CHLORIDE 20 MEQ TAB 40 MEQ PO (08:34)
[2022-09-20] MEDS: guaiFENesin ER 600 MG TAB PO ×2 (08:34→21:34)
[2022-09-20] MEDS: LACTOBACILLUS ACIDOPHILUS TABLET 1 EACH PO ×2 (08:35→16:32)
[2022-09-20] MEDS: carvediloL 3.125 MG TABLET PO ×2 (08:35→21:34)
[2022-09-20] MEDS: ATORVASTATIN 20 MG TABLET 40 MG PO (08:35)
[2022-09-20] MEDS: FAMOTIDINE 20 MG TABLET PO ×2 (08:35→21:34)
[2022-09-20] MEDS: AZITHROMYCIN 500 MG in DEXTROSE 5% IN WATER 250 ML 250 MG IV (08:35)
[2022-09-20] MEDS: VANCOMYCIN 125 MG CAPSULE PO (08:35)
[2022-09-20] MEDS: ENOXAPARIN 40 MG/0.4 ML SYRINGE SUBCUT (08:36)
[2022-09-20] MEDS: VANCOMYCIN 1,000 MG/200 ML PIGGYBACK 200 MG IV (09:02)
[2022-09-20] MEDS: PROTEIN 1 EACH PO (12:27)
[2022-09-20] MEDS: HYDRALAZINE 25 MG TABLET PO ×2 (13:11→16:31)
[2022-09-20] MEDS: AMOXICILLIN/CLAV 875/125 MG 1 TAB PO ×2 (13:11→21:34)
--- NOTE | 2022-09-20 13:12 | PM.PN.1 ---
Subjective Subjective Date Patient Seen: 09/20/22 Interval history: Sumeet Cochran is a 70 y.o. 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 diabetes type 2, presented with chest pain associated with coughing, congestion, nasal congestion, and exertional dyspnea. Patient and today are concerned about persistent elevated blood pressure. Normally systolic at home is 130 or less. Here has been measuring at 155 this morning. About O2 saturation, as well, reassured patient and that 93% on room air is sufficient. Has tachycardia today but that is consistent with the patient's baseline at home. Patient eating lunch well with no concerns, not on oxygen at this time. Exam Vital Signs (past 8 hours): - 09/20/22 06:00 09/20/22 08:35 09/20/22 08:00 Temperature 97.5 F L Pulse Rate 114 H Respiratory Rate 19 15 Blood Pressure 152/95 H 152/95 H Pulse Oximetry 93 Oxygen Flow Rate 0 09/20/22 11:16 09/20/22 13:11 Temperature 98.5 F Pulse Rate 113 H Respiratory Rate 16 Blood Pressure 155/96 H 155/96 H Pulse Oximetry 93 Oxygen Flow Rate 0 Oxygen Delivery Method Nasal Cannula Oxygen Flow Rate 0 Narrative Exam Narrative: GEN:? Alert and oriented x 3, NAD HEENT: Face symmetric. Pupils equal reactive to light. Trachea is midline. CHEST: Respiratory excursions symmetric, with minimal left-sided inspiratory wheezes CV: RRR, no M/R/G ABD: Soft, NT/ND, bowel sounds present throughout the abdomen, no organomegaly or masses EXTR: warm, well perfused SKIN: warm and dry, no rash NEURO: Alert and oriented x 3, nonfocal Objective Labs Result Diagrams: 09/20/22 04:27 09/20/22 04:27 Labs: Laboratory Results - last 24 hr 09/19/22 09/20/22 09/20/22 15:10 04:27 04:27 WBC 2.6 L RBC 3.94 L Hgb 11.0 L Hct 32.4 L MCV 82.2 MCH 27.8 MCHC 33.8 RDW 13.8 Plt Count 149 L Neut % (Auto) Not Reportable Lymph % (Auto) Not Reportable [place] % (Auto) Not Reportable Eos % (Auto) Not Reportable Baso % (Auto) Not Reportable Lymph # (Auto) Not Reportable [place] # (Auto) Not Reportable Baso # (Auto) Not Reportable Total Counted 100 Seg Neutrophils % 35.0 L Band Neutrophils % 7.0 Lymphocytes % (Manual) 23.0 L Monocytes % (Manual) 23.0 H Eosinophils % (Manual) 5.0 H Metamyelocytes % 3.0 H Myelocytes % 4.0 H Neutrophils # (Manual) 1092 L RBC Morphology Normal morphology Sodium 138 Potassium 3.9 Chloride 100 Carbon Dioxide 27 BUN 17 Creatinine 1.18 Estimated GFR > 60 BUN/Creatinine Ratio 14.4 Glucose 185 H Calcium 8.1 L Magnesium 1.7 Total Bilirubin 0.4 AST 71 H ALT 79 H Alkaline Phosphatase 111 Total Protein 6.8 Albumin 3.6 Globulin 3.2 Albumin/Globulin Ratio 1.1 Nasal Screen MRSA (PCR) Negative for mrsa [facility] Medical History Acquired immunocompromised state History of Hodgkin's lymphoma Hypothyroidism Insulin dependent diabetes mellitus Large B-cell lymphoma Obstructive sleep apnea on CPAP Surgical History Heart transplant status Family History Father Myocardial infarction Mother Old age Social History household members: spouse Smoking Status: Never smoker Assessment & Plan Assessment & Plan narrative: 1. Left-sided pneumonia in a chronically immunosuppressed patient Patient is presently on Zosyn, azithromycin, and vancomycin.? Can transition to oral azithromycin and Amox/Clav for pneumonia due to negative blood cultures. He is leukopenic and chronically immunosuppressed on tacrolimus and sirolimus.? No evidence of aspiration.? He has previously been followed by speech therapy and was discharged last summer.? Will obtain a MRSA swab and if negative will discontinue vancomycin.? Presently is not requiring supplemental oxygen.? Should he develop a productive cough, will send sputum for culture. 2. Status post heart transplant Patient is chronically on tacrolimus and sirolimus.? These medications have been ordered.? Will send a tacrolimus level as well.? 3. Chronic immunosuppression Secondary to antirejection medications.? Patient is leukopenic but had a 17% bandemia.?This has resolved to normal level of 7.0. He is empirically treated with oral vancomycin once daily for C diff prophylaxis (he has had prior C diff when he had his G-tube placed for his previous cancer treatment).? He is also on daily Bactrim for Pneumocystis prophylaxis.? We will continue oral vancomycin (consider increasing to treatment dose if he develops worsening diarrhea).? Will also add probiotics.? Start Bactrim prophylaxis as he is covered with azithromycin presently but will end tomorrow. 4. Post transplant lymphoproliferative disorder and obstructing tumor, presently in remission Patient received chemo and did have a G-tube in place at that time.? He did have the G-tube discontinued earlier this year.? He has been tolerating an oral diet well.? Does continue scopolamine patch for resultant secretion issues following treatment of his malignancy.? Additionally, he is on a PPI and H2 alice. 5. Insulin-dependent diabetes mellitus, type 2 Continue fingersticks and sliding scale.? He is on a controlled carb diet.? Remains on Lantus and lispro t.i.d..? No documented fingersticks in the EMR yet today. 6. Obstructive sleep apnea Continue CPAP at night. 7. Hypertension Continue outpatient dose of carvedilol. Due to elevated blood pressure greater than his usual level at home, hydralazine 25 mg b.i.d. was initiated today. Need to ensure stability of hypertension prior to discharge. 8. Hyperlipidemia Typically on rosuvastatin 20 mg daily.? Receiving atorvastatin 40 mg here per formulary substitution 9. Transaminitis AST was 69 on admission, now up to 153.? ALT was 60 and is up to 117.? Alk-phos up.? He does not have any abdominal pain.? Would have a low threshold for further imaging.? Additionally, tacrolimus can cause hepatic toxicity.? As noted above, a tacrolimus level has been sent.? Will continue to monitor his LFTs closely. Today LFTs have decreased close to patient's admission levels. 10. Chronic diarrhea Patient is on loperamide b.i.d. as needed.? He has had difficulties with diarrhea since his previously treated malignancy and G-tube placement/tube feeds.? As noted above, he also has prior history of C diff.? He is on prophylaxis with oral vancomycin.? Probiotics have been added as noted. 11. Hypothyroidism Continue usual outpatient thyroid replacement. Discussed patient with transplant team nurse at . Transplant team nurse pleased with the patient's progress. Reassess labs in the morning and reassess control of hypertension prior to discharge. Expect discharge tomorrow. Code status Full Prophylaxis On Lovenox Time Spent With Patient Critical Care time: I spent a total of [] minutes of critical care time on this patient's care today; this time is exclusive of procedural time. Quality VTE Deep Vein Thrombosis/Pulmonary Embolism Present on Admission: No
[2022-09-20 17:27] LABS: Tacrolimus 2.8 ng/mL (2.0-20.0)
[2022-09-20] MEDS: LOPERAMIDE 2 MG CAPSULE PO (21:34)
[2022-09-20] MEDS: INSULIN GLARGINE 100 UNIT/ML 3ML PEN 15 UNIT SUBCUT (21:34)
[2022-09-20] MEDS: TRAZODONE 50 MG TABLET PO (21:34)
[2022-09-21] VITALS (10 sets, daily range): BP systolic 128–159; BP diastolic 59–98; PULSE 104–120; RESP 16–20; TEMP 36.7–37.4; O2SAT 92–96
[2022-09-21 05:34] LABS: Hematocrit 32.7 % (41-53); Hemoglobin 11.2 g/dL (13.5-17.5); Mean Corpuscular HGB Conc 34.3 % (30-36); Mean Corpuscular Hemoglobin 27.9 PG (26-34); Mean Corpuscular Volume 81.4 fL (80-100); Platelet Count 167 X10^3/uL (150-400); Red Blood Cell Count 4.02 X10^6/uL (4.5-5.9); Red Cell Distribution Width 13.9 % (11.6-14.8)
[2022-09-21 06:01] LABS: Add Manual Diff / Slide Review YES
[2022-09-21 06:02] LABS: Alanine Aminotransferase 57 IU/L (<50); Albumin 3.7 g/dL (3.5-5.0); Albumin Globulin Ratio 1.2 (1.0-2.8); Alkaline Phosphatase 100 U/L (38-126); Aspartate Aminotransferase 54 IU/L (17-59); BUN Creatinine Ratio 13.7 (6-22); Bilirubin Total 0.4 mg/dL (0.2-1.3); Blood Urea Nitrogen 16 mg/dL (9-20); Calcium 8.3 mg/dL (8.4-10.2); Carbon Dioxide 28 mmol/L (22-32); Chloride 102 mmol/L (98-107); Estimated Glomerular Filt Rate > 60 mL/min (>60); Globulin 3.2 g/dL (1.7-4.1); Glucose 150 mg/dL (80-110); HEMOLYSIS < 15 (0-50); Magnesium 1.5 mg/dL (1.6-2.3); Potassium 3.4 mmol/L (3.4-5.1); Sodium 138 mmol/L (137-145); Total Protein 6.9 g/dL (6.3-8.2)
[2022-09-21] MEDS: TACROLIMUS 0.5 MG CAPSULE 2.5 MG PO ×2 (06:41→18:33)
[2022-09-21] MEDS: LEVOTHYROXINE 100 MCG TABLET PO (06:41)
[2022-09-21] MEDS: PANTOPRAZOLE DR 20 MG TABLET PO (06:41)
[2022-09-21 06:54] LABS: Neutrophils Absolute Manual 1200 /uL (3000-5900); Total Cells Counted 100
[2022-09-21 06:55] LABS: RBC Morphology Normal Morphology
[2022-09-21] MEDS: VANCOMYCIN 125 MG CAPSULE PO (09:53)
[2022-09-21] MEDS: MAGNESIUM CHLORIDE 64 MG TABLET 128 MG PO (09:54)
[2022-09-21] MEDS: carvediloL 3.125 MG TABLET PO ×2 (09:55→20:52)
[2022-09-21] MEDS: guaiFENesin ER 600 MG TAB PO ×2 (09:55→20:54)
[2022-09-21] MEDS: ATORVASTATIN 20 MG TABLET 40 MG PO (09:55)
[2022-09-21] MEDS: POTASSIUM CHLORIDE 20 MEQ TAB 40 MEQ PO (09:56)
[2022-09-21] MEDS: FAMOTIDINE 20 MG TABLET PO ×2 (09:56→20:54)
[2022-09-21] MEDS: HYDRALAZINE 25 MG TABLET PO ×2 (09:56→17:27)
[2022-09-21] MEDS: AMOXICILLIN/CLAV 875/125 MG 1 TAB PO ×2 (09:56→20:52)
[2022-09-21] MEDS: LACTOBACILLUS ACIDOPHILUS TABLET 1 EACH PO (09:56)
[2022-09-21] MEDS: ASPIRIN EC 81 MG TABLET PO (09:56)
[2022-09-21] MEDS: AZITHROMYCIN 250 MG TABLET 500 MG PO (09:56)
[2022-09-21] MEDS: ENOXAPARIN 40 MG/0.4 ML SYRINGE SUBCUT (09:57)
[2022-09-21] MEDS: PROTEIN 2 EACH PO ×2 (09:58→17:28)
[2022-09-21] MEDS: SIROLIMUS 3 MG 3 EACH PO (09:59)
[2022-09-21] MEDS: INSULIN LISPRO 100 UNIT/ML 3ML VIAL SUBCUT ×2 (10:01→12:44)
[2022-09-21] MEDS: INSULIN LISPRO 100 UNIT/ML 3ML VIAL 12 UNIT SUBCUT ×2 (10:01→15:16)
[2022-09-21] MEDS: LOPERAMIDE 2 MG CAPSULE PO (10:07)
[2022-09-21] MEDS: PROTEIN 1 EACH PO (12:43)
--- NOTE | 2022-09-21 13:56 | PM.PN.1 ---
Subjective Subjective Interval history: 70 yo male w/prior cardiac transplant in 2015 dt restrictive/constrictive CM and valvular disease, chronic immunosuppression d/t antirejection medication, post-transplant lymphoproliferative d/o in remission after chemo, dysphagia d/t tumor (?lymphadenopathy related), DM2 admitted w/L>R pneumonia. Patient reports he feels better again today. His is at bedside. She expresses concern about his elevated blood pressures. She was advised by his transplant team that his blood pressure should remain in the 130 systolic. She notes he has been in the 150s here. She is pleased with the improvement in blood pressure since hydralazine was added yesterday, but expresses anxiety of the fact that his blood pressures do continue fluctuate above the 150 range. She also notes he has been wheezing more since yesterday. Patient reports he does feel better overall than when he was admitted. He did have some expectoration of sputum which they described as greenish yellow yesterday. However it was not sent for culture. He continues to eat and drink without difficulty. He does report diarrhea today. He has had difficulties with chronic diarrhea since his G-tube was placed. His notes that probiotic seem to make the diarrhea worse. She states approximately 1 week prior to admission his bowels finally seemed to have normalized. RN notes that he is having liquid stool but there is no concerning odor for C diff. Exam Vital Signs (past 8 hours): - 09/21/22 08:00 09/21/22 09:55 09/21/22 09:56 Temperature 98.3 F Pulse Rate 114 H Respiratory Rate 19 Blood Pressure 158/91 H 158/91 H 158/91 H Pulse Oximetry 94 Oxygen Flow Rate 0 09/21/22 12:00 Temperature 98.3 F Pulse Rate 118 H Respiratory Rate 16 Blood Pressure 134/85 Pulse Oximetry 93 Oxygen Flow Rate 0 Oxygen Delivery Method Room Air,CPAP Oxygen Flow Rate 0 Narrative Exam Narrative: GEN:? Very pleasant middle-aged gentleman, Alert and oriented x 3, NAD HEENT:NC, Face symmetric CHEST: Respiratory excursions symmetric, course with diffuse bilateral inspiratory wheezes CV: Moderately tachycardic with regular rhythm, no M/R/G, heart rate 122 ABD: Soft, NT/ND, BT present in all 4 quadrants, no organomegaly or masses EXTR: warm, well perfused, no C/C/E SKIN: warm and dry, no rash NEURO: Alert and oriented x 3, nonfocal Objective Labs Result Diagrams: 09/21/22 04:49 09/21/22 04:49 Labs: Laboratory Results - last 24 hr 09/19/22 09/21/22 09/21/22 06:58 04:49 04:49 WBC 3.0 L RBC 4.02 L Hgb 11.2 L Hct 32.7 L MCV 81.4 MCH 27.9 MCHC 34.3 RDW 13.9 Plt Count 167 Neut % (Auto) Not Reportable Lymph % (Auto) Not Reportable [place] % (Auto) Not Reportable Eos % (Auto) Not Reportable Baso % (Auto) Not Reportable Lymph # (Auto) Not Reportable [place] # (Auto) Not Reportable Baso # (Auto) Not Reportable Total Counted 100 Seg Neutrophils % 33.0 L Band Neutrophils % 7.0 Lymphocytes % (Manual) 14.0 L Monocytes % (Manual) 36.0 H Metamyelocytes % 5.0 H Myelocytes % 5.0 H Neutrophils # (Manual) 1200 L RBC Morphology Normal morphology Sodium Potassium Chloride Carbon Dioxide BUN Creatinine Estimated GFR BUN/Creatinine Ratio Glucose Calcium Magnesium 1.5 L Total Bilirubin Conjugated Bilirubin Unconjugated Bilirubin AST ALT Alkaline Phosphatase Total Protein Albumin Globulin Albumin/Globulin Ratio Tacrolimus 2.8 09/21/22 04:49 WBC RBC Hgb Hct MCV MCH MCHC RDW Plt Count Neut % (Auto) Lymph % (Auto) [place] % (Auto) Eos % (Auto) Baso % (Auto) Lymph # (Auto) [place] # (Auto) Baso # (Auto) Total Counted Seg Neutrophils % Band Neutrophils % Lymphocytes % (Manual) Monocytes % (Manual) Metamyelocytes % Myelocytes % Neutrophils # (Manual) RBC Morphology Sodium 138 Potassium 3.4 Chloride 102 Carbon Dioxide 28 BUN 16 Creatinine 1.17 Estimated GFR > 60 BUN/Creatinine Ratio 13.7 Glucose 150 H Calcium 8.3 L Magnesium Total Bilirubin 0.4 Conjugated Bilirubin 0.0 Unconjugated Bilirubin 0.0 AST 54 ALT 57 H Alkaline Phosphatase 100 Total Protein 6.9 Albumin 3.7 Globulin 3.2 Albumin/Globulin Ratio 1.2 Tacrolimus [facility] Medical History Acquired immunocompromised state History of Hodgkin's lymphoma Hypothyroidism Insulin dependent diabetes mellitus Large B-cell lymphoma Obstructive sleep apnea on CPAP Surgical History Heart transplant status Family History Father Myocardial infarction Mother Old age Social History household members: spouse Smoking Status: Never smoker Assessment & Plan Assessment & Plan narrative: 1. Left-sided pneumonia in a chronically immunosuppressed patient Patient is presently on Augmentin and azithromycin.? Clinically, he appears nontoxic.? He is leukopenic and chronically immunosuppressed on tacrolimus and sirolimus.? No evidence of aspiration.? Today is day 3/3 of azithromycin. Vancomycin was discontinued yesterday after negative MRSA swab was obtained. He does report a now productive cough. Therefore sputum culture has been ordered. He is more wheezy today overall, but given his tachycardia, we will defer MDI or nebulizer treatments. He is not feeling particularly short of breath. If that changes, we will add nebulizer treatments. For now, continue incentive spirometry. He is able to get to a 1000 cc. 2. Status post heart transplant Patient is chronically on tacrolimus and sirolimus.? These medications have been ordered.? Tacrolimus level pending. 3. Chronic immunosuppression Secondary to antirejection medications.? Patient remains leukopenic but bandemia has resolved. He is empirically treated with oral vancomycin once daily for C diff prophylaxis (he has had prior C diff when he had his G-tube placed for his previous cancer treatment).? He is also on daily Bactrim for Pneumocystis prophylaxis.? We will continue oral vancomycin. As azithromycin has been completed, Bactrim will be resumed. Will discontinue probiotics due to his 's report that they worsened his diarrhea. 4. Post transplant lymphoproliferative disorder and obstructing tumor, presently in remission Patient received chemo and did have a G-tube in place at that time.? He did have the G-tube discontinued earlier this year.? He has been tolerating an oral diet well.? Does continue scopolamine patch for resultant secretion issues following treatment of his malignancy.? Additionally, he is on a PPI and H2 alice. Will ask speech therapy to reassess for evidence of dysphasia given his admission for pneumonia. 5. Insulin-dependent diabetes mellitus, type 2 Continue fingersticks and sliding scale.? He is on a controlled carb diet.? Remains on Lantus and lispro t.i.d..? Blood sugars have been 125-259 in the past 24 hours. Of note he does have jelly beans at bedside which he has been eating. 6. Obstructive sleep apnea Continue CPAP at night. 7. Hypertension Continue outpatient dose of carvedilol. He was initiated on hydralazine yesterday with overall improvement in his blood pressure. Systolic pressure was down to 139 during my evaluation this morning. He is notably more tachycardic than baseline. Could consider increasing his Coreg on an outpatient basis. However, given his present presentation with pneumonia, his tachycardia may be more physiologic. Will defer adding additional beta blockade for now. 8. Hyperlipidemia Typically on rosuvastatin 20 mg daily.? Receiving atorvastatin 40 mg here per formulary substitution 9. Transaminitis LFTs are now normalizing. Likely secondary to acute infectious process rather than his antirejection medications. Monitor periodically. 10. Chronic diarrhea Patient is on loperamide b.i.d. as needed.? He has had difficulties with diarrhea since his previously treated malignancy and G-tube placement/tube feeds.? As noted above, he also has prior history of C diff.? He is on prophylaxis with oral vancomycin.? His reports poor tolerance of probiotics as noted above. Therefore, they have been discontinued. 11. Hypothyroidism Continue usual outpatient thyroid replacement 12. Hypomagnesemia Will replete orally. Will continue his usual outpatient magnesium supplement as well. Suspect his hypomagnesemia is due to GI losses. Code status Full Prophylaxis On Lovenox Disposition Continue acute inpatient care. Plan to defer discharge another day given his tachycardia and worsening wheezing Time Spent With Patient Critical Care time: I spent a total of [] minutes of critical care time on this patient's care today; this time is exclusive of procedural time. Quality VTE Deep Vein Thrombosis/Pulmonary Embolism Present on Admission: No
[2022-09-21] MEDS: INSULIN GLARGINE 100 UNIT/ML 3ML PEN 15 UNIT SUBCUT (20:54)
[2022-09-21] MEDS: TRAZODONE 50 MG TABLET PO (20:54)
[2022-09-22 04:48] LABS: BUN Creatinine Ratio 17.9 (6-22); Blood Urea Nitrogen 20 mg/dL (9-20); Calcium 8.5 mg/dL (8.4-10.2); Carbon Dioxide 28 mmol/L (22-32); Chloride 99 mmol/L (98-107); Estimated Glomerular Filt Rate > 60 mL/min (>60); Glucose 146 mg/dL (80-110); HEMOLYSIS 16 (0-50); Magnesium 1.4 mg/dL (1.6-2.3); Potassium 3.7 mmol/L (3.4-5.1); Sodium 138 mmol/L (137-145)
[2022-09-22 04:57] LABS: Hematocrit 31.9 % (41-53); Hemoglobin 10.9 g/dL (13.5-17.5); Mean Corpuscular HGB Conc 34.2 % (30-36); Mean Corpuscular Volume 81.8 fL (80-100); Platelet Count 178 X10^3/uL (150-400); Red Cell Distribution Width 13.6 % (11.6-14.8); White Blood Cell Count 3.1 X10^3/uL (4.5-11.0)
[2022-09-22 05:21] LABS: Add Manual Diff / Slide Review YES
[2022-09-22 05:58] LABS: Neutrophils Absolute Manual 1426 /uL (3000-5900); RBC Morphology Normal Morphology; Total Cells Counted 100
[2022-09-22 06:00] VITALS: BP 119/86; PULSE 116; RESP 17; TEMP 36.6; O2SAT 93
[2022-09-22] MEDS: LEVOTHYROXINE 100 MCG TABLET PO (06:20)
[2022-09-22] MEDS: PANTOPRAZOLE DR 20 MG TABLET PO (06:20)
[2022-09-22] MEDS: TACROLIMUS 0.5 MG CAPSULE 2.5 MG PO (09:22)
[2022-09-22] MEDS: SIROLIMUS 3 MG 3 EACH PO (09:26)
[2022-09-22] MEDS: carvediloL 3.125 MG TABLET 6.25 MG PO (09:33)
[2022-09-22] MEDS: ATORVASTATIN 20 MG TABLET 40 MG PO (09:33)
[2022-09-22] MEDS: ENOXAPARIN 40 MG/0.4 ML SYRINGE SUBCUT (09:33)
[2022-09-22] MEDS: ASPIRIN EC 81 MG TABLET PO (09:33)
[2022-09-22] MEDS: AMOXICILLIN/CLAV 875/125 MG 1 TAB PO (09:33)
[2022-09-22] MEDS: guaiFENesin ER 600 MG TAB PO (09:33)
[2022-09-22] MEDS: POTASSIUM CHLORIDE 20 MEQ TAB 40 MEQ PO (09:43)
[2022-09-22] MEDS: VANCOMYCIN 125 MG CAPSULE PO (09:43)
[2022-09-22] MEDS: predniSONE 20 MG TABLET 40 MG PO (09:43)
[2022-09-22] MEDS: INSULIN LISPRO 100 UNIT/ML 3ML VIAL 12 UNIT SUBCUT (09:49)
[2022-09-22 10:52] VITALS: BP 151/89; PULSE 110; RESP 16; TEMP 36.6; O2SAT 93
--- NOTE | 2022-09-22 11:23 | SLP.IPNOTE ---
Per hospitalist, cancel speech order as pt is discharging today.
--- NOTE | 2022-09-22 12:22 | CM.DPC ---
DCP Discharge Home Per MD, pt is medically stable to d/c home today and no identified barriers or needs at this time. Per RN, pt is independent in room and d/c instructions will be given and no concerns. Plan: Patient to d/c home today via spouse POV and no SW needs at this time. TATA Leavitt
--- NOTE | 2022-09-22 12:23 | PM.DS.1 ---
History of Present Illness History of Present Illness Chief complaint: cough/high blood pressure x2 days Narrative: 70 y.o. 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 diabetes type 2, presented with chest pain associated with coughing, congestion, nasal congestion, and exertional dyspnea.? He also apparently spiked a fever of 100.4 this afternoon.? He does also note that he has been wheezing and when in the ED felt having supplemental O2 helped.? Apparently according to his , the myeloproliferative disorder that is now currently admission did leave him with thickening of the mucous membranes in his throat and that he needs to have anti mucous medications. He takes sirolimus and tacrolimus anti-rejection drugs as well as low-dose oral antibiotics for cardiac transplant prophylaxis. X-ray done in the ED reported bilateral hazy appearance left greater than right suspicious for pneumonia.? Currently he is afebrile, blood pressure 148/99 heart rate 109 respiratory rate 21 oxygen saturation of 93% on room air he weighs 73.9 kg with a BMI of 25.9.? He has a depressed WBC of 2.8 RBC 4.06 hemoglobin 11.3 hematocrit 33 is borderline pandemic at 9% with a neutrophil count of 1300.? Glucose is 178 with an A1c of 7.1 magnesium is 1.5 AST 69 ALT 60 proBNP is mildly elevated at 655 and viral PCR and COVID-19 PCR are all negative. ED discuss the patient's case with the heart transplant center.? He sees Dr. 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 They would like us to coordinate his care with transplant infectious disease.? Ana Garcia is at [phone].? He is followed by Dr. Darline Francisco at [facility]. Discharge Providers Provider Date of admission: 09/19/22 02:10 Discharge Date: 09/22/22 Primary care physician: Mendoza Venegas MD Consults: 09/21/22 14:06 Consult to Speech Therapy Evaluate & Treat Comment: Physician Instructions: Evaluate and treat Discharge provider: Federico Treviño MD Summary Hospital Course Discharge Diagnosis: 1. Bilateral lower lobe pneumonia, presumed bacterial 2. Persistent or chronic sinus tachycardia 3. Hypertension, uncontrolled 4. Insulin-dependent diabetes mellitus type 2 5. Status post heart transplant 6. Chronic immunosuppression 7. Post transplant lymphoproliferative disorder 8. Transaminitis, improving 9. Chronic hypo magnesemia 10. Chronic diarrhea, history of chronic C difficile 11. Obstructive sleep apnea on CPAP Hospital Course: Ruiz was admitted due to pneumonia which was presumed bacterial in nature. Cultures, COVID and influenza PCR were negative. He is chronically immunocompromised status post cardiac transplant. He was treated for coverage of typical and atypical or symptoms and is being discharged on Augmentin which he is tolerating well. Additionally, on total of 5 days steroid therapy with prednisone. He has history of chronic diarrhea and C difficile for which he saw Infectious Disease at [facility] and has been taking daily oral vancomycin and Imodium with good results. He did not have any diarrhea issues in hospital. He received IV magnesium for hypomagnesemia which is presumed chronic from his tacrolimus. Blood sugars were moderately elevated although hemoglobin A1c 7.1 indicates reasonably good long-term control. Blood pressures were persistently moderately elevated. Also his heart rate was persistently elevated in the 110-120 range in sinus rhythm. We went up on carvedilol dosing to 6.25 mg b.i.d.. To follow-up with provider for additional adjustments as required. Status at Discharge Cognitive/behavioral status at discharge: oriented Functional status at discharge: independent ambulation Overall status at discharge: patient is progressing back to baseline Time Spent with Patient Time spent: Greater than 30 minutes Exam Vital Signs (past 8 hours): - 09/22/22 06:00 09/22/22 10:52 Temperature 97.9 F 97.8 F Pulse Rate 116 H 110 H Respiratory Rate 17 16 Blood Pressure 119/86 151/89 H Pulse Oximetry 93 93 Oxygen Delivery Method Room Air,CPAP Oxygen Flow Rate 0 Narrative Exam Narrative: General: Alert very pleasant male in no acute distress Lungs: Scattered mild expiratory wheeze Heart: Regular with tachycardia Abdomen: Nontender Extremities: Nonedematous Neurological: Affect normal, not appearing confused Objective Labs Result Diagrams: 09/22/22 03:49 09/22/22 03:49 Labs: Laboratory Results - last 24 hr 09/22/22 09/22/22 03:49 03:49 WBC 3.1 L RBC 3.90 L Hgb 10.9 L Hct 31.9 L MCV 81.8 MCH 28.0 MCHC 34.2 RDW 13.6 Plt Count 178 Neut % (Auto) Community Engagement Representative Lymph % (Auto) Community Engagement Representative Pope % (Auto) Community Engagement Representative Eos % (Auto) Community Engagement Representative Baso % (Auto) Community Engagement Representative Neut # (Auto) Community Engagement Representative Lymph # (Auto) Community Engagement Representative Pope # (Auto) Community Engagement Representative Eos # (Auto) Community Engagement Representative Baso # (Auto) Community Engagement Representative Total Counted 100 Seg Neutrophils % 32.0 L Band Neutrophils % 14.0 H Lymphocytes % (Manual) 13.0 L Monocytes % (Manual) 32.0 H Eosinophils % (Manual) 1.0 L Basophils % (Manual) 1.0 Metamyelocytes % 5.0 H Myelocytes % 2.0 H Neutrophils # (Manual) 1426 L RBC Morphology Normal morphology Sodium 138 Potassium 3.7 Chloride 99 Carbon Dioxide 28 BUN 20 Creatinine 1.12 Estimated GFR > 60 BUN/Creatinine Ratio 17.9 Glucose 146 H Calcium 8.5 Magnesium 1.4 L PFSH Medical History Acquired immunocompromised state History of Hodgkin's lymphoma Hypothyroidism Insulin dependent diabetes mellitus Large B-cell lymphoma Obstructive sleep apnea on CPAP Surgical History Heart transplant status Family History Father Myocardial infarction Mother Old age Social History household members: spouse Smoking Status: Never smoker Discharge Plan Discharge Plan Patient Disposition: Home Provider Discharge Comment: You were treated for bacterial pneumonia. Additionally we increased your carvedilol to 6.25 mg twice daily for BP and heart rate control. See your provider in about 1 week for follow-up. Discharge orders & Medications Prescriptions: New prednisone 20 mg Tablet 40 mg PO DAILY Qty: 8 0RF amoxicillin-pot clavulanate 875-125 mg Tablet 1 tab PO BID Qty: 14 0RF carvedilol 6.25 mg tablet 6.25 mg PO BID Qty: 60 0RF Rx Instructions: must administer with a meal/food albuterol sulfate 90 mcg/actuation aerosol powdr breath activated 2 inh inhalation Q4H PRN (Reason: shortness of breath or wheezing) Qty: 1 0RF Continued alendronate 70 mg tablet 70 mg PO QWEEK ascorbic acid (vitamin C) 500 mg capsule, extended release 500 mg PO DAILY aspirin [Adult Low Dose Aspirin] 81 mg tablet,delayed release (DR/EC) 81 mg PO DAILY insulin aspart U-100 100 unit/mL insulin pen 12 unit SUBCUT TID Label Comments: plus 2 units for every 25mg/dl greater than 200mg/dl Lantus Solostar U-100 Insulin 100 unit/mL (3 mL) insulin pen 15 unit SUBCUT DAILY levothyroxine 100 mcg capsule 100 mcg PO DAILY tacrolimus 5 mg capsule 2.5 mg PO Q12H Rx Instructions: patient takes this at 0900 and 2100 famotidine 20 mg Tablet 20 mg PO BID rosuvastatin 20 mg Tablet 20 mg PO DAILY sirolimus 2 mg Tablet 3.5 mg PO QAM potassium chloride 20 mEq Tablet Extended Release 40 meq PO QAM Rx Instructions: 10 meq takes 4 cholecalciferol (vitamin D3) 50 mcg (2,000 unit) Tablet 50 mcg PO DAILY Rx Instructions: 2000iu loperamide [Anti-Diarrheal (loperamide)] 2 mg Capsule 2 mg PO BID omeprazole 20 mg Capsule,Delayed Release(Dr/Ec) 20 mg PO BID trazodone 50 mg Tablet 50 mg PO BEDTIME Vu-Gmey-Miiezwf 133 mg Tablet 133 mg PO TID Rx Instructions: 2 in the am, 1 at lunch, 2 at dinner vancomycin 125 mg capsule 125 mg PO DAILY Discontinued carvedilol 3.125 mg tablet 3.125 mg PO BID Follow up/Referrals: Mendoza Venegas MD [Primary Care Provider] - Diet/Activity/Treatments Diet: Carb-consistent/Diabetic Discharge Data Primary Care Provider: Mendoza Venegas Quality VTE Deep Vein Thrombosis/Pulmonary Embolism Present on Admission: No
[2022-09-22] MEDS: PROTEIN 2 EACH PO (12:31)
[2022-09-22] MEDS: MAGNESIUM CHLORIDE 64 MG TABLET 128 MG PO (12:32)
== END 2022-09-22 12:54 | disposition home or self-care (01) | DRG 391 ==
LOC: ED 09-19 01:36 → AC 09-19 02:11
PROVIDERS: Family Medicine; Neuromusculoskeletal Medicine, Sports Medicine; Admitting Provider Nurse Practitioner Family; Emergency Provider Emergency Medicine; Family Provider Internal Medicine; PCP Internal Medicine; Referring Provider Emergency Medicine; Visit Provider Nurse Practitioner Family
DX: K52.9 Noninfective gastroenteritis and colitis, unspecified (principal); J15.9 Unspecified bacterial pneumonia; D47.Z1 Post-transplant lymphoproliferative disorder (PTLD); D84.821 Immunodeficiency due to drugs; Z94.1 Heart transplant status; T86.20 Unspecified complication of heart transplant; E11.65 Type 2 diabetes mellitus with hyperglycemia; I10 Essential (primary) hypertension; G47.33 Obstructive sleep apnea (adult) (pediatric); E78.5 Hyperlipidemia, unspecified; E03.9 Hypothyroidism, unspecified; E83.42 Hypomagnesemia; R00.0 Tachycardia, unspecified; R74.01 Elevation of levels of liver transaminase levels; Z79.4 Long term (current) use of insulin; Z79.621 Long term (current) use of calcineurin inhibitor; Z20.822 Contact with and (suspected) exposure to COVID-19
CPT/HCPCS: 36415; 71045; 80048; 80053; 80076; 80197; 82550; 82553; 82962; 83036; 83605; 83735; 83880; 84145; 84484; 85007; 85025; 87040; 87633; 87797; 93005; 96365; 99284; A9270; J1650; J1815; J2543; J3475; J7507

== ENCOUNTER → 2022-09-29 09:16 | Outpatient (CLI) | payer MEDICARE, OTHER, SELFPAY ==
[2022-09-19 02:58] VITALS: BMI 25.9
[2022-09-29 10:45] LABS: HEMOLYSIS < 15 (0-50); Potassium 4.4 mmol/L (3.4-5.1)
[2022-09-29 10:46] LABS: Blood Urea Nitrogen 27 mg/dL (9-20); Calcium 9.2 mg/dL (8.4-10.2); Carbon Dioxide 32 mmol/L (22-32); Chloride 98 mmol/L (98-107); Estimated Glomerular Filt Rate 53 mL/min (>60); Glucose 163 mg/dL (80-110); Sodium 138 mmol/L (137-145)
[2022-09-30 15:21] LABS: Sirolimus 5.5 ng/mL (3.0-20.0); Tacrolimus 3.6 ng/mL (2.0-20.0)
== END ==
PROVIDERS: Family Provider Internal Medicine; PCP Internal Medicine; Referring Provider Physician Assistant Medical; Visit Provider Physician Assistant Medical
DX: Z94.1 Heart transplant status (principal)
CPT/HCPCS: 36415; 80048; 80195; 80197

== ENCOUNTER → 2022-10-13 09:27 | Outpatient (CLI) | payer MEDICARE, OTHER, SELFPAY ==
[2022-09-19 02:58] VITALS: BMI 25.9
[2022-10-13 12:38] LABS: BUN Creatinine Ratio 12.8 (6-22); Blood Urea Nitrogen 16 mg/dL (9-20); Calcium 8.9 mg/dL (8.4-10.2); Carbon Dioxide 32 mmol/L (22-32); Chloride 101 mmol/L (98-107); Estimated Glomerular Filt Rate > 60 mL/min (>60); Glucose 144 mg/dL (80-110); HEMOLYSIS < 15 (0-50); Potassium 4.4 mmol/L (3.4-5.1); Sodium 139 mmol/L (137-145)
[2022-10-14 10:36] LABS: Tacrolimus 2.8 ng/mL (2.0-20.0)
[2022-10-14 14:38] LABS: Sirolimus 6.9 ng/mL (3.0-20.0)
== END ==
PROVIDERS: Family Provider Internal Medicine; PCP Internal Medicine; Referring Provider Physician Assistant Medical; Visit Provider Physician Assistant Medical
DX: Z94.1 Heart transplant status (principal)
CPT/HCPCS: 36415; 80048; 80195; 80197

== ENCOUNTER → 2022-11-03 09:04 | Outpatient (CLI) | payer MEDICARE, OTHER, SELFPAY ==
[2022-09-19 02:58] VITALS: BMI 25.9
[2022-11-03 10:07] LABS: BUN Creatinine Ratio 14.5 (6-22); Blood Urea Nitrogen 24 mg/dL (9-20); Calcium 9.6 mg/dL (8.4-10.2); Carbon Dioxide 29 mmol/L (22-32); Chloride 99 mmol/L (98-107); Estimated Glomerular Filt Rate 44 mL/min (>60); Glucose 217 mg/dL (80-110); HEMOLYSIS < 15 (0-50); Potassium 4.9 mmol/L (3.4-5.1); Sodium 138 mmol/L (137-145)
[2022-11-04 09:18] LABS: Sirolimus 5.4 ng/mL (3.0-20.0); Tacrolimus 3.8 ng/mL (2.0-20.0)
== END ==
PROVIDERS: Family Provider Internal Medicine; PCP Internal Medicine; Referring Provider Internal Medicine Advanced Heart Failure and Transplant Cardiology; Visit Provider Internal Medicine Advanced Heart Failure and Transplant Cardiology
DX: Z94.1 Heart transplant status (principal)
CPT/HCPCS: 36415; 80048; 80195; 80197

== ENCOUNTER → 2022-12-09 09:51 | Outpatient (CLI) | payer MEDICARE, OTHER, SELFPAY ==
[2022-09-19 02:58] VITALS: BMI 25.9
[2022-12-09 12:18] LABS: BUN Creatinine Ratio 11.8 (6-22); Blood Urea Nitrogen 19 mg/dL (9-20); Calcium 8.8 mg/dL (8.4-10.2); Carbon Dioxide 26 mmol/L (22-32); Chloride 100 mmol/L (98-107); Estimated Glomerular Filt Rate 45 mL/min (>60); Glucose 171 mg/dL (80-110); HEMOLYSIS < 15 (0-50); Potassium 4.5 mmol/L (3.4-5.1); Sodium 137 mmol/L (137-145)
[2022-12-10 12:18] LABS: Sirolimus 8.1 ng/mL (3.0-20.0); Tacrolimus 2.5 ng/mL (2.0-20.0)
== END ==
PROVIDERS: Family Provider Internal Medicine; PCP Internal Medicine; Referring Provider Internal Medicine Advanced Heart Failure and Transplant Cardiology; Visit Provider Internal Medicine Advanced Heart Failure and Transplant Cardiology
DX: Z94.1 Heart transplant status (principal)
CPT/HCPCS: 36415; 80048; 80195; 80197

== ENCOUNTER → 2022-12-28 09:03 | Outpatient (CLI) | payer MEDICARE, OTHER, SELFPAY ==
[2022-09-19 02:58] VITALS: BMI 25.9
[2022-12-28 10:12] LABS: Add Manual Diff / Slide Review NO; Basophils Absolute Auto 0 /uL (0-100); Basophils Percent Auto 1.6 % (0-2); Eosinophils Absolute Auto 100 /uL (0-450); Eosinophils Percent Auto 4.5 % (2-4); Hematocrit 28.6 % (41-53); Hemoglobin 9.7 g/dL (13.5-17.5); Lymphocytes Absolute Auto 300 /uL (1100-4500); Lymphocytes Percent Auto 11.4 % (25-40); Mean Corpuscular HGB Conc 33.9 % (30-36); Mean Corpuscular Hemoglobin 27.5 PG (26-34); Mean Corpuscular Volume 81.3 fL (80-100); Monocytes Absolute Auto 500 /uL (0-900); Monocytes Percent Auto 20.4 % (3-14); Neutrophils Absolute Auto 1600 /uL (1500-7000); Neutrophils Percent Auto 62.1 % (50-75); Platelet Count 194 X10^3/uL (150-400); Red Blood Cell Count 3.52 X10^6/uL (4.5-5.9); Red Cell Distribution Width 15.2 % (11.6-14.8); White Blood Cell Count 2.5 X10^3/uL (4.5-11.0)
[2022-12-28 10:28] LABS: Alanine Aminotransferase 21 IU/L (<50); Albumin 3.8 g/dL (3.5-5.0); Albumin Globulin Ratio 1.5 (1.0-2.8); Alkaline Phosphatase 81 U/L (38-126); Aspartate Aminotransferase 27 IU/L (17-59); BUN Creatinine Ratio 14.9 (6-22); Bilirubin Total 0.3 mg/dL (0.2-1.3); Blood Urea Nitrogen 18 mg/dL (9-20); Calcium 9.3 mg/dL (8.4-10.2); Carbon Dioxide 26 mmol/L (22-32); Chloride 102 mmol/L (98-107); Estimated Glomerular Filt Rate > 60 mL/min (>60); Globulin 2.5 g/dL (1.7-4.1); Glucose 135 mg/dL (80-110); HEMOLYSIS < 15 (0-50); Magnesium 1.7 mg/dL (1.6-2.3); Potassium 4.3 mmol/L (3.4-5.1); Sodium 138 mmol/L (137-145); Total Protein 6.3 g/dL (6.3-8.2)
== END ==
PROVIDERS: Family Provider Internal Medicine; PCP Internal Medicine; Referring Provider Internal Medicine Advanced Heart Failure and Transplant Cardiology; Visit Provider Internal Medicine Advanced Heart Failure and Transplant Cardiology
DX: Z94.1 Heart transplant status (principal)
CPT/HCPCS: 36415; 80053; 80195; 80197; 83735; 85025

== ENCOUNTER → 2023-01-31 09:12 | Outpatient (CLI) | payer MEDICARE, OTHER, SELFPAY ==
[2022-09-19 02:58] VITALS: BMI 25.9
[2023-01-31 12:17] LABS: BUN Creatinine Ratio 15.1 (6-22); Blood Urea Nitrogen 26 mg/dL (9-20); Calcium 9.3 mg/dL (8.4-10.2); Carbon Dioxide 30 mmol/L (22-32); Chloride 102 mmol/L (98-107); Estimated Glomerular Filt Rate 41 mL/min (>60); Glucose 57 mg/dL (80-110); HEMOLYSIS < 15 (0-50); Potassium 4.2 mmol/L (3.4-5.1); Sodium 143 mmol/L (137-145)
== END ==
PROVIDERS: Family Provider Internal Medicine; PCP Internal Medicine; Referring Provider Internal Medicine Advanced Heart Failure and Transplant Cardiology; Visit Provider Internal Medicine Advanced Heart Failure and Transplant Cardiology
DX: Z94.1 Heart transplant status (principal)
CPT/HCPCS: 36415; 80048; 80195; 80197

== ENCOUNTER → 2023-02-08 08:47 | Outpatient (CLI) | payer MEDICARE, OTHER, SELFPAY ==
[2022-09-19 02:58] VITALS: BMI 25.9
[2023-02-08 10:48] LABS: Clostridium Difficile Tox PCR Negative for C. diff (Negative)
== END ==
PROVIDERS: Family Provider Internal Medicine; PCP Internal Medicine; Referring Provider Internal Medicine; Visit Provider Internal Medicine
DX: R19.7 Diarrhea, unspecified (principal)
CPT/HCPCS: 87493

== ENCOUNTER → 2023-02-16 08:53 | Outpatient (CLI) | payer MEDICARE, OTHER, SELFPAY ==
[2022-09-19 02:58] VITALS: BMI 25.9
[2023-02-16 10:23] LABS: Alanine Aminotransferase 19 IU/L (<50); Albumin 3.7 g/dL (3.5-5.0); Albumin Globulin Ratio 1.3 (1.0-2.8); Alkaline Phosphatase 80 U/L (38-126); Aspartate Aminotransferase 25 IU/L (17-59); BUN Creatinine Ratio 14.9 (6-22); Bilirubin Total 0.3 mg/dL (0.2-1.3); Blood Urea Nitrogen 20 mg/dL (9-20); Calcium 8.8 mg/dL (8.4-10.2); Carbon Dioxide 33 mmol/L (22-32); Chloride 99 mmol/L (98-107); Estimated Glomerular Filt Rate 56 mL/min (>60); Globulin 2.8 g/dL (1.7-4.1); Glucose 53 mg/dL (80-110); HEMOLYSIS < 15 (0-50); Potassium 4.2 mmol/L (3.4-5.1); Sodium 139 mmol/L (137-145); Total Protein 6.5 g/dL (6.3-8.2)
[2023-02-20 18:21] LABS: Tacrolimus 2.6
== END ==
PROVIDERS: Family Provider Internal Medicine; Referring Provider Internal Medicine Advanced Heart Failure and Transplant Cardiology; Visit Provider Internal Medicine Advanced Heart Failure and Transplant Cardiology
DX: N17.9 Acute kidney failure, unspecified (principal); R19.7 Diarrhea, unspecified; Z94.1 Heart transplant status
CPT/HCPCS: 36415; 80053; 80195; 80197

== ENCOUNTER → 2023-04-05 09:28 | Outpatient (CLI) | payer MEDICARE, OTHER, SELFPAY ==
[2022-09-19 02:58] VITALS: BMI 25.9
[2023-04-17 10:47] LABS: Tacrolimus 3.2
[2023-04-24 09:50] LABS: Sirolimus 4.8
== END ==
PROVIDERS: Family Provider Internal Medicine; Referring Provider Internal Medicine Advanced Heart Failure and Transplant Cardiology; Visit Provider Internal Medicine Advanced Heart Failure and Transplant Cardiology
DX: Z94.1 Heart transplant status (principal)
CPT/HCPCS: 36415; 80195; 80197

== ENCOUNTER 2023-04-14 14:41 | Emergency (ER) | payer MEDICARE, OTHER, SELFPAY ==
[2022-09-19 02:58] VITALS: BMI 25.9
[2023-04-14] VITALS (7 sets, daily range): BP systolic 129–143; BP diastolic 72–76; PULSE 100–107; RESP 17–28; TEMP 36.1–37.1; O2SAT 93–95; BMI 22.4
--- NOTE | 2023-04-14 14:54 | DI.RAD.S_ITS ---
PROCEDURE: XR CHEST 2V INDICATIONS: pneumothorax TECHNIQUE: 2 views of the chest were acquired. COMPARISON: [facility], CR, XR CHEST 1V, 09/18/2022, 23:03. [facility], CR, XR CHEST 1V, 01/25/2021, 21:02. FINDINGS: Surgical changes and devices: Sternotomy wires, coiled wire device crosses the midline from left to right following the course of the left subclavian vein into the proximal superior vena cava area. Lungs and pleura: Lungs are mildly edematous. There is a small residual left pleural effusion and a small apical left-sided pneumothorax after presumed thoracentesis given clinical history provided, earlier same day elsewhere. This measures up to 4-6 mm in maximal thickness at the apex of the left hemithorax.. Mediastinum: Mediastinal contours are normal. Heart size is mildly enlarged. Bones and chest wall: No suspicious bony abnormalities. Soft tissues appear unremarkable. IMPRESSION: Minimal postprocedural left apical pneumothorax, generalized mild pulmonary edema pattern, mild cardiomegaly, small residual left subpulmonic pleural effusion. Dictated by: Osmel Kuo M.D. on 04/14/2023 at 15:42 Approved by: Osmel Kuo M.D. on 04/14/2023 at 15:47
--- NOTE | 2023-04-14 17:37 | ED.RECABL ---
HPI - Recheck/Abnormal Lab/Rx General Chief Complaint: Recheck/Abnormal Lab/Rx Stated Complaint: [facility] dr ref/thorentesis/has anumothorax Time Seen by Provider: 04/14/23 17:15 Source: patient Mode of arrival: Wheelchair History of Present Illness HPI narrative: Patient 72-year-old male history of non-Hodgkin's B-cell lymphoma, heart transplant pleural effusions frequent thoracentesis presents today with a postprocedure iatrogenic pneumothorax. They drove to [place] where he gets all of his care by the time they got home they received a phone call that says that he has a small left apical pneumothorax. He is completely asymptomatic he denies any chest pain or shortness of breath. Overall feeling well. Related Data Home Medications Medication Instructions Recorded Confirmed alendronate 70 mg tablet 70 mg PO QWEEK 02/21/19 09/19/22 ascorbic acid (vitamin C) 500 mg 500 mg PO DAILY 02/21/19 09/19/22 capsule,extended release aspirin 81 mg tablet,delayed 81 mg PO DAILY 02/21/19 09/19/22 release (Adult Low Dose Aspirin) insulin aspart U-100 100 unit/mL 12 unit SUBCUT TID 02/21/19 09/19/22 (3 mL) subcutaneous pen insulin glargine 100 unit/mL (3 15 unit SUBCUT DAILY 02/21/19 09/19/22 mL) subcutaneous pen (Lantus Solostar U-100 Insulin) levothyroxine 100 mcg capsule 100 mcg PO DAILY 02/21/19 09/19/22 tacrolimus 5 mg capsule, 2.5 mg PO Q12H 02/21/19 09/19/22 immediate-release famotidine 20 mg tablet 20 mg PO BID 11/19/20 09/19/22 rosuvastatin 20 mg tablet 20 mg PO DAILY 11/19/20 09/19/22 cholecalciferol (vitamin D3) 50 50 mcg PO DAILY 09/19/22 09/19/22 mcg (2,000 unit) tablet loperamide 2 mg capsule 2 mg PO BID 09/19/22 09/19/22 (Anti-Diarrheal (loperamide)) magnesium oxide-magnesium amino 133 mg PO TID 09/19/22 09/19/22 acid chelate 133 mg tablet (Qd-Tkay-Wjcvnkr) omeprazole 20 mg capsule,delayed 20 mg PO BID 09/19/22 09/19/22 release potassium chloride 20 mEq 40 meq PO QAM 09/19/22 09/19/22 tablet,extended release sirolimus 2 mg tablet 3.5 mg PO QAM 09/19/22 09/19/22 trazodone 50 mg tablet 50 mg PO BEDTIME 09/19/22 09/19/22 vancomycin 125 mg capsule 125 mg PO DAILY 09/22/22 09/22/22 Previous Rx's Medication Instructions Recorded albuterol sulfate 90 mcg/actuation 2 inh inhalation Q4H PRN shortness 09/22/22 breath activated powder inhaler of breath or wheezing #1 ea amoxicillin 875 mg-potassium 1 tab PO BID #14 tabs 09/22/22 clavulanate 125 mg tablet carvedilol 6.25 mg tablet 6.25 mg PO BID #60 tabs 09/22/22 prednisone 20 mg tablet 40 mg PO DAILY #8 tabs 09/22/22 Allergies Allergy/AdvReac Type Severity Reaction Status Date / Time fish oil [FISH OIL] Allergy Unknown Verified 04/14/23 14:45 hydrocodone [HYDROCODONE] Allergy Unknown Verified 04/14/23 14:45 Review of Systems Review of Systems ROS Unobtainable: All systems reviewed & are unremarkable except as noted in HPI and below Patient History Medical History Acquired immunocompromised state History of Hodgkin's lymphoma Hypothyroidism Insulin dependent diabetes mellitus Large B-cell lymphoma Obstructive sleep apnea on CPAP Surgical History Heart transplant status Family History Father Myocardial infarction Mother Old age Social History household members: spouse Smoking Status: Never smoker Smoking Status: Never smoker alcohol intake frequency: holidays/special occasions only Substance Use Type: does not use Exam Initial Vital Signs Initial Vital Signs: Vital Signs Temperature 96.9 F L 04/14/23 14:45 Pulse Rate 103 H 04/14/23 14:45 Respiratory Rate 17 04/14/23 14:45 Blood Pressure 129/72 04/14/23 14:45 Pulse Oximetry 95 04/14/23 14:45 Oxygen Delivery Method Room Air 04/14/23 14:45 GENERAL: Chronically ill appearing 72-year-old male and in no acute distress. HEENT: Head atraumatic,EOMI, pupils reactive, face symmetric, moist mucous membranes CARDIOVASCULAR: Regular rate and rhythm without murmurs, rubs or gallops. RESPIRATORY: Breath sounds equal bilaterally, no wheezes rales or rhonchi. EXTREMITIES: Normal range of motion, no clubbing or edema. Neurovascularly intact NEUROLOGICAL: Alert and oriented x4. SKIN: Warm, dry, no laceration, no petechiae, no rashes or lesions. Course Orders Ordered: ED Orders 04/14/23 14:54 Chest [XR chest 2V] Stat Vital Signs Vital signs: Vital Signs - 8 hr 04/14/23 14:45 Temperature 96.9 F L Pulse Rate 103 H Respiratory Rate 17 Blood Pressure 129/72 Pulse Oximetry 95 Oxygen Delivery Method Room Air MDM - Recheck/Abnormal Lab/Rx Imaging Data Chest x-ray: Radiologist's Impression: PROCEDURE:? XR CHEST 2V ? INDICATIONS:? pneumothorax ? TECHNIQUE:? 2 views of the chest were acquired.? ? COMPARISON:? [facility], CR, XR CHEST 1V, 09/18/2022, 23:03.? [facility], CR, XR CHEST 1V, 01/25/2021, 21:02. ? FINDINGS:? ? Surgical changes and devices:? Sternotomy wires, coiled wire device crosses the midline from left to right following the course of the left subclavian vein into the proximal superior vena cava area.? ? Lungs and pleura:? Lungs are mildly edematous.? There is a small residual left pleural effusion and a small apical left-sided pneumothorax after presumed thoracentesis given clinical history provided, earlier same day elsewhere.? This measures up to 4-6 mm in maximal thickness at the apex of the left hemithorax..? ? Mediastinum:? Mediastinal contours are normal.? Heart size is mildly enlarged.? ? Bones and chest wall:? No suspicious bony abnormalities.? Soft tissues appear unremarkable.? ? IMPRESSION:? Minimal postprocedural left apical pneumothorax, generalized mild pulmonary edema pattern, mild cardiomegaly, small residual left subpulmonic pleural effusion. ? ? Dictated by: Osmel Kuo M.D. on 04/14/2023 at 15:42? MDM Narrative Medical decision making narrative: Patient 72-year-old male who presents today with iatrogenic left-sided pneumothorax. He is asymptomatic repeat x-ray 6 hours after the procedure it remains stable and very small. Discussion with Dr. Winters on-call surgery who reports that can be discharged home and return as needed. I agree with this patient is completely asymptomatic very small apical pneumothorax with no symptoms. Discussed with both and strict return precautions and follow-up as needed. Discharge Plan Departure Patient Disposition: Home Clinical Impression: Pneumothorax Instructions: Pneumothorax Activity Restrictions/Additional Instructions: *You have been diagnosed with pneumothorax *What to do: At this time you have a very small pneumothorax. Please monitor very closely. *Continue to take medications as directed *Follow up with your primary care provider in 2-3 days or call [phone] Please call your doctor's at [facility] *Return to ER if you should have increasing chest pain shortness of breath, or any new, worsening or concerning symptoms Prescriptions: No Action alendronate 70 mg tablet 70 mg PO QWEEK ascorbic acid (vitamin C) 500 mg capsule, extended release 500 mg PO DAILY aspirin [Adult Low Dose Aspirin] 81 mg tablet,delayed release (DR/EC) 81 mg PO DAILY insulin aspart U-100 100 unit/mL insulin pen 12 unit SUBCUT TID Patient Comments: plus 2 units for every 25mg/dl greater than 200mg/dl Lantus Solostar U-100 Insulin 100 unit/mL (3 mL) insulin pen 15 unit SUBCUT DAILY levothyroxine 100 mcg capsule 100 mcg PO DAILY tacrolimus 5 mg capsule 2.5 mg PO Q12H Rx Instructions: patient takes this at 0900 and 2100 famotidine 20 mg Tablet 20 mg PO BID rosuvastatin 20 mg Tablet 20 mg PO DAILY sirolimus 2 mg Tablet 3.5 mg PO QAM potassium chloride 20 mEq Tablet Extended Release 40 meq PO QAM Rx Instructions: 10 meq takes 4 cholecalciferol (vitamin D3) 50 mcg (2,000 unit) Tablet 50 mcg PO DAILY Rx Instructions: 2000iu loperamide [Anti-Diarrheal (loperamide)] 2 mg Capsule 2 mg PO BID omeprazole 20 mg Capsule,Delayed Release(Dr/Ec) 20 mg PO BID trazodone 50 mg Tablet 50 mg PO BEDTIME Vi-Hxie-Tqzewlp 133 mg Tablet 133 mg PO TID Rx Instructions: 2 in the am, 1 at lunch, 2 at dinner prednisone 20 mg Tablet 40 mg PO DAILY Qty: 8 0RF amoxicillin-pot clavulanate 875-125 mg Tablet 1 tab PO BID Qty: 14 0RF carvedilol 6.25 mg tablet 6.25 mg PO BID Qty: 60 0RF Rx Instructions: must administer with a meal/food albuterol sulfate 90 mcg/actuation aerosol powdr breath activated 2 inh inhalation Q4H PRN (Reason: shortness of breath or wheezing) Qty: 1 0RF vancomycin 125 mg capsule 125 mg PO DAILY Stand Alone Forms: Patient Portal/API
== END 2023-04-14 18:05 | disposition home or self-care (01) ==
PROVIDERS: Emergency Provider Emergency Medicine; Family Provider Internal Medicine
DX: J93.9 Pneumothorax, unspecified (principal)
CPT/HCPCS: 71046; 99281; 99283

== ENCOUNTER 2023-05-08 10:40 | Emergency (ER) | payer MEDICARE, OTHER, SELFPAY ==
[2022-09-19 02:58] VITALS: BMI 25.9
[2023-05-08] VITALS (9 sets, daily range): BP systolic 124–164; BP diastolic 77–98; PULSE 96–108; RESP 18–24; TEMP 36.6; O2SAT 92–97; BMI 21.1
--- NOTE | 2023-05-08 11:01 | DI.CT.S_ITS ---
PROCEDURE: CT ANGIO HEAD AND NECK INDICATIONS: left eye droop x 5 days TECHNIQUE: After the administration of intravenous contrast, 1 mm thick sections acquired from the aortic arch through the [place]. 3-dimensional ayyambj-wnsgltajv-oxladvsily (MIP) and/or volume rendering reformats were acquired of the central intracranial vasculature and neck separately. For radiation dose reduction, the following was used: automated exposure control, adjustment of mA and/or kV according to patient size. COMPARISON: [facility], CT, CT HEAD/BRAIN WO CON, 10/30/2020, 8:31. [facility], CR, XR CHEST 1V, 05/08/2023, 11:12. FINDINGS: Image quality: Limited by venous contamination with numerous collateral veins seen throughout the neck. BRAIN: CSF spaces: Ventricles are normal in size and shape. Basal cisterns are patent. No extra-axial fluid collections. Brain: No significant abnormality of the brain is identified for age. Skull and face: Calvarium and facial bones appear intact, without suspicious lesions. Orbits appear normal. Sinuses: Sinuses and mastoids are clear. HEAD CT ANGIOGRAPHY: Anterior circulation: Intracranial internal carotid arteries are normal in size and flow. The flow within the paired anterior cerebral arteries is normal and symmetric. The flow within the middle cerebral arteries is normal and symmetric. The anterior communicating artery is seen. No aneurysms are seen. Posterior circulation: Visualized portions of the vertebral arteries demonstrate normal caliber, and join to form a normal appearing basilar artery. There is a prominent right posterior communicating artery seen, with an accompanying diminutive right P1 segment. This is attributed to a type origin of the right posterior cerebral artery, which is considered to be a normal developmental variant of typically no clinical consequence. The flow within the posterior cerebral arteries is normal and symmetric. No aneurysms are seen. NECK CT ANGIOGRAPHY: Carotid system: The great vessels demonstrate a conventional anatomy as they arise from the aortic arch. Focal calcification can be seen involving the origin of the right brachiocephalic artery, with approximately 70% narrowing. Atherosclerotic calcification is noted. The common carotid arteries demonstrate normal caliber and courses. The bifurcation regions demonstrate atherosclerotic irregularity and calcification, with approximately 30% narrowing seen on each side. The more distal internal carotid arteries demonstrate normal course and caliber. Posterior circulation: The origins of the vertebral arteries both appear widely patent. The more superior extracranial portions of both vertebral arteries also demonstrate normal courses and calibers. They join to form a normal appearing basilar artery. Soft tissues: Visualized neck soft tissues demonstrate no suspicious abnormalities. Moderate to prominent bilateral pleural effusions are partially seen. Fluid material can be seen within the esophagus. Bones: No suspicious bony lesions. Visualized cervical spine appears normally aligned. Sternotomy wires are seen. Age-appropriate bony degenerative changes are seen. There is a remote T4 anterior wedge deformity, 20-30%. IMPRESSION: No significant intracranial arterial abnormality is seen. No significant carotid or vertebral artery stenosis can be seen. If there is strong clinical suspicion for an acute stroke, please consider a brain MRI for further evaluation, as it is more sensitive (assuming that there is no contraindication to MRI). There is focal calcification seen involving the origin of the right brachiocephalic artery, approximately 70%. Moderate to prominent bilateral pleural effusions are partially seen. Additional findings: type origin of the right posterior cerebral artery. Sternotomy wires Remote T4 anterior wedge deformity, with 20-30% Presumed esophageal reflux Any quantitative measurements of stenosis were performed using NASCET criteria. Dictated by: Jace Chao M.D. on 05/08/2023 at 12:36 Approved by: Jace Chao M.D. on 05/08/2023 at 12:42
--- NOTE | 2023-05-08 11:02 | DI.RAD.S_ITS ---
PROCEDURE: XR CHEST 1V INDICATIONS: chest pain TECHNIQUE: One view of the chest was acquired. COMPARISON: [facility], CR, XR CHEST 2V, 04/14/2023, 15:08. [facility], CR, XR CHEST 1V, 09/18/2022, 23:03. FINDINGS: Surgical changes and devices: Sternotomy wires. Coiled wire device crosses midline from the left to right following the course of left subclavian vein into the proximal superior vena cava region, stable from prior. Lungs and pleura: Low lung volumes. Bibasilar atelectasis. Blunting of left costophrenic angle, may represent small effusion versus atelectasis or consolidation. Prominent interstitial markings. No significant pneumothorax. Mediastinum: Mediastinal contours appear normal. Heart contour is not well seen secondary to low lung volumes. Bones and chest wall: No suspicious bony lesions. Overlying soft tissues appear unremarkable. IMPRESSION: Low lung volumes. Blunting of the left costophrenic angle, may represent small effusion versus atelectasis or consolidation. Prominent interstitial markings which may be secondary to low lung volumes versus pulmonary edema. Recommend correlation with volume status. Dictated by: Luis Fernando Khan M.D. on 05/08/2023 at 11:39 Approved by: Luis Fernando Khan M.D. on 05/08/2023 at 11:44
[2023-05-08 11:53] LABS: Hematocrit 30.9 % (41-53); Hemoglobin 10.5 g/dL (13.5-17.5); Mean Corpuscular Hemoglobin 27.8 PG (26-34); Mean Corpuscular Volume 81.8 fL (80-100); Platelet Count 203 X10^3/uL (150-400); Red Blood Cell Count 3.78 X10^6/uL (4.5-5.9); Red Cell Distribution Width 13.5 % (11.6-14.8); White Blood Cell Count 3.2 X10^3/uL (4.5-11.0)
[2023-05-08 11:54] LABS: Add Manual Diff / Slide Review YES
--- NOTE | 2023-05-08 11:55 | ED_ITS ---
HPI - Neuro Symptoms/Deficit General Chief Complaint: Neuro Symptoms/Deficit Stated Complaint: L/ eye keeps shutting Time Seen by Provider: 05/08/23 11:00 Source: patient and family Mode of arrival: Wheelchair History of Present Illness HPI Narrative: Patient is a 72-year-old male non-Hodgkin's B-cell lymphoma, heart transplant pleural effusions frequent thoracentesis, presents today with left eye droop. reports that it has been ongoing for about 5 days. He is on a tingling or weakness. He is no visual loss no blurry vision or double vision. He frequently gets thoracentesis both right and left sides. He is not requiring an y oxygen now he denies any chest pain or shortness of breath. He reports that he feels fine but his has noticed some eye droop no facial droop no difficulty speaking numbness tingling or weakness. On Anticoagulants: Yes (ASA 81 mg daily) Related Data Home Medications Medication Instructions Recorded Confirmed alendronate 70 mg tablet 70 mg PO QWEEK 02/21/19 09/19/22 ascorbic acid (vitamin C) 500 mg 500 mg PO DAILY 02/21/19 09/19/22 capsule,extended release aspirin 81 mg tablet,delayed 81 mg PO DAILY 02/21/19 09/19/22 release (Adult Low Dose Aspirin) insulin aspart U-100 100 unit/mL 12 unit SUBCUT TID 02/21/19 09/19/22 (3 mL) subcutaneous pen insulin glargine 100 unit/mL (3 15 unit SUBCUT DAILY 02/21/19 09/19/22 mL) subcutaneous pen (Lantus Solostar U-100 Insulin) levothyroxine 100 mcg capsule 100 mcg PO DAILY 02/21/19 09/19/22 tacrolimus 5 mg capsule, 2.5 mg PO Q12H 02/21/19 09/19/22 immediate-release famotidine 20 mg tablet 20 mg PO BID 11/19/20 09/19/22 rosuvastatin 20 mg tablet 20 mg PO DAILY 11/19/20 09/19/22 cholecalciferol (vitamin D3) 50 50 mcg PO DAILY 09/19/22 09/19/22 mcg (2,000 unit) tablet loperamide 2 mg capsule 2 mg PO BID 09/19/22 09/19/22 (Anti-Diarrheal (loperamide)) magnesium oxide-magnesium amino 133 mg PO TID 09/19/22 09/19/22 acid chelate 133 mg tablet ([id number]) omeprazole 20 mg capsule,delayed 20 mg PO BID 09/19/22 09/19/22 release potassium chloride 20 mEq 40 meq PO QAM 09/19/22 09/19/22 tablet,extended release sirolimus 2 mg tablet 3.5 mg PO QAM 09/19/22 09/19/22 trazodone 50 mg tablet 50 mg PO BEDTIME 09/19/22 09/19/22 vancomycin 125 mg capsule 125 mg PO DAILY 09/22/22 09/22/22 Previous Rx's Medication Instructions Recorded albuterol sulfate 90 mcg/actuation 2 inh inhalation Q4H PRN shortness 09/22/22 breath activated powder inhaler of breath or wheezing #1 ea amoxicillin 875 mg-potassium 1 tab PO BID #14 tabs 09/22/22 clavulanate 125 mg tablet carvedilol 6.25 mg tablet 6.25 mg PO BID #60 tabs 09/22/22 prednisone 20 mg tablet 40 mg PO DAILY #8 tabs 09/22/22 Allergies Allergy/AdvReac Type Severity Reaction Status Date / Time fish oil [FISH OIL] Allergy Unknown Verified 04/14/23 14:45 hydrocodone [HYDROCODONE] Allergy Unknown Verified 04/14/23 14:45 Review of Systems Review of Systems ROS Unobtainable: All systems reviewed & are unremarkable except as noted in HPI and below Hematologic/Lymphatic On Anticoagulants: Yes (ASA 81 mg daily) Patient History Medical History Acquired immunocompromised state History of Hodgkin's lymphoma Hypothyroidism Insulin dependent diabetes mellitus Large B-cell lymphoma Obstructive sleep apnea on CPAP Surgical History Heart transplant status Family History Father Myocardial infarction Mother Old age Social History household members: spouse Smoking Status: Never smoker Smoking Status: Never smoker alcohol intake frequency: holidays/special occasions only Substance Use Type: does not use Exam Initial Vital Signs Initial Vital Signs: Vital Signs Temperature 97.8 F 05/08/23 10:53 Pulse Rate 99 H 05/08/23 10:53 Respiratory Rate 18 05/08/23 10:53 Blood Pressure 138/77 05/08/23 10:53 Pulse Oximetry 97 05/08/23 10:53 Oxygen Delivery Method Room Air 05/08/23 10:53 GENERAL: Chronically ill well-appearing 72-year-old male HEENT: Head atraumatic,EOMI, pupils reactive, face symmetric, moist mucous membranes CARDIOVASCULAR: Regular rate and rhythm without murmurs, rubs or gallops. RESPIRATORY: Decreased breath sounds bilaterally no respiratory distress speaks in full sentences ABDOMEN: Soft, nontender. Normoactive bowel sounds all 4 quadrants. No guarding or rebound. EXTREMITIES: Normal range of motion, no clubbing or edema. Neurovascularly in tact NEUROLOGICAL: Alert and oriented x4.Normal gait and speech. SKIN: Warm, dry, no laceration, no petechiae, no rashes or lesions. Scores NIH Stroke Scale Level of Conciousness: Alert, keenly responsive Ask month/age: Answers both questions correctly. Open/close eyes, close hand: Performs both tasks correctly Best gaze horizontal: Normal Visual neri: No visual loss Facial palsy: Normal symetrical movement Left arm drift: No drift for full 10 sec Right arm drift: No drift for full 10 sec Left leg drift: No drift for full 5 sec Right leg drift: No drift for full 5 sec Limb ataxia: Absent Sensory on face/arms/legs: Normal, no sensory loss Best language: No aphasia, normal Dysarthria: Normal Extinction or inattention: No abnormality Total NIH Stroke scale score: 0 Course Orders Ordered: ED Orders 05/08/23 11:01 CT angio head and neck Stat 05/08/23 11:02 XR chest 1V Stat 05/08/23 11:47 Complete Blood Count AUTO DIFF Stat Comprehensive Metabolic Panel Stat Lipase Stat Procalcitonin Stat Troponin & CK Cardiac Panel Stat 05/08/23 11:49 EKG-12 Lead Stat 05/08/23 13:01 Urine Culture Stat Urine Microscopic Stat Vital Signs Vital signs: Vital Signs - 8 hr 05/08/23 12:04 05/08/23 12:30 05/08/23 13:25 Pulse Rate 96 H 98 H 105 H Respiratory Rate 20 Blood Pressure Pulse Oximetry 96 92 Oxygen Delivery Method 05/08/23 13:26 05/08/23 13:26 05/08/23 13:30 Pulse Rate 101 H Respiratory Rate Blood Pressure 164/87 H 160/79 H Pulse Oximetry 93 Oxygen Delivery Method 05/08/23 13:30 05/08/23 14:00 05/08/23 14:00 Pulse Rate 100 H 98 H Respiratory Rate 24 Blood Pressure 124/98 H Pulse Oximetry 96 95 Oxygen Delivery Method Room Air 05/08/23 14:30 05/08/23 14:30 05/08/23 15:30 Pulse Rate 99 H Respiratory Rate 24 Blood Pressure 150/93 H 132/85 Pulse Oximetry 94 Oxygen Delivery Method 05/08/23 15:30 Pulse Rate 108 H Respiratory Rate 20 Blood Pressure Pulse Oximetry 95 Oxygen Delivery Method MDM - Neuro Symptoms/Deficit Lab Data 05/08/23 11:47 05/08/23 11:47 Labs: Lab Results 05/08/23 05/08/23 05/08/23 Range/Units 11:47 11:47 11:47 WBC 3.2 L (4.5-11.0) X10^3/uL RBC 3.78 L (4.5-5.9) X10^6/uL Hgb 10.5 L (13.5-17.5) g/dL Hct 30.9 L (41-53) % MCV 81.8 (80-100) fL MCH 27.8 (26-34) PG MCHC 34.0 (30-36) % RDW 13.5 (11.6-14.8) % Plt Count 203 (150-400) X10^3/uL Neut % (Auto) Not Reportable Lymph % (Auto) Not Reportable Taney % (Auto) Not Reportable Eos % (Auto) Not Reportable Baso % (Auto) Not Reportable Lymph # (Auto) Not Reportable Taney # (Auto) Not Reportable Baso # (Auto) Not Reportable Total Counted 100 Seg Neutrophils % 55.0 (38-70) % Band Neutrophils % 6.0 (3-7) % Lymphocytes % (Manual) 11.0 L (25-45) % Monocytes % (Manual) 21.0 H (2-11) % Eosinophils % (Manual) 3.0 (2-4) % Basophils % (Manual) 1.0 (0-1) % Metamyelocytes % 3.0 H (-0) % Neutrophils # (Manual) 1952 L (9967-8079) /uL RBC Morphology Normal morphology Sodium 139 (137-145) mmol/L Potassium 4.3 (3.4-5.1) mmol/L Chloride 99 (98-107) mmol/L Carbon Dioxide 34 H (22-32) mmol/L BUN 14 (9-20) mg/dL Creatinine 0.95 (0.66-1.25) mg/dL Estimated GFR > 60 (>60) mL/min BUN/Creatinine Ratio 14.7 (6-22) Glucose 78 L (80-110) mg/dL Calcium 9.2 (8.4-10.2) mg/dL Total Bilirubin 0.4 (0.2-1.3) mg/dL AST 27 (17-59) IU/L ALT 16 (<50) IU/L Alkaline Phosphatase 81 (38-126) U/L Total Creatine Kinase 61 (55-170) U/L Troponin I < 0.012 (0.01-0.034) ng/mL Total Protein 7.0 (6.3-8.2) g/dL Albumin 3.8 (3.5-5.0) g/dL Globulin 3.2 (1.7-4.1) g/dL Albumin/Globulin Ratio 1.2 (1.0-2.8) Lipase 22 L (23-300) U/L Procalcitonin 0.07 (<0.5) ng/mL Urine RBC (0-5/HPF) Urine WBC (0-5/HPF) Ur Squamous Epith Cells (0-5/HPF) Urine Bacteria (None) Ur Culture Indicated? 05/08/23 Range/Units 13:01 WBC (4.5-11.0) X10^3/uL RBC (4.5-5.9) X10^6/uL Hgb (13.5-17.5) g/dL Hct (41-53) % MCV (80-100) fL MCH (26-34) PG MCHC (30-36) % RDW (11.6-14.8) % Plt Count (150-400) X10^3/uL Neut % (Auto) Lymph % (Auto) Taney % (Auto) Eos % (Auto) Baso % (Auto) Lymph # (Auto) Taney # (Auto) Baso # (Auto) Total Counted Seg Neutrophils % (38-70) % Band Neutrophils % (3-7) % Lymphocytes % (Manual) (25-45) % Monocytes % (Manual) (2-11) % Eosinophils % (Manual) (2-4) % Basophils % (Manual) (0-1) % Metamyelocytes % (-0) % Neutrophils # (Manual) (9125-8904) /uL RBC Morphology Sodium (137-145) mmol/L Potassium (3.4-5.1) mmol/L Chloride (98-107) mmol/L Carbon Dioxide (22-32) mmol/L BUN (9-20) mg/dL Creatinine (0.66-1.25) mg/dL Estimated GFR (>60) mL/min BUN/Creatinine Ratio (6-22) Glucose (80-110) mg/dL Calcium (8.4-10.2) mg/dL Total Bilirubin (0.2-1.3) mg/dL AST (17-59) IU/L ALT (<50) IU/L Alkaline Phosphatase (38-126) U/L Total Creatine Kinase (55-170) U/L Troponin I (0.01-0.034) ng/mL Total Protein (6.3-8.2) g/dL Albumin (3.5-5.0) g/dL Globulin (1.7-4.1) g/dL Albumin/Globulin Ratio (1.0-2.8) Lipase (23-300) U/L Procalcitonin (<0.5) ng/mL Urine RBC 0-1/hpf (0-5/HPF) Urine WBC 1-5/hpf (0-5/HPF) Ur Squamous Epith Cells 1-5 /hpf (0-5/HPF) Urine Bacteria None seen (None) Ur Culture Indicated? Specimen cultured Urine Dip Bedside Urine Glucose Negative Bedside Urine Bilirubin - Negative Bedside Urine Ketone - Negative Urine Specific [place] 1.010 Bedside Urine Occult Blood - Negative Bedside Urine pH 8.0 Bedside Urine Protein + 30 Bedside Urine Urobilinogen - Negative Bedside Urine Nitrite - Negative Bedside Urine Leukocytes - Negative Esterase Imaging Data Chest x-ray: Radiologist's Impression: PROCEDURE:? XR CHEST 1V ? INDICATIONS:? chest pain ? TECHNIQUE:? One view of the chest was acquired.? ? COMPARISON:? [facility], CR, XR CHEST 2V, 04/14/2023, 15:08.? [facility], CR, XR CHEST 1V, 09/18/2022, 23:03. ? FINDINGS:? ? Surgical changes and devices:? Sternotomy wires.? Coiled wire device crosses midline from the left to right following the course of left subclavian vein into the proximal superior vena cava region, stable from prior. ? Lungs and pleura:? Low lung volumes.? Bibasilar atelectasis.? Blunting of left costophrenic angle, may represent small effusion versus atelectasis or consolidation.? Prominent interstitial markings.? No significant pneumothorax. ? Mediastinum:? Mediastinal contours appear normal.? Heart contour is not well seen secondary to low lung volumes.? ? Bones and chest wall:? No suspicious bony lesions.? Overlying soft tissues appear unremarkable.? ? IMPRESSION:? Low lung volumes.? Blunting of the left costophrenic angle, may represent small effusion versus atelectasis or consolidation.? Prominent interstitial markings which may be secondary to low lung volumes versus pulmonary edema.? Recommend correlation with volume status.? ? Dictated by: Luis Fernando Khan M.D. on 05/08/2023 at 11:39 ? ? Approved by: Luis Fernando Khan M.D. on 05/08/2023 at 11:44 ? ECG Data Interpretation: Low voltage sinus rhythm rate 98 IA interval 184 QRS [address] changes incomplete right bundle-branch block similar to prior EKGs MDM Narrative Medical decision making narrative: Patient 72-year-old male with multiple medical problems mostly followed at the [facility] presents today with left eye drooping. Noticed some drooping on exam but is very minimal. He is NIH stroke scale 0 is been ongoing 5 days certainly other window for tPA. CT angio is negative. He does have bilateral pleural effusions without symptoms. reports that they are getting a PEG tube in 2 days at the [facility] and he is scheduled to have a left-sided thoracentesis and do the right side the next day. He has no evidence of infection chronically leukopenic with a WBC count of 3.2, no electrolyte abnormality no FLOR. Patient overall appears well at this time he has good outpatient follow-up. No evidence of CVA . Discharge Plan Departure Patient Disposition: Home Clinical Impression: Bilateral pleural effusion Instructions: Pleural Effusion, DI for Transient Ischemic Attack Activity Restrictions/Additional Instructions: *You have been diagnosed with bilateral pleural effusion *What to do: No evidence of stroke today, though you are at risk. You do have fluid buildup on both lungs. This is scheduled to be removed this week. Please follow-up at [facility]. Images were pushed to [facility] they should be able to view them. *Continue to take medications as directed *Follow up with your primary care provider in 2-3 days or call [phone] *Return to ER if you should have increased numbness tingling weakness confusion difficulty breathing or any new, worsening or concerning symptoms Prescriptions: No Action alendronate 70 mg tablet 70 mg PO QWEEK ascorbic acid (vitamin C) 500 mg capsule, extended release 500 mg PO DAILY aspirin [Adult Low Dose Aspirin] 81 mg tablet,delayed release (DR/EC) 81 mg PO DAILY insulin aspart U-100 100 unit/mL insulin pen 12 unit SUBCUT TID Patient Comments: plus 2 units for every 25mg/dl greater than 200mg/dl Lantus Solostar U-100 Insulin 100 unit/mL (3 mL) insulin pen 15 unit SUBCUT DAILY levothyroxine 100 mcg capsule 100 mcg PO DAILY tacrolimus 5 mg capsule 2.5 mg PO Q12H Rx Instructions: patient takes this at 0900 and 2100 famotidine 20 mg Tablet 20 mg PO BID rosuvastatin 20 mg Tablet 20 mg PO DAILY sirolimus 2 mg Tablet 3.5 mg PO QAM potassium chloride 20 mEq Tablet Extended Release 40 meq PO QAM Rx Instructions: 10 meq takes 4 cholecalciferol (vitamin D3) 50 mcg (2,000 unit) Tablet 50 mcg PO DAILY Rx Instructions: 2000iu loperamide [Anti-Diarrheal (loperamide)] 2 mg Capsule 2 mg PO BID omeprazole 20 mg Capsule,Delayed Release(Dr/Ec) 20 mg PO BID trazodone 50 mg Tablet 50 mg PO BEDTIME [id number]-[id number] 133 mg Tablet 133 mg PO TID Rx Instructions: 2 in the am, 1 at lunch, 2 at dinner prednisone 20 mg Tablet 40 mg PO DAILY Qty: 8 0RF amoxicillin-pot clavulanate 875-125 mg Tablet 1 tab PO BID Qty: 14 0RF carvedilol 6.25 mg tablet 6.25 mg PO BID Qty: 60 0RF Rx Instructions: must administer with a meal/food albuterol sulfate 90 mcg/actuation aerosol powdr breath activated 2 inh inhalation Q4H PRN (Reason: shortness of breath or wheezing) Qty: 1 0RF vancomycin 125 mg capsule 125 mg PO DAILY Referrals: Jose D Riddle MD [Primary Care Provider] - Stand Alone Forms: Patient Portal/API
[2023-05-08 12:04] LABS: Alanine Aminotransferase 16 IU/L (<50); Albumin 3.8 g/dL (3.5-5.0); Albumin Globulin Ratio 1.2 (1.0-2.8); Alkaline Phosphatase 81 U/L (38-126); Aspartate Aminotransferase 27 IU/L (17-59); BUN Creatinine Ratio 14.7 (6-22); Bilirubin Total 0.4 mg/dL (0.2-1.3); Blood Urea Nitrogen 14 mg/dL (9-20); Calcium 9.2 mg/dL (8.4-10.2); Carbon Dioxide 34 mmol/L (22-32); Chloride 99 mmol/L (98-107); Creatine Kinase 61 U/L (55-170); Estimated Glomerular Filt Rate > 60 mL/min (>60); Globulin 3.2 g/dL (1.7-4.1); Glucose 78 mg/dL (80-110); HEMOLYSIS < 15 (0-50); Lipase 22 U/L (23-300); Potassium 4.3 mmol/L (3.4-5.1); Sodium 139 mmol/L (137-145)
[2023-05-08 12:06] LABS: Neutrophils Absolute Manual 1952 /uL (3000-5900); Total Cells Counted 100
[2023-05-08 12:08] LABS: RBC Morphology Normal Morphology
[2023-05-08 12:15] LABS: Troponin I < 0.012 ng/mL (0.01-0.034)
[2023-05-08 12:21] LABS: Procalcitonin 0.07 ng/mL (<0.5)
[2023-05-08 13:21] LABS: RBC Urine 0-1/HPF (0-5/HPF); WBC Urine 1-5/HPF (0-5/HPF)
[2023-05-08 13:22] LABS: Bacteria Urine None Seen; Culture Indicated Urine Specimen Cultured; Squamous Epithelial Cell Urine 1-5 /HPF (0-5/HPF)
== END 2023-05-08 15:53 | disposition home or self-care (01) ==
PROVIDERS: Emergency Provider Emergency Medicine; Family Provider Internal Medicine; PCP Student in an Organized Health Care Education/Training Program
DX: J90 Pleural effusion, not elsewhere classified (principal); R07.9 Chest pain, unspecified; Z79.01 Long term (current) use of anticoagulants; Z79.899 Other long term (current) drug therapy
CPT/HCPCS: 36415; 70496; 70498; 71045; 80053; 81003; 81015; 82550; 83690; 84145; 84484; 85007; 85025; 87086; 93005; 99284; Q9967

== ENCOUNTER 2023-05-27 09:18 | Emergency (ER) | payer MEDICARE, OTHER, SELFPAY ==
[2022-09-19 02:58] VITALS: BMI 25.9
[2023-05-27] VITALS (16 sets, daily range): BP systolic 109–146; BP diastolic 69–89; PULSE 96–102; RESP 12–18; TEMP 36.8; O2SAT 93–97; BMI 19.7
--- NOTE | 2023-05-27 09:30 | ED_ITS ---
HPI - General Adult General Chief complaint: Skin/Abscess/Foreign Body Stated complaint: feeding tube has pills stuck Time Seen by Provider: 05/27/23 09:30 History of Present Illness HPI narrative: 72-year-old male nonsmoker with history of esophageal cancer with previous chemo and resultant cardiomyopathy and subsequent heart transplant in 2014, an complete inability to tolerate anything orally and has G tube which has been in place for quite some time. Patient's initial diagnosis was of lymphoma in the 70s and he is developed the above-stated complications in the aftermath. He was at the [facility] and had Interventional Radiology place an 18 Irish gastrostomy tube on May 10. She typically crutches up his pills to put through the tube and noticed this morning that it was no longer flushing. She used all the methods that she is comfortable with and even called the nursing hotline and was encouraged to use sulaiman amie through to attempt to flush and when that did not work she was directed to the emergency department. He is otherwise fine unwell and denies any dizziness, weakness or lightheadedness. He is no chest pain, abdominal pain or other specific complaints Related Data Home Medications Medication Instructions Recorded Confirmed alendronate 70 mg tablet 70 mg PO QWEEK 02/21/19 09/19/22 ascorbic acid (vitamin C) 500 mg 500 mg PO DAILY 02/21/19 09/19/22 capsule,extended release aspirin 81 mg tablet,delayed 81 mg PO DAILY 02/21/19 09/19/22 release (Adult Low Dose Aspirin) insulin aspart U-100 100 unit/mL 12 unit SUBCUT TID 02/21/19 09/19/22 (3 mL) subcutaneous pen insulin glargine 100 unit/mL (3 15 unit SUBCUT DAILY 02/21/19 09/19/22 mL) subcutaneous pen (Lantus Solostar U-100 Insulin) levothyroxine 100 mcg capsule 100 mcg PO DAILY 02/21/19 09/19/22 tacrolimus 5 mg capsule, 2.5 mg PO Q12H 02/21/19 09/19/22 immediate-release famotidine 20 mg tablet 20 mg PO BID 11/19/20 09/19/22 rosuvastatin 20 mg tablet 20 mg PO DAILY 11/19/20 09/19/22 cholecalciferol (vitamin D3) 50 50 mcg PO DAILY 09/19/22 09/19/22 mcg (2,000 unit) tablet loperamide 2 mg capsule 2 mg PO BID 09/19/22 09/19/22 (Anti-Diarrheal (loperamide)) magnesium oxide-magnesium amino 133 mg PO TID 09/19/22 09/19/22 acid chelate 133 mg tablet (Ks-Jciu-Xualzna) omeprazole 20 mg capsule,delayed 20 mg PO BID 09/19/22 09/19/22 release potassium chloride 20 mEq 40 meq PO QAM 09/19/22 09/19/22 tablet,extended release sirolimus 2 mg tablet 3.5 mg PO QAM 09/19/22 09/19/22 trazodone 50 mg tablet 50 mg PO BEDTIME 09/19/22 09/19/22 vancomycin 125 mg capsule 125 mg PO DAILY 09/22/22 09/22/22 Previous Rx's Medication Instructions Recorded albuterol sulfate 90 mcg/actuation 2 inh inhalation Q4H PRN shortness 09/22/22 breath activated powder inhaler of breath or wheezing #1 ea amoxicillin 875 mg-potassium 1 tab PO BID #14 tabs 09/22/22 clavulanate 125 mg tablet carvedilol 6.25 mg tablet 6.25 mg PO BID #60 tabs 09/22/22 prednisone 20 mg tablet 40 mg PO DAILY #8 tabs 09/22/22 Allergies Allergy/AdvReac Type Severity Reaction Status Date / Time fish oil [FISH OIL] Allergy Unknown Verified 04/14/23 14:45 hydrocodone [HYDROCODONE] Allergy Unknown Verified 04/14/23 14:45 Review of Systems Review of Systems Narrative: GENERAL: Denies chills, fatigue, malaise, fever, sweats. HEENT: Denies sinus pain, ear pain, sore throat, difficulty swallowing, dizziness. RESPIRATORY: Denies dyspnea, cough, wheezing, hemoptysis, sputum. CARDIOVASCULAR: Denies chest pain, palpitations, orthopnea, edema, GASTROINTESTINAL: Denies nausea, vomiting, abdominal pain, diarrhea, constipation, melena. : Denies dysuria, frequency, incontinence, hematuria, urinary retention. MUSCULOSKELETAL: denies weakness, joint pain, or bony pain SKIN: Denies rash, skin lesions, or other NEUROLOGIC: Denies weakness, headache, numbness, change in speech, confusion, seizures, incoordination. PSYCHIATRIC: No concerning psychosocial issues. 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 Extraoccular muscles are intact bilaterally. There is no subconjunctival hemorrhage or exudate. CHEST: Lungs are clear to auscultation bilaterally and free of wheezes, rales, or rhonchi. Heart rate is regular rhythm, there are no murmurs, clicks, rubs, or gallops. There is no chest wall tenderness. ABD: Abdomen is soft and nontender. There is no guarding or rebound. Bowel sounds are normal in all 4 quadrants. There is no mass or organomegaly. G-tube patent, no surrounding erythema, no abnormal drainage, unable to flush EXT: Full painless ROM of all extremities with no loss of sensation or strength. SKIN: Warm, pink, and dry. No erythema or rash Initial Vital Signs Initial Vital Signs: Vital Signs Pulse Rate 101 H 05/27/23 09:24 Pulse Oximetry 95 05/27/23 09:24 Course Orders Ordered: ED Orders 05/27/23 09:32 XR acute abdomen series Stat Consultations Consultation #1: After unsuccessful ability of myself and nursing to flush of the bedside, called to local General surgery, Dr. Burkett. Given recent IR placement would recommend discussion with IR at prior to any attempt to remove or replace here. Consultation #2: call to Dr. Cook (IR at [facility] we have discussed the patient's history and physical exam as well as recent hospitalization at their facility and our inability to address the gastric tube here. He states he is happy to accept this patient in transfer and thinks this for our attempts, completely understands the need for transfer Vital Signs Vital signs: Vital Signs - 8 hr 05/27/23 09:33 05/27/23 09:24 05/27/23 09:25 Temperature 98.3 F Pulse Rate 100 H 101 H Respiratory Rate 16 Blood Pressure 111/74 132/79 Pulse Oximetry 93 95 Oxygen Delivery Method Room Air 05/27/23 09:25 05/27/23 09:30 05/27/23 09:30 Temperature Pulse Rate 102 H 100 H Respiratory Rate Blood Pressure 111/74 Pulse Oximetry 95 96 Oxygen Delivery Method 05/27/23 10:00 05/27/23 10:30 05/27/23 11:00 Temperature Pulse Rate 99 H 98 H 98 H Respiratory Rate Blood Pressure Pulse Oximetry 94 96 97 Oxygen Delivery Method 05/27/23 11:30 05/27/23 11:58 05/27/23 11:58 Temperature Pulse Rate 97 H 96 H Respiratory Rate 12 Blood Pressure 109/69 Pulse Oximetry 96 96 Oxygen Delivery Method Room Air 05/27/23 12:00 05/27/23 12:00 05/27/23 12:30 Temperature Pulse Rate 96 H Respiratory Rate Blood Pressure 115/71 125/79 Pulse Oximetry 96 Oxygen Delivery Method 05/27/23 12:30 05/27/23 13:00 05/27/23 13:00 Temperature Pulse Rate 96 H 96 H Respiratory Rate Blood Pressure 137/77 Pulse Oximetry 95 94 Oxygen Delivery Method 05/27/23 13:33 05/27/23 13:33 05/27/23 14:00 Temperature Pulse Rate 101 H Respiratory Rate Blood Pressure 146/89 H 124/81 Pulse Oximetry 93 Oxygen Delivery Method Room Air 05/27/23 14:00 05/27/23 14:30 05/27/23 15:57 Temperature Pulse Rate 99 H 99 H 98 H Respiratory Rate 18 Blood Pressure 133/81 Pulse Oximetry 96 96 97 Oxygen Delivery Method Room Air Room Air Medical Decision Making Lab Data Labs: Point of Care Testing Glucose POC 129 Point of care testing: Point of Care Testing Glucose POC 129 MDM Narrative Medical decision making narrative: [72] year old patient presents with gastric tube problem Multiple etiologies for patient's symptoms considered including, but not limited to: G tube malfunction vs. other[] Prior Charts reviewed in our EMR Primary Historian: patient Imaging reviewed: AAS demonstrates no obvious abnormality Consultations: discussed with Dr. Burkett (Gen Surgery at ) as well as Dr. Cook (IR at ) see details above Patient's symptoms improved over duration of stay with above-stated therapies. After arranging for possible transport we made 1 final attempt at irrigation, under sterile conditions I used a pediatric Stewart in advanced as far as I could into the G-tube, it was just long enough to likely dislodged a small amount of the pill fragments, this was followed by nursing attempt to irrigate which seemed to work well when patient was standing. Pill fragments were visualized and easily removed, afterwards it easily flowed. No need for transfer at this point Findings and discharge diagnosis discussed with patient/family followed by verbalization of understanding Return precautions discussed with patient/family whom verbalize understanding of diagnosis and plan Discharge Plan Departure Patient Disposition: Home Clinical Impression: Gastrostomy tube dysfunction Instructions: How to Use Your Feeding Tube Activity Restrictions/Additional Instructions: *You have been diagnosed with [problem with your feeding tube. Thankfully after extensive team effort it is flushed and functioning properly] *What to do: *Please continue to take your regular medications as directed. [ ] New medication prescriptions sent to your pharmacy: [ ] [ ] New medication written as a paper prescription [ ] No new medications given *Please follow up with your primary care provider in 2-3 days, call for an appointment. Let them know you were seen in the Emergency Department and that we ask that you be seen in follow up. We will electronically transmit a record of today's note if your PCP is in our system *If you do not have a primary care provider please contact the [facility] Resource line at [phone]. They will ask some questions about your medical history and help get you set up with a doctor in the community. *Return to Emergency Department if you should have any new, worsening or concerning symptoms, such as [fever greater than 101 F, shaking chills, worsening pain, persistent vomiting or other bothersome symptoms] Prescriptions: No Action alendronate 70 mg tablet 70 mg PO QWEEK ascorbic acid (vitamin C) 500 mg capsule, extended release 500 mg PO DAILY aspirin [Adult Low Dose Aspirin] 81 mg tablet,delayed release (DR/EC) 81 mg PO DAILY insulin aspart U-100 100 unit/mL insulin pen 12 unit SUBCUT TID Patient Comments: plus 2 units for every 25mg/dl greater than 200mg/dl Kyrie Hanna U-100 Insulin 100 unit/mL (3 mL) insulin pen 15 unit SUBCUT DAILY levothyroxine 100 mcg capsule 100 mcg PO DAILY tacrolimus 5 mg capsule 2.5 mg PO Q12H Rx Instructions: patient takes this at 0900 and 2100 famotidine 20 mg Tablet 20 mg PO BID rosuvastatin 20 mg Tablet 20 mg PO DAILY sirolimus 2 mg Tablet 3.5 mg PO QAM potassium chloride 20 mEq Tablet Extended Release 40 meq PO QAM Rx Instructions: 10 meq takes 4 cholecalciferol (vitamin D3) 50 mcg (2,000 unit) Tablet 50 mcg PO DAILY Rx Instructions: 2000iu loperamide [Anti-Diarrheal (loperamide)] 2 mg Capsule 2 mg PO BID omeprazole 20 mg Capsule,Delayed Release(Dr/Ec) 20 mg PO BID trazodone 50 mg Tablet 50 mg PO BEDTIME Vo-Juet-Ccpcjom 133 mg Tablet 133 mg PO TID Rx Instructions: 2 in the am, 1 at lunch, 2 at dinner prednisone 20 mg Tablet 40 mg PO DAILY Qty: 8 0RF amoxicillin-pot clavulanate 875-125 mg Tablet 1 tab PO BID Qty: 14 0RF carvedilol 6.25 mg tablet 6.25 mg PO BID Qty: 60 0RF Rx Instructions: must administer with a meal/food albuterol sulfate 90 mcg/actuation aerosol powdr breath activated 2 inh inhalation Q4H PRN (Reason: shortness of breath or wheezing) Qty: 1 0RF vancomycin 125 mg capsule 125 mg PO DAILY Referrals: Jose D Riddle MD [Primary Care Provider] - Stand Alone Forms: Patient Portal/API
--- NOTE | 2023-05-27 09:32 | DI.RAD.S_ITS ---
PROCEDURE: XR ACUTE ABDOMEN SERIES INDICATIONS: poorly functioning feeding tube TECHNIQUE: One view chest and two views of the abdomen were acquired. COMPARISON: [facility], CR, XR ABDOMEN 1 VIEW, 12/08/2022, 11:41. FINDINGS: Surgical changes and devices: A left upper quadrant feeding tube is seen. To the limits of the study, no significant abnormality is seen. There is an abandoned AICD lead. Sternotomy wires are seen. Right-sided postoperative clips are seen. Chest: Lungs are clear. Heart size is normal. No pleural effusions. No pneumoperitoneum. Abdomen: Bowel gas pattern is normal. No suspicious calcifications. Visualized solid organ contours appear normal. Bones: No suspicious bony lesions. Age-appropriate bony degenerative changes are seen. IMPRESSION: Left upper quadrant feeding tube, without a viola abnormality seen on these plain film images. If clinically appropriate a dedicated CT or Gastrografin injected be considered for further evaluation. Dictated by: Jace Chao M.D. on 05/27/2023 at 9:42 Approved by: Jace Chao M.D. on 05/27/2023 at 9:43
--- NOTE | 2023-05-27 13:13 | PC.NURSE ---
Pt arrived with a clogged peg tube. tried sulaiman amie to unclog the tube this am. unsucessful. arrived to the ER, tried to use cola soda and warm water. unsuccessful. deflated the balloon and attempted to flush. no success. reinflated the balloon with the 7 cc that was instilled in there previously. site looks good. unable to flush. minimal return from the tube. Dr. Schroeder aware.
--- NOTE | 2023-05-27 13:36 | PC.NURSE ---
This RN to check on patient. He denies any pain. PEG tube is in place with no drainage or discoloration around or on dressing. Pt ambulated up to bathroom and back on his own. Steady on feet. Warm blankets provided. Encouraged to use call lights for needs.
--- NOTE | 2023-05-27 15:58 | PC.NURSE ---
1530: This RN attempts to flush/irrigate patients PEG tub with room temperature sterile water. After several attempts asked patient to stand. Patient tube began to drain. Pt PEG tube flushed without resistance. Provider aware. Pt given 600mL of formula by with no complications.
== END 2023-05-27 15:59 | disposition home or self-care (01) ==
PROVIDERS: Emergency Provider Emergency Medicine; Family Provider Internal Medicine; PCP Student in an Organized Health Care Education/Training Program
DX: T85.598A Other mechanical complication of other gastrointestinal prosthetic devices, implants and grafts, initial encounter (principal)
CPT/HCPCS: 74022; 82962; 99283

== ENCOUNTER → 2023-06-29 11:30 | Outpatient (CLI) | payer MEDICARE, OTHER, SELFPAY ==
[2022-09-19 02:58] VITALS: BMI 25.9
[2023-06-29 12:57] LABS: Hematocrit 32.7 % (41-53); Hemoglobin 11.2 g/dL (13.5-17.5); Mean Corpuscular HGB Conc 34.3 % (30-36); Mean Corpuscular Hemoglobin 28.8 PG (26-34); Mean Corpuscular Volume 83.9 fL (80-100); Platelet Count 143 X10^3/uL (150-400); Red Blood Cell Count 3.89 X10^6/uL (4.5-5.9); Red Cell Distribution Width 15.7 % (11.6-14.8); White Blood Cell Count 3.5 X10^3/uL (4.5-11.0)
[2023-06-29 14:03] LABS: Add Manual Diff / Slide Review YES
[2023-06-29 14:06] LABS: Neutrophils Absolute Manual 2030 /uL (3000-5900); Total Cells Counted 100
[2023-06-29 14:07] LABS: Platelet Estimate Decreased on smear; RBC Morphology Normal Morphology
[2023-06-29 14:09] LABS: Alanine Aminotransferase 44 IU/L (<50); Albumin 3.8 g/dL (3.5-5.0); Albumin Globulin Ratio 1.3 (1.0-2.8); Alkaline Phosphatase 167 U/L (38-126); Aspartate Aminotransferase 37 IU/L (17-59); BUN Creatinine Ratio 37.8 (6-22); Bilirubin Total 0.4 mg/dL (0.2-1.3); Blood Urea Nitrogen 34 mg/dL (9-20); Calcium 9.6 mg/dL (8.4-10.2); Carbon Dioxide 33 mmol/L (22-32); Chloride 97 mmol/L (98-107); Estimated Glomerular Filt Rate > 60 mL/min (>60); Globulin 2.9 g/dL (1.7-4.1); Glucose 69 mg/dL (80-110); HEMOLYSIS < 15 (0-50); Potassium 4.2 mmol/L (3.4-5.1); Sodium 139 mmol/L (137-145); Total Protein 6.7 g/dL (6.3-8.2)
[2023-06-29 15:52] LABS: Lactate Dehydrogenase 235 U/L (120-246)
== END ==
PROVIDERS: Family Provider Internal Medicine; PCP Student in an Organized Health Care Education/Training Program; Referring Provider Internal Medicine Hematology & Oncology; Visit Provider Internal Medicine Hematology & Oncology
DX: C83.38 Diffuse large B-cell lymphoma, lymph nodes of multiple sites (principal); D47.Z1 Post-transplant lymphoproliferative disorder (PTLD)
CPT/HCPCS: 36415; 80053; 83615; 85007; 85025

== ENCOUNTER → 2023-07-08 08:44 | Outpatient (CLI) | payer MEDICARE, OTHER, SELFPAY ==
[2022-09-19 02:58] VITALS: BMI 25.9
--- NOTE | 2023-07-08 | DI.RAD.S_ITS ---
PROCEDURE: XR CHEST 2V INDICATIONS: J90 TECHNIQUE: 2 views of the chest were acquired. COMPARISON: [facility], CR, XR CHEST 1V, 05/08/2023, 11:12. [facility], CR, XR CHEST 2V, 04/14/2023, 15:08. FINDINGS: Surgical changes and devices: Post median sternotomy. Abandoned lead or catheter in the left region of the subclavian vein. Percutaneous jejunostomy or gastrostomy. Lungs and pleura: Lower lung volumes. Bilateral hazy opacity. No pleural effusions or pneumothorax. Mediastinum: Mediastinal contours are normal. Heart size is normal. Bones and chest wall: No suspicious bony abnormalities. Soft tissues appear unremarkable. IMPRESSION: Bilateral hazy opacity. This could be due to atelectasis and appears similar to the prior exam. Alternatively, this could be due to pulmonary vasculature engorgement. Lower lung volumes. If concern for pneumonia, consider CT chest. Dictated by: Warren Darby M.D. on 07/08/2023 at 9:14 Approved by: Warren Darby M.D. on 07/08/2023 at 9:17
== END ==
PROVIDERS: Family Provider Internal Medicine; PCP Student in an Organized Health Care Education/Training Program; Referring Provider Student in an Organized Health Care Education/Training Program; Visit Provider Internal Medicine Critical Care Medicine
DX: J90 Pleural effusion, not elsewhere classified (principal)
CPT/HCPCS: 71046

== ENCOUNTER → 2023-07-13 08:42 | Outpatient (CLI) | payer MEDICARE, OTHER, SELFPAY ==
[2022-09-19 02:58] VITALS: BMI 25.9
[2023-07-13 10:28] LABS: Hematocrit 31.8 % (41-53); Hemoglobin 10.6 g/dL (13.5-17.5); Mean Corpuscular HGB Conc 33.4 % (30-36); Mean Corpuscular Hemoglobin 28.2 PG (26-34); Mean Corpuscular Volume 84.6 fL (80-100); Platelet Count 184 X10^3/uL (150-400); Red Blood Cell Count 3.75 X10^6/uL (4.5-5.9); Red Cell Distribution Width 16.1 % (11.6-14.8); White Blood Cell Count 4.1 X10^3/uL (4.5-11.0)
[2023-07-13 10:30] LABS: Add Manual Diff / Slide Review YES
[2023-07-13 10:50] LABS: Alanine Aminotransferase 49 IU/L (<50); Albumin 3.8 g/dL (3.5-5.0); Albumin Globulin Ratio 1.5 (1.0-2.8); Alkaline Phosphatase 185 U/L (38-126); Aspartate Aminotransferase 47 IU/L (17-59); BUN Creatinine Ratio 36.9 (6-22); Bilirubin Total 0.2 mg/dL (0.2-1.3); Blood Urea Nitrogen 31 mg/dL (9-20); Calcium 9.4 mg/dL (8.4-10.2); Carbon Dioxide 38 mmol/L (22-32); Chloride 94 mmol/L (98-107); Estimated Glomerular Filt Rate > 60 mL/min (>60); Globulin 2.6 g/dL (1.7-4.1); Glucose 106 mg/dL (80-110); HEMOLYSIS < 15 (0-50); Magnesium 1.8 mg/dL (1.6-2.3); Potassium 3.8 mmol/L (3.4-5.1); Sodium 138 mmol/L (137-145); Total Protein 6.4 g/dL (6.3-8.2)
[2023-07-13 11:18] LABS: Neutrophils Absolute Manual 2993 /uL (3000-5900); Total Cells Counted 100
[2023-07-13 11:19] LABS: RBC Morphology Normal Morphology
== END ==
PROVIDERS: Family Provider Internal Medicine; PCP Student in an Organized Health Care Education/Training Program; Referring Provider Internal Medicine Advanced Heart Failure and Transplant Cardiology; Visit Provider Internal Medicine Advanced Heart Failure and Transplant Cardiology
DX: Z94.1 Heart transplant status (principal)
CPT/HCPCS: 36415; 80053; 80195; 80197; 83735; 85007; 85025

== ENCOUNTER → 2023-08-29 09:55 | Outpatient (CLI) | payer MEDICARE, OTHER, SELFPAY ==
[2022-09-19 02:58] VITALS: BMI 25.9
--- NOTE | 2023-08-29 | DI.RAD.S_ITS ---
PROCEDURE: XR CHEST 2V INDICATIONS: Pleural effusion, not elsewhere classified TECHNIQUE: 2 views of the chest were acquired. COMPARISON: [facility], CR, XR CHEST 2V, 07/08/2023, 8:56. FINDINGS: Heart size enlarged, there is moderate vascular congestion present. Obscuration of both hemidiaphragms. Low lung volumes accentuate pulmonary interstitium and heart size. Atherosclerotic vascular calcification noted in the aortic arch. Midline sternal wires, cardiac valve prosthesis, abandoned defibrillator lead noted. Generalized decreased osseous mineralization noted. IMPRESSION: 1. Cardiomegaly and moderate vascular congestion and bibasilar pleural effusions Approved by: Tee Lopez M.D. on 08/29/2023 at 18:43
--- OUTSIDE RECORDS SUMMARY | 2023-08-31 10:06 | XMS_ITS | Referral Summary ---
Author Name Unknown Organization [facility] Address [address] [place] [address] Care Team Providers Care Business Integration Analyst Name Role Phone Juwan Knight MD Unavailable [phone] Josias Chavez MD Unavailable [phone] Tracey Chavez MD Unavailable [phone] Harinder Truong PharmD Unavailable [phone] Darline Boyle MD Unavailable [phone] Adalgisa Solorzano RN Unavailable Unavailable Jose D Riddle MD Primary Care Provider [phone] Rosa Bobo MD Unavailable Анна Garcia RD Unavailable Unavail able Reason for Referral * Radiology Services (Routine) - Pending Review Specialty Diagnoses / Procedures Referred By João douglass Referred To Contact Radiology Med Diagnoses Pleural effusion, bilateral Procedures XR Chest 2 View Rosa Bobo MD [address] [facility] [address] [place] [address] Referral ID Status Reason Start Date Expiration Date V isits Requested Visits Authorized [id number] Pending Review 08/23/2023 08/22/2024 1 1 * Physical/ Occ/ Speech Therapy (Routine) - In Process Specialty Diagnoses / Procedures Referred By João douglass Referred To Contact Diagnoses Weakness generalized Heart replaced by transplant (HCC) Rosa Bobo MD [address] [facility] [id number] [place] [address] [facility] - [facility] Therapy & Rehabilitation [address] [place] [address] Referral ID Status Reason Start Date Expiration Date Visits Requested Visits Authorized [id number] In Process Specialty Services Required 3 08/22/2024 24 24 Scheduling Instructions Referral to: [facility] Please be aware that while I, as [...] Diagnoses Esophageal dysphagia Rosa Bobo MD [address] [facility] [address] [place] [address] [facility] [address] [place] [id number] Referral ID Status Reason Start Date Expiration Date Visits Requested Visits Authorized [id number] In Process Specialty Services Required 3 08/22/2024 99 99 Scheduling Instructions Referral to: [facility] Please be aware that while I, as your health care provider, have identified this referral as medically indicated, I cannot guarantee your insurance plan will cover it. I recommend you contact your insurance carrier to make sure this is a covered service they will pay for. Encounter Details Date Type Department Care Team (Late st Contact Info) Description 08/18/2023 Patient E-mail [facility] [address] General Internal Medicine [address] [facility], [address] [place] [address] Jose D Riddle MD [address] [place] [address] cancelled appt on , Allergies Active Allergy Reactions Criticality Noted Date Comments Amlodipine Angioedema/lip, tong ue swelling Medium 11/21/2022 Fish Oil Skin: Hives,Skin: Itching High 08/08/2014 Hydrocodone-Acetaminophen GI:Nausea/vomiting Medium documented as of this encounter (statuses as of 08/29/2023) Medications Medication Sig Dispensed Refills Start Date End Date Status Aspirin 81 MG Oral TabIndications:Chemo therapy induced cardiomyopathy, subsequent encounter ([facility]),Aortic stenosis,Heart failure, chronic systolic ([facility]),Mitral stenosis,Restrictive heart disease,Sinus tachycardia,Diabetes mellitus type 2, noninsulin dependent ([facility]),History of Hodgkin's disease,Hypothyroidi sm Take 1 tablet (81 mg) by mouth daily. 0 Active Glucose Blood In Vitro StripIndications:Typ e 2 diabetes mellitus without complication ([facility]) 1 strip by In Vitro route 4 times a day. Use to check blood sugar. 100 strip 3 05/14/2015 Active ascorbic acid 500 MG tabletIndications:He art replaced by transplant ([facility]) Take 1 tablet (500 mg) by mouth daily. 30 tablet 11 08/10/2022 Active Additional Information Patient not taking.Reason: Other, Informant: Patient Reported, Reported on 06/28/2023 calcium carbonate 500 MG chewable tabletIndications:He art replaced by transplant ([facility]) Chew and swallow 2 tablets (1,000 mg) by mouth as needed for indigestion/hear tburn. 90 tablet 3 08/10/2022 Active Additional Information Patient not taking.Reason: Other, Informant: Patient Reported, Reported on 06/28/2023 cholecalciferol 25 mcg (1,000 unit) tabletIndications:He art replaced by transplant ([facility]) Take 2 tablets (2,000 units) by mouth daily. 90 tablet 3 08/10/2022 Active Additional Information Patient not taking.Reason: Other, Informant: Patient Reported, Reported on 06/28/2023 ferrous sulfate 324 (65 Fe) MG EC tabletIndications:He art replaced by transplant ([facility]) Take 1 tablet (324 mg) by mouth [...] 25 MG tabletIndications:He art replaced by transplant ([facility]),Hypertension associated with transplantation Take 1 tablet (25 [...] BROMIDE NA Place in the nostril. Ipratropium [place] 21mcg (As Needed) 0 Active Nutritional Supplements (Glucerna 1.2 Kobe) liquidIndications:Hi story of percutaneous endoscopic gastrostomy Take 5 carton by mouth daily. 1500 mL 05/09/2023 11/05/19 24 Active Other Meds (See Sig/Instructions)Ind ications:Failure [...] oral suspension (compounded)Indicati ons:Heart replaced by transplant ([facility]) Take 2 mL (2 mg) by mouth every 12 hours. 360 mL 3 05/26/2023 05/25/20 24 Active Magnesium Bisglycinate 100 MG tablet Take 400 mg by mouth daily. 0 Active guaiFENesin 200 MG/5ML liquidIndications:Es ophagogastric junction outflow obstruction,Copious oral secretions Administer 400 mg by gastrostomy tube daily. Take 400mg or 10mL liquid through gastrostomy tube daily 118 mL 6 06/05/2023 Active Syringe 30 ML miscellaneousIndicat ions:Heart replaced by transplant ([facility]) Use 1 each daily. To administer liquid medications through G-Tube 30 each 06/05/2023 Active Syringe (Disposable) (BD Syringe Luer-Meghan) 20 ML miscellaneousIndicat ions:Heart replaced by transplant ([facility]) Use 3 each daily. For liquid medication given by gtube 90 each 06/07/2023 Active Syringe (Disposable) (Syringe Luer Lock) 3 ML miscellaneousIndicat ions:Heart replaced by transplant ([facility]) Use 4 each daily. For giving liquid medications via g-tube 200 each 10 06/08/2023 Active Other Meds (See Sig/Instructions)Ind ications:Gastrostomy tube dependent (HCC) Boost [facility] 4 cartons daily providing 2120 kcals, 88 grams of protein 1 each 6 07/04/2023 Active losartan 25 MG tabletIndications:Hy pertension associated with transplantation,Hear t replaced by transplant ([facility]) Take 1 tablet (25 mg) by mouth daily. 90 tablet 2 08/04/2023 Active famotidine 40 MG/5ML suspensionIndication s:Heart replaced by transplant ([facility]) Take 2.5 mL (20 mg) by mouth 2 times a day. 450 mL 2 08/04/2023 08/03/20 24 Active sirolimus 1 MG/ML solutionIndications: Heart replaced by transplant ([facility]) Take 2.5 mL (2.5 mg) by mouth daily. 240 mL 0 08/04/2023 Active potassium chloride 40 MEQ/15ML (20%) oral solutionIndications: Heart replaced by transplant ([facility]) Take 15 mL (40 mEq) by mouth daily. 1419 mL 3 08/08/2023 Active Alendronate Sodium 70 MG/75ML solutionIndications: Heart replaced by transplant ([facility]),Osteoporosis, unspecified osteoporosis type, unspecified pathological fracture presence [...] 200-40 MG/5ML suspensionIndication s:Heart replaced by transplant ([facility]),Prophylactic antibiotic Take 10 mL by mouth daily. 300 mL 11 05/26/2023 08/24/20 23 Discontinu ed(Reorder ) documented as of this encounter (statuses as of 08/29/2023) Active Problems Problem Noted Date Diagnosed Date [...] in 1977, initially treated with [facility] in [place], [place], with relapse in 1974, status post additional chemo and radiation therapy in 1974. Diabetes mellitus, type II, insulin dependent Hypothyroidism 08/11/2014 documented as of this encounter (statuses as of 08/29/2023) Resolved Problems Problem Noted Date Diagnosed Date Resolved Date Shortness of breath 11/22/2022 11/26/19 23 Gout 09/11/2014 11/02/2015 Chemotherapy induced cardiomyopathy 08/11/2014 04/15/2015 Aortic stenosis 08/11/2014 04/15/2015 Mitral stenosis 08/11/2014 04/15/2015 Sinus tachycardia 08/11/2014 04/15/2015 Heart failure, chronic systolic 08/11/2014 04/15/2015 Restrictive heart disease 08/11/2014 documented as of this encounter (statuses as of 08/29/2023) Immunizations Name Administration Dates Next Due COVID-19 [...] Never Comments:2 cigars/d, <1 pack /week; smoked 8201-4202 Alcohol Use Standard Drinks/Week Comments Not Currently [...] - 08/24/2023 11:29 AM PST Faxed via [facility] of XR Chest 2 View [address] [address] F: [phone] * Telephone Encounter - Jose D Riddle MD - 08/23/2023 4:06 PM PST Referrals placed for Physical therapy and Speech therapy to [facility] per patient request. Will have [place] team fax referrals. documented in this encounter Plan of Treatment Upcoming Encounters Date Type Department Care Team (Late st Contact Info) Description 09/11/2023 9:45 AM PST Office Visit [facility] General Internal Medicine [address] [place] [address], [address] [place] [address] Carmita Blum MD [address] [place] [address] [id number] [place] [address] 09/20/2023 4:00 PM PST Telemedicine [facility] General Internal Medicine [address] [place] [address], [address] [place] [address] Jose D Riddle MD [address] [place] [address] 10/25/2023 11:00 AM PST Office Visit [facility] Cardiac Heart Failure [address] [place] [address] Josias Chavez MD [address] [facility] [address] [place] [address] 01/02/2024 3:00 PM PDT Office Visit [facility] [address] 10[address] [place] [id number] Galilea Frazier MD [address] [facility] [address] [place] [address] Scheduled Orders Name Type Priority Associated Diagnoses [...] this encounter Medical Devices Implanted Type Area Field Naturalist Device Identifier Shelf Expiration Date Model / Serial / Lot Tube Gastrostomy Edmund 18fr 7-10ml Enfit - [id number] - [id number] Implanted:Qty: 1 on 05/10/2023 by Alex Chavez MD at [facility] ML INPATIENT Tube Left: Stomach [employer] 02/20/2026 8100-18 / [id number] / [id number] documented as of this encounter Visit Diagnoses Diagnosis Esophageal dysphagia- Primary Dysphagia, pharyngoesophageal phase Weakness generalized Other malaise and fatigue Heart replaced by transplant (HCC) Heart replaced by transplant Pleural effusion, bilateral Unspecified pleural effusion documented in this encounter Insurance Payer Benefit Plan / Group Subscriber ID Effective Dates Phone Address Type MEDICARE MEDICARE PART A AND B [id number] 2014-Prestj t Medicare FOR LIFE [id number] 2014-Prestj t [address] [place] [address] OSITO documented as of this encounter Advance Directives For more information, please contact: [phone] Documents on File Type Date Recorded Patient Beauty Director Expl anation Power of Pig Machine Supervisor for Health Care 02/08/2023 10:29 AM Power of Pig Machine Supervisor for Health Care 02/08/2023 10:24 AM Power of Pig Machine Supervisor for Health Care 09/29/2014 Latest Code Status on File Code Status Date Activated Date Inactivated Comments Full Code 11/22/2022 3:05 AM 11/25/2022 5:18 PM Care Teams Business Integration Analyst Relationship Specialty Start Date End Date Jose D Riddle MD [address] [place], [place] [id number] PCP - General Unknown Physician Specialty 02/02/23 Juwan Knight MD [facility], Cardiology [address], [address] [address] External Referring Unknown Physician Specialty 07/18/14 Josias Chavez MD [address] [facility] [address] [place] [address] Cream Maker Advanced Heart Failure and Transplant Cardiology 10/01/14 [place] [address] Cardiac Surgery 10/01/14 Harinder Truong, PharmD Address Alert - Do Not Mail [address] [place] [address] Pharmacist Unknown Physician Specialty 05/01/15 Darline Boyle MD Address Alert - Do Not Mail [address] [place] [address] Oncologist Hematology/Oncology 11/07/20 Adalgisa Solorzano, ML [address] [facility] [id number] [place] [address] Post-Transplant Nurse Coordinator Advanced [facility] Failure [facility] Transplant Cardiology 05/27/22 Rosa Bobo MD [address] [place] [address] Supervising Physician Internal Medicine 02/02/[address] [facility] Nutrition Program [address] [place], [place] Dietitian Dietitian/Nutritionis t 06/20/23 documented as of this encounter
== END ==
PROVIDERS: Family Provider Internal Medicine; PCP Student in an Organized Health Care Education/Training Program; Referring Provider Internal Medicine; Visit Provider Internal Medicine
DX: J90 Pleural effusion, not elsewhere classified (principal); I51.7 Cardiomegaly; R09.89 Other specified symptoms and signs involving the circulatory and respiratory systems
CPT/HCPCS: 71046

== ENCOUNTER → 2023-08-30 08:21 | Outpatient (CLI) | payer MEDICARE, OTHER, SELFPAY ==
[2022-09-19 02:58] VITALS: BMI 25.9
[2023-08-30 10:06] LABS: Hematocrit 34.4 % (41-53); Hemoglobin 11.6 g/dL (13.5-17.5); Mean Corpuscular HGB Conc 33.9 % (30-36); Mean Corpuscular Hemoglobin 28.6 PG (26-34); Mean Corpuscular Volume 84.4 fL (80-100); Platelet Count 161 X10^3/uL (150-400); Red Blood Cell Count 4.07 X10^6/uL (4.5-5.9); Red Cell Distribution Width 15.8 % (11.6-14.8); White Blood Cell Count 3.3 X10^3/uL (4.5-11.0)
[2023-08-30 10:09] LABS: Add Manual Diff / Slide Review YES
[2023-08-30 10:18] LABS: Alanine Aminotransferase 37 IU/L (<50); Albumin Globulin Ratio 1.3 (1.0-2.8); Alkaline Phosphatase 176 U/L (38-126); Aspartate Aminotransferase 37 IU/L (17-59); BUN Creatinine Ratio 47.4 (6-22); Bilirubin Total 0.4 mg/dL (0.2-1.3); Blood Urea Nitrogen 37 mg/dL (9-20); Calcium 9.8 mg/dL (8.4-10.2); Carbon Dioxide 30 mmol/L (22-32); Chloride 99 mmol/L (98-107); Estimated Glomerular Filt Rate > 60 mL/min (>60); Glucose 72 mg/dL (80-110); HEMOLYSIS < 15 (0-50); Magnesium 1.8 mg/dL (1.6-2.3); Potassium 3.9 mmol/L (3.4-5.1); Sodium 139 mmol/L (137-145)
[2023-08-30 10:35] LABS: Neutrophils Absolute Manual 1914 /uL (3000-5900); Total Cells Counted 100
[2023-08-30 10:41] LABS: RBC Morphology Norm
--- OUTSIDE RECORDS SUMMARY | 2023-08-31 10:05 | XMS_ITS | Referral Summary ---
Author Name Unknown Organization [facility] Address [address] [place] [address] Care Team Providers Care Director Of Online Education Name Role Phone Juwan Knight MD Unavailable [phone] Josias Chavez MD Unavailable [phone] Tracey Chavez MD Unavailable [phone] Harinder Truong PharmD Unavailable [phone] Darline Boyle MD Unavailable [phone] Adalgisa Solorzano RN Unavailable Unavailable Jose D Riddle MD Primary Care Provider [phone] Rosa Bobo MD Unavailable Анна Garcia RD Unavailable Unavail able Reason for Referral * Radiology Services (Routine) - Pending Review Specialty Diagnoses / Procedures Referred By João douglass Referred To Contact Radiology Med Diagnoses Pleural effusion, bilateral Procedures XR Chest 2 View Rosa Bobo MD [address] [facility] [id number] [place] [address] Referral ID Status Reason Start Date Expiration Date V isits Requested Visits Authorized [id number] Pending Review 08/23/2023 08/22/2024 1 1 * Physical/ Occ/ Speech Therapy (Routine) - In Process Specialty Diagnoses / Procedures Referred By João douglass Referred To Contact Diagnoses Weakness generalized Heart replaced by transplant (HCC) Rosa Bobo MD [address] [facility] [address] [place] [address] [facility] [address] [place] [id number] Referral ID Status Reason Start Date Expiration Date Visits Requested Visits Authorized [id number] In Process Specialty Services Required 08/22/2024 24 24 Scheduling Instructions Referral to: [facility] Please be aware that while I, as your health care provider, have identified this referral as medically indicated, I cannot guarantee your insurance plan will cover it. I recommend you contact your insurance carrier to make sure this is a covered service they will pay for. * Physical/ Occ/ Speech Therapy (Routine) - Pending Review Specialty Diagnoses / Procedures Referred By João douglass Referred To Contact Diagnoses Esophageal dysphagia Rosa Bobo MD [address] [facility] [id number] [place] [address] Referral ID Status Reason Start Date Expiration Date V isits Requested Visits Authorized [id number] Pending Review 08/23/2023 08/22/2024 1 1 Scheduling Instructions Referral to: [facility] Please be aware that while I, as your health care provider, have identified this referral as medically indicated, I cannot guarantee your insurance plan will cover it. I recommend you contact your insurance carrier to make sure this is a covered service they will pay for. Encounter Details Date Type Department Care Team (Late st Contact Info) Description 08/18/2023 Patient E-mail [facility] General Internal Medicine [address] [facility] [address], [address] [place] [address] Jose D Riddle MD [address] [place] [address] cancelled appt on , Allergies Active Allergy Reactions Criticality Noted Date Comments Amlodipine Angioedema/lip, tong ue swelling Medium 11/21/2022 Fish Oil Skin: Hives,Skin: Itching High 08/08/2014 Hydrocodone-Acetaminophen GI:Nausea/vomiting Medium documented as of this encounter (statuses as of 08/28/2023) Medications Medication Sig Dispensed Refills Start Date End Date Status Aspirin 81 MG Oral TabIndications:Chemo therapy induced cardiomyopathy, subsequent encounter ([facility]),Aortic stenosis,Heart failure, chronic systolic ([facility]),Mitral stenosis,Restrictive heart disease,Sinus tachycardia,Diabetes mellitus type 2, noninsulin dependent ([facility]),History of Hodgkin's disease,Hypothyroidi sm Take 1 tablet (81 mg) by mouth daily. 0 Active Glucose Blood In Vitro StripIndications:Typ e 2 diabetes mellitus without complication ([facility]) 1 strip by In Vitro route 4 times a day. Use to check blood sugar. 100 strip 3 05/14/2015 Active ascorbic acid 500 MG tabletIndications:He art replaced by transplant ([facility]) Take 1 tablet (500 mg) by mouth daily. 30 tablet 11 08/10/2022 Active Additional Information Patient not taking.Reason: Other, Informant: Patient Reported, Reported on 06/28/2023 calcium carbonate 500 MG chewable tabletIndications:He art replaced by transplant ([facility]) Chew and swallow 2 tablets (1,000 mg) by mouth as needed for indigestion/hear tburn. 90 tablet 3 08/10/2022 Active Additional Information Patient not taking.Reason: Other, Informant: Patient Reported, Reported on 06/28/2023 cholecalciferol 25 mcg (1,000 unit) tabletIndications:He art replaced by transplant ([facility]) Take 2 tablets (2,000 units) by mouth daily. 90 tablet 3 08/10/2022 Active Additional Information Patient not taking.Reason: Other, Informant: Patient Reported, Reported on 06/28/2023 ferrous sulfate 324 (65 Fe) MG EC tabletIndications:He art replaced by transplant ([facility]) Take 1 tablet (324 mg) by mouth daily. 90 tablet 3 08/10/2022 Active Additional Information Patient not taking.Reason: Other, Informant: Patient Reported, Reported on 06/28/2023 levothyroxine 100 MCG tabletIndications:Hy pothyroidism due to medication Take 1 tablet (100 mcg) by mouth daily on an empty stomach. Dr Mendoza Venegas prescribes 90 tablet 3 08/10/2022 Active Multiple Vitamin (MULTIVITAMIN OR) Take by mouth daily. 2 gummy daily 0 Active acetaminophen 325 MG tablet Take 2 tablets (650 mg) by mouth. 0 Active saliva substitute (Biotene Dry Mouth) liquid oral rinse Swish and spit 15 mL 3 times a day as needed for dry mouth. 250 mL 0 11/24/2022 Active simethicone 80 MG chewable tablet Chew and swallow 2 tablets (160 mg) by mouth 4 times a day as needed for gas. 120 tablet 0 11/24/2022 Active Additional Information Patient not taking.Reason: Other, Informant: Patient Reported, Reported on 06/28/2023 ipratropium 0.03 % nasal spray instill 2 sprays into each nostril every 12 hours if needed for RHINITIS 0 01/04/2023 Active Albuterol Sulfate (PROAIR RESPICLICK IN) Inhale 90 mcg DFE by mouth. 0 Active carVEDilol 25 MG tabletIndications:He art replaced by transplant ([facility]),Hypertension associated with transplantation Take 1 tablet (25 mg) by mouth 2 times a day. 180 tablet 3 02/16/2023 02/16/20 24 Active oxyCODONE 5 MG tabletIndications:Ch est pain, unspecified type take 1/2 to 1 tablet by mouth 3 times a day as needed for pain 10 tablet 0 03/01/2023 Active Additional Information Patient not taking.Reason: Other, Informant: Patient Reported, Reported on 06/28/2023 diclofenac 1 % gelIndications:Chest pain, unspecified type Apply 1 gram topically to area of chest pain four times a day as needed pain. Avoid skin openings. 150 g 3 03/01/2023 Active Additional Information Patient not taking.Reason: Other, Informant: Patient Reported, Reported on 06/28/2023 lidocaine 5 % patchIndications:Patricia st pain, unspecified type Apply to painful area for up to 12 hours in a 24-hour period. (One on each side of chest) 30 patch 3 03/01/2023 Active Additional Information Patient not taking.Reason: Other, Informant: Patient Reported, Reported on 06/28/2023 insulin GLARGINE 100 UNIT/ML pen-injectorIndicati ons:History of Hodgkin's disease,Diabetes mellitus type 2, noninsulin dependent (HCC) Inject 13 units under the skin at bedtime. 4 each 3 03/27/2023 Active NovoLOG FlexPen 100 UNIT/ML pen-injectorIndicati ons:Diabetes mellitus, type II, insulin dependent (HCC) Inject 12 units under the skin 3 times a day before meals. 10 each 3 03/27/2023 Active Insulin Pen Needle 32G X 4 MM miscellaneousIndicat ions:Diabetes mellitus, type II, insulin dependent (HCC) Use 1 each 4 times a day. 200 each 6 03/27/2023 Active nitroGLYCERIN 0.4 MG SL tabletIndications:Es ophageal dysphagia,Esophagoga stric junction outflow obstruction Place 1 tablet (0.4 mg) under the tongue 3 times a day as needed for other (esophageal outlet obstruction with dysphagia.). Take with meals 90 tablet 5 04/06/2023 Active Additional Information Patient not taking.Reason: Other, Informant: Patient Reported, Reported on 06/28/2023 Other Meds (See Sig/Instructions) Medication name: MG + Protein 0 Active Other Meds (See Sig/Instructions) Medication name: MUCUS Guaifenesen 400mg daily 0 Active Other Meds (See Sig/Instructions) Medication name: Tylenol PM 0 Active Other Meds (See Sig/Instructions) Medication name: Peppermint Altoids 0 Active scopolamine 1 MG/3DAYS patch Place 1 patch on the skin every 72 hours. Apply to hairless area behind 1 ear. 0 Active Albuterol Sulfate (ProAir RespiClick) 108 (90 Base) MCG/ACT aerosol powder breath-activated Inhale by mouth. 0 Ac tive IPRATROPIUM BROMIDE NA Place in the nostril. Ipratropium Lyons 21mcg (As Needed) 0 Active Nutritional Supplements (Glucerna 1.2 Kobe) liquidIndications:Hi story of percutaneous endoscopic gastrostomy Take 5 carton by mouth daily. 1500 mL 11 05/09/2023 02/11/20 24 Active Other Meds (See Sig/Instructions)Ind ications:Failure to thrive in adult Glucerna bolus feeds of Glucerna 1.2 (any flavor available or unflavored ok). 5 cartons 5 times per day. Dispense #150 cartons #12 Refills. Syringes: 60 ml cath tip syringe. Dispense #_30, Refills #12 2x2 split gauze for tube dressing. Dispense # _60, Refills #12____ 4x4 split gauze for tube dressing. Dispense #__60, Refills #12____ Paper tape Dispense # 2 rolls, Refills: 12____ 30 packet 05/12/2023 Active Additional Information Patient not taking.Reason: Other, Informant: Patient Reported, Reported on 06/28/2023 Other Meds (See Sig/Instructions)Ind ications:Failure to thrive in adult 60 ml luer lock syringes for tube feeds and flush 30 each 05/12/2023 Active tacrolimus 1 mg/mL oral suspension (compounded)Indicati ons:Heart replaced by transplant ([facility]) Take 2 mL (2 mg) by mouth every 12 hours. 360 mL 3 05/26/2023 05/25/20 24 Active Magnesium Bisglycinate 100 MG tablet Take 400 mg by mouth daily. 0 Active guaiFENesin 200 MG/5ML liquidIndications:Es ophagogastric junction outflow obstruction,Copious oral secretions Administer 400 mg by gastrostomy tube daily. Take 400mg or 10mL liquid through gastrostomy tube daily 118 mL 06/05/2023 Active Syringe 30 ML miscellaneousIndicat ions:Heart replaced by transplant ([facility]) Use 1 each daily. To administer liquid medications through G-Tube 30 each 06/05/2023 Active Syringe (Disposable) (BD Syringe Luer-Meghan) 20 ML miscellaneousIndicat ions:Heart replaced by transplant ([facility]) Use 3 each daily. For liquid medication given by gtube 90 each 06/07/2023 Active Syringe (Disposable) (Syringe Luer Lock) 3 ML miscellaneousIndicat ions:Heart replaced by transplant ([facility]) Use 4 each daily. For giving liquid medications via g-tube 200 each 10 06/08/2023 Active Other Meds (See Sig/Instructions)Ind ications:Gastrostomy tube dependent (HCC) Boost C 4 cartons daily providing 2120 kcals, 88 grams of protein 1 each 6 07/04/2023 Active losartan 25 MG tabletIndications:Hy pertension associated with transplantation,Hear t replaced by transplant ([facility]) Take 1 tablet (25 mg) by mouth daily. 90 tablet 2 08/04/2023 Active famotidine 40 MG/5ML suspensionIndication s:Heart replaced by transplant ([facility]) Take 2.5 mL (20 mg) by mouth 2 times a day. 450 mL 2 08/04/2023 08/03/20 24 Active sirolimus 1 MG/ML solutionIndications: Heart replaced by transplant ([facility]) Take 2.5 mL (2.5 mg) by mouth daily. 240 mL 0 08/04/2023 Active potassium chloride 40 MEQ/15ML (20%) oral solutionIndications: Heart replaced by transplant ([facility]) Take 15 mL (40 mEq) by mouth daily. 1419 mL 3 08/08/2023 Active Alendronate Sodium 70 MG/75ML solutionIndications: Heart replaced by transplant ([facility]),Osteoporosis, unspecified osteoporosis type, unspecified pathological fracture presence Take 75 mL by mouth one time a week. 900 mL 3 08/08/2023 08/07/20 24 Active Omeprazole Magnesium (PriLOSEC) 10 MG packIndications:Brook roesophageal reflux disease with esophagitis without hemorrhage Administer 20 mg by feeding tube 2 times a day. Add 15 mL of water for each 10 mg packet and shake/dissolve. Leave to thicken for 2-3 minutes. Shake again prior to giving. Give within 30 minutes of mixing. Flush tube with water. 360 packet 3 08/09/2023 Active prucalopride succinate 1 MG tabletIndications:Es ophageal dysphagia,Chronic idiopathic constipation Take 1 mg by mouth daily. 30 tablet 3 08/11/2023 09/10/20 23 Active sulfamethoxazole-tri methoprim 200-40 MG/5ML suspensionIndication s:Heart replaced by transplant ([facility]),Prophylactic antibiotic Take 10 mL by mouth daily. 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 Status post orthotopic heart transplant on 03/29/15 with PFO closure, and pectoralis advancement flaps due to prior radiation therapy to chest area. GERD (gastroesophageal reflux disease) 4 History of Hodgkin's disease 08/11/2014 Overview: History of Hodgkin's lymphoma in 1977, initially treated with [facility] in [place], [place], with relapse in 1974, status post additional chemo and radiation therapy in 1974. Diabetes mellitus, type II, insulin dependent Hypothyroidism 08/11/2014 documented as of this encounter (statuses as of 08/28/2023) Resolved Problems Problem Noted Date Diagnosed Date Resolved Date Shortness of breath 11/22/2022 11/26/19 23 Gout 09/11/2014 11/02/2015 Chemotherapy induced cardiomyopathy 08/11/2014 04/15/2015 Aortic stenosis 08/11/2014 04/15/2015 Mitral stenosis 08/11/2014 04/15/2015 Sinus tachycardia 08/11/2014 04/15/2015 Heart failure, chronic systolic 08/11/2014 04/15/2015 Restrictive heart disease 08/11/2014 documented as of this encounter (statuses as of 08/28/2023) Immunizations Name Administration Dates Next Due COVID-19 Moderna mRNA monova lent 12 yrs and older 05/21/2021,01/06/2021 COVID-19 Pfizer mRNA bivalen t 12 yrs and older 06/13/2022 COVID-19 Pfizer mRNA monoval ent 12 yrs and older (purple cap) 11/21/2021,05/21/2021 COVID-19 Pfizer mRNA monoval ent ruth-sucrose 12 yrs and older (gonsalves cap) 11/21/2021 Hep A-Hep B adult (Twinrix) 11/07/2014, 4,09/11/2014 Influenza quadrivalent PF 06/12/2020 Influenza quadrivalent adjuv anted (Fluad) 07/25/2022,08/12/2021 Influenza quadrivalent high-dose 06/12/2020 Influenza trivalent 07/30/2010 Influenza trivalent PF 05/29/2019,2013,07/23/2013,08/20 Influenza trivalent adjuvanted 05/29/2019,2017 Influenza trivalent high-dose 08/12/2021 ,06/12/2020,06/24/2019,06/12,06/20/2016,07/15/2015,06/25/2015 Influenza, unspecified 06/24/2016 Pneumococcal conjugate PCV13 (Prevnar 13) 09/11/2014 Pneumococcal conjugate PCV20 (Prevnar 20) 11/25/2022 Pneumococcal polysaccharide PPSV23 (Pneumovax 23) 01/04/2017 Tdap 07/14/2021 Zoster recombinant (Shingrix) 01/29/2022, 021 documented as of this encounter Social History Tobacco Use Types Packs/Day Years Used Date Smoking Tobacco: Former Cigarettes Q uit: 09/25/1999 Cigars Smokeless Tobacco: Never Comments:2 cigars/d, <1 pack /week; smoked 1512-9179 Alcohol Use Standard Drinks/Week Comments Not Currently 0 (1 standard drink = 0.6 oz pur e alcohol) 2 glasses a month PHQ-2 Answer Date Recorded PHQ2 Total Score 1 02/01/2023 Sex and Gender Information Value Date Recorded Sex Assigned at Male 05/19/2021 7:22 AM PDT Gender Identity Male 05/19/2021 7:22 AM PDT Sexual Orientation Straight 05/19/2021 7: 22 AM PDT documented as of this encounter Miscellaneous Notes * Telephone Encounter - Ramandeep Wiggins CMA - 08/24/2023 11:29 AM PST Faxed via [facility] of XR Chest 2 View to [address] [address] F: [phone] * Telephone Encounter - Jose D Riddle MD - 08/23/2023 4:06 PM PST Referrals placed for Physical therapy and Speech therapy to [facility] per patient request. Will have MA team fax referrals. documented in this encounter Plan of Treatment Upcoming Encounters Date Type Department Care Team (Late st Contact Info) Description 09/20/2023 4:00 PM PST Telemedicine [facility] General Internal Medicine [address] [place] [address], [id number] [place] [address] Jose D Riddle MD [address] [place] [address] 10/25/2023 11:00 AM PST Office Visit [facility] Cardiac Heart Failure [address] [place] [address] Josias Chavez MD [address] [facility] [id number] [place] [id number] 01/02/2024 3:00 PM PDT Office Visit [facility] at [address] [place] [address] Galilea Frazier MD [address] [facility] [address] [place] [address] Scheduled Orders Name Type Priority Associated Diagnoses Orde r Schedule XR Chest 2 View Imaging Routine Pleural effusion, bilateral Expected: 08/23/2023 (Approximate), Expires: 09/22/2024 Scheduled Referrals Name Type Priority Associated Diagnoses Orde r Schedule Referral to Speech Therapy Referral Routine Esophageal dysphagia Expected: 08/23/2023, Expires: 08/23/2024 Referral to Physical Therapy - Ortho/Sports/Musculosk eletal Referral Routine Weakness generalized Heart replaced by transplant (HCC) Expected: 08/23/2023, Expires: 08/23/2024 documented as of this encounter Medical Devices Implanted Type Area Labor Service Representative Device Identifier Shelf Expiration Date Model / Serial / Lot Tube Gastrostomy Edmund 18fr 7-10ml Enfit - [id number] - [id number] Implanted:Qty: 1 on 05/10/2023 by Alex Chavez MD at [facility] ML INPATIENT Tube Left: Stomach [employer] 02/20/2026 8100-18 / [id number] / [id number] documented as of this encounter Visit Diagnoses Diagnosis Esophageal dysphagia- Primary Dysphagia, pharyngoesophageal phase Weakness generalized Other malaise and fatigue Heart replaced by transplant (HCC) Heart replaced by transplant Pleural effusion, bilateral Unspecified pleural effusion documented in this encounter Insurance Payer Benefit Plan / Group Subscriber ID Effective Dates Phone Address Type MEDICARE MEDICARE PART A AND B [id number] 2014-Presen t Medicare FOR LIFE [id number] [facility] [address] [place] [address] OSITO documented as of this encounter Advance Directives For more information, please contact: [phone] Documents on File Type Date Recorded Patient Scalder Expl anation Power of Merchant Banker for Health Care 02/08/2023 10:29 AM Power of Merchant Banker for Health Care 02/08/2023 10:24 AM Power of Merchant Banker for Health Care 09/29/2014 Latest Code Status on File Code Status Date Activated Date Inactivated Comments Full Code 11/22/2022 3:05 AM 11/25/2022 5:18 PM Care Teams Director Of Online Education Relationship Specialty Start Date End Date Jose D Riddle MD [address] [place] [address] PCP - General Unknown Physician Specialty 02/02/23 Juwan Knight MD [facility], Cardiology [address] [place], [facility] [address] [place], [place] [id number] External Referring Unknown Physician Specialty 07/18/14 Josias Chavez MD [address] [facility] [id number] [place] [address] Material Loader [facility] Cardiology 10/01/14 [place] [address] Cardiac Surgery 10/01/14 Harinder Truong, PharmD Address Alert - Do Not Mail [id number] [place] [address] Pharmacist Unknown Physician Specialty 05/01/15 Darline Boyle MD Address Alert - Do Not Mail [id number] [place] [address] Oncologist Hematology/Oncology 11/07/20 Adalgisa Solorzano RN [address] [facility] [id number] [place] [address] Post-Transplant Nurse Coordinator [facility] Cardiology 05/27/22 Rosa Bobo MD [address] [place] [address] Supervising Physician Internal Medicine 02/02/[address] [facility] Nutrition Program [id number] [place], [place] Dietitian Dietitian/Nutritionis t 06/20/23 documented as of this encounter
[2023-08-31 12:27] LABS: Tacrolimus 1.8
[2023-09-01 08:40] LABS: Sirolimus 6.1
== END ==
PROVIDERS: Family Provider Internal Medicine; PCP Student in an Organized Health Care Education/Training Program; Referring Provider Internal Medicine Advanced Heart Failure and Transplant Cardiology; Visit Provider Internal Medicine Advanced Heart Failure and Transplant Cardiology
DX: Z94.1 Heart transplant status (principal)
CPT/HCPCS: 36415; 80053; 80195; 80197; 83735; 85007; 85025

== ENCOUNTER → 2023-09-27 08:28 | Outpatient (CLI) | payer MEDICARE, OTHER, SELFPAY ==
[2022-09-19 02:58] VITALS: BMI 25.9
[2023-09-27 09:42] LABS: Add Manual Diff / Slide Review YES; Hematocrit 33.3 % (41-53); Hemoglobin 11.2 g/dL (13.5-17.5); Mean Corpuscular HGB Conc 33.5 % (30-36); Mean Corpuscular Hemoglobin 28.1 PG (26-34); Mean Corpuscular Volume 83.7 fL (80-100); Platelet Count 179 X10^3/uL (150-400); Red Blood Cell Count 3.98 X10^6/uL (4.5-5.9); Red Cell Distribution Width 14.7 % (11.6-14.8); White Blood Cell Count 3.6 X10^3/uL (4.5-11.0)
[2023-09-27 09:55] LABS: Alanine Aminotransferase 27 IU/L (<50); Albumin 3.8 g/dL (3.5-5.0); Albumin Globulin Ratio 1.2 (1.0-2.8); Alkaline Phosphatase 165 U/L (38-126); BUN Creatinine Ratio 39.8 (6-22); Bilirubin Total 0.4 mg/dL (0.2-1.3); Blood Urea Nitrogen 35 mg/dL (9-20); Carbon Dioxide 32 mmol/L (22-32); Chloride 100 mmol/L (98-107); Estimated Glomerular Filt Rate > 60 mL/min (>60); Globulin 3.1 g/dL (1.7-4.1); Glucose 89 mg/dL (80-110); HEMOLYSIS < 15 (0-50); Magnesium 1.9 mg/dL (1.6-2.3); Sodium 139 mmol/L (137-145); Total Protein 6.9 g/dL (6.3-8.2)
[2023-09-27 10:02] LABS: Neutrophils Absolute Manual 1692 /uL (3000-5900); Total Cells Counted 100
[2023-09-27 10:03] LABS: RBC Morphology Normal Morphology
[2023-09-29 16:01] LABS: Aspartate Aminotransferase 32 IU/L (17-59)
== END ==
PROVIDERS: Family Provider Internal Medicine; PCP Student in an Organized Health Care Education/Training Program; Referring Provider Internal Medicine Advanced Heart Failure and Transplant Cardiology; Visit Provider Internal Medicine Advanced Heart Failure and Transplant Cardiology
DX: Z94.1 Heart transplant status (principal)
CPT/HCPCS: 36415; 80053; 80195; 80197; 83735; 85007; 85025

== ENCOUNTER 2023-10-20 10:06 | Emergency (ER) | payer MEDICARE, OTHER, SELFPAY ==
[2022-09-19 02:58] VITALS: BMI 25.9
[2023-10-20] VITALS (9 sets, daily range): BP systolic 105–149; BP diastolic 66–86; PULSE 93–102; RESP 18–29; TEMP 37.3; O2SAT 93–99; BMI 24.8
--- NOTE | 2023-10-20 10:42 | DI.RAD.S_ITS ---
PROCEDURE: XR CHEST 1V INDICATIONS: Hx of L sided pleural effusion with cough TECHNIQUE: One view of the chest was acquired. COMPARISON: [facility], CR, XR CHEST 2V, 08/29/2023, 10:05. [facility], CR, XR CHEST 2V, 07/08/2023, 8:56. FINDINGS: Surgical changes and devices: A band in the prep ileo lead. Sternotomy wires. Some of which are broken. Lungs and pleura: Very low lung volumes. Bibasilar, left greater right opacities and atelectasis. [id number] left effusion. Small right effusion. Mediastinum: Heart size is at the upper limit of normal. Bones and chest wall: Degenerative changes. IMPRESSION: Very low lung volumes. Left greater right mid and lower lung opacities and pleural effusions again seen. Findings are similar compared to August of 2023. Abandoned defibrillator lead. Dictated by: Jeremy Mosher M.D. on 10/20/2023 at 11:52 Approved by: Jeremy Mosher M.D. on 10/20/2023 at 11:53
--- NOTE | 2023-10-20 10:44 | ED_ITS ---
HPI - General Adult General Chief complaint: Shortness of Breath/Dyspnea Stated complaint: vommiting blood Time Seen by Provider: 10/20/23 10:13 Source: patient and family Mode of arrival: Ambulatory History of Present Illness HPI narrative: Patient is a 72-year-old male. Has a G-tube in place secondary to esophageal motility orders. He takes very little if anything by mouth. He also has history of left-sided pleural effusions. Has had multiple thoracentesis before. Last thoracentesis was approximately 1 month ago. He had a scheduled appointment with pulmonology this morning to discuss these pleural effusions. He states that this morning he woke up feeling relatively well. While he was at the dandy operator office this morning he started to cough. He states that he was unable to control it. He states he was vomiting up the formula that he had this morning and also a bunch mucus. It did seem to be blood-tinged. His states that she did give him some Robitussin this morning to try to help with the secretions so maybe the discoloration was because of this. He denies fevers. No chest pain. No shortness of breath. By the time that I evaluated the patient he stated that his coughing seems to have improved. Related Data Home Medications Medication Instructions Recorded Confirmed alendronate 70 mg tablet 70 mg PO QWEEK 02/21/19 09/19/22 ascorbic acid (vitamin C) 500 mg 500 mg PO DAILY 02/21/19 09/19/22 capsule,extended release aspirin 81 mg tablet,delayed 81 mg PO DAILY 02/21/19 09/19/22 release (Adult Low Dose Aspirin) insulin aspart U-100 100 unit/mL 12 unit SUBCUT TID 02/21/19 09/19/22 (3 mL) subcutaneous pen insulin glargine 100 unit/mL (3 15 unit SUBCUT DAILY 02/21/19 09/19/22 mL) subcutaneous pen (Lantus Solostar U-100 Insulin) levothyroxine 100 mcg capsule 100 mcg PO DAILY 02/21/19 09/19/22 tacrolimus 5 mg capsule, 2.5 mg PO Q12H 02/21/19 09/19/22 immediate-release famotidine 20 mg tablet 20 mg PO BID 11/19/20 09/19/22 rosuvastatin 20 mg tablet 20 mg PO DAILY 11/19/20 09/19/22 cholecalciferol (vitamin D3) 50 50 mcg PO DAILY 09/19/22 09/19/22 mcg (2,000 unit) tablet loperamide 2 mg capsule 2 mg PO BID 09/19/22 09/19/22 (Anti-Diarrheal (loperamide)) magnesium oxide-magnesium amino 133 mg PO TID 09/19/22 09/19/22 acid chelate 133 mg tablet (On-Yvvm-Vikvpkm) omeprazole 20 mg capsule,delayed 20 mg PO BID 09/19/22 09/19/22 release potassium chloride 20 mEq 40 meq PO QAM 09/19/22 09/19/22 tablet,extended release trazodone 50 mg tablet 50 mg PO BEDTIME 09/19/22 09/19/22 vancomycin 125 mg capsule 125 mg PO DAILY 09/22/22 09/22/22 mycophenolate mofetil 200 mg/mL mg PO 10/20/23 oral suspension tacrolimus 1 mg oral granules in mg 10/20/23 packet Previous Rx's Medication Instructions Recorded albuterol sulfate 90 mcg/actuation 2 inh inhalation Q4H PRN shortness 09/22/22 breath activated powder inhaler of breath or wheezing #1 ea amoxicillin 875 mg-potassium 1 tab PO BID #14 tabs 09/22/22 clavulanate 125 mg tablet carvedilol 6.25 mg tablet 6.25 mg PO BID #60 tabs 09/22/22 prednisone 20 mg tablet 40 mg (2 x 20 mg) PO DAILY #8 tabs 09/22/22 Allergies Allergy/AdvReac Type Severity Reaction Status Date / Time fish oil [FISH OIL] Allergy Unknown Verified 04/14/23 14:45 hydrocodone [HYDROCODONE] Allergy Unknown Verified 04/14/23 14:45 Review of Systems Review of Systems ROS Unobtainable: All systems reviewed & are unremarkable except as noted in HPI and below Patient History Medical History Obstructive sleep apnea on CPAP History of Hodgkin's lymphoma Hypothyroidism Insulin dependent diabetes mellitus Large B-cell lymphoma Acquired immunocompromised state Surgical History Heart transplant status Family History Father Myocardial infarction Mother Old age Social History household members: spouse Smoking Status: Former smoker Smoking Status: Former smoker alcohol intake frequency: holidays/special occasions only Substance Use Type: does not use Exam Initial Vital Signs Initial Vital Signs: Vital Signs Temperature 99.1 F 10/20/23 10:23 Pulse Rate 98 H 10/20/23 10:23 Respiratory Rate 22 10/20/23 10:23 Blood Pressure 149/86 H 10/20/23 10:23 Pulse Oximetry 99 10/20/23 10:23 Oxygen Delivery Method Room Air 10/20/23 10:23 HENMT Head: normal to inspection and normocephalic Resp Effort & Inspection: normal respiratory effort Auscultation: clear to auscultation bilaterally Cardio Rate: regular rate Rhythm: regular rhythm GI Inspection: non-distended Neuro General: patient alert, patient awake and moves all extremities Extrem General: capillary refill normal Course Orders Ordered: ED Orders 10/20/23 10:42 XR chest 1V Stat 10/20/23 10:55 Complete Blood Count AUTO DIFF Stat Comprehensive Metabolic Panel Stat Lipase Stat PTT Partial Thromboplastin Alex Stat Prothrombin Time INR Stat 10/20/23 11:00 Respiratory Panel (Film Array) Stat Discontinued Medications Ondansetron HCl (Ondansetron 4 Mg/2 Ml Inj) 4 mg IV NOW ONE Stop: 10/20/23 10:14 Last Admin: 10/20/23 11:24 Dose: Not Given Documented By: AB Vital Signs Vital signs: Vital Signs - 8 hr 10/20/23 10:23 Temperature 99.1 F Pulse Rate 98 H Respiratory Rate 22 Blood Pressure 149/86 H Pulse Oximetry 99 Oxygen Delivery Method Room Air Medical Decision Making Lab Data Lab results reviewed: Yes I reviewed the patient's lab results. 10/20/23 10:55 10/20/23 10:55 Labs: Lab Results 10/20/23 10/20/23 Range/Units 10:55 11:00 WBC 3.3 L (4.5-11.0) X10^3/uL RBC 3.88 L (4.5-5.9) X10^6/uL Hgb 11.2 L (13.5-17.5) g/dL Hct 33.4 L (41-53) % MCV 85.9 (80-100) fL MCH 28.8 (26-34) PG MCHC 33.5 (30-36) % RDW 16.4 H (11.6-14.8) % Plt Count 186 (150-400) X10^3/uL Neut % (Auto) Not Reportable Lymph % (Auto) Not Reportable Hitchcock % (Auto) Not Reportable Eos % (Auto) Not Reportable Baso % (Auto) Not Reportable Lymph # (Auto) Not Reportable Hitchcock # (Auto) Not Reportable Baso # (Auto) Not Reportable Total Counted 100 Seg Neutrophils % 35.0 L (38-70) % Band Neutrophils % 4.0 (3-7) % Lymphocytes % (Manual) 12.0 L (25-45) % Atypical Lymphs % 9.0 H ( - 0) % Monocytes % (Manual) 40.0 H (2-11) % Neutrophils # (Manual) 1287 L (3238-2845) /uL RBC Morphology Normal morphology PT 10.8 (9.4-12.5) SECONDS INR 0.9 (0.9-1.3) APTT 28 (25.1-36.5) SECONDS Sodium 138 (137-145) mmol/L Potassium 4.2 (3.4-5.1) mmol/L Chloride 99 (98-107) mmol/L Carbon Dioxide 31 (22-32) mmol/L BUN 48 H (9-20) mg/dL Creatinine 0.87 (0.66-1.25) mg/dL Estimated GFR > 60 (>60) mL/min BUN/Creatinine Ratio 55.2 H (6-22) Glucose 193 H (80-110) mg/dL Calcium 10.1 (8.4-10.2) mg/dL Total Bilirubin 0.8 (0.2-1.3) mg/dL AST 27 (17-59) IU/L ALT 18 (<50) IU/L Alkaline Phosphatase 167 H (38-126) U/L Total Protein 7.8 (6.3-8.2) g/dL Albumin 4.2 (3.5-5.0) g/dL Globulin 3.6 (1.7-4.1) g/dL Albumin/Globulin Ratio 1.2 (1.0-2.8) Lipase 44 (23-300) U/L Chlamy pneumoniae PCR Not detected (Not Detect) Adenovirus (PCR) Not detected (Not Detect) B.parapertussis DNA PCR Not detected (Not Detecte) Coronavirus OC43 (PCR) Not detected (Not Detect) Coronavirus HKU1 (PCR) Not detected (Not Detect) Coronavirus 229E (PCR) Not detected (Not Detect) SARS-CoV-2 (PCR) Not detected (Not Detecte) Coronavirus NL63 (PCR) Not detected (Not Detect) Human Metapneumovir PCR Not detected (Not Detect) Influenza Type A (PCR) Not detected (Not Detect) Influenza Type B (PCR) Not detected (Not Detect) M. pneumoniae (PCR) Not detected (Not Detect) Parainfluenza 1 (PCR) Not detected (Not Detect) Parainfluenza 2 (PCR) Not detected (Not Detect) Parainfluenza 3 (PCR) Not detected (Not Detect) Parainfluenza 4 (PCR) Not detected (Not Detect) RSV (PCR) Not detected (Not Detect) Entero/Rhino (PCR) Not detected (Not Detect) Imaging Data Chest x-ray: Radiologist's Impression: PROCEDURE: XR CHEST 1V INDICATIONS: Hx of L sided pleural effusion with cough TECHNIQUE: One view of the chest was acquired. COMPARISON: [facility], , XR CHEST 2V, 08/29/2023, 10:05. [facility], , XR CHEST 2V, 07/08/2023, 8:56. FINDINGS: Surgical changes and devices: A band in the prep ileo lead. Sternotomy wires. Some of which are broken. Lungs and pleura: Very low lung volumes. Bibasilar, left greater right opacities and atelectasis. [id number] left effusion. Small right effusion. Mediastinum: Heart size is at the upper limit of normal. Bones and chest wall: Degenerative changes. IMPRESSION: Very low lung volumes. Left greater right mid and lower lung opacities and pleural effusions again seen. Findings are similar compared to August of 2023. Abandoned defibrillator lead MDM Narrative Medical decision making narrative: Patient was coughing and spitting up and vomiting when he 1st arrived here in the ER but now his symptoms seem to have resolved. His chest x-ray shows pleural effusions but no indication for emergent intervention on these. He has a G-tube in place. We had talked potentially about aspirating and reflux of his feeding. Informed the family they should talk with his providers about maybe switching this to a GJ tube. We also discussed about slowing down his feeding. Has no indication for antibiotics. No indication for admission to the hospital. Labs are relatively unremarkable. Will discharge patient home with return precautions. He expressed understanding and agreement. Discharge Plan Departure Patient Disposition: Home Clinical Impression: Cough Instructions: DI for Cough -- Adult Activity Restrictions/Additional Instructions: Continue to take all of your medications as directed. You can consider slowing down the feedings that you take to see if this will help with any potential issues with reflux. Return to the emergency department for new or worsening symptoms. Prescriptions: No Action alendronate 70 mg tablet 70 mg PO QWEEK ascorbic acid (vitamin C) 500 mg capsule, extended release 500 mg PO DAILY aspirin [Adult Low Dose Aspirin] 81 mg tablet,delayed release (DR/EC) 81 mg PO DAILY insulin aspart U-100 100 unit/mL insulin pen 12 unit SUBCUT TID Patient Comments: plus 2 units for every 25mg/dl greater than 200mg/dl Lantus Solostar U-100 Insulin 100 unit/mL (3 mL) insulin pen 15 unit SUBCUT DAILY levothyroxine 100 mcg capsule 100 mcg PO DAILY tacrolimus 5 mg capsule 2.5 mg PO Q12H Rx Instructions: patient takes this at 0900 and 2100 mycophenolate mofetil 200 mg/mL suspension for reconstitution PO tacrolimus 1 mg Granules In Packet Rx Instructions: Compounded famotidine 20 mg Tablet 20 mg PO BID rosuvastatin 20 mg Tablet 20 mg PO DAILY potassium chloride 20 mEq Tablet Extended Release 40 meq PO QAM Rx Instructions: 10 meq takes 4 cholecalciferol (vitamin D3) 50 mcg (2,000 unit) Tablet 50 mcg PO DAILY Rx Instructions: 2000iu loperamide [Anti-Diarrheal (loperamide)] 2 mg Capsule 2 mg PO BID omeprazole 20 mg Capsule,Delayed Release(Dr/Ec) 20 mg PO BID trazodone 50 mg Tablet 50 mg PO BEDTIME Qn-Ikne-Nsmcihb 133 mg Tablet 133 mg PO TID Rx Instructions: 2 in the am, 1 at lunch, 2 at dinner prednisone 20 mg Tablet 40 mg PO DAILY Qty: 8 0RF amoxicillin-pot clavulanate 875-125 mg Tablet 1 tab PO BID Qty: 14 0RF carvedilol 6.25 mg tablet 6.25 mg PO BID Qty: 60 0RF Rx Instructions: must administer with a meal/food albuterol sulfate 90 mcg/actuation aerosol powdr breath activated 2 inh inhalation Q4H PRN (Reason: shortness of breath or wheezing) Qty: 1 0RF vancomycin 125 mg capsule 125 mg PO DAILY Referrals: Jose D Riddle MD [Primary Care Provider] - Stand Alone Forms: Patient Portal/API
[2023-10-20 11:17] LABS: Add Manual Diff / Slide Review YES; Hematocrit 33.4 % (41-53); Hemoglobin 11.2 g/dL (13.5-17.5); Mean Corpuscular HGB Conc 33.5 % (30-36); Mean Corpuscular Hemoglobin 28.8 PG (26-34); Mean Corpuscular Volume 85.9 fL (80-100); Platelet Count 186 X10^3/uL (150-400); Red Blood Cell Count 3.88 X10^6/uL (4.5-5.9); Red Cell Distribution Width 16.4 % (11.6-14.8); White Blood Cell Count 3.3 X10^3/uL (4.5-11.0)
[2023-10-20 11:22] LABS: INR 0.9 (0.9-1.3); Prothrombin Time 10.8 SECONDS (9.4-12.5)
[2023-10-20 11:25] LABS: PTT Partial Thromboplastin Tim 28 SECONDS (25.1-36.5)
[2023-10-20 11:28] LABS: Neutrophils Absolute Manual 1287 /uL (3000-5900); RBC Morphology Normal Morphology; Total Cells Counted 100
[2023-10-20 11:31] LABS: Alanine Aminotransferase 18 IU/L (<50); Albumin 4.2 g/dL (3.5-5.0); Albumin Globulin Ratio 1.2 (1.0-2.8); Alkaline Phosphatase 167 U/L (38-126); Aspartate Aminotransferase 27 IU/L (17-59); BUN Creatinine Ratio 55.2 (6-22); Bilirubin Total 0.8 mg/dL (0.2-1.3); Blood Urea Nitrogen 48 mg/dL (9-20); Calcium 10.1 mg/dL (8.4-10.2); Carbon Dioxide 31 mmol/L (22-32); Chloride 99 mmol/L (98-107); Estimated Glomerular Filt Rate > 60 mL/min (>60); Globulin 3.6 g/dL (1.7-4.1); Glucose 193 mg/dL (80-110); HEMOLYSIS 17 (0-50); Lipase 44 U/L (23-300); Potassium 4.2 mmol/L (3.4-5.1); Sodium 138 mmol/L (137-145); Total Protein 7.8 g/dL (6.3-8.2)
[2023-10-20 12:11] LABS: Adenovirus Not Detected (Not Detect); B. parapertussis Not Detected (Not Detecte); Bordetella pertussis Not Detected (Not Detect); Chlamydophila pneumoniae Not Detected (Not Detect); Coronavirus 229E Not Detected (Not Detect); Coronavirus HKU1 Not Detected (Not Detect); Coronavirus NL 63 Not Detected (Not Detect); Coronavirus OC43 Not Detected (Not Detect); Human Metapneumovirus Not Detected (Not Detect); Human Rhinovirus/Enterovirus Not Detected (Not Detect); Influenza A Not Detected (Not Detect); Influenza B Not Detected (Not Detect); Mycoplasma pneumoniae Not Detected (Not Detect); Parainfluenza Virus 1 Not Detected (Not Detect); Parainfluenza Virus 2 Not Detected (Not Detect); Parainfluenza Virus 3 Not Detected (Not Detect); Parainfluenza Virus 4 Not Detected (Not Detect); Respiratory Syncytial Virus Not Detected (Not Detect); SARS- CoV-2 Not Detected (Not Detecte)
== END 2023-10-20 12:42 | disposition home or self-care (01) ==
PROVIDERS: Emergency Provider Emergency Medicine; Family Provider Internal Medicine; PCP Student in an Organized Health Care Education/Training Program
DX: R05.9 Cough, unspecified (principal); R79.89 Other specified abnormal findings of blood chemistry; Z79.899 Other long term (current) drug therapy; Z93.1 Gastrostomy status
CPT/HCPCS: 36415; 71045; 80053; 83690; 85007; 85025; 85610; 85730; 87633; 99283; 99284

== ENCOUNTER 2023-10-30 11:15 | Outpatient (RCR) | payer MEDICARE, OTHER, SELFPAY ==
[2022-09-19 02:58] VITALS: BMI 25.9
--- NOTE | 2023-10-02 16:21 | ST.OPIE ---
Visit Care Team Role Provider Type Jose D Riddle MD Primary Care Provider Non-Staff Specialty: Medical [facility] [address] [facility] [facility] [address], [place], [address] Email: Mendoza Venegas MD Family Provider Non-Staff Specialty: Internal Medicine Address: [address] , [place], [address] Email: Rosa Bobo MD Attending Provider Non-Staff Referring Provider Specialty: Internal Medicine Address: [facility], [address] [facility], [place], [address] Fax: Email: Speech-Language Pathology Initial Evaluation [facility] Clinical Swallow Evaluation Start: 10/02/23 13:27 Freq: Status: Active Protocol: Document 10/02/23 13:27 MA (Rec: 10/02/23 13:42 MA [id number]) Clinical Swallow Evaluation Session Time Visit Start Time 10:30 Visit Stop Time 11:15 Total Visit Minutes 45 Visit Information Visit Number Initial Evaluation Plan of Care Dates 10/02/23-01/01/24 Insurance Information Medicare Referral Referring Provider Dr. Rosa Hunter Reason for Referral Esophageal Dysphagia Setting Assessment Location Outpatient Care Visit Type Note Type Initial evaluation Next Note Type Next Note Type Treatment Note Patient Information Identification Type Name History Pt is a 72 year old male seen this date for swallow eval d/t hx of dysphagia. 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 This was treated with chemotherapy and no radiation and resulted in severe dysphagia with PEG-tube feeding for ~6 mos. PEG tube was removed in 2020. Pt was seen by ST on and off from 03/02/21-03/30/22 and was consuming chopped solids and thin liquids by the end of therapy. Pt returns to therapy d/t increase in swallowing difficulties and esophagus completely stopping, as well as new feeding tube in place and Pt not consuming any solids/liquids orally. Pt had a MBS completed on 06/18/21 with the following impressions /recommendations: Premature spillage of the bolu to the pyriform sinuses was observed, increasing risk of aspiration. Hyolaryngeal elevation was diminished affecting the epiglottic inversion and UES opening extension and duration. The epiglottis was observed to inconsistently invert fully. Also, the epiglottis appeared to be slow in returning to upright position. There was adequate laryngeal seal. Significant pooling and residue was noted in the pharyngeal cavities with the pt needing 3-4 swallows/trial to clear the residual pooling/ residue. Cuing the pt to swallow hard was effective in clearing more residue than spontaneous swallows. No penetration or aspiration was observed. pooled residue was observed throughout the pharyngeal cavity and at the UES. Bolus trials were small as per pt preference. He was able to swallow thin liquid, nectar thick liquid, diced peaches and 1/2 of a small cookie. Comparison of the results of the current MBSS to those in February 2021 appear to demonstrate increased strength and ROM improvement. However , it should be noted that the pt remains at risk for aspiration if not following/ implementing the exercises and strategies established through the dysphagia therapy program. A/P View Textures Administered Trials Presented Thin Liquid via Cup,Dysphagia Blenderized Textures,Barium Tablet A/P View Observations Pharyngeal Contraction Severe Impairment Vocal Fold Function Fair Esophageal Function Slowed Clearing, Poor Motility, Reverse Peristalsis,Stasis, Narrowing Esophageal Clearance Upright Position Severe Impairment Additional Observations Following the lateral trial of the 11mm barium tablet, the pt was placed in the A-P view. The barium tablet had lodged in the esophagus at mid-chest area. Contrast was observed from near the UES to narrowing proximal to the stomach. Despite several sips of water, pureed texture and thin barium the tablet remained at mid chest area for more than 12 minutes before slowly moving through to the stomach . Significant narrowing of the distal esophagus to the stomach that restricted flow to the stomach was observed. Clinical Impressions Dysphagia Type mild oral and moderate-severe pharyngeal dysphagia; espohageal dysphagia Patient Appropriate for Therapy Yes: continued dysphagia therapy Recommendations Diet Comments no changes in diet Aspiration Precautions Recommended Precautions Upright at 90 Degrees,Frequent Rest Periods,Small Bites/Sips ,Effortful Swallow,Liquids from Cup,Liquids from Spoon Treatment Plan Therapy Recommendations Outpatient Speech Therapy Recommended Referrals Primary Care Physician,GI Consult Compensatory Strategies Recommendations Sitting Upright (90 deg) Additional Compensatory Strategies Remain upright for minimum of Recommended 30 minutes to allow esophagus to empty He also had an esophagram completed on 06/14/23 at with the following impression: 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 Presenting with worsening dysphagia to liquids and solids. Patient is unable to keep anything down by mouth. Subjective Observations The pt arrived on time accompanied by his , who provided most of the case history update. The pt was in agreement with her reports. Pt reports he would like swallow exercises to strengthen his throat muscles. Pt states swallow difficulties started occurring at the beginning of last year, which were becoming progressivly worse with Pt unable to swalow solids/liquids by April 2023 where a second feeding tube was placed. She states when he would eat/drink he would choke, cough and report food would not want to go down. She also states he has difficulties swallow his own saliva, He reports he lost a lot of weight last year, however has gained about 30 pounds back since starting the tube feedings again. Pt also reports he started talking more soprano a few months ago characterized by a higher pitch voice. Pt denies any pain in throat. Pt reports he has a hx of PNA. Pt reports he also has a hx of his lungs filling with fluid and just had 2100 mL of fluid removed from his left lung in August 2023. Pt reports he has not consumed food/liquid since April 2023, however will occasionally put water/diet coke in mouth for the taste. Reported by Patient/Caregiver Pain/Discomfort No Other Symptoms Choking,Coughing,Difficulty swallowing liquids,Difficulty swallowing solids,Food gets stuck,History of aspiration or pneumonia Current Diet NPO The IDDSI Framework Protocol: IDDSI.1 Objective Assessment Mental Status Alert,Responsive,Cooperative Oral Integrity WFL Dentition Within normal limits Lip Function Within normal limits Observation of Lips at Rest Symmetrical Pucker Within normal limits Alternating Pucker/Lip Retraction Within normal limits Tongue Function Mild impairment Tongue Protrusion Reduced range of motion, Reduced strength Food and Liquid Trials Oral Phase Comments Pt declined PO trials this date d/t Pt reporting severity of swallowing, inability to swallow/keep food/liquid down and nerves regarding getting PNA again. Pharyngeal Phase Comments ST palpated Pt's larynx and cued Pt to dry swallow. Pt exhibited weak/reduced laryngeal elevation and difficulties producing a dry swallow with suspected delay. The IDDSI Framework Protocol: IDDSI.1 Findings Swallowing Function Oropharyngeal phase dysphagia Swallowing Function Comments Oropharyngeal dysphagia and suspect esophgeal dysphagia Comment Given Pt/spouse report, as well as past MBSS findings and Pt hx of dysphagia ST suspects Pt with mild oral phase dysphagia and suspected severe pharyngeal dysphagia and suspected esophgeal dysphagia. ST educated Pt and Pt on ST role and that it is not within our scope of practice to directly treat esophgeal dysphagia issues. Pt /Pt verbalized understanding and report they would like to be re-educated on swallow exercises to strengthen throat muscles to prevent further decline. ST educated Pt and Pt on importance of consistent oral hygiene to prevent potential aspiration PNA. Impact on Safety and Functioning Risk for aspiration,Risk for inadequate nutrition/hydration Recommendations Instrumental Assessment No Swallowing Treatment Yes Frequency 1x/week Duration 3 months Recommended Solids NPO Other Recommendations ST recommends continuation of tube feedings as well as consistent oral hygiene. Education Patient/Caregiver Education Described results of evaluation,Patient expressed understanding of evaluation, Patient expressed agreement with goals & treatment plans Goals Short-term Goals STG 1: Pt will perform exercises to increase/maintain strength, coordination and ROM of swallow musculature to increase pharyngeal clearance and protect the airway. STG 2: Pt will tolerate applications of NMES for improved swallow function as evidenced by increased toleration of least restrictive PO diet consistencies. Long-term Goals LTG 1: Patient will demonstrate independence with swallowing exercises and knowledge with safe swallowing techniques.
--- NOTE | 2023-10-02 16:21 | ST.OPPOC ---
Physical, Occupational & Speech Therapy At [facility] Visit Care Team Role Provider Type Jose D Riddle MD Primary Care Provider Non-Staff Address: [address], [id number], [place], [address] Mendoza Venegas MD Family Provider Non-Staff Address: [facility] [place], [address] Rosa Bobo MD Attending Provider Non-Staff Referring Provider Address: [facility], [address], [place], [address] Fax: Speech Pathology Plan of Care Plan of Care Dates 10/02/23-01/01/[address] Rosa Hunter Patient History Pt is a 72 year old male seen this date for swallow eval d/t hx of dysphagia. 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 This was treated with chemotherapy and no radiation and resulted in severe dysphagia with PEG-tube feeding for ~6 mos. PEG tube was removed in 2020. Pt was seen by ST on and off from 03/02/21-03/30/22 and was consuming chopped solids and thin liquids by the end of therapy. Pt returns to therapy d/t increase in swallowing difficulties and esophagus completely stopping, as well as new feeding tube in place and Pt not consuming any solids/ liquids orally. Pt had a MBS completed on with the following impressions/ recommendations: Premature spillage of the bolu to the pyriform sinuses was observed, increasing risk of aspiration. Hyolaryngeal elevation was diminished affecting the epiglottic inversion and UES opening extension and duration. The epiglottis was observed to inconsistently invert fully. Also, the epiglottis appeared to be slow in returning to upright position. There was adequate laryngeal seal. Significant pooling and residue was noted in the pharyngeal cavities with the pt needing 3-4 swallows/trial to clear the residual pooling/ residue. Cuing the pt to swallow hard was effective in clearing more residue than spontaneous swallows. No penetration or aspiration was observed. pooled residue was observed throughout the pharyngeal cavity and at the UES. Bolus trials were small as per pt preference. He was able to swallow thin liquid, nectar thick liquid, diced peaches and 1/2 of a small cookie. Comparison of the results of the current MBSS to those in February 2021 appear to demonstrate increased strength and ROM improvement. However , it should be noted that the pt remains at risk for aspiration if not following/ implementing the exercises and strategies established through the dysphagia therapy program. A/P View Textures Administered Trials Presented Thin Liquid via Cup,Dysphagia Blenderized Textures,Barium Tablet A/P View Observations Pharyngeal Contraction Severe Impairment Vocal Fold Function Fair Esophageal Function Slowed Clearing,Poor Motility, Reverse Peristalsis,Stasis, Narrowing Esophageal Clearance Upright Position Severe Impairment Additional Observations Following the lateral trial of the 11mm barium tablet, the pt was placed in the A-P view. The barium tablet had lodged in the esophagus at mid-chest area. Contrast was observed from near the UES to narrowing proximal to the stomach. Despite several sips of water, pureed texture and thin barium the tablet remained at mid chest area for more than 12 minutes before slowly moving through to the stomach . Significant narrowing of the distal esophagus to the stomach that restricted flow to the stomach was observed. Clinical Impressions Dysphagia Type mild oral and moderate-severe pharyngeal dysphagia; espohageal dysphagia Patient Appropriate for Therapy Yes: continued dysphagia therapy Recommendations Diet Comments no changes in diet Aspiration Precautions Recommended Precautions Upright at 90 Degrees,Frequent Rest Periods,Small Bites/Sips ,Effortful Swallow,Liquids from Cup,Liquids from Spoon Treatment Plan Therapy Recommendations Outpatient Speech Therapy Recommended Referrals Primary Care Physician,GI Consult Compensatory Strategies Recommendations Sitting Upright (90 deg) Additional Compensatory Strategies Remain upright for minimum of Recommended 30 minutes to allow esophagus to empty He also had an esophagram completed on 06/14/23 at with the following impression: 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 Presenting with worsening dysphagia to liquids and solids. Patient is unable to keep anything down by mouth. Therapy Recommendations Follow up after consultation with PCP and Molding Machine Operator Helper. MBS Comments Mild oral dysphagia is secondary to reduced lingual and buccal strength, resulting in slowed oral prep and swallow phases, posterior escape to pharynx prior to swallow trigger, and mild- moderate oral residue that clears with multiple swallows. Severe pharyngeal dysphagia is secondary to reduced stregth and ROM of hyolaryngeal elevation and anterior excursion which contributes to minimal epiglottic inversion and partial extension and duration of UES opening. Moderate weakness of base of tongue and pharyngeal constrictors is also present. These deficits result in significant pharyngeal residue, primarily at vallecula, which spills aryeptiglottic folds and pyriform sinuses while the airway is open post-swallow. While no laryngeal penetration or tracheal aspiration was observed during this study, the pt is at high risk of aspiration under these conditions. Solid Recommendations Regular Additional Precautions Pureed and dysphagia mechanical textures only for home trials Recommended Referrals Primary Care Physician Short Term Goals 1. The pt will perform exercises to improve strength, ROM, and coordination of swallow musculature to improve swallow function and safety. 2. The pt will participate in clinical oral trials for ongoing assessment of swallow function and development of compensatory strategies as indicated. Short-term Goals STG 1: Pt will perform exercises to increase/ maintain strength, coordination and ROM of swallow musculature to increase pharyngeal clearance and protect the airway. STG 2: Pt will tolerate applications of NMES for improved swallow function as evidenced by increased toleration of least restrictive PO diet consistencies. Long-term Goals LTG 1: Patient will demonstrate independence with swallowing exercises and knowledge with safe swallowing techniques. Comment: Electronically Signed by: ROHINI Alexander 10/02/23 1669 If you are in agreement with this Plan of Care, please return a signed and dated copy. I have reviewed this Plan of Care and certify that the skilled therapy services above are required to meet the patient?s needs. Physician Signature Date Printed Name and Credentials Clinical Instructor Signature Printed Name and Credentials
--- NOTE | 2023-10-23 12:28 | ST.OPTN ---
Visit Care Team Role Provider Type Jose D Riddle MD Primary Care Provider Non-Staff Address: [address] [place] [address], [id number], [place], [address] Mendoza Venegas MD Family Provider Non-Staff Address: [address] , [place], [address] Rosa Bobo MD Attending Provider Non-Staff Referring Provider Address: [facility], [address] [place] [address], [place], [address] Fax: FURNACE COOLER Treatment Note FURNACE COOLER Treatment Note Start: 10/23/23 12:15 Freq: Status: Active Protocol: Document 10/23/23 12:15 LIZBET (Rec: 10/23/23 12:28 [email or web address] [id number]) Speech Pathology Treatment Note Session Time Visit Start Time 10:30 Visit Stop Time 11:10 Total Visit Minutes 40 Visit Information Visit Number 2 Plan of Care Dates 10/02/23-01/01/24 Setting Treatment Setting Outpatient Care General Information Patient History Pt is a 72 year old male seen this date for swallow eval d/t hx of dysphagia. 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 This was treated with chemotherapy and no radiation and resulted in severe dysphagia with PEG-tube feeding for ~6 mos. PEG tube was removed in 2020. Pt was seen by ST on and off from 03/02/21-03/30/22 and was consuming chopped solids and thin liquids by the end of therapy. Pt returns to therapy d/t increase in swallowing difficulties and esophagus completely stopping, as well as new feeding tube in place and Pt not consuming any solids/liquids orally. Pt had a MBS completed on 06/18/21 with the following impressions /recommendations: Premature spillage of the bolu to the pyriform sinuses was observed, increasing risk of aspiration. Hyolaryngeal elevation was diminished affecting the epiglottic inversion and UES opening extension and duration. The epiglottis was observed to inconsistently invert fully. Also, the epiglottis appeared to be slow in returning to upright position. There was adequate laryngeal seal. Significant pooling and residue was noted in the pharyngeal cavities with the pt needing 3-4 swallows/trial to clear the residual pooling/ residue. Cuing the pt to swallow hard was effective in clearing more residue than spontaneous swallows. No penetration or aspiration was observed. pooled residue was observed throughout the pharyngeal cavity and at the UES. Bolus trials were small as per pt preference. He was able to swallow thin liquid, nectar thick liquid, diced peaches and 1/2 of a small cookie. Comparison of the results of the current MBSS to those in February 2021 appear to demonstrate increased strength and ROM improvement. However , it should be noted that the pt remains at risk for aspiration if not following/ implementing the exercises and strategies established through the dysphagia therapy program. A/P View Textures Administered Trials Presented Thin Liquid via Cup,Dysphagia Blenderized Textures,Barium Tablet A/P View Observations Pharyngeal Contraction Severe Impairment Vocal Fold Function Fair Esophageal Function Slowed Clearing, Poor Motility, Reverse Peristalsis,Stasis, Narrowing Esophageal Clearance Upright Position Severe Impairment Additional Observations Following the lateral trial of the 11mm barium tablet, the pt was placed in the A-P view. The barium tablet had lodged in the esophagus at mid-chest area. Contrast was observed from near the UES to narrowing proximal to the stomach. Despite several sips of water, pureed texture and thin barium the tablet remained at mid chest area for more than 12 minutes before slowly moving through to the stomach . Significant narrowing of the distal esophagus to the stomach that restricted flow to the stomach was observed. Clinical Impressions Dysphagia Type mild oral and moderate-severe pharyngeal dysphagia; espohageal dysphagia Patient Appropriate for Therapy Yes: continued dysphagia therapy Recommendations Diet Comments no changes in diet Aspiration Precautions Recommended Precautions Upright at 90 Degrees,Frequent Rest Periods,Small Bites/Sips ,Effortful Swallow,Liquids from Cup,Liquids from Spoon Treatment Plan Therapy Recommendations Outpatient Speech Therapy Recommended Referrals Primary Care Physician,GI Consult Compensatory Strategies Recommendations Sitting Upright (90 deg) Additional Compensatory Strategies Remain upright for minimum of Recommended 30 minutes to allow esophagus to empty He also had an esophagram completed on 06/14/23 at with the following impression: 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 Presenting with worsening dysphagia to liquids and solids. Patient is unable to keep anything down by mouth. Subjective Observations/Patient Presentation Pt arrived on time with his . Pt utilized a wheelchair to transfer to therapy room. Objective Short Term Goals STG 1: Pt will perform exercises to increase/maintain strength, coordination and ROM of swallow musculature to increase pharyngeal clearance and protect the airway. STG 2: Pt will tolerate applications of NMES for improved swallow function as evidenced by increased toleration of least- DISCONTINUE restrictive PO diet consistencies. Fpc Goals LTG 1: Patient will demonstrate independence with swallowing exercises and knowledge with safe swallowing techniques. Treatment Activities Safe swallowing strategies, swallow exercises, swallow education Assessment Patient Response to Treatment Excellent Rehab Potential Fair Impairments Identified Swallow Assessment of Improvement Pt reports Pt has been in and out of the ER the past month d/t anti rejection medications being out of whack. She reports he has been vomiting and spitting up large amount of phlegm and has been wheezing. Pt reports doctor's reported his lungs looked fine with no suspected PNA. He has been taking in all nutrition/ hydration/meds via peg tube with no PO intake, except small amounts of water here and there. Pt reports he has a high pitch voice until he clears phlegm and voice goes down closer to baseline. She reports she is going to take him back to the ENT to get vocal cords checked out d/ t Pt with only 1 worked vocal cord. Pt reports his esophagus does not work and has not peristaltic wave as well as an open LES resulting in reflux/phelgm just sitting up in his esophagus. ST provided educational hand out on swallow exercises including chin tuck against resistance (CTAR) and [place]. Pt reports requested swallow exercises that wouldn't involve too much swallowing d/ t Pt with significant swallow difficulties and that he will just start coughing if he swallows his saliva. Pt performed exercises accurately requiring mod verbal and visual cues. Pt utilized a neck slimmer device to complete CTAR exercises with reporting she will order one. ST educated Pt and Pt on ST role and that we don't treat esophgeal issues. Pt and Pt verbalized understanding. ST to discontinue NMES goal d/t ST suspecting Pt with primarily esophgeal issues. ST to f/u with Pt in regards to swallow exercises. ST continued to recommend no safe PO diet and to continue PEG tube feedings. ST educated Pt and Pt on safe swallowing strategies, such as sitting upright 90 degrees during feedings and for at least 30 minutes after and to continue aggressive oral hygiene before/after feedings. Reviewed with Patient Goals,Home Exercise Program Patient/Caregiver Understanding Excellent Plan Provided Patient/Caregiver Instruction Home Exercise Program,Plan of Care,Questions/Concerns
--- NOTE | 2023-10-30 12:35 | ST.OPTN ---
Visit Care Team Role Provider Type Jose D Riddle MD Primary Care Provider Non-Staff Address: [address] [place] [address], [id number], [place], [address] Mendoza Venegas MD Family Provider Non-Staff Address: [address] , [place], [address] Rosa Bobo MD Attending Provider Non-Staff Referring Provider Address: [facility], [address] [place] [address], [place], [address] Fax: ACUTE CARE NURSE Treatment Note ACUTE CARE NURSE Treatment Note Start: 10/23/23 12:15 Freq: Status: Active Protocol: Document 10/30/23 12:27 MA (Rec: 10/30/23 12:35 MA [id number]) Speech Pathology Treatment Note Session Time Visit Start Time 11:15 Visit Stop Time 11:45 Total Visit Minutes 30 Visit Information Visit Number 3 Plan of Care Dates 10/02/23-01/01/24 Setting Treatment Setting Outpatient Care General Information Patient History Pt is a 72 year old male seen this date for swallow eval d/t hx of dysphagia. 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 This was treated with chemotherapy and no radiation and resulted in severe dysphagia with PEG-tube feeding for ~6 mos. PEG tube was removed in 2020. Pt was seen by ST on and off from 03/02/21-03/30/22 and was consuming chopped solids and thin liquids by the end of therapy. Pt returns to therapy d/t increase in swallowing difficulties and esophagus completely stopping, as well as new feeding tube in place and Pt not consuming any solids/liquids orally. Pt had a MBS completed on 06/18/21 with the following impressions /recommendations: Premature spillage of the bolu to the pyriform sinuses was observed, increasing risk of aspiration. Hyolaryngeal elevation was diminished affecting the epiglottic inversion and UES opening extension and duration. The epiglottis was observed to inconsistently invert fully. Also, the epiglottis appeared to be slow in returning to upright position. There was adequate laryngeal seal. Significant pooling and residue was noted in the pharyngeal cavities with the pt needing 3-4 swallows/trial to clear the residual pooling/ residue. Cuing the pt to swallow hard was effective in clearing more residue than spontaneous swallows. No penetration or aspiration was observed. pooled residue was observed throughout the pharyngeal cavity and at the UES. Bolus trials were small as per pt preference. He was able to swallow thin liquid, nectar thick liquid, diced peaches and 1/2 of a small cookie. Comparison of the results of the current MBSS to those in February 2021 appear to demonstrate increased strength and ROM improvement. However , it should be noted that the pt remains at risk for aspiration if not following/ implementing the exercises and strategies established through the dysphagia therapy program. A/P View Textures Administered Trials Presented Thin Liquid via Cup,Dysphagia Blenderized Textures,Barium Tablet A/P View Observations Pharyngeal Contraction Severe Impairment Vocal Fold Function Fair Esophageal Function Slowed Clearing, Poor Motility, Reverse Peristalsis,Stasis, Narrowing Esophageal Clearance Upright Position Severe Impairment Additional Observations Following the lateral trial of the 11mm barium tablet, the pt was placed in the A-P view. The barium tablet had lodged in the esophagus at mid-chest area. Contrast was observed from near the UES to narrowing proximal to the stomach. Despite several sips of water, pureed texture and thin barium the tablet remained at mid chest area for more than 12 minutes before slowly moving through to the stomach . Significant narrowing of the distal esophagus to the stomach that restricted flow to the stomach was observed. Clinical Impressions Dysphagia Type mild oral and moderate-severe pharyngeal dysphagia; espohageal dysphagia Patient Appropriate for Therapy Yes: continued dysphagia therapy Recommendations Diet Comments no changes in diet Aspiration Precautions Recommended Precautions Upright at 90 Degrees,Frequent Rest Periods,Small Bites/Sips ,Effortful Swallow,Liquids from Cup,Liquids from Spoon Treatment Plan Therapy Recommendations Outpatient Speech Therapy Recommended Referrals Primary Care Physician,GI Consult Compensatory Strategies Recommendations Sitting Upright (90 deg) Additional Compensatory Strategies Remain upright for minimum of Recommended 30 minutes to allow esophagus to empty He also had an esophagram completed on 06/14/23 at with the following impression: 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 Presenting with worsening dysphagia to liquids and solids. Patient is unable to keep anything down by mouth. Subjective Observations/Patient Presentation Pt arrived on time with his . Pt utilized a wheelchair to transfer to therapy room. Objective Short Term Goals STG 1: Pt will perform exercises to increase/maintain strength, coordination and ROM of swallow musculature to increase pharyngeal clearance and protect the airway. STG 2: Pt will tolerate applications of NMES for improved swallow function as evidenced by increased toleration of least- DISCONTINUE restrictive PO diet consistencies. Longterm Goals LTG 1: Patient will demonstrate independence with swallowing exercises and knowledge with safe swallowing techniques. Treatment Activities Safe swallowing strategies, swallow exercises, swallow education Assessment Patient Response to Treatment Excellent Rehab Potential Fair Impairments Identified Swallow Assessment of Improvement Pt and Pt reports he has been practicing swallow exercises at home, including the Jarek. Pt reports she has not orded the neckline slimmer yet for him to utilize for CTAR exercises but will do that today. Pt also reports he has an appointment with his ENT tomorrow morning d/t his high pitch voice until he clears phelgm and voice goes down closer to baseline. Pt requested more swallow exercises at this time. ST provided a visual model and education on additional swallow exercises including: Ade and effortful swallow. ST encouraged Pt practice his exercises with swallow saliva or utilize ice chips with good oral care prior to exercises. Pt reports he will most likely not be able to swallow small amounts water from ice chip d/t severity. ST educated Pt and Pt on POC and going forward. For next appointment ST to f/u on swallow exercises and ENT visit. ST continues to recommend no safe PO diet and to continue PEG tube feedings. ST educated Pt and Pt on safe swallowing strategies, such as sitting upright 90 degrees during feedings and for at least 30 minutes after and to continue aggressive oral hygiene before/after feedings. Reviewed with Patient Goals,Home Exercise Program Patient/Caregiver Understanding Excellent Plan Provided Patient/Caregiver Instruction Home Exercise Program,Plan of Care,Questions/Concerns
--- NOTE | 2023-11-23 11:58 | ST.OPDS ---
Visit Care Team Role Provider Type Jose D Riddle MD Primary Care Provider Non-Staff Address: [address] [place] [address], [id number], [place], [address] Mendoza Venegas MD Family Provider Non-Staff Address: [address] , [place], [address] Rosa Bobo MD Attending Provider Non-Staff Referring Provider Address: [facility], [address] [place] [address], [place], [address] Fax: CUSTODIAL FOREMAN Treatment Note CUSTODIAL FOREMAN Treatment Note Start: 10/23/23 12:15 Freq: Status: Active Protocol: Document 10/30/23 12:27 MA (Rec: 10/30/23 12:35 MA [id number]) Speech Pathology Treatment Note Session Time Visit Start Time 11:15 Visit Stop Time 11:45 Total Visit Minutes 30 Visit Information Visit Number 3 Plan of Care Dates 10/02/23-01/01/24 Setting Treatment Setting Outpatient Care General Information Patient History Pt is a 72 year old male seen this date for swallow eval d/t hx of dysphagia. 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 This was treated with chemotherapy and no radiation and resulted in severe dysphagia with PEG-tube feeding for ~6 mos. PEG tube was removed in 2020. Pt was seen by ST on and off from 03/02/21-03/30/22 and was consuming chopped solids and thin liquids by the end of therapy. Pt returns to therapy d/t increase in swallowing difficulties and esophagus completely stopping, as well as new feeding tube in place and Pt not consuming any solids/liquids orally. Pt had a MBS completed on 06/18/21 with the following impressions /recommendations: Premature spillage of the bolu to the pyriform sinuses was observed, increasing risk of aspiration. Hyolaryngeal elevation was diminished affecting the epiglottic inversion and UES opening extension and duration. The epiglottis was observed to inconsistently invert fully. Also, the epiglottis appeared to be slow in returning to upright position. There was adequate laryngeal seal. Significant pooling and residue was noted in the pharyngeal cavities with the pt needing 3-4 swallows/trial to clear the residual pooling/ residue. Cuing the pt to swallow hard was effective in clearing more residue than spontaneous swallows. No penetration or aspiration was observed. pooled residue was observed throughout the pharyngeal cavity and at the UES. Bolus trials were small as per pt preference. He was able to swallow thin liquid, nectar thick liquid, diced peaches and 1/2 of a small cookie. Comparison of the results of the current MBSS to those in February 2021 appear to demonstrate increased strength and ROM improvement. However , it should be noted that the pt remains at risk for aspiration if not following/ implementing the exercises and strategies established through the dysphagia therapy program. A/P View Textures Administered Trials Presented Thin Liquid via Cup,Dysphagia Blenderized Textures,Barium Tablet A/P View Observations Pharyngeal Contraction Severe Impairment Vocal Fold Function Fair Esophageal Function Slowed Clearing, Poor Motility, Reverse Peristalsis,Stasis, Narrowing Esophageal Clearance Upright Position Severe Impairment Additional Observations Following the lateral trial of the 11mm barium tablet, the pt was placed in the A-P view. The barium tablet had lodged in the esophagus at mid-chest area. Contrast was observed from near the UES to narrowing proximal to the stomach. Despite several sips of water, pureed texture and thin barium the tablet remained at mid chest area for more than 12 minutes before slowly moving through to the stomach . Significant narrowing of the distal esophagus to the stomach that restricted flow to the stomach was observed. Clinical Impressions Dysphagia Type mild oral and moderate-severe pharyngeal dysphagia; espohageal dysphagia Patient Appropriate for Therapy Yes: continued dysphagia therapy Recommendations Diet Comments no changes in diet Aspiration Precautions Recommended Precautions Upright at 90 Degrees,Frequent Rest Periods,Small Bites/Sips ,Effortful Swallow,Liquids from Cup,Liquids from Spoon Treatment Plan Therapy Recommendations Outpatient Speech Therapy Recommended Referrals Primary Care Physician,GI Consult Compensatory Strategies Recommendations Sitting Upright (90 deg) Additional Compensatory Strategies Remain upright for minimum of Recommended 30 minutes to allow esophagus to empty He also had an esophagram completed on 06/14/23 at with the following impression: 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 Presenting with worsening dysphagia to liquids and solids. Patient is unable to keep anything down by mouth. Subjective Observations/Patient Presentation Pt arrived on time with his . Pt utilized a wheelchair to transfer to therapy room. Objective Short Term Goals STG 1: Pt will perform exercises to increase/maintain strength, coordination and ROM of swallow musculature to increase pharyngeal clearance and protect the airway. STG 2: Pt will tolerate applications of NMES for improved swallow function as evidenced by increased toleration of least- DISCONTINUE restrictive PO diet consistencies. Snf Goals LTG 1: Patient will demonstrate independence with swallowing exercises and knowledge with safe swallowing techniques. Treatment Activities Safe swallowing strategies, swallow exercises, swallow education Assessment Patient Response to Treatment Excellent Rehab Potential Fair Impairments Identified Swallow Assessment of Improvement Pt and Pt reports he has been practicing swallow exercises at home, including the Jarek. Pt reports she has not orded the neckline slimmer yet for him to utilize for CTAR exercises but will do that today. Pt also reports he has an appointment with his ENT tomorrow morning d/t his high pitch voice until he clears phelgm and voice goes down closer to baseline. Pt requested more swallow exercises at this time. ST provided a visual model and education on additional swallow exercises including: Ade and effortful swallow. ST encouraged Pt practice his exercises with swallow saliva or utilize ice chips with good oral care prior to exercises. Pt reports he will most likely not be able to swallow small amounts water from ice chip d/t severity. ST educated Pt and Pt on POC and going forward. For next appointment ST to f/u on swallow exercises and ENT visit. ST continues to recommend no safe PO diet and to continue PEG tube feedings. ST educated Pt and Pt on safe swallowing strategies, such as sitting upright 90 degrees during feedings and for at least 30 minutes after and to continue aggressive oral hygiene before/after feedings. Reviewed with Patient Goals,Home Exercise Program Patient/Caregiver Understanding Excellent Plan Patient
== END 2023-11-27 10:38 | disposition home or self-care (01) ==
LOC: SP 11:15
PROVIDERS: Family Provider Internal Medicine; PCP Student in an Organized Health Care Education/Training Program; Referring Provider Internal Medicine; Visit Provider Internal Medicine
DX: R13.19 Other dysphagia (principal)
CPT/HCPCS: 92526; 92610

== ENCOUNTER 2023-11-07 12:55 | Inpatient (IN) | payer MEDICARE, OTHER, SELFPAY ==
[2022-09-19 02:58] VITALS: BMI 25.9
[2023-11-07] VITALS (21 sets, daily range): BP systolic 83–126; BP diastolic 53–83; PULSE 94–107; RESP 12–32; TEMP 36.1–37.2; O2SAT 92–99; BMI 24.0; BMI 24.2
--- NOTE | 2023-11-07 12:56 | DI.RAD.S_ITS ---
PROCEDURE: XR CHEST 1V INDICATIONS: suspected sepsis TECHNIQUE: One view of the chest was acquired. COMPARISON: [facility], CR, XR CHEST 1V, 10/20/2023, 11:03. FINDINGS: Surgical changes and devices: Stable median sternotomy wires. Stable abandoned defibrillator lead. Stable percutaneous gastrostomy tube. Lungs and pleura: Patchy bibasilar lung opacities, left greater than right. No pleural effusions or pneumothorax. Mediastinum: Mediastinal contours appear normal. Heart is enlarged. Bones and chest wall: No suspicious bony lesions. Overlying soft tissues appear unremarkable. IMPRESSION: Patchy bibasilar lung opacities, left greater than right. Finding could represent pneumonia and/or atelectasis. Dictated by: Karla Dumas MD, PhD on 11/07/2023 at 13:30 Approved by: Karla Dumas MD, PhD on 11/07/2023 at 13:33
[2023-11-07 13:23] LABS: INR 1.2 (0.9-1.3); Prothrombin Time 13.5 SECONDS (9.4-12.5)
[2023-11-07 13:26] LABS: PTT Partial Thromboplastin Tim 34 SECONDS (25.1-36.5)
[2023-11-07 13:27] LABS: Lactate (Lactic Acid) 3.3 mmol/L (0.7-2.1)
[2023-11-07 13:29] LABS: Alanine Aminotransferase 30 IU/L (<50); Albumin 4.5 g/dL (3.5-5.0); Alkaline Phosphatase 194 U/L (38-126); Aspartate Aminotransferase 37 IU/L (17-59); BUN Creatinine Ratio 60.8 (6-22); Bilirubin Total 0.8 mg/dL (0.2-1.3); Calcium 10.5 mg/dL (8.4-10.2); Carbon Dioxide 32 mmol/L (22-32); Chloride 107 mmol/L (98-107); Creatine Kinase 90 U/L (55-170); Estimated Glomerular Filt Rate 40 mL/min (>60); Globulin 4.3 g/dL (1.7-4.1); Glucose 315 mg/dL (80-110); HEMOLYSIS 26 (0-50); Lipase 51 U/L (23-300); Potassium 4.3 mmol/L (3.4-5.1); Sodium 153 mmol/L (137-145); Total Protein 8.8 g/dL (6.3-8.2)
[2023-11-07 13:35] LABS: Blood Urea Nitrogen 107 mg/dL (9-20)
[2023-11-07 13:40] LABS: NT-proBNP (BNP-Adult 18+) 4530 pg/mL (<125); Troponin I < 0.012 ng/mL (0.01-0.034)
[2023-11-07 13:44] LABS: Procalcitonin 6.32 ng/mL (<0.5)
[2023-11-07 13:48] LABS: Add Manual Diff / Slide Review NO; Basophils Absolute Auto 0 /uL (0-100); Basophils Percent Auto 0.5 % (0-2); Eosinophils Absolute Auto 0 /uL (0-450); Eosinophils Percent Auto 0.7 % (2-4); Hematocrit 38.5 % (41-53); Hemoglobin 12.7 g/dL (13.5-17.5); Lymphocytes Absolute Auto 600 /uL (1100-4500); Lymphocytes Percent Auto 15.2 % (25-40); Mean Corpuscular Hemoglobin 29.4 PG (26-34); Monocytes Absolute Auto 1300 /uL (0-900); Monocytes Percent Auto 30.6 % (3-14); Neutrophils Absolute Auto 2200 /uL (1500-7000); Platelet Count 198 X10^3/uL (150-400); Red Blood Cell Count 4.33 X10^6/uL (4.5-5.9); Red Cell Distribution Width 17.5 % (11.6-14.8); White Blood Cell Count 4.1 X10^3/uL (4.5-11.0)
[2023-11-07] MEDS: SODIUM CHLORIDE 0.9% 1,000 ML 1000 ML IV ×2 (13:50→15:46)
[2023-11-07 14:18] LABS: Neutrophils Absolute Manual 1681 /uL (3000-5900); Nucleated Red Blood Cells 1 #/Diff; Total Cells Counted 100
[2023-11-07 14:20] LABS: Anisocytosis 1+; Polychromasia 1+; Toxic Vacuolation Pres
[2023-11-07 14:21] LABS: Smudge Cells 1+; Toxic Granulation Present
[2023-11-07 14:53] LABS: Reflexed Lactate in 2 Hours Y
[2023-11-07 15:27] LABS: Adenovirus Not Detected (Not Detect); B. parapertussis Not Detected (Not Detecte); Bordetella pertussis Not Detected (Not Detect); Chlamydophila pneumoniae Not Detected (Not Detect); Coronavirus 229E Not Detected (Not Detect); Coronavirus HKU1 Not Detected (Not Detect); Coronavirus NL 63 Not Detected (Not Detect); Coronavirus OC43 Not Detected (Not Detect); Human Metapneumovirus Not Detected (Not Detect); Human Rhinovirus/Enterovirus Not Detected (Not Detect); Influenza A Not Detected (Not Detect); Influenza B Not Detected (Not Detect); Mycoplasma pneumoniae Not Detected (Not Detect); Parainfluenza Virus 1 Not Detected (Not Detect); Parainfluenza Virus 2 Not Detected (Not Detect); Parainfluenza Virus 3 Not Detected (Not Detect); Parainfluenza Virus 4 Not Detected (Not Detect); Respiratory Syncytial Virus Not Detected (Not Detect); SARS- CoV-2 Not Detected (Not Detecte)
[2023-11-07 15:42] LABS: Lactate 2HR (Lactic Acid Rflx) 1.7 mmol/L (0.7-2.1)
--- NOTE | 2023-11-07 15:52 | ED_ITS ---
HPI - Sepsis General Chief Complaint: Shortness of Breath/Dyspnea Mode of arrival: EMS Source: patient and EMS Limitations: no limitations Evaluation Sepsis Screen: No Definite Risk Sepsis Infection Criteria Present: Suspected New Infection Narrative: 72-year-old male with a history of heart transplant followed by the [facility]. Also has a history of esophageal dysfunction requiring feeding tube and Hodgkin's lymphoma. He is brought in by ambulance today after he developed shortness of breath productive cough and was noted to be 92% on room air by EMS. He has not on home oxygen typically. In addition to EMS contributing history, his is present and contributes to history, patient reports over the last couple of weeks he has had episodic regurgitation of tube feeds. It has been worse over the last couple of days he also did try to drink some water recently. He has not noted fevers at home he has not having chest or abdominal pain or urinary symptoms. Patient History Medical History Obstructive sleep apnea on CPAP History of Hodgkin's lymphoma Hypothyroidism Insulin dependent diabetes mellitus Large B-cell lymphoma Acquired immunocompromised state Surgical History Heart transplant status Family History Father Myocardial infarction Mother Old age Social History household members: spouse Smoking Status: Former smoker alcohol intake: current Smoking Status: Former smoker alcohol intake frequency: holidays/special occasions only Substance Use Type: does not use Exam Initial Vital Signs Initial Vital Signs: Vital Signs Pulse Rate 103 H 11/07/23 12:59 Respiratory Rate 21 11/07/23 12:59 Blood Pressure 120/69 11/07/23 12:59 Pulse Oximetry 94 11/07/23 12:59 Oxygen Delivery Method Nasal Cannula 11/07/23 12:59 Oxygen Flow Rate 2 11/07/23 12:59 Course Orders Ordered: ED Orders 11/07/23 12:56 XR chest 1V Stat EKG-12 Lead Stat RT Consult Eval and Treat NOW 11/07/23 13:02 BNP [NT-proBNP (BNP-Adult 18+)] Stat Complete Blood Count AUTO DIFF Stat Comprehensive Metabolic Panel Stat Lactate (Lactic Acid) Stat Lipase Stat PTT Partial Thromboplastin Alex Stat Procalcitonin Stat Prothrombin Time INR Stat Troponin & CK Cardiac Panel Stat 11/07/23 13:45 Blood Culture Stat 11/07/23 14:25 Respiratory Panel (Film Array) Stat Acetaminophen (Acetaminophen 325 Mg Tablet) 650 mg PO Q6H PRN PRN Reason: Fever/Mild Pain (1-3) Albuterol (Albuterol 2.5 Mg/3 Ml Neb (Adult)) 2.5 mg INH RTQ4HR PRN PRN Reason: Shortness Of Breath Or Wheezing Heparin Sodium (Porcine) (Heparin 5,000 Unit/Ml Vial) 5,000 unit SUBCUT BID YOAN Dextrose/Sodium Chloride (Dextrose 5%-0.9% Ns) 1,000 mls @ 100 mls/hr IV CONT YOAN Last Admin: 11/07/23 18:43 Dose: 100 mls/hr Piperacillin Sod/Tazobactam (Sod 3.375 gm/ Sodium Chloride) 100 mls @ 25 mls/hr IV Q8H [facility] Naloxone HCl (Naloxone 0.4 Mg/Ml Vial) 0.2 mg IV Q2MIN PRN PRN Reason: Opiate Reversal Ondansetron HCl (Ondansetron 4 Mg/2 Ml Inj) 4 mg IV NOW PRN PRN Reason: Nausea And Vomiting Ondansetron HCl (Ondansetron 4 Mg Odt) 4 mg SL NOW PRN PRN Reason: Nausea And Vomiting Ondansetron HCl (Ondansetron 4 Mg/2 Ml Inj) 4 mg IV Q8HR PRN PRN Reason: Nausea And Vomiting Discontinued Medications Albuterol (Albuterol 1.25 Mg/3 Ml Neb (Pediatric)) 1.25 mg INH RTQ4HR PRN PRN Reason: Shortness Of Breath Or Wheezing Calcium Carbonate (Calcium Carbonate 500 Mg Tab) 1,000 mg PO Q4HR PRN PRN Reason: Dyspepsia Sodium Chloride (Normal Saline 0.9%) 1,000 mls @ 1,000 mls/hr IV BOLUS ONE Stop: 11/07/23 13:55 Last Infusion: 11/07/23 15:10 Dose: Infused Documented By: Admin: 11/07/23 13:50 Dose: 1,000 mls/hr Documented By: SB Sodium Chloride (Normal Saline 0.9%) 1,000 mls @ 1,000 mls/hr IV BOLUS ONE Stop: 11/07/23 16:29 Last Admin: 11/07/23 15:46 Dose: 1,000 mls/hr Documented By: SPF Piperacillin Sod/Tazobactam (Sod 4.5 gm/ Sodium Chloride) 100 mls @ 200 mls/hr IV NOW ONE Stop: 11/07/23 15:55 Last Titration: 11/07/23 17:00 Dose: 0 mls/hr Consultations Consultation #1: D/W Dr Turner, transplant Cardiology. Patient can be admitted here. Recommends tacrolimus q.12 hours as given previously, should check a level 12 hours post evenings administration tomorrow morning. Consultation #2: Discussed with hospitalist, Dr. Toledo, acid we discussed the feeding tube situation was gastroenterology. Following this discussion accepts the patient for admission. Consultation #3: Discussed with gastroenterology at [facility], Dr. Sierra, should stop using the G- tube. Patient may need TPN during acute pneumonia treatment. May subsequently need to have Interventional Radiology converted G-tube to GJ tube Vital Signs Vital signs: Vital Signs - 8 hr 11/07/23 12:59 11/07/23 12:59 11/07/23 13:00 Temperature Pulse Rate 103 H Respiratory Rate 21 Blood Pressure 120/69 105/65 Pulse Oximetry 94 Oxygen Delivery Method Nasal Cannula Oxygen Flow Rate 2 11/07/23 13:00 11/07/23 13:05 11/07/23 13:20 Temperature 98.9 F Pulse Rate 101 H 101 H 102 H Respiratory Rate 12 18 Blood Pressure 120/69 Pulse Oximetry 95 92 97 Oxygen Delivery Method Nasal Cannula Room Air Nasal Cannula Oxygen Flow Rate 2 2 11/07/23 13:20 11/07/23 13:30 11/07/23 13:45 Temperature Pulse Rate 101 H 100 H Respiratory Rate 32 H Blood Pressure 105/83 Pulse Oximetry 94 95 Oxygen Delivery Method Nasal Cannula Oxygen Flow Rate 2 11/07/23 13:45 11/07/23 14:00 11/07/23 14:00 Temperature Pulse Rate 96 H Respiratory Rate 25 H Blood Pressure 99/58 L 108/62 Pulse Oximetry 99 Oxygen Delivery Method Nasal Cannula Oxygen Flow Rate 3 11/07/23 14:20 11/07/23 14:20 11/07/23 14:30 Temperature Pulse Rate 95 H 94 H Respiratory Rate 23 23 Blood Pressure 126/69 Pulse Oximetry 98 98 Oxygen Delivery Method Nasal Cannula Oxygen Flow Rate 2 11/07/23 14:40 11/07/23 14:40 11/07/23 15:03 Temperature Pulse Rate 95 H 100 H Respiratory Rate 25 H 17 Blood Pressure 103/62 Pulse Oximetry 99 97 Oxygen Delivery Method Nasal Cannula Oxygen Flow Rate 2 11/07/23 15:03 11/07/23 15:30 11/07/23 15:30 Temperature Pulse Rate 97 H Respiratory Rate 26 H Blood Pressure 117/70 95/58 L Pulse Oximetry 97 Oxygen Delivery Method Nasal Cannula Oxygen Flow Rate 2 11/07/23 16:00 11/07/23 16:00 11/07/23 16:30 Temperature Pulse Rate 96 H Respiratory Rate 20 Blood Pressure 113/62 119/72 Pulse Oximetry 98 Oxygen Delivery Method Nasal Cannula Oxygen Flow Rate 2 11/07/23 16:30 11/07/23 17:00 11/07/23 17:00 Temperature Pulse Rate 98 H 100 H Respiratory Rate 30 H 31 H Blood Pressure 83/53 L Pulse Oximetry 99 99 Oxygen Delivery Method Nasal Cannula Nasal Cannula Oxygen Flow Rate 2 2 11/07/23 17:04 11/07/23 17:04 Temperature Pulse Rate 100 H Respiratory Rate 29 H Blood Pressure 91/58 L Pulse Oximetry 98 Oxygen Delivery Method Oxygen Flow Rate Sepsis Evaluation (ED) Triage Screening Sepsis Screen: No Definite Risk Level 1 - Infection Sepsis Infection Criteria Present: Suspected New Infection Response It is my opinion that his patient have a likely infectious etiology for meeting sepsis criteria: Does Fluid calculation based on 30 mL/kg within 1hr of criteria: ABW used Antibiotics initiated within 1 hr of Sepis dx: Yes Tissue Perfusion Reassessed within 6 hrs of infusion start time: Yes Date of Tissue Perfusion Reassessment completed: 11/07/23 Time Tissue Perfusion Reassessment completed: 16:00 MDM - Sepsis Lab Data Lab results narrative: CBC shows a mild anemia and a normal white count. Has an acute kidney injury with a creatinine of 1.76 elevated BUN and 107 suggest and rehydration. Hyperglycemic with a glucose of 315. Elevated lactic acid at 3.3, procalcitonin elevated at 6.32 suggesting bacterial infection. 11/07/23 13:02 11/07/23 13:02 Labs: Lab Results 11/07/23 11/07/23 11/07/23 Range/Units 13:02 14:25 15:15 WBC 4.1 L (4.5-11.0) X10^3/uL RBC 4.33 L (4.5-5.9) X10^6/uL Hgb 12.7 L (13.5-17.5) g/dL Hct 38.5 L (41-53) % MCV 89.0 (80-100) fL MCH 29.4 (26-34) PG MCHC 33.0 (30-36) % RDW 17.5 H (11.6-14.8) % Plt Count 198 (150-400) X10^3/uL Neut % (Auto) 53.0 (50-75) % Lymph % (Auto) 15.2 L (25-40) % [place] % (Auto) 30.6 H (3-14) % Eos % (Auto) 0.7 L (2-4) % Baso % (Auto) 0.5 (0-2) % Neut # (Auto) 2200 (8679-7238) /uL Lymph # (Auto) 600 L (5104-0679) /uL [place] # (Auto) 1300 H (0-900) /uL Eos # (Auto) 0 (0-450) /uL Baso # (Auto) 0 (0-100) /uL Total Counted 100 Seg Neutrophils % 14.0 L (38-70) % Band Neutrophils % 27.0 H (3-7) % Lymphocytes % (Manual) 17.0 L (25-45) % Atypical Lymphs % 2.0 H ( - 0) % Monocytes % (Manual) 22.0 H (2-11) % Eosinophils % (Manual) 1.0 L (2-4) % Metamyelocytes % 13.0 H (-0) % Myelocytes % 4.0 H (-0) % Neutrophils # (Manual) 1681 L (9812-4457) /uL Nucleated RBCs 1 H ( - 0) #/Diff Smudge Cells 1+ H Toxic Granulation Present H Toxic Vacuolation Pres RBC Morphology See below Polychromasia 1+ H Anisocytosis 1+ H PT 13.5 H (9.4-12.5) SECONDS INR 1.2 (0.9-1.3) APTT 34 (25.1-36.5) SECONDS Sodium 153 H (137-145) mmol/L Potassium 4.3 (3.4-5.1) mmol/L Chloride 107 (98-107) mmol/L Carbon Dioxide 32 (22-32) mmol/L BUN 107 H* (9-20) mg/dL Creatinine 1.76 H (0.66-1.25) mg/dL Estimated GFR 40 L (>60) mL/min BUN/Creatinine Ratio 60.8 H (6-22) Glucose 315 H (80-110) mg/dL Lactate 3.3 H 1.7 (0.7-2.1) mmol/L Calcium 10.5 H (8.4-10.2) mg/dL Total Bilirubin 0.8 (0.2-1.3) mg/dL AST 37 (17-59) IU/L ALT 30 (<50) IU/L Alkaline Phosphatase 194 H (38-126) U/L Total Creatine Kinase 90 (55-170) U/L Troponin I < 0.012 (0.01-0.034) ng/mL NT-Pro-B Natriuret Pep 4530 H (<125) pg/mL Total Protein 8.8 H (6.3-8.2) g/dL Albumin 4.5 (3.5-5.0) g/dL Globulin 4.3 H (1.7-4.1) g/dL Albumin/Globulin Ratio 1.0 (1.0-2.8) Lipase 51 (23-300) U/L Procalcitonin 6.32 H (<0.5) ng/mL Chlamy pneumoniae PCR Not detected (Not Detect) Adenovirus (PCR) Not detected (Not Detect) B.parapertussis DNA PCR Not detected (Not Detecte) Coronavirus OC43 (PCR) Not detected (Not Detect) Coronavirus HKU1 (PCR) Not detected (Not Detect) Coronavirus 229E (PCR) Not detected (Not Detect) SARS-CoV-2 (PCR) Not detected (Not Detecte) Coronavirus NL63 (PCR) Not detected (Not Detect) Human Metapneumovir PCR Not detected (Not Detect) Influenza Type A (PCR) Not detected (Not Detect) Influenza Type B (PCR) Not detected (Not Detect) M. pneumoniae (PCR) Not detected (Not Detect) Parainfluenza 1 (PCR) Not detected (Not Detect) Parainfluenza 2 (PCR) Not detected (Not Detect) Parainfluenza 3 (PCR) Not detected (Not Detect) Parainfluenza 4 (PCR) Not detected (Not Detect) RSV (PCR) Not detected (Not Detect) Entero/Rhino (PCR) Not detected (Not Detect) Urine Dip Bedside Urine Glucose 1000 mg/dl Bedside Urine Bilirubin - Negative Bedside Urine Ketone - Negative Urine Specific [place] 1.015 Bedside Urine Occult Blood ++ Bedside Urine pH 5.5 Bedside Urine Protein + 30 Bedside Urine Urobilinogen - Negative Bedside Urine Nitrite - Negative Bedside Urine Leukocytes - Negative Esterase Imaging Data Chest x-ray: My Impression: Right-sided infiltrate Radiologist's Impression: [address] [address] XRay Report Signed Patient: Sumeet Cochran MR#: [id number] : 1950 Acct:[id number] Age/Sex: 72 / M Date of Service: 11/07/23 Loc: ED Accession Number: [id number] Procedure: XR chest 1V Ordering Provider: Jerrell Padilla MD PROCEDURE: XR CHEST 1V INDICATIONS: suspected sepsis TECHNIQUE: One view of the chest was acquired. COMPARISON: [facility], CR, XR CHEST 1V, 10/20/2023, 11:03. FINDINGS: Surgical changes and devices: Stable median sternotomy wires. Stable abandoned defibrillator lead. Stable percutaneous gastrostomy tube. Lungs and pleura: Patchy bibasilar lung opacities, left greater than right. No pleural effusions or pneumothorax. Mediastinum: Mediastinal contours appear normal. Heart is enlarged. Bones and chest wall: No suspicious bony lesions. Overlying soft tissues appear unremarkable. IMPRESSION: Patchy bibasilar lung opacities, left greater than right. Finding could represent pneumonia and/or atelectasis. Dictated by: Karla Dumas MD, PhD on 11/07/2023 at 13:30 Approved by: Karla Dumas MD, PhD on 11/07/2023 at 13:33 ECG Data Interpretation: ECG showed normal sinus rhythm without acute ST segment changes MDM Narrative Medical decision making narrative: 72-year-old male presenting with a new oxygen requirement and cough and dyspnea. He has recently been regurgitating tube feeds and I am concerned that the patient has been having aspiration events. Has a history of a heart transplant, does not appear that other than his immunosuppression this current problem involves a heart transplant and I did discuss the case with transplant cardiology at the [facility]. He has not hypotensive but did have an elevated lactic acid he was given IV fluids and this corrected. I think with his elevated lactic acid and infectious source I would consider him to be septic. Cultures were obtained he was started on IV Zosyn. Planned management of his regurgitation was discussed with gastroenterology at [facility]. He is admitted to the hospitalist service here. Discharge Plan Departure Patient Disposition: Admitted As Inpatient Clinical Impression: Sepsis Qualifiers: Sepsis type: sepsis due to unspecified organism Sepsis acute organ dysfunction status: with acute organ dysfunction Severe sepsis acute organ dysfunction type: acute renal failure Acute renal failure type: unspecified Severe sepsis shock status: without septic shock Qualified Code(s): A41.9 - Sepsis, unspecified organism Pneumonia Qualifiers: Pneumonia type: aspiration pneumonia Aspiration pneumonia type: unspecified L aterality: right Lung location: unspecified part of lung Qualified Code(s): J 69.0 - Pneumonitis due to inhalation of food and vomit Admit Date/Time: 11/07/23 17:04 Admit Provider: Federico Bowling
[2023-11-07] MEDS: PIPERACILLIN/TAZO 4.5 GM in SODIUM CHLORIDE 0.9% 100 ML IV (16:28)
--- NOTE | 2023-11-07 17:05 | PC.NURSE ---
Pt is hypotensive, repeat blood pressures taken and patient assessed. He denies feeling worse and denies dizziness or lightheaded at rest. Dr. Padilla notified.
--- NOTE | 2023-11-07 17:57 | PM.HP.1 ---
History of Present Illness History of Present Illness Date Patient Seen: 11/07/23 Time Patient Seen: 18:02 Chief complaint: sob, hypotensive, h/o heart transplant Narrative: The patient presented today with shortness of breath and hypotension. He has a 72-year-old male with a history of cardiac transplant at the [facility]. The patient also has esophageal dysfunction and has a feeding tube in place. He also has Hodgkin's lymphoma. The patient has a productive cough. In the field EMS found him to have 92% saturations on room air. He does not take oxygen at home. Apparently he has been having intermittent regurgitation over about 2 weeks of his tube feeds. He had distant radiation therapy for Hodgkin's lymphoma which resulted in cardiac failure and ultimate cardiac transplant in 2014. In developed esophageal dysfunction, he has had a G-tube in since last summer. He takes nothing by mouth. He was recently diagnosed with throat cancer treated with chemotherapy. This was about 3 years ago and he has had increased phlegm production since. He will develop episodes of increased phlegm production were sent him to lead to more fully forceful regurgitation of gastric contents. [facility] had brought up the idea of a J-tube previously to mitigate regurgitation. He has had a cough for several days and became quite weak over the last 24 hours to the point that he could not walk to the car this morning. EMS was called. He also has recurrent pleural effusions in his had around 10 thoracentesis before. They are attempting to establish care with pulmonology and [place] for thoracentesis and other needs. They have a pending appointment this Monday. 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 Surgical History Heart transplant status Family History Father Myocardial infarction Mother Old age Social History household members: spouse Smoking Status: Former smoker Meds Home Medications and Allergies Home Medications Medication Instructions Recorded Confirmed Type alendronate 70 mg tablet 70 mg PO QWEEK 02/21/19 09/19/22 History ascorbic acid (vitamin C) 500 mg 500 mg PO DAILY 02/21/19 09/19/22 History capsule,extended release aspirin 81 mg tablet,delayed 81 mg PO DAILY 02/21/19 09/19/22 History release (Adult Low Dose Aspirin) insulin aspart U-100 100 unit/mL 12 unit SUBCUT TID 02/21/19 09/19/22 History (3 mL) subcutaneous pen insulin glargine 100 unit/mL (3 15 unit SUBCUT DAILY 02/21/19 09/19/22 History mL) subcutaneous pen (Lantus Solostar U-100 Insulin) levothyroxine 100 mcg capsule 100 mcg PO DAILY 02/21/19 09/19/22 History tacrolimus 5 mg capsule, 2.5 mg PO Q12H 02/21/19 09/19/22 History immediate-release famotidine 20 mg tablet 20 mg PO BID 11/19/20 09/19/22 History rosuvastatin 20 mg tablet 20 mg PO DAILY 11/19/20 09/19/22 History cholecalciferol (vitamin D3) 50 50 mcg PO DAILY 09/19/22 09/19/22 History mcg (2,000 unit) tablet loperamide 2 mg capsule 2 mg PO BID 09/19/22 09/19/22 History (Anti-Diarrheal (loperamide)) magnesium oxide-magnesium amino 133 mg PO TID 09/19/22 09/19/22 History acid chelate 133 mg tablet ([id number]) omeprazole 20 mg capsule,delayed 20 mg PO BID 09/19/22 09/19/22 History release potassium chloride 20 mEq 40 meq PO QAM 09/19/22 09/19/22 History tablet,extended release trazodone 50 mg tablet 50 mg PO BEDTIME 09/19/22 09/19/22 History albuterol sulfate 90 mcg/actuation 2 inh inhalation Q4H PRN shortness 09/22/22 Rx breath activated powder inhaler of breath or wheezing #1 ea amoxicillin 875 mg-potassium 1 tab PO BID #14 tabs 09/22/22 Rx clavulanate 125 mg tablet carvedilol 6.25 mg tablet 6.25 mg PO BID #60 tabs 09/22/22 Rx prednisone 20 mg tablet 40 mg (2 x 20 mg) PO DAILY #8 tabs 09/22/22 Rx vancomycin 125 mg capsule 125 mg PO DAILY 09/22/22 09/22/22 History mycophenolate mofetil 200 mg/mL mg PO 10/20/23 History oral suspension tacrolimus 1 mg oral granules in mg 10/20/23 History packet Allergies Allergy/AdvReac Type Severity Reaction Status Date / Time fish oil [FISH OIL] Allergy Unknown Verified 11/07/23 13:18 hydrocodone [HYDROCODONE] Allergy Unknown Verified 11/07/23 13:18 amlodipine AdvReac Verified 11/07/23 13:18 Review of Systems Review of Systems Narrative: All else reviewed and otherwise unremarkable except as noted in history and physical. Exam Vital Signs (past 8 hours): - 11/07/23 12:59 11/07/23 12:59 11/07/23 13:00 Temperature Pulse Rate 103 H Respiratory Rate 21 Blood Pressure 120/69 105/65 Pulse Oximetry 94 Oxygen Delivery Method Nasal Cannula Oxygen Flow Rate 2 11/07/23 13:00 11/07/23 13:05 11/07/23 13:20 Temperature 98.9 F Pulse Rate 101 H 101 H 102 H Respiratory Rate 12 18 Blood Pressure 120/69 Pulse Oximetry 95 92 97 Oxygen Delivery Method Nasal Cannula Room Air Nasal Cannula Oxygen Flow Rate 2 2 11/07/23 13:20 11/07/23 13:30 11/07/23 13:45 Temperature Pulse Rate 101 H 100 H Respiratory Rate 32 H Blood Pressure 105/83 Pulse Oximetry 94 95 Oxygen Delivery Method Nasal Cannula Oxygen Flow Rate 2 11/07/23 13:45 11/07/23 14:00 11/07/23 14:00 Temperature Pulse Rate 96 H Respiratory Rate 25 H Blood Pressure 99/58 L 108/62 Pulse Oximetry 99 Oxygen Delivery Method Nasal Cannula Oxygen Flow Rate 3 11/07/23 14:20 11/07/23 14:20 11/07/23 14:30 Temperature Pulse Rate 95 H 94 H Respiratory Rate 23 23 Blood Pressure 126/69 Pulse Oximetry 98 98 Oxygen Delivery Method Nasal Cannula Oxygen Flow Rate 2 11/07/23 14:40 11/07/23 14:40 11/07/23 15:03 Temperature Pulse Rate 95 H 100 H Respiratory Rate 25 H 17 Blood Pressure 103/62 Pulse Oximetry 99 97 Oxygen Delivery Method Nasal Cannula Oxygen Flow Rate 2 11/07/23 15:03 11/07/23 15:30 11/07/23 15:30 Temperature Pulse Rate 97 H Respiratory Rate 26 H Blood Pressure 117/70 95/58 L Pulse Oximetry 97 Oxygen Delivery Method Nasal Cannula Oxygen Flow Rate 2 11/07/23 16:00 11/07/23 16:00 11/07/23 16:30 Temperature Pulse Rate 96 H Respiratory Rate 20 Blood Pressure 113/62 119/72 Pulse Oximetry 98 Oxygen Delivery Method Nasal Cannula Oxygen Flow Rate 2 11/07/23 16:30 11/07/23 17:00 11/07/23 17:00 Temperature Pulse Rate 98 H 100 H Respiratory Rate 30 H 31 H Blood Pressure 83/53 L Pulse Oximetry 99 99 Oxygen Delivery Method Nasal Cannula Nasal Cannula Oxygen Flow Rate 2 2 11/07/23 17:04 11/07/23 17:04 11/07/23 17:06 Temperature Pulse Rate 100 H Respiratory Rate 29 H Blood Pressure 91/58 L 92/59 L Pulse Oximetry 98 Oxygen Delivery Method Oxygen Flow Rate 11/07/23 17:06 11/07/23 17:15 11/07/23 17:15 Temperature Pulse Rate 100 H 100 H Respiratory Rate 29 H 29 H Blood Pressure 105/60 Pulse Oximetry 98 97 Oxygen Delivery Method Nasal Cannula Nasal Cannula Oxygen Flow Rate 2 2 11/07/23 17:30 11/07/23 17:30 Temperature Pulse Rate 101 H Respiratory Rate 29 H Blood Pressure 114/64 Pulse Oximetry 97 Oxygen Delivery Method Nasal Cannula Oxygen Flow Rate 2 Oxygen Delivery Method Nasal Cannula Oxygen Flow Rate 2 Narrative Exam Narrative: Mild distress, chronically ill in appearance. He is somewhat lethargic. He has slow but normal speech. He has a flat affect. He is breathing normally. He is 2 L of oxygen on. Normocephalic skull, EOMI, anicteric sclera. Oropharynx with dry mucosa, no facial droop. Lungs with expiratory wheezing and rhonchi. Normal rate. Normal effort. Heart is regular, no murmur. Abdomen is soft, nontender. G-tube in place. Extremities are free of edema. Skin is free of rash or lesions. Good pedal pulses. Skin is free of rash or lesions. Joints are not swollen or deformed, no lymphadenopathy. Objective Imaging Chest x-ray: Radiologist's impression: Patchy bibasilar lung opacities, left greater than right. Finding could represent pneumonia and/or atelectasis. Labs 11/07/23 13:02 11/07/23 13:02 Labs: Laboratory Results - last 24 hr 11/07/23 11/07/23 11/07/23 13:02 14:25 15:15 WBC 4.1 L RBC 4.33 L Hgb 12.7 L Hct 38.5 L MCV 89.0 MCH 29.4 MCHC 33.0 RDW 17.5 H Plt Count 198 Neut % (Auto) 53.0 Lymph % (Auto) 15.2 L [place] % (Auto) 30.6 H Eos % (Auto) 0.7 L Baso % (Auto) 0.5 Neut # (Auto) 2200 Lymph # (Auto) 600 L [place] # (Auto) 1300 H Eos # (Auto) 0 Baso # (Auto) 0 Total Counted 100 Seg Neutrophils % 14.0 L Band Neutrophils % 27.0 H Lymphocytes % (Manual) 17.0 L Atypical Lymphs % 2.0 H Monocytes % (Manual) 22.0 H Eosinophils % (Manual) 1.0 L Metamyelocytes % 13.0 H Myelocytes % 4.0 H Neutrophils # (Manual) 1681 L Nucleated RBCs 1 H Smudge Cells 1+ H Toxic Granulation Present H Toxic Vacuolation Pres RBC Morphology See below Polychromasia 1+ H Anisocytosis 1+ H PT 13.5 H INR 1.2 APTT 34 Sodium 153 H Potassium 4.3 Chloride 107 Carbon Dioxide 32 BUN 107 H* Creatinine 1.76 H Estimated GFR 40 L BUN/Creatinine Ratio 60.8 H Glucose 315 H Lactate 3.3 H 1.7 Calcium 10.5 H Total Bilirubin 0.8 AST 37 ALT 30 Alkaline Phosphatase 194 H Total Creatine Kinase 90 Troponin I < 0.012 NT-Pro-B Natriuret Pep 4530 H Total Protein 8.8 H Albumin 4.5 Globulin 4.3 H Albumin/Globulin Ratio 1.0 Lipase 51 Procalcitonin 6.32 H Chlamy pneumoniae PCR Not detected Adenovirus (PCR) Not detected B.parapertussis DNA PCR Not detected Coronavirus OC43 (PCR) Not detected Coronavirus HKU1 (PCR) Not detected Coronavirus 229E (PCR) Not detected SARS-CoV-2 (PCR) Not detected Coronavirus NL63 (PCR) Not detected Human Metapneumovir PCR Not detected Influenza Type A (PCR) Not detected Influenza Type B (PCR) Not detected M. pneumoniae (PCR) Not detected Parainfluenza 1 (PCR) Not detected Parainfluenza 2 (PCR) Not detected Parainfluenza 3 (PCR) Not detected Parainfluenza 4 (PCR) Not detected RSV (PCR) Not detected Entero/Rhino (PCR) Not detected Assessment & Plan Assessment & Plan narrative: 1. Aspiration pneumonia, present on admission and active. 2. Acute hypoxic respiratory failure, present on admission and active. 3. Transient hypotension and hypovolemia, present on admission and improved. 4. Lactic acidosis, present on admission and improved. 5. Acute kidney injury, present on admission and active. 6. History of cardiac transplant, stable. 7. Esophageal dysmotility with G-tube since last summer, present on admission and active. 8. Intermittent regurgitation of enteral feeds, present on admission and active. 9. Remote Hodgkin's lymphoma with radiation esophagitis, stable. 10. Remote neck cancer, stable. Plan: -antibiotics for aspiration pneumonia, Zosyn Q 8. -wean oxygen as able. -IV fluids, monitor renal function and lactic acidosis. -resume chronic immunosuppressive after med history, patient's cardiac transplant places him at risk for adverse outcomes of lapse of immunosuppression. This is weighed against the risks of his current infection and antibiotic treatment. Discussed with GI at [facility] prior to admission. He recommends nothing through the G-tube until the pneumonia is treated, then consideration of a transition to a J-tube with Interventional Radiology. The patient is full resuscitation, confirmed time of admission. Patient's is his proxy decision maker. Time Spent With Patient Time with patient: 30 to 49 minutes with 50% spent counseling/coordinating care Quality MIPS - Admit The patient?s Advance Care plan is not present because I confirmed today that the patient does not wish or was not able to name a surrogate decision maker or provide an Advance Care Plan.: Yes MIPS - Meds 'Current medications' to include all prescriptions, [id number] products, herbals, cannabis/cannabidiol products, and vitamin/mineral/dietary (nutritional) supplements. I have utilized all available resources to obtain, update, or review the patient?s current medications. [If Yes, STOP here]: Yes
[2023-11-07] MEDS: DEXTROSE 5%-0.9% NS 1,000 ML 100 ML IV (18:43)
--- NOTE | 2023-11-07 19:22 | PC.NURSE ---
1800 pt to AC from ER. able to stand transfer a few steps with assist from stretcher to bed. States improvement in resp effort though is SOB with exertion. weak cough with coarse lung sounds throughout. O2 sats mids 90s on 2L NC. tele monitor on per order. bedside yanker suction set up with pt instructed on use. CPAP from home brought in. pt states sleeps with HOB elevated. VSS with tachypnea and tachycardia. IVF per order. Supportive spouse at bedside. in to see pt and orient pt to plan of care. Bed alarm automobile service station manager light encouraged for needs and prior to activity for assist.
[2023-11-07 20:37] LABS: Lactate (Lactic Acid) 1.8 mmol/L (0.7-2.1)
[2023-11-07] MEDS: HEPARIN 5,000 UNIT/ML VIAL 5000 UNIT SUBCUT (21:59)
[2023-11-07] MEDS: MYCOPHENOLATE MOFETIL 200 MG/ML 2.5 EACH TUBE (23:38)
[2023-11-07] MEDS: TACROLIMUS 0.5 MG CAPSULE 2.5 MG PO (23:38)
[2023-11-08] VITALS (8 sets, daily range): BP systolic 114–137; BP diastolic 63–85; PULSE 92–105; RESP 16–20; TEMP 35.7–36.3; O2SAT 95–98
[2023-11-08] MEDS: PIPERACILLIN/TAZO 3.375 GM in SODIUM CHLORIDE 0.9% 100 ML IV ×3 (01:25→17:24)
[2023-11-08 05:21] LABS: Hematocrit 32.8 % (41-53); Hemoglobin 10.7 g/dL (13.5-17.5); Mean Corpuscular HGB Conc 32.5 % (30-36); Mean Corpuscular Hemoglobin 29.1 PG (26-34); Mean Corpuscular Volume 89.3 fL (80-100); Platelet Count 162 X10^3/uL (150-400); Red Blood Cell Count 3.67 X10^6/uL (4.5-5.9); White Blood Cell Count 2.3 X10^3/uL (4.5-11.0)
[2023-11-08 05:23] LABS: Add Manual Diff / Slide Review YES
[2023-11-08 05:33] LABS: BUN Creatinine Ratio 44.8 (6-22); Blood Urea Nitrogen 64 mg/dL (9-20); Carbon Dioxide 29 mmol/L (22-32); Estimated Glomerular Filt Rate 52 mL/min (>60); Glucose 283 mg/dL (80-110); HEMOLYSIS < 15 (0-50); Potassium 3.6 mmol/L (3.4-5.1)
[2023-11-08 05:38] LABS: Chloride 122 mmol/L (98-107); Sodium 159 mmol/L (137-145)
[2023-11-08 06:04] LABS: Neutrophils Absolute Manual 805 /uL (3000-5900); Total Cells Counted 100
[2023-11-08 06:05] LABS: Platelet Estimate Adequate on smear
[2023-11-08 06:06] LABS: Anisocytosis 1+; Smudge Cells 1+; Toxic Granulation Present
[2023-11-08] MEDS: DEXTROSE 5% WATER 1,000 ML 100 ML IV ×3 (06:16→17:24)
--- NOTE | 2023-11-08 07:25 | P.PN_ITS ---
Subjective Subjective Interval history: Admitted with pneumonia and hypoxia. Developed worsened hypernatremia overnight. On D5W. He feels weak and hungry. He is very sensitive to not having enteral feeds in his stomach. His breathing is stable he denies feeling more short of breath. Minimal cough. Exam Vital Signs (past 8 hours): - 11/08/23 01:21 11/08/23 05:52 Temperature 97 F L 97.3 F L Pulse Rate 105 H 97 H Respiratory Rate 17 18 Blood Pressure 126/80 117/71 Pulse Oximetry 96 96 Oxygen Flow Rate 0 Oxygen Delivery Method Nasal Cannula Oxygen Flow Rate 0 Narrative Exam Narrative: Flat affect, no distress. Normal speech. Lungs are mostly clear, with normal rate and effort. He is on oxygen. Heart is regular, no murmur gallop or rub. Abdomen is soft, nontender. No leg edema. Objective Labs 11/08/23 04:59 11/08/23 04:59 Labs: Laboratory Results - last 24 hr 11/07/23 11/07/23 11/07/23 13:02 14:25 15:15 WBC 4.1 L RBC 4.33 L Hgb 12.7 L Hct 38.5 L MCV 89.0 MCH 29.4 MCHC 33.0 RDW 17.5 H Plt Count 198 Neut % (Auto) 53.0 Lymph % (Auto) 15.2 L [place] % (Auto) 30.6 H Eos % (Auto) 0.7 L Baso % (Auto) 0.5 Neut # (Auto) 2200 Lymph # (Auto) 600 L [place] # (Auto) 1300 H Eos # (Auto) 0 Baso # (Auto) 0 Total Counted 100 Seg Neutrophils % 14.0 L Band Neutrophils % 27.0 H Lymphocytes % (Manual) 17.0 L Atypical Lymphs % 2.0 H Monocytes % (Manual) 22.0 H Eosinophils % (Manual) 1.0 L Metamyelocytes % 13.0 H Myelocytes % 4.0 H Neutrophils # (Manual) 1681 L Nucleated RBCs 1 H Smudge Cells 1+ H Toxic Granulation Present H Toxic Vacuolation Pres Platelet Estimate Plt Morphology Comment RBC Morphology See below Polychromasia 1+ H Anisocytosis 1+ H PT 13.5 H INR 1.2 APTT 34 Sodium 153 H Potassium 4.3 Chloride 107 Carbon Dioxide 32 BUN 107 H* Creatinine 1.76 H Estimated GFR 40 L BUN/Creatinine Ratio 60.8 H Glucose 315 H Lactate 3.3 H 1.7 Calcium 10.5 H Total Bilirubin 0.8 AST 37 ALT 30 Alkaline Phosphatase 194 H Total Creatine Kinase 90 Troponin I < 0.012 NT-Pro-B Natriuret Pep 4530 H Total Protein 8.8 H Albumin 4.5 Globulin 4.3 H Albumin/Globulin Ratio 1.0 Lipase 51 Procalcitonin 6.32 H Chlamy pneumoniae PCR Not detected Adenovirus (PCR) Not detected B.parapertussis DNA PCR Not detected Coronavirus OC43 (PCR) Not detected Coronavirus HKU1 (PCR) Not detected Coronavirus 229E (PCR) Not detected SARS-CoV-2 (PCR) Not detected Coronavirus NL63 (PCR) Not detected Human Metapneumovir PCR Not detected Influenza Type A (PCR) Not detected Influenza Type B (PCR) Not detected M. pneumoniae (PCR) Not detected Parainfluenza 1 (PCR) Not detected Parainfluenza 2 (PCR) Not detected Parainfluenza 3 (PCR) Not detected Parainfluenza 4 (PCR) Not detected RSV (PCR) Not detected Entero/Rhino (PCR) Not detected 11/07/23 11/08/23 20:15 04:59 WBC 2.3 L RBC 3.67 L Hgb 10.7 L Hct 32.8 L MCV 89.3 MCH 29.1 MCHC 32.5 RDW 18.0 H Plt Count 162 Neut % (Auto) Not Reportable Lymph % (Auto) Not Reportable [place] % (Auto) Not Reportable Eos % (Auto) Not Reportable Baso % (Auto) Not Reportable Neut # (Auto) Lymph # (Auto) Not Reportable [place] # (Auto) Not Reportable Eos # (Auto) Baso # (Auto) Not Reportable Total Counted 100 Seg Neutrophils % 13.0 L Band Neutrophils % 22.0 H Lymphocytes % (Manual) 23.0 L Atypical Lymphs % Monocytes % (Manual) 19.0 H Eosinophils % (Manual) Metamyelocytes % 23.0 H Myelocytes % Neutrophils # (Manual) 805 L Nucleated RBCs Smudge Cells 1+ H Toxic Granulation Present H Toxic Vacuolation Platelet Estimate Adequate on smear Plt Morphology Comment RBC Morphology See below Polychromasia Anisocytosis 1+ H PT INR APTT Sodium 159 H* Potassium 3.6 Chloride 122 H* Carbon Dioxide 29 BUN 64 H Creatinine 1.43 H Estimated GFR 52 L BUN/Creatinine Ratio 44.8 H Glucose 283 H Lactate 1.8 Calcium 9.0 Total Bilirubin AST ALT Alkaline Phosphatase Total Creatine Kinase Troponin I NT-Pro-B Natriuret Pep Total Protein Albumin Globulin Albumin/Globulin Ratio Lipase Procalcitonin Chlamy pneumoniae PCR Adenovirus (PCR) B.parapertussis DNA PCR Coronavirus OC43 (PCR) Coronavirus HKU1 (PCR) Coronavirus 229E (PCR) SARS-CoV-2 (PCR) Coronavirus NL63 (PCR) Human Metapneumovir PCR Influenza Type A (PCR) Influenza Type B (PCR) M. pneumoniae (PCR) Parainfluenza 1 (PCR) Parainfluenza 2 (PCR) Parainfluenza 3 (PCR) Parainfluenza 4 (PCR) RSV (PCR) Entero/Rhino (PCR) [facility] Medical History Obstructive sleep apnea on CPAP History of Hodgkin's lymphoma Hypothyroidism 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 Hypernatremia, present on admission and worse overnight. 2. Aspiration pneumonia, present on admission and active. 3. Acute hypoxic respiratory failure, present on admission and active. 4. Transient hypotension and hypovolemia, present on admission and improved. 5. Lactic acidosis, present on admission and improved. 6. Acute kidney injury, present on admission and active. 7. History of cardiac transplant, stable. 8. Esophageal dysmotility with G-tube since last summer, present on admission and active. 9. Intermittent regurgitation of enteral feeds, present on admission and active. 10. Remote Hodgkin's lymphoma with radiation esophagitis, stable. 11. Remote neck cancer, stable. Plan: -D5W, Q 6 Na -antibiotics for aspiration pneumonia, Zosyn Q 8. -wean oxygen as able. -IV fluids, monitor renal function and lactic acidosis. -resume chronic immunosuppressive after med history, patient's cardiac transplant places him at risk for adverse outcomes of lapse of immunosuppression. This is weighed against the risks of his current infection and antibiotic treatment. Discussed with GI at [facility] prior to admission. He recommends nothing through the G-tube until the pneumonia is treated, then consideration of a transition to a J-tube with Interventional Radiology. Will DW Dr. Frazier, his primary GI doctor today. The patient is full resuscitation, confirmed time of admission. Patient's is his proxy decision maker. Time Spent With Patient Time with patient: 30 to 49 minutes with 50% spent counseling/coordinating care
[2023-11-08] MEDS: HEPARIN 5,000 UNIT/ML VIAL 5000 UNIT SUBCUT ×2 (09:05→21:42)
[2023-11-08] MEDS: MYCOPHENOLATE MOFETIL 200 MG/ML 2.5 EACH TUBE ×2 (10:46→21:42)
[2023-11-08] MEDS: PANTOPRAZOLE 40 MG VIAL 20 MG IV (11:53)
[2023-11-08] MEDS: TACROLIMUS 1 MG/ML 3.5 EACH PO (11:58)
[2023-11-08 12:45] LABS: BUN Creatinine Ratio 46.8 (6-22); Blood Urea Nitrogen 59 mg/dL (9-20); Calcium 9.1 mg/dL (8.4-10.2); Carbon Dioxide 29 mmol/L (22-32); Chloride 121 mmol/L (98-107); Estimated Glomerular Filt Rate > 60 mL/min (>60); Glucose 270 mg/dL (80-110); HEMOLYSIS < 15 (0-50); Potassium 3.6 mmol/L (3.4-5.1)
[2023-11-08 12:51] LABS: Sodium 159 mmol/L (137-145)
[2023-11-08] MEDS: TRIMETH/SULFA 160/800 (DS) TABLET 0.5 TAB PO (14:52)
[2023-11-08] MEDS: ASPIRIN 81 MG CHEW TAB TUBE (14:52)
[2023-11-08] MEDS: ATORVASTATIN 20 MG TABLET TUBE (14:52)
[2023-11-08 18:37] LABS: BUN Creatinine Ratio 43.3 (6-22); Blood Urea Nitrogen 55 mg/dL (9-20); Calcium 9.2 mg/dL (8.4-10.2); Carbon Dioxide 28 mmol/L (22-32); Chloride 121 mmol/L (98-107); Estimated Glomerular Filt Rate 60 mL/min (>60); Glucose 260 mg/dL (80-110); HEMOLYSIS < 15 (0-50); Potassium 3.5 mmol/L (3.4-5.1)
[2023-11-08 18:44] LABS: Sodium 158 mmol/L (137-145)
[2023-11-08] MEDS: TACROLIMUS 1 MG/ML 3.5 EACH TUBE (21:42)
[2023-11-09] MEDS: DEXTROSE 5% WATER 1,000 ML 100 ML IV (00:57)
[2023-11-09] MEDS: PIPERACILLIN/TAZO 3.375 GM in SODIUM CHLORIDE 0.9% 100 ML IV ×3 (00:57→15:37)
[2023-11-09 05:30] LABS: Add Manual Diff / Slide Review NO; Basophils Absolute Auto 0 /uL (0-100); Basophils Percent Auto 0.5 % (0-2); Eosinophils Absolute Auto 100 /uL (0-450); Eosinophils Percent Auto 3.7 % (2-4); Hematocrit 32.9 % (41-53); Hemoglobin 10.5 g/dL (13.5-17.5); Lymphocytes Absolute Auto 300 /uL (1100-4500); Lymphocytes Percent Auto 13.7 % (25-40); Mean Corpuscular HGB Conc 32.1 % (30-36); Mean Corpuscular Hemoglobin 28.9 PG (26-34); Monocytes Absolute Auto 500 /uL (0-900); Monocytes Percent Auto 21.1 % (3-14); Neutrophils Absolute Auto 1400 /uL (1500-7000); Platelet Count 167 X10^3/uL (150-400); Red Blood Cell Count 3.65 X10^6/uL (4.5-5.9); Red Cell Distribution Width 18.1 % (11.6-14.8); White Blood Cell Count 2.3 X10^3/uL (4.5-11.0)
[2023-11-09 05:42] LABS: BUN Creatinine Ratio 37.8 (6-22); Blood Urea Nitrogen 45 mg/dL (9-20); Calcium 8.8 mg/dL (8.4-10.2); Carbon Dioxide 30 mmol/L (22-32); Chloride 119 mmol/L (98-107); Estimated Glomerular Filt Rate > 60 mL/min (>60); Glucose 269 mg/dL (80-110); HEMOLYSIS < 15 (0-50); Sodium 157 mmol/L (137-145)
[2023-11-09 06:00] VITALS: BP 122/70; PULSE 98; RESP 19; TEMP 35.9; O2SAT 96
--- NOTE | 2023-11-09 07:45 | PM.PN.1 ---
Subjective Subjective Interval history: He feels a little bit better today. Less dyspnea. More energy. He remains on oxygen. No pain. Exam Vital Signs (past 8 hours): - 11/09/23 06:00 Temperature 96.7 F L Pulse Rate 98 H Respiratory Rate 19 Blood Pressure 122/70 Pulse Oximetry 96 Oxygen Flow Rate 0 Fraction of Inspired Oxygen 24 SaO2/FiO2 Ratio 404 Oxygen Delivery Method Nasal Cannula Oxygen Flow Rate 0 Narrative Exam Narrative: No acute distress, flat affect. Normal speech. Lungs are clear with normal effort. Heart is regular without murmur. Abdomen is non tender. G-tube in place. Extremities are free of edema. Objective Labs 11/09/23 04:53 11/09/23 04:53 Labs: Laboratory Results - last 24 hr 11/08/23 11/08/23 11/09/23 12:12 18:16 04:53 WBC 2.3 L RBC 3.65 L Hgb 10.5 L Hct 32.9 L MCV 90.0 MCH 28.9 MCHC 32.1 RDW 18.1 H Plt Count 167 Neut % (Auto) 61.0 Lymph % (Auto) 13.7 L [place] % (Auto) 21.1 H Eos % (Auto) 3.7 Baso % (Auto) 0.5 Neut # (Auto) 1400 L Lymph # (Auto) 300 L [place] # (Auto) 500 Eos # (Auto) 100 Baso # (Auto) 0 Sodium 159 H* 158 H 157 H Potassium 3.6 3.5 3.0 L Chloride 121 H 121 H 119 H Carbon Dioxide 29 28 30 BUN 59 H 55 H 45 H Creatinine 1.26 H 1.27 H 1.19 Estimated GFR > 60 60 > 60 BUN/Creatinine Ratio 46.8 H 43.3 H 37.8 H Glucose 270 H 260 H 269 H Calcium 9.1 9.2 8.8 PFSH Medical History Obstructive sleep apnea on CPAP History of Hodgkin's lymphoma Hypothyroidism 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 Hypernatremia, present on admission and slowly improving. 2. Aspiration pneumonia, present on admission and active. 3. Acute hypoxic respiratory failure, present on admission and active. 4. Transient hypotension and hypovolemia, present on admission and improved. 5. Lactic acidosis, present on admission and improved. 6. Acute kidney injury, present on admission and improved. 7. History of cardiac transplant, stable. 8. Esophageal dysmotility with G-tube since last summer, present on admission and active. 9. Intermittent regurgitation of enteral feeds, present on admission and active. 10. Remote Hodgkin's lymphoma with radiation esophagitis, stable. 11. Remote neck cancer, stable. Plan: -continue D5W to correct hypernatremia. -continue antibiotics, Zosyn, for aspiration pneumonia. Anticipate a 5 day course. -continue to use the G-tube only for medications, no enteral feeding. -PICC line ordered today. TPN order today. -the plan would be bridging TPN and conversion of G-tube to J-tube. This will likely have to happen outpatient, possibly [facility]. Attempting to discuss with Gastroenterology at [place]. Discussed with GI at [facility] prior to admission. He recommends nothing through the G-tube until the pneumonia is treated, then consideration of a transition to a J-tube with Interventional Radiology. Will DAE Frazier, his primary GI doctor today. The patient is full resuscitation, confirmed time of admission. Patient's is his proxy decision maker. Time Spent With Patient Time with patient: 30 to 49 minutes with 50% spent counseling/coordinating care
[2023-11-09] MEDS: PANTOPRAZOLE 40 MG VIAL 20 MG IV (08:44)
[2023-11-09] MEDS: ATORVASTATIN 20 MG TABLET TUBE (08:45)
[2023-11-09] MEDS: ASPIRIN 81 MG CHEW TAB TUBE (08:45)
[2023-11-09] MEDS: HEPARIN 5,000 UNIT/ML VIAL 5000 UNIT SUBCUT ×2 (08:45→22:02)
[2023-11-09] MEDS: TRIMETH/SULFA 160/800 (DS) TABLET 0.5 TAB PO (08:46)
[2023-11-09 08:51] VITALS: BP 137/89; PULSE 100; RESP 20; TEMP 36.2; O2SAT 97
[2023-11-09] MEDS: MYCOPHENOLATE MOFETIL 200 MG/ML 2.5 EACH TUBE ×2 (08:59→22:03)
[2023-11-09] MEDS: TACROLIMUS 1 MG/ML 3.5 EACH TUBE (09:13)
[2023-11-09] MEDS: POTASSIUM CHLORIDE IN WATER 10 MEQ/100 ML PIGGYBACK 100 MEQ IV ×4 (09:55→15:37)
[2023-11-09 12:47] LABS: Magnesium 2.3 mg/dL (1.6-2.3); Triglycerides 335 mg/dL (35-150)
[2023-11-09] MEDS: INSULIN REGULAR 100 UNIT/ML 3 ML VIAL SUBCUT ×2 (12:50→18:54)
[2023-11-09 12:54] LABS: Prealbumin 13.1 mg/dL (17.6-36.0)
[2023-11-09 13:00] VITALS: BP 135/90; PULSE 98; RESP 18; TEMP 36.1; O2SAT 96
--- NOTE | 2023-11-09 13:30 | DIET.CONS ---
Dietary Consultation Note Admission Date: 11/07/2023 17:04 Assessment: 72y M admitted for acute respiratory failure due to aspiration pneumonia referred to nutrition for TPN reccs per collaborative protocol. 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 Pt has had latest g-tube since summer 2022 and primarily NPO with nutrition and fluids via g-tube. Pt has been aspirating his enteral formula leading GI at to recommend stopping use of g-tube in favor of j-tube after a few weeks of TPN in the home setting. Pt unable to consume nourishment or fluids PO. Pt with hx DM, currently on D5 running at 100mL/h, and hx heart transplant. Pt has been taking enteral feeds until yesterday. Ht: 167.64 cm Wt: 67.5 kg BMI: 24.2 UBW: 65-75kg Last BM: 11/09/23 (11/09/23 06:00) MNA: 10 Alber Score: 17 Diet: 11/09/23 11:48 NPO Diet Diet Modifications: May Advance Diet as Tolerated: No NPO Type: NPO on TPN Nutrition Percent Meal Consumed 0% 11/08/23 18:00 Labs: RBC 3.65 X10^6/uL (4.5-5.9) L 11/09/23 04:53 Hgb 10.5 g/dL (13.5-17.5) L 11/09/23 04:53 Hct 32.9 % (41-53) L 11/09/23 04:53 Creatinine 1.19 mg/dL (0.66-1.25) 11/09/23 04:53 Lactate 1.8 mmol/L (0.7-2.1) 11/07/23 20:15 NT-Pro-B Natriuret Pep 4530 pg/mL (<125) H 11/07/23 13:02 Nutrition Diagnosis: Inadequate oral intake r/t NPO status aeb pt with esophageal dysmotility with strict NPO, failed enteral feeding using g-tube due to formula aspiration with aspiration pneumonia and acute respiratory failure. Interventions: 1. Recc initiating continuous TPN via PICC using 1.5L Clinimix E with starting rate of 62mL/h and 250mL lipids M, W, F. Goal TPN 1.75L Clinimix E with 250mL lipids M, W, F 2. Recc 100mg thiamine for first five days. 3. Recc glucose checks due to high dextrose load of TPN and hx DM. Consideration by pharmacy regarding need for insulin. 4. Recc 60mL free water flushes QID into g-tube for tube patency and to meet pts fluid needs. Goal TPN, lipids and flushes provide 1754kcals (26kcal/kg), 87g PRO (1.3g/kg) and 2L fluids (30mL/kg) EER: 1700-2,000kcals (25-30kcal/kg), 65-90g PRO (1-1.4g/kg) Monitoring/Evaluations: following for tolerance, rate advancement. Electronically Signed by: Yolanda Powell 11/09/23 13:30 Clinical Dietitian [address] [id number]
--- NOTE | 2023-11-09 15:36 | CM.DANOTE ---
Initial DCP Assessment Visit Note Reviewed EMR and team rounds for status updates. Met with pt and spouse at bedside to introduce self and role. Pt found to be alert, appearing much more comfortable, and smiling, as opposed to yesterday when he was uncomfortable and anxious. Pt resides with his spouse in their own home in [place]. Plan is for pt to d/c back home w/spouse assistance. No further anticipated home d/c needs identified at this time. Payor: Medicare PCP: Jose D Riddle Pt is a 72 year-old M with significant comorditities, including having had 3-different cancers, a G-tube for feeding. He presented to the ED via EMS on 11/07 with shortness of breath, cough for the last several days, and was quite weak. shared that pt has had several episodic regurgitation of tube feeds over the last week, and that he also tried to drink water recently. He was found to have O2 sats at 92% on room air, although he does not use home O2. ED eval determined pt to have pneumonia and hypoxia, was started on IV ABO's and fluids, then admitted to the floor for further eval/treatment. He'll likely be here a few more days. declines the need for any in-home assistance, including Home Health, as she has not found them to be helpful in the past. He's also connected to [facility] for management of his G-tube. Plan is for PICC placement while inpt, followed by initiating home TPN. DCP will continue to follow and assist with any further evolving home d/c needs. Pt's will plan to transport him once he's medically cleared for d/c. Discharge Planning/Care Management CM Discharge Assessment Start: 11/09/23 15:28 Freq: Status: Active Protocol: Document 11/09/23 15:28 DPL (Rec: 11/09/23 15:36 DPL [id number]) Discharge Planning Assessment Assigned Digital Media Designer TATA Ramos Advance Directives? Yes: Advance Directive:DPOA Advance Directives on File Yes: copie brought in by History Provided By Patient,Medical Record Has Patient been admitted in last 30 No days? Prior Living Arrangements House Household Members spouse Type of transporation used prior to Relies on Others admit Comment Pt's is his primary cg. Independent with ADL's No: Depends on assistance with ADL's from . Is patient alert and oriented? Yes Needs Assistance With Bathing,Eating,Grooming, Managing Medications,Home Chores / Shopping Caregiver for Another No Comment [facility] Comment Pt has an electric scooter, G- tube, will have TPN at d/c for home. Comment No anticipated d/c needs identified at this time. Discharge Plan Home Transportation Arrangement will provide transportation Referrals Initiated None needed,Other Additional Comment declines the need for Home Health or hiring in-home cg's for support. Whiteboard Updated in Patient Room with Yes name and ext. # of Digital Media Designer Review Status In Process Please Provide Date Initial DC 11/09/23 Assessment Was Performed
[2023-11-09] MEDS: SCOPOLAMINE 1 PATCH TOP (18:45)
[2023-11-09] MEDS: DEXTROSE 10 % IN WATER 1,000 ML 100 ML IV (18:58)
[2023-11-09 20:00] VITALS: BP 149/94; PULSE 101; PULSE 106; RESP 18; TEMP 36.1; O2SAT 97
[2023-11-10] VITALS (7 sets, daily range): BP systolic 118–169; BP diastolic 68–95; PULSE 97–108; RESP 16–20; TEMP 35.9–36.3; O2SAT 94–99
[2023-11-10] MEDS: PIPERACILLIN/TAZO 3.375 GM in SODIUM CHLORIDE 0.9% 100 ML IV ×4 (00:02→23:38)
[2023-11-10] MEDS: INSULIN REGULAR 100 UNIT/ML 3 ML VIAL SUBCUT ×5 (00:19→23:36)
[2023-11-10] MEDS: DEXTROSE 10 % IN WATER 1,000 ML 100 ML IV ×2 (04:15→21:42)
--- NOTE | 2023-11-10 07:26 | P.PN_ITS ---
Subjective Subjective Interval history: He feels somewhat better today. More energy. He did tolerate 1 of his feeds which is a boost 8 oz package that he does 3 to 4 times a day typically. No regurgitation. He is having some abdomen distention but also reports positive flatus and bowel movement. His cough is improving. His is at bedside. Exam Vital Signs (past 8 hours): - 11/10/23 00:00 11/10/23 04:00 Temperature 96.6 F L 97.3 F L Pulse Rate 97 H 99 H Respiratory Rate 17 18 Blood Pressure 125/81 138/91 H Pulse Oximetry 97 99 Oxygen Flow Rate 2 2 Fraction of Inspired Oxygen 28 SaO2/FiO2 Ratio 346 Oxygen Delivery Method Nasal Cannula Oxygen Flow Rate 2 Narrative Exam Narrative: NAD, normal speech, smiling. Lungs are notable for good air movement with some expiratory wheezing and scattered rhonchi, overall improved. His breathing is mildly fast but not labored. Heart is regular, without murmur. Abdomen is distended with a G-tube in place, it is non tender. Extremities are free of edema, skin free of rash or lesions. Objective Labs 11/10/23 06:55 11/10/23 06:55 Labs: Laboratory Results - last 24 hr 11/09/23 04:53 Phosphorus 3.0 Magnesium 2.3 Prealbumin 13.1 L Triglycerides 335 H COUNT INCLUDES THE [facility] Medical History Obstructive sleep apnea on CPAP History of Hodgkin's lymphoma Hypothyroidism 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 Hypernatremia, present on admission and slowly improving (159 to 153 today). 2. Aspiration pneumonia, present on admission and improving. 3. Acute hypoxic respiratory failure, present on admission and active. 4. Transient hypotension and hypovolemia, present on admission and resolved. 5. Lactic acidosis, present on admission and resolved. 6. Acute kidney injury, present on admission and improved. 7. History of cardiac transplant, stable. 8. Esophageal dysmotility with G-tube since last summer, present on admission and active. 9. Intermittent regurgitation of enteral feeds, present on admission and active. 10. Remote Hodgkin's lymphoma with radiation esophagitis, stable. 11. Remote neck cancer, stable. Plan: -continue D5W to correct hypernatremia. -continue antibiotics, Zosyn, for aspiration pneumonia. Anticipate a 5 day course. He will likely discharge on Monday and we could stop antibiotics at that time. -continue to use the G-tube only for medications, -the initial plan was a PICC line and TPN and then make arrangements for a G- tube to J-tube conversion. However and speaking with his GI doctor at [facility], Dr. Frazier, this was not the preferred plan. The PICC line failed due to anatomy. TPN was canceled. Dr. Mahajan suggested a promotility agent with possibilities being pyridostigmine at 30-60 mg t.i.d. plus possible bethanechol at 25-50 mg daily in addition to a scopolamine patch which he had been given before but had stopped using. -a scopolamine patch was placed on November 09 and Reglan q.i.d. scheduled was started. We do not have pyridostigmine orally available. The patient seems to be responding to Reglan which is a first-line promotility drug. The plan will be to continue his feeds increasing from twice a day up to 3 times a day tomorrow. These feeds are Boost and there 8 oz in size. He usually takes a total of about 6 8 oz servings in over 4 feedings (AM, Noon, Dinner, EveningA). -if he continues to improve he can likely discharge on Monday and has outpatient appointments to make at [facility] next week. His GI doctor, Dr. Frazier is out of town for the next week to [address] Frazier ([phone]), his primary GI doctor . Time Spent With Patient Time with patient: 30 to 49 minutes with 50% spent counseling/coordinating care
[2023-11-10 07:31] LABS: Hematocrit 33.9 % (41-53); Hemoglobin 10.9 g/dL (13.5-17.5); Mean Corpuscular HGB Conc 32.1 % (30-36); Mean Corpuscular Hemoglobin 28.6 PG (26-34); Mean Corpuscular Volume 89.1 fL (80-100); Platelet Count 183 X10^3/uL (150-400); Red Blood Cell Count 3.81 X10^6/uL (4.5-5.9); Red Cell Distribution Width 17.5 % (11.6-14.8); White Blood Cell Count 2.1 X10^3/uL (4.5-11.0)
[2023-11-10 07:32] LABS: Add Manual Diff / Slide Review YES
[2023-11-10 07:49] LABS: BUN Creatinine Ratio 29.2 (6-22); Blood Urea Nitrogen 28 mg/dL (9-20); Calcium 8.7 mg/dL (8.4-10.2); Carbon Dioxide 29 mmol/L (22-32); Chloride 114 mmol/L (98-107); Estimated Glomerular Filt Rate > 60 mL/min (>60); Glucose 224 mg/dL (80-110); HEMOLYSIS < 15 (0-50); Potassium 3.3 mmol/L (3.4-5.1); Sodium 153 mmol/L (137-145)
[2023-11-10 08:21] LABS: Anisocytosis 1+; Neutrophils Absolute Manual 882 /uL (3000-5900); Total Cells Counted 100
[2023-11-10] MEDS: METOCLOPRAMIDE HCL 5 MG TABLET 10 MG PO ×4 (08:55→21:26)
[2023-11-10] MEDS: TRIMETH/SULFA 160/800 (DS) TABLET 0.5 TAB PO (09:00)
[2023-11-10] MEDS: ASPIRIN 81 MG CHEW TAB TUBE (09:00)
[2023-11-10] MEDS: ACETAMINOPHEN 325 MG TABLET 650 MG PO (09:00)
[2023-11-10] MEDS: HEPARIN 5,000 UNIT/ML VIAL 5000 UNIT SUBCUT ×2 (09:01→21:26)
[2023-11-10] MEDS: TACROLIMUS 1 MG/ML 3.5 EACH TUBE ×2 (09:01→21:25)
[2023-11-10] MEDS: ATORVASTATIN 20 MG TABLET TUBE (09:01)
[2023-11-10] MEDS: MYCOPHENOLATE MOFETIL 200 MG/ML 2.5 EACH TUBE ×2 (09:01→21:25)
--- NOTE | 2023-11-10 11:20 | CM.DPNOTE ---
DCP Note TITLE AGENT reviewed EMR. Per provider in morning rounds, PICC placement failed last night. Current plan in coordination with pt's GI doctor is to try and restart tube feeds. Per provider, likely here a few days. Per chart review, no CM needs identified/no further anticipation of CM needs identified at this time. Plan: home with spouse support when medically stable. CM team will continue to follow closely for DCP needs as medical POC develops. TATA Ford
[2023-11-10] MEDS: POTASSIUM CHLORIDE 20 MEQ/15 ML UDC 40 MEQ TUBE (12:10)
[2023-11-11] VITALS: BP 146/80; PULSE 76; RESP 17; TEMP 36; O2SAT 96
[2023-11-11 04:00] VITALS: BP 130/66; PULSE 80; RESP 17; TEMP 36.4; O2SAT 96
[2023-11-11] MEDS: INSULIN REGULAR 100 UNIT/ML 3 ML VIAL SUBCUT ×3 (05:56→18:05)
[2023-11-11] MEDS: DEXTROSE 10 % IN WATER 1,000 ML 100 ML IV (06:10)
[2023-11-11 07:59] VITALS: BP 158/95; PULSE 109; RESP 22; TEMP 36.2; O2SAT 92
[2023-11-11] MEDS: METOCLOPRAMIDE HCL 5 MG TABLET 10 MG PO ×4 (08:39→21:44)
[2023-11-11] MEDS: HEPARIN 5,000 UNIT/ML VIAL 5000 UNIT SUBCUT ×2 (08:40→21:43)
[2023-11-11] MEDS: PIPERACILLIN/TAZO 3.375 GM in SODIUM CHLORIDE 0.9% 100 ML IV ×2 (08:40→16:35)
[2023-11-11] MEDS: ASPIRIN 81 MG CHEW TAB TUBE (08:40)
[2023-11-11] MEDS: ATORVASTATIN 20 MG TABLET TUBE (08:40)
[2023-11-11] MEDS: TRIMETH/SULFA 160/800 (DS) TABLET 0.5 TAB PO (08:57)
[2023-11-11] MEDS: MYCOPHENOLATE MOFETIL 200 MG/ML 2.5 EACH TUBE ×2 (08:57→21:43)
[2023-11-11] MEDS: TACROLIMUS 1 MG/ML 3.5 EACH TUBE ×2 (08:57→21:43)
--- NOTE | 2023-11-11 10:22 | PM.PN.1 ---
Subjective Subjective Interval history: Patient's feeds now advanced to TID and tolerating well. He would like to get QID today. O2 weaned to room air. Exam Vital Signs (past 8 hours): - 11/11/23 04:00 11/11/23 07:59 Temperature 97.6 F 97.1 F L Pulse Rate 80 109 H Respiratory Rate 17 22 Blood Pressure 130/66 158/95 H Pulse Oximetry 96 92 Oxygen Flow Rate 2 2 Fraction of Inspired Oxygen 28 SaO2/FiO2 Ratio 346 Oxygen Delivery Method CPAP Oxygen Flow Rate 2 Narrative Exam Narrative: NAD, normal speech, smiling. Lungs are notable for good air movement with some expiratory wheezing and scattered rhonchi, overall improved. His breathing is mildly fast but not labored. Heart is regular, without murmur. Abdomen is distended with a G-tube in place, it is non tender. Extremities are free of edema, skin free of rash or lesions. Objective Labs 11/10/23 06:55 11/10/23 06:55 [facility] Medical History Obstructive sleep apnea on CPAP History of Hodgkin's lymphoma Hypothyroidism 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 Hypernatremia, present on admission and slowly improving. 2. Aspiration pneumonia, present on admission and improving. 3. Acute hypoxic respiratory failure, present on admission and active. 4. Transient hypotension and hypovolemia, present on admission and resolved. 5. Lactic acidosis, present on admission and resolved. 6. Acute kidney injury, present on admission and improved. 7. History of cardiac transplant, stable. 8. Esophageal dysmotility with G-tube since last summer, present on admission and active. 9. Intermittent regurgitation of enteral feeds, present on admission and active. 10. Remote Hodgkin's lymphoma with radiation esophagitis, stable. 11. Remote neck cancer, stable. Plan: -continue D5W to correct hypernatremia. -continue antibiotics, Zosyn, for aspiration pneumonia. Anticipate a 5 day course. He will likely discharge on Monday and we could stop antibiotics at that time. -continue to use the G-tube only for medications -the initial plan was a PICC line and TPN and then make arrangements for a G-tube to J-tube conversion. However and speaking with his GI doctor at [facility], Dr. Frazier, this was not the preferred plan. The PICC line failed due to anatomy. TPN was canceled. Dr. Mahajan suggested a promotility agent with possibilities being pyridostigmine at 30-60 mg t.i.d. plus possible bethanechol at 25-50 mg daily in addition to a scopolamine patch which he had been given before but had stopped using. -a scopolamine patch was placed on November 09 and Reglan q.i.d. scheduled was started. We do not have pyridostigmine orally available. The patient seems to be responding to Reglan which is a first-line promotility drug. The plan will be to continue his feeds increasing from twice a day up to 3 times a day tomorrow. These feeds are Boost and there 8 oz in size. He usually takes a total of about 6 8 oz servings in over 4 feedings (AM, Noon, Dinner, Evening). -if he continues to improve he can likely discharge on Sunday 11/12 and has outpatient appointments to make at [facility] next week. His GI doctor, Dr. Frazier is out of town for the next week to 2 weeks. -now up to 8oz TF QID and tolerating Dr. Frazier ([phone]), his primary GI doctor . Time Spent With Patient Time with patient: 30 to 49 minutes with 50% spent counseling/coordinating care
--- NOTE | 2023-11-11 11:18 | PC.NURSE ---
Pt A&Ox4, VSS. Patient boosted in bed and sat upright for tube feed with Boost after medication administration, started at 10:35 and running at 60 ml/hr with no c/o stomach pain/discomfort. Patient scooted down in bed, repositioned patient, reminded him to stay up right and re-educated re: aspiration. Patient agreed. at bedside, patient napping with CPAP on.
[2023-11-11 12:00] VITALS: BP 125/73; PULSE 108; RESP 19; TEMP 36.4; O2SAT 96
--- NOTE | 2023-11-11 12:12 | CM.DPNOTE ---
DCP Cont According to Dr Mathews, patient may be ready for discharge over the next 24-48 hrs. Spoke with patient and spouse Sharri P [phone] to review DCP. Spouse manages patient's g tube, agency his tube feeds are through is [facility] [phone]. [facility] just delivered a month supply to patient's home per spouse. Spouse has been bringing in patient's mixed formula since patient was admitted and will continue to use the same mixed formula when patient discharges. Spouse reports patient is not at functional baseline and feels he would benefit from HH services. No agency preference. Referral made to [facility] based on soonest availability for HH PT/OT per patient/spouse request. Face sheet, F2F and HH order emailed to June curry/[place] CHERELLE [email or web address] Plan: Discharge home w/spouse Sharri who has been managing patient's complex medical needs and care for many years, [facility] for tube feeds, [facility] PT/OT, family to transport. HEMAL
[2023-11-11 16:00] VITALS: BP 149/99; PULSE 114; RESP 19; TEMP 35.9; O2SAT 97
[2023-11-11] MEDS: ACETAMINOPHEN 325 MG TABLET 650 MG PO (16:34)
[2023-11-11 20:00] VITALS: BP 128/80; PULSE 110; RESP 24; TEMP 36.4; O2SAT 97
[2023-11-11] MEDS: SODIUM CHLORIDE 0.45% 1,000 ML 125 ML IV (21:44)
[2023-11-12] VITALS: BP 161/96; PULSE 120; RESP 25; TEMP 36.6; O2SAT 93
[2023-11-12] MEDS: PIPERACILLIN/TAZO 3.375 GM in SODIUM CHLORIDE 0.9% 100 ML IV ×2 (00:24→08:26)
[2023-11-12] MEDS: INSULIN REGULAR 100 UNIT/ML 3 ML VIAL SUBCUT ×5 (00:24→23:27)
[2023-11-12 04:00] VITALS: BP 148/88; PULSE 114; RESP 20; TEMP 36.1; O2SAT 93
[2023-11-12] MEDS: SODIUM CHLORIDE 0.45% 1,000 ML 125 ML IV ×3 (05:52→22:19)
[2023-11-12 06:14] LABS: Add Manual Diff / Slide Review YES; Hematocrit 31.7 % (41-53); Hemoglobin 10.3 g/dL (13.5-17.5); Mean Corpuscular HGB Conc 32.6 % (30-36); Mean Corpuscular Hemoglobin 28.4 PG (26-34); Platelet Count 180 X10^3/uL (150-400); Red Blood Cell Count 3.64 X10^6/uL (4.5-5.9); Red Cell Distribution Width 16.2 % (11.6-14.8); White Blood Cell Count 2.4 X10^3/uL (4.5-11.0)
[2023-11-12 06:18] LABS: BUN Creatinine Ratio 32.1 (6-22); Blood Urea Nitrogen 26 mg/dL (9-20); Calcium 8.8 mg/dL (8.4-10.2); Carbon Dioxide 29 mmol/L (22-32); Chloride 111 mmol/L (98-107); Estimated Glomerular Filt Rate > 60 mL/min (>60); Glucose 206 mg/dL (80-110); HEMOLYSIS < 15 (0-50); Potassium 2.9 mmol/L (3.4-5.1); Sodium 147 mmol/L (137-145)
[2023-11-12 06:35] LABS: Neutrophils Absolute Manual 864 /uL (3000-5900); Total Cells Counted 100
[2023-11-12 06:36] LABS: Anisocytosis 1+
[2023-11-12 08:00] VITALS: BP 141/83; PULSE 118; RESP 18; TEMP 36.4; O2SAT 92
[2023-11-12] MEDS: TRIMETH/SULFA 160/800 (DS) TABLET 0.5 TAB PO (08:24)
[2023-11-12] MEDS: METOCLOPRAMIDE HCL 5 MG TABLET 10 MG PO ×4 (08:24→22:10)
[2023-11-12] MEDS: HEPARIN 5,000 UNIT/ML VIAL 5000 UNIT SUBCUT ×2 (08:24→22:05)
[2023-11-12] MEDS: ATORVASTATIN 20 MG TABLET TUBE (08:25)
[2023-11-12] MEDS: ASPIRIN 81 MG CHEW TAB TUBE (08:25)
[2023-11-12] MEDS: MYCOPHENOLATE MOFETIL 200 MG/ML 2.5 EACH TUBE ×2 (08:25→22:05)
[2023-11-12] MEDS: TACROLIMUS 1 MG/ML 3.5 EACH TUBE ×2 (08:25→22:06)
[2023-11-12] MEDS: POTASSIUM CHLORIDE IN WATER 10 MEQ/100 ML PIGGYBACK 50 MEQ IV ×4 (10:32→15:54)
[2023-11-12 12:00] VITALS: BP 136/82; PULSE 124; RESP 16; TEMP 36.3; O2SAT 91
[2023-11-12 12:28] LABS: BUN Creatinine Ratio 32.9 (6-22); Blood Urea Nitrogen 28 mg/dL (9-20); Calcium 8.7 mg/dL (8.4-10.2); Carbon Dioxide 27 mmol/L (22-32); Chloride 108 mmol/L (98-107); Estimated Glomerular Filt Rate > 60 mL/min (>60); Glucose 319 mg/dL (80-110); HEMOLYSIS < 15 (0-50); Potassium 3.1 mmol/L (3.4-5.1); Sodium 144 mmol/L (137-145)
--- NOTE | 2023-11-12 13:20 | CM.DPC ---
DCP Cont. Reviewed EMR and team rounds for status updates. Pt is still having low potassium, very weak, not yet ready for d/c today. Anticipated d/c tomorrow if he stabilizes. Plan is home w/[facility] once medically cleared. Cont. to monitor.
--- NOTE | 2023-11-12 14:11 | PC.NURSE ---
Patient tolerated 0800 tube feed well, but abdomen was distended and pt c/o heartburn after feed. Pt repeatedly scooted down in bed during tube feeds. Repeated education re: importance of remaining upright and repositioned frequently, but reinforcement needed and regular (q15 where possible) checks during feed recommended. At patient request, delayed 1200 tube feed d/t heartburn. Notified Dr. Mathews, omeprazole sprinkle unheld for this evening.
[2023-11-12 16:00] VITALS: BP 156/94; PULSE 117; RESP 21; TEMP 36.2; O2SAT 91
[2023-11-12] MEDS: POTASSIUM CHLORIDE IN WATER 10 MEQ/100 ML PIGGYBACK 75 MEQ IV ×2 (17:28→18:50)
--- NOTE | 2023-11-12 17:48 | PM.PN.1 ---
Subjective Subjective Interval history: Patient still having gurly cough and requiring self-suction. Able to get 3 feeds in yesterday and today will try for 4 which is what he does at home. asking about increasing his protonix TF from 10mg to 40mg because he takes 40 at home. Exam Vital Signs (past 8 hours): - 11/12/23 12:00 11/12/23 16:00 Temperature 97.3 F L 97.2 F L Pulse Rate 124 H 117 H Respiratory Rate 16 21 Blood Pressure 136/82 156/94 H Pulse Oximetry 91 91 Oxygen Flow Rate 0 Fraction of Inspired Oxygen 28 SaO2/FiO2 Ratio 346 Oxygen Delivery Method Nasal Cannula Oxygen Flow Rate 0 Narrative Exam Narrative: NAD, normal speech, smiling. Lungs are notable for good air movement with some expiratory wheezing and scattered rhonchi, overall improved. Heart is regular, without murmur. Abdomen is distended with a G-tube in place, it is non tender. Extremities are free of edema, skin free of rash or lesions. Objective Labs 11/12/23 06:00 11/12/23 12:02 Labs: Laboratory Results - last 24 hr 11/12/23 11/12/23 06:00 12:02 WBC 2.4 L RBC 3.64 L Hgb 10.3 L Hct 31.7 L MCV 87.0 MCH 28.4 MCHC 32.6 RDW 16.2 H Plt Count 180 Neut % (Auto) Not Reportable Lymph % (Auto) Not Reportable [place] % (Auto) Not Reportable Eos % (Auto) Not Reportable Baso % (Auto) Not Reportable Lymph # (Auto) Not Reportable [place] # (Auto) Not Reportable Baso # (Auto) Not Reportable Total Counted 100 Seg Neutrophils % 20.0 L Band Neutrophils % 16.0 H Lymphocytes % (Manual) 29.0 Atypical Lymphs % 1.0 H Monocytes % (Manual) 17.0 H Eosinophils % (Manual) 3.0 Metamyelocytes % 11.0 H Myelocytes % 3.0 H Neutrophils # (Manual) 864 L RBC Morphology See below Anisocytosis 1+ H Sodium 147 H 144 Potassium 2.9 L 3.1 L Chloride 111 H 108 H Carbon Dioxide 29 27 BUN 26 H 28 H Creatinine 0.81 0.85 Estimated GFR > 60 > 60 BUN/Creatinine Ratio 32.1 H 32.9 H Glucose 206 H 319 H D Calcium 8.8 8.7 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 Hypernatremia, present on admission and slowly improving. 2. Aspiration pneumonia, present on admission and improving. 3. Acute hypoxic respiratory failure, present on admission and active. 4. Transient hypotension and hypovolemia, present on admission and resolved. 5. Lactic acidosis, present on admission and resolved. 6. Acute kidney injury, present on admission and improved. 7. History of cardiac transplant, stable. 8. Esophageal dysmotility with G-tube since last summer, present on admission and active. 9. Intermittent regurgitation of enteral feeds, present on admission and active. 10. Remote Hodgkin's lymphoma with radiation esophagitis, stable. 11. Remote neck cancer, stable. Plan: -continue 1/2 NS to correct hypernatremia. -continue antibiotics, Zosyn, for aspiration pneumonia. Anticipate a 5 day course. -the initial plan was a PICC line and TPN and then make arrangements for a G-tube to J-tube conversion. However and speaking with his GI doctor at [facility], Dr. Frazier, this was not the preferred plan. The PICC line failed due to anatomy. TPN was canceled. Dr. Mahajan suggested a promotility agent with possibilities being pyridostigmine at 30-60 mg t.i.d. plus possible bethanechol at 25-50 mg daily in addition to a scopolamine patch which he had been given before but had stopped using. -a scopolamine patch was placed on November 09 and Reglan q.i.d. scheduled was started. We do not have pyridostigmine orally available. The patient seems to be responding to Reglan which is a first-line promotility drug. The plan will be to continue his feeds increasing from twice a day up to 3 times a day tomorrow. These feeds are Boost and there 8 oz in size. He usually takes a total of about 6 8 oz servings in over 4 feedings (AM, Noon, Dinner, Evening). -if he continues to improve he can likely discharge on Monday 11/13 and has outpatient appointments to make at [facility] next week. His GI doctor, Dr. Frazier is out of town for the next week to 2 weeks. -now up to 8oz TF TID and tolerating, will try for QID today -increase protonix from [address] Frazier ([phone]), his primary GI doctor . Time Spent With Patient Time with patient: 30 to 49 minutes with 50% spent counseling/coordinating care
[2023-11-12] MEDS: SCOPOLAMINE 1 PATCH TOP (18:37)
[2023-11-12 20:00] VITALS: BP 155/82; PULSE 125; RESP 24; TEMP 37.4; O2SAT 93
[2023-11-12] MEDS: OMEPRAZOLE 40 MG 40 EACH TUBE (22:11)
--- NOTE | 2023-11-12 23:38 | PC.NURSE ---
Pt stating feeling bloated after 3rd feeding of the day, requesting to not have 4th feeding
[2023-11-13] VITALS (8 sets, daily range): BP systolic 113–149; BP diastolic 75–97; PULSE 113–127; RESP 18–27; TEMP 35.9–36.9; O2SAT 92–96
[2023-11-13 02:54] LABS: Hematocrit 32.6 % (41-53); Hemoglobin 10.7 g/dL (13.5-17.5); Mean Corpuscular HGB Conc 32.8 % (30-36); Mean Corpuscular Hemoglobin 28.9 PG (26-34); Mean Corpuscular Volume 88.2 fL (80-100); Platelet Count 194 X10^3/uL (150-400); Red Blood Cell Count 3.69 X10^6/uL (4.5-5.9); Red Cell Distribution Width 17.1 % (11.6-14.8); White Blood Cell Count 3.4 X10^3/uL (4.5-11.0)
[2023-11-13 02:55] LABS: Add Manual Diff / Slide Review YES
[2023-11-13 02:57] LABS: BUN Creatinine Ratio 31.9 (6-22); Blood Urea Nitrogen 23 mg/dL (9-20); Carbon Dioxide 30 mmol/L (22-32); Chloride 106 mmol/L (98-107); Estimated Glomerular Filt Rate > 60 mL/min (>60); Glucose 183 mg/dL (80-110); HEMOLYSIS < 15 (0-50); Potassium 3.4 mmol/L (3.4-5.1); Sodium 142 mmol/L (137-145)
[2023-11-13 03:25] LABS: Neutrophils Absolute Manual 1802 /uL (3000-5900); Total Cells Counted 100
[2023-11-13 03:26] LABS: Anisocytosis 1+
[2023-11-13] MEDS: FUROSEMIDE 20 MG/2 ML VIAL IV (04:37)
[2023-11-13] MEDS: INSULIN REGULAR 100 UNIT/ML 3 ML VIAL SUBCUT ×3 (06:25→17:28)
[2023-11-13] MEDS: METOCLOPRAMIDE HCL 5 MG TABLET 10 MG PO ×4 (08:55→20:45)
[2023-11-13] MEDS: POTASSIUM CHLORIDE IN WATER 10 MEQ/100 ML PIGGYBACK 100 MEQ IV ×2 (08:55→13:54)
[2023-11-13] MEDS: ASPIRIN 81 MG CHEW TAB TUBE (08:55)
[2023-11-13] MEDS: HEPARIN 5,000 UNIT/ML VIAL 5000 UNIT SUBCUT ×2 (08:56→20:43)
[2023-11-13] MEDS: TRIMETH/SULFA 160/800 (DS) TABLET 0.5 TAB PO (08:56)
[2023-11-13] MEDS: MYCOPHENOLATE MOFETIL 200 MG/ML 2.5 EACH TUBE ×2 (08:56→20:45)
[2023-11-13] MEDS: TACROLIMUS 1 MG/ML 3.5 EACH TUBE ×2 (08:56→20:45)
[2023-11-13] MEDS: ACETAMINOPHEN 325 MG TABLET 650 MG PO (09:01)
[2023-11-13] MEDS: ATORVASTATIN 20 MG TABLET TUBE (09:02)
[2023-11-13] MEDS: OMEPRAZOLE 40 MG 40 EACH TUBE ×2 (09:11→20:46)
[2023-11-13] MEDS: INSULIN LISPRO 100 UNIT/ML 3ML VIAL SUBCUT ×2 (13:06→17:31)
--- NOTE | 2023-11-13 14:40 | PM.PN.1 ---
Subjective Subjective Interval history: Patient did not push nutrition yesterday, only able to get 2 feeds in per his report. He feels weak, spouse concerned about home. Will assess with PT /OT today. He is no longer on supplemental oxygen. Exam Vital Signs (past 8 hours): - 11/13/23 07:35 11/13/23 08:00 11/13/23 12:00 Temperature 97.2 F L 97.4 F L Pulse Rate 119 H 126 H 116 H Respiratory Rate 18 20 20 Blood Pressure 117/75 113/82 Pulse Oximetry 93 96 92 Oxygen Delivery Method Nasal Cannula Oxygen Flow Rate 2.5 2 0 Fraction of Inspired Oxygen 28 SaO2/FiO2 Ratio 346 Oxygen Delivery Method Nasal Cannula Oxygen Flow Rate 0 Narrative Exam Narrative: NAD, normal speech, smiling. Lungs are notable for good air movement with some expiratory wheezing and scattered rhonchi, overall improved. Heart is regular, without murmur. Abdomen is distended with a G-tube in place, it is non tender. Extremities are free of edema, skin free of rash or lesions. Objective Labs 11/13/23 02:40 11/13/23 02:40 Labs: Laboratory Results - last 24 hr 11/13/23 02:40 WBC 3.4 L RBC 3.69 L Hgb 10.7 L Hct 32.6 L MCV 88.2 MCH 28.9 MCHC 32.8 RDW 17.1 H Plt Count 194 Neut % (Auto) Not Reportable Lymph % (Auto) Not Reportable [place] % (Auto) Not Reportable Eos % (Auto) Not Reportable Baso % (Auto) Not Reportable Lymph # (Auto) Not Reportable [place] # (Auto) Not Reportable Baso # (Auto) Not Reportable Total Counted 100 Seg Neutrophils % 32.0 L D Band Neutrophils % 21.0 H Lymphocytes % (Manual) 25.0 Monocytes % (Manual) 15.0 H Metamyelocytes % 6.0 H Myelocytes % 1.0 H Neutrophils # (Manual) 1802 L RBC Morphology See below Anisocytosis 1+ H Sodium 142 Potassium 3.4 Chloride 106 Carbon Dioxide 30 BUN 23 H Creatinine 0.72 Estimated GFR > 60 BUN/Creatinine Ratio 31.9 H Glucose 183 H D Calcium 9.0 PFSH Medical History Obstructive sleep apnea on CPAP History of Hodgkin's lymphoma Hypothyroidism 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 Hypernatremia, present on admission and slowly improving. 2. Aspiration pneumonia, present on admission and improving. 3. Acute hypoxic respiratory failure, present on admission and active, now resolved 4. Transient hypotension and hypovolemia, present on admission and resolved. 5. Lactic acidosis, present on admission and resolved. 6. Acute kidney injury, present on admission and improved. 7. History of cardiac transplant, stable. 8. Esophageal dysmotility with G-tube since last summer, present on admission and active. 9. Intermittent regurgitation of enteral feeds, present on admission and active. 10. Remote Hodgkin's lymphoma with radiation esophagitis, stable. 11. Remote neck cancer, stable. Plan: -now off IV fluids for hypernatremia. Continue nutrition via G tube. -continue antibiotics, Zosyn, for aspiration pneumonia. Anticipate a 5 day course. Hypoxia now resolved. -the initial plan was a PICC line and TPN and then make arrangements for a G-tube to J-tube conversion. However and speaking with his GI doctor at [facility], Dr. Frazier, this was not the preferred plan. The PICC line failed due to anatomy. TPN was canceled. Dr. Mahajan suggested a promotility agent with possibilities being pyridostigmine at 30-60 mg t.i.d. plus possible bethanechol at 25-50 mg daily in addition to a scopolamine patch which he had been given before but had stopped using. -a scopolamine patch was placed on November 09 and Reglan q.i.d. scheduled was started. We do not have pyridostigmine orally available. The patient seems to be responding to Reglan which is a first-line promotility drug. The plan will be to continue his feeds increasing from twice a day up to 3 times a day tomorrow. These feeds are Boost and there 8 oz in size. He usually takes a total of about 6 8 oz servings in over 4 feedings (AM, Noon, Dinner, Evening). -added simethicone 11/13 as patient reported gas which may help him tolerate a bit more as well. -if he continues to improve, and does well with therapy evaluations, he can likely discharge tomorrw and has outpatient appointments to make at [facility] next week. His GI doctor, Dr. Frazier is out of town for the next week to 2 weeks. -continue to trial QID feeds today -increased protonix from 10 to 40 BID, will continue Dr. Frazier ([phone]), his primary GI doctor . Code: Full, surrogate spouse Time Spent With Patient Time with patient: 30 to 49 minutes with 50% spent counseling/coordinating care
--- NOTE | 2023-11-13 15:40 | CM.DPC ---
DCP Cont: Per MD, pt was able to be weaned off oxygen today and seems to be tolerating room air but feeling a little bloated and slowing down his fourth feeding with G tube today and not yet medically stable to d/c and PT/OT ordered due to weakness. PT/OT still pending. Plan: SW to follow closely for PT/OT eval and recommendations to confirm safe plan of home with ongoing G tube and spouse assist and new [facility] referral made and accepted. TATA Leavitt
--- NOTE | 2023-11-13 16:49 | PT.IIE ---
Current Diagnoses Pneumonitis due to inhalation of food and vomit (11/07/23) Surgical History (Last Reviewed 11/08/23 @ 07:27 by Federico Bowling MD) Heart transplant status Medical History (Last Reviewed 11/08/23 @ 07:27 by Federico Bowling MD) Acquired immunocompromised state History of Hodgkin's lymphoma Hypothyroidism Insulin dependent diabetes mellitus Large B-cell lymphoma Obstructive sleep apnea on CPAP Physical Therapy Inpatient Evaluation/Re-Eval M1 PT/OT-IP Prior Functional Status Start: 11/13/23 16:03 Freq: NEEDED Status: Active Protocol: Document 11/13/23 16:05 MB (Rec: 11/13/23 16:49 MB [id number]) Medical Review Prior Functional Status Medical History Reviewed Yes Communication Tube feedings only, states that he has been actively aspirating and is awaiting work-up at Mobility and Gait Furniture walking in duplex only, last fall last April, scooter outside of the home Activities of Daily Living and IADL's Assistance from and she states he is having a harder time managing his BM and urination hygiene Social History Household Members spouse Living Arrangements House Number of Floors (Floors) One Floor Number of Stairs To Enter/Railing? Ramped entrance Home Environment Standard Height Toilet,Walk in Shower,Built-In Shower Seat Home Equipment Four Wheel Walker,Power Wheelchair/Scooter,Hand Held Shower,Hospital Bed,Grab Bars Near Toilet,Grab Bars In Shower Employment Status Retired M2 PT-IP Current Condition Start: 11/13/23 16:03 Freq: NEEDED Status: Active Protocol: Document 11/13/23 16:05 MB (Rec: 11/13/23 16:49 MB [id number]) Physical Therapy Current Condition Current Condition Evaluation Date 11/13/23 Treatment Diagnosis Weakness, per , ongoing aspiration, hypotension M3 PT-IP Subjective Start: 11/13/23 16:03 Freq: NEEDED Status: Active Protocol: Document 11/13/23 16:05 MB (Rec: 11/13/23 16:49 MB [id number]) Subjective Physical Therapy Visit Type Type Initial Evaluation Visit Start Time 16:05 Visit Stop Time 16:24 Number of QUALITY ASSURANCE MONITOR BODY Visits 0 Physical Therapy Visit Comments Patient Comments Pt states that he hopes to go home today. Therapy Pain Assessment Pain When Pain Assessed At Rest Pain Present Pain Present Denied Pain M4 PT-IP Mobility and Gait Start: 11/13/23 16:03 Freq: NEEDED Status: Active Protocol: Document 11/13/23 16:05 MB (Rec: 11/13/23 16:49 MB [id number]) PT-Bed Mobility Assessment Supine to Sit Supine to Sit Minimal Assistance,1 Person Assistance,Head of Bed Elevated,Bedrails Sit to Supine Sit to Supine Minimal Assistance,1 Person Assistance,Head of Bed Elevated,Bedrails Scooting Scooting to Edge of Bed Minimal Assistance PT-Transfer Assessment Sit to and From Stand Sit to and from Stand Minimal Assistance,1 Person Assistance,Use of Upper Extremities Equipment Transfer Assistive Device Front Wheeled Walker Orthotic/Prosthetic Devices or Brace: No Transfers Transfer Destination Toilet Transfer Technique Stand up to urinal Transfer Ability Level of Assist Moderate Assistance,1 Person Assistance,Use of Upper Extremities Comments Mobility Comments Pt states he needs to use the urinal after lying back down and he requires cues to use rails and not reach for PT to pull him up to get back up to EOB. Pt has SEBASTIAN and O2 sats remain in the high 80s to low 90s on RA and he is tachycardic with HR 126 BPM at rest and up to 135 BPM with mobility. BP in RUE is 122/84 in hook lying. Pt requires steadying assistance and RW by PT and assist to use urinal and he is still incontinent and urinates on the floor. PT calls in nsg to assist and pt left with nsg to address pt and needs with urination and bath. Gait Assessment Gait Gait Assistance Required: Moderate Assistance,1 Person Assist Distance (Feet) 1 Able to Maintain Weight Bearing Status Yes During Gait Assistive Devices Assistive Device Front Wheeled Walker Orthotic/Prosthetic Devices or Brace: No Gait Deviations General Gait Pattern Decreased Stride Length, Decreased Feet Clearance, Flexed Trunk,Wide Based Gait Factors Limiting Gait Function Factors Limiting Gait Function Decreased Activity Tolerance, Decreased Strength,Difficulty Following Directions,Poor Balance,Poor Safety Awareness Comments Gait Comments Pt with forward, flexed posture, increased kyphosis and poor breathing strategies and SEBASTIAN with mobility. He is tachycardic as well. PT assists to move the walker to the left up to HOB for left side stepping PT-Balance Assessment Sitting Balance and Reactions Static Sitting Balance Ability Fair Dynamic Sitting Balance Ability Poor Standing Balance and Reactions Static Standing Balance Ability Fair Dynamic Standing Balance Ability Poor Device Used RW M5 PT-IP Objective Assessments Start: 11/13/23 16:03 Freq: NEEDED Status: Active Protocol: Document 11/13/23 16:05 MB (Rec: 11/13/23 16:49 MB [id number]) Orientation Orientation/Cognition Level of Alertness [place] Safety Awareness Decreased Safety Awareness Memory Description Short Term Impaired,Senior Restaurant Manager Impaired Comments assists with answering questions and tends to correct pt's answers. He asks about going home today and seems very unsure and mentions he needs a lot of help currently, is known to be actively aspirating his tube feedings. Gross Range of Motion Upper Extremity ROM Impairments Defer to OT Lower Extremity ROM Assessment Within Functional Limits Strength Comments Strength Comments Pt does not follow MMT testing for LEs and appears to have functional strength at least 3 -/5 for transfer and stepping M6 PT-IP Treatment Start: 11/13/23 16:03 Freq: NEEDED Status: Active Protocol: Document 11/13/23 16:05 MB (Rec: 11/13/23 16:49 MB [id number]) Physical Therapy Treatment Education Education Provided Precautions,Safety M7 PT-IP Assessment and Plan Start: 11/13/23 16:03 Freq: NEEDED Status: Active Protocol: Document 11/13/23 16:05 MB (Rec: 11/13/23 16:49 MB [id number]) PT Summary Assessment and Plan Potential Rehabilitation Potential Poor Status of Condition at Evaluation Unstable Summary Impairments Strength,Balance,Cognition,Bed Mobility,Transfers,Gait, Activity Tolerance Progress Towards Goals Slow Progress due to Medical Issues,Slow Progress due to Activity Tolerance Assessment Summary Pt is a 72 y/o male presenting with complicated medical history including lymphoma, heart replacement, tube feedings, aspiration, current congestion/wet sounding breathing, tachycardia at rest that increases with mobility and globalized functional weakness. Pt states he hopes to go home today after PT assessment and PT ed pt and that pt appears very sick and that he has the various issues of wet sounding breathing, tachycardia and SEBASTIAN . reports he has been challenging to manage at home. They appear to have different perspectives on home situation/medical presentation /management. Pt currently requires min to mod A for mobility, has SEBASTIAN, tachycardia and poor activity tolerance. Recommend SNF at d/c. If is correct and pt is known to be actively aspirating his tube feedings, he functional prognosis is poor. She states that they have medical appointments in [place] on a weekly basis. Recommend further discussion with medical doctor about reasonable medical goals/ prognosis and how that affects his mobility. PT does not feel that pt will be manageable by assistance alone at d/ given his medical and functional presentation. Pt does not seem very realistic about his current presentation. Recommend speech therapy assessment. Goals Bed Mobility Goal Independent Transfer Goal Standby Assistance,Front Wheeled Walker Gait Goal Standby Assistance,Front Wheel Walker Gait Distance 25 Days to Meet Goals 10 Frequency of Treatment Frequency Of Treatment Once a Day Treatment Plan Physical Therapy Treatment Plan Bed Mobility Training,Transfer Training,Gait Training, Therapeutic Exercise,Balance Retraining,Discharge Planning, Neuromuscular Re-ed Precautions Other Precautions HOB increased d/t aspiration Weight Bearing Status Weight Bearing Status Weight Bear as Tolerated Discharge Recommendations PT Discharge Recommendations SNF Rehab Transportation Needs at Discharge Wheelchair/Cabulance
[2023-11-13] MEDS: INSULIN GLARGINE 100 UNIT/ML 3ML PEN 10 UNIT SUBCUT (20:44)
[2023-11-13] MEDS: carvediloL 12.5 MG TABLET 25 MG TUBE (20:44)
[2023-11-14] VITALS (9 sets, daily range): BP systolic 96–160; BP diastolic 60–104; PULSE 103–114; RESP 16–26; TEMP 35.7–36.4; O2SAT 90–97
[2023-11-14] MEDS: INSULIN REGULAR 100 UNIT/ML 3 ML VIAL SUBCUT ×2 (00:03→06:18)
[2023-11-14 04:31] LABS: Hematocrit 31.7 % (41-53); Hemoglobin 10.6 g/dL (13.5-17.5); Mean Corpuscular HGB Conc 33.5 % (30-36); Mean Corpuscular Hemoglobin 29.4 PG (26-34); Mean Corpuscular Volume 87.6 fL (80-100); Platelet Count 207 X10^3/uL (150-400); Red Blood Cell Count 3.62 X10^6/uL (4.5-5.9); Red Cell Distribution Width 16.3 % (11.6-14.8); White Blood Cell Count 3.9 X10^3/uL (4.5-11.0)
[2023-11-14 04:32] LABS: Add Manual Diff / Slide Review YES
[2023-11-14 04:34] LABS: BUN Creatinine Ratio 47.9 (6-22); Blood Urea Nitrogen 34 mg/dL (9-20); Calcium 9.3 mg/dL (8.4-10.2); Carbon Dioxide 30 mmol/L (22-32); Chloride 106 mmol/L (98-107); Estimated Glomerular Filt Rate > 60 mL/min (>60); Glucose 295 mg/dL (80-110); HEMOLYSIS < 15 (0-50); Potassium 3.3 mmol/L (3.4-5.1); Sodium 141 mmol/L (137-145)
[2023-11-14 05:51] LABS: Total Cells Counted 100
[2023-11-14 05:52] LABS: Neutrophils Absolute Manual 2457 /uL (3000-5900); Nucleated Red Blood Cells 1 #/Diff
[2023-11-14 05:57] LABS: RBC Morphology Normal Morphology
[2023-11-14] MEDS: PSYLLIUM HUSK 1 PACKET PO (08:58)
[2023-11-14] MEDS: HEPARIN 5,000 UNIT/ML VIAL 5000 UNIT SUBCUT ×2 (08:58→20:59)
[2023-11-14] MEDS: ASPIRIN 81 MG CHEW TAB TUBE (08:58)
[2023-11-14] MEDS: carvediloL 12.5 MG TABLET 25 MG TUBE ×2 (08:59→20:59)
[2023-11-14] MEDS: ATORVASTATIN 20 MG TABLET TUBE (08:59)
[2023-11-14] MEDS: METOCLOPRAMIDE HCL 5 MG TABLET 10 MG PO ×4 (09:02→21:01)
[2023-11-14] MEDS: MYCOPHENOLATE MOFETIL 200 MG/ML 2.5 EACH TUBE ×2 (09:03→21:01)
[2023-11-14] MEDS: OMEPRAZOLE 40 MG 40 EACH TUBE ×2 (09:03→21:01)
[2023-11-14] MEDS: TACROLIMUS 1 MG/ML 3.5 EACH TUBE ×2 (09:03→21:01)
[2023-11-14] MEDS: TRIMETH/SULFA 160/800 (DS) TABLET 0.5 TAB PO (09:07)
[2023-11-14] MEDS: INSULIN LISPRO 100 UNIT/ML 3ML VIAL SUBCUT (09:08)
--- NOTE | 2023-11-14 11:00 | OT.IP.EVAL ---
Current Diagnoses Pneumonitis due to inhalation of food and vomit (11/07/23) Other specified health status (11/07/23) Past Medical History (Last Reviewed 11/08/23 @ 07:27 by Federico Bowling MD) Acquired immunocompromised state History of Hodgkin's lymphoma Hypothyroidism Insulin dependent diabetes mellitus Large B-cell lymphoma Obstructive sleep apnea on CPAP Surgical History (Last Reviewed 11/08/23 @ 07:27 by Federico Bowling MD) Heart transplant status Occupational Therapy Inpatient Evaluation/Re-Eval M1 PT/OT-IP Prior Functional Status Start: 11/14/23 11:05 Freq: NEEDED Status: Active Protocol: Document 11/14/23 11:05 [facility] (Rec: 11/14/23 11:21 [facility] [id number]) Medical Review Prior Functional Status Medical History Reviewed Yes Communication Tube feedings only, states that he has been actively aspirating and is awaiting work-up at Mobility and Gait Furniture walking in duplex only, last fall last April, scooter outside of the home Activities of Daily Living and IADL's Assistance from and she states he is having a harder time managing his BM and urination hygiene. Prior pt able to do basic ADL's on his own. Social History Household Members spouse Living Arrangements House Number of Floors (Floors) One Floor Number of Stairs To Enter/Railing? Ramped entrance Home Environment Standard Height Toilet,Walk in Shower,Built-In Shower Seat Home Equipment Four Wheel Walker,Power Wheelchair/Scooter,Shower Seat with Backrest,Hand Held Shower,Hospital Bed,Grab Bars Near Toilet,Grab Bars In Shower Employment Status Retired M2 OT-IP Current Condition Start: 11/14/23 11:05 Freq: Status: Active Protocol: Document 11/14/23 11:05 [facility] (Rec: 11/14/23 11:21 [facility] [id number]) Occupational Therapy Current Condition Current Condition Evaluation Date 11/14/23 Treatment Diagnosis Hypoatremia, aspiration PNA Diagnosis Onset Date 11/07/23 M3 OT- IP Subjective and Pain Start: 11/14/23 11:05 Freq: Status: Active Protocol: Document 11/14/23 11:05 [facility] (Rec: 11/14/23 11:21 [facility] [id number]) OT- Subjective Occupational Therapy Visit Type Type Initial Evaluation Visit Start Time 10:30 Visit Stop Time 11:00 Occupational Therapy Visit Comments Patient Comments Pt agreed to get up to the recliner, pt's in the room. Patient/Caregiver Goals TO get better. Pt's wanting pt to go to skilled rehab. OT Pain Assessment Pain When Pain Assessed At Rest Pain Present Pain Present Denied Pain M4 OT- IP ADL's Start: 11/14/23 11:05 Freq: Status: Active Protocol: Document 11/14/23 11:05 [facility] (Rec: 11/14/23 11:21 [facility] [id number]) OT [id number] Comments OT Self-Feeding Comments Pt is NPO and has tube feedings. OT ADL-Grooming Comments OT Grooming Comments Pt states did prior. OT ADL-Oral Care Comments Oral Care Comments Pt states did prior. OT ADL-Dressing General Eval Lower Body Dressing Ability Maximum Assistance Comments OT Dressing Comments Able to educated pt on LB dressing equipment of ski lift operator and sock aid. Pt having loss of balance posteriorly and needing assist to regain his balance. OT ADL-Toileting Comments OT Toileting Comments Pt not having to go at this time. OT ADL-Bathing Comments OT Bathing Comments Not performed. M5 OT- IP IADL's Start: 11/14/23 11:05 Freq: Status: Active Protocol: Document 11/14/23 11:05 [facility] (Rec: 11/14/23 11:21 [facility] [id number]) OT-Instrumental Activities of Daily Living Home Safety Awareness Awareness of Need for Assistance at Home Good Awareness Home Safety Comments Pt has a supportive to assist for all his needs as needed. Medication Management Medication Management Caregiver Administers Money Management Money Management Caregiver Provides Assistance Meal Preparation Meal Preparation Caregiver Provides Assist Senior Consultant Senior Consultant Caregiver Provides Assist M6 OT- IP Functional Cognition Start: 11/14/23 11:05 Freq: Status: Active Protocol: Document 11/14/23 11:05 [facility] (Rec: 11/14/23 11:21 [facility] [id number]) Cognitive Factors Limiting Selfcare Function Cognitive Ability Level of Alertness Alert Patient Orientation Name,Place,Situation Attention Span Ability Capable of Focused Attention, Capable of Sustained Attention Ability to Follow Commands Able to Follow One Step Commands Cognitive Comments Cognitive Assessment Comments Pt able to follow commands for ADl and mobility needs. Pt is very soft spoken. OT- Vision and Hearing OT- Hearing Assessment OT- Hearing Assessment WFL OT- Vision Assessment Visual Acuity Glasses All The Time Visual Attentiveness WFL Occular Pursuits WFL M7 OT- IP Mobility and Balance Start: 11/14/23 11:05 Freq: Status: Active Protocol: Document 11/14/23 11:05 [facility] (Rec: 11/14/23 11:21 [facility] [id number]) OT- Bed Mobility Assessment Supine to Sit Supine to Sit Assist Moderate Assistance OT-Transfer Assessment Sit to and From Stand Sit to and from Stand Minimal Assistance Transfers Transfer Ability Contact Guard Assistance, Minimal Assistance Technique Transfer Destination Bed,Chair Transfer Technique Stand Step Pivot Devices Transfer Assistive Devices Gait Belt,Front Wheeled Walker Comments Mobility Comments MODA to help get his trunk upright. Pt tends to want to pull on the therapist when coming to the edge of the bed. SAGAR to stand to the FWW and CGA to SAGAR with FWW and only able to tolerate approx 10 ft before needing to rest. OT- Balance Assessment Sitting Balance and Reactions Static Sitting Balance Ability Fair Dynamic Sitting Balance Ability Poor Standing Balance and Reactions Static Standing Balance Ability Poor Dynamic Standing Balance Ability Poor Comments Other Balance Tests/Deviations/Treatment Pt has very flexed posture at : neck and trunk and heavily leans into posterior tilt. Educated pt on trying to having bilateral arms at his side on pillows versus on the armrest which encourages more flexed posture. M8 OT- IP Objective Assessments Start: 11/14/23 11:05 Freq: Status: Active Protocol: Document 11/14/23 11:05 [facility] (Rec: 11/14/23 11:21 [facility] [id number]) OT Gross Range of Motion Upper Extremity Range of Motion Assessment Bilaterally Impaired OT Strength Comments Strength Comments BUE at least 3-/5 at shoulders and 4-/5 distally. M9 OT- IP Assessment and Plan Start: 11/14/23 11:05 Freq: Status: Active Protocol: Document 11/14/23 11:05 [facility] (Rec: 11/14/23 11:21 [facility] [id number]) OT Summary Assessment and Plan Potential Rehabilitation Potential Good Analytic Complexity at Evaluation Moderate Summary OT Impairments Pain,Range of Motion,Strength, Balance,Functional Mobility, Grooming,Dressing,Toileting, Bathing,Toilet Transfers, Shower Transfers,Activity Tolerance Progress Towards Goals Slow Progress due to Medical Issues,Slow Progress due to Activity Tolerance Assessment Summary Pt MOD complexity and main barriers are decreased balance , activity tolerance , and now needing more assist for mobility and ADL needs. Pt will benefit from skilled rehab at this time to help improve his posture, balance, activity tolerance so able to return home. Pt has a very supportive family. Goals Grooming Goal Independent Dressing Goal Independent,Sloop Captain,Sock Aid Toileting Goal Standby Assistance Bathing Goal Minimal Assistance Toilet Transfer Goal Independent Shower Transfer Goal Standby Assistance Days to Meet Goals 15 Frequency of Treatment Frequency Of Treatment Once a Day Treatment Plan OT Treatment Plan ADL Training,Functional Mobility,Patient/Family Education,Discharge Planning Other Treatment Recommendations and Next Stand at sink with FWW for Treatment Focus grooming needs. Discharge Recommendations OT Discharge Recommendations SNF Rehab Transportation Needs at Discharge Wheelchair/Cabulance
[2023-11-14] MEDS: POTASSIUM CHLORIDE 20 MEQ TAB 40 MEQ PO ×2 (12:57→20:08)
[2023-11-14] MEDS: INSULIN LISPRO 100 UNIT/ML 3ML VIAL 10 UNIT SUBCUT ×2 (12:59→17:08)
--- NOTE | 2023-11-14 13:02 | PT-IP ANOTE ---
Pt refused PT earlier this morning due to having a feeding and was up with OT. BANKING ANALYST checked on pt this afternoon and is back in bed asleep, pt was left to rest. PT will check on pt tomorrow.
--- NOTE | 2023-11-14 14:09 | P.PN_ITS ---
Subjective Subjective Interval history: Up to goal feeds, PT/OT recommended possible SNF. Spouse would like to have patient go to SNF. Patient with no complaints today, but does admit he is a bit weak. Exam Vital Signs (past 8 hours): - 11/14/23 08:00 11/14/23 08:59 11/14/23 12:00 Temperature 96.9 F L 96.2 F L Pulse Rate 114 H 113 H 104 H Respiratory Rate 21 19 Blood Pressure 130/84 130/84 96/60 Pulse Oximetry 93 90 L Oxygen Flow Rate 2 Fraction of Inspired Oxygen 28 SaO2/FiO2 Ratio 346 Oxygen Delivery Method CPAP Oxygen Flow Rate 2 Narrative Exam Narrative: NAD, normal speech, smiling. Lungs are notable for good air movement with some expiratory wheezing and scattered rhonchi, overall improved. Heart is regular, without murmur. Abdomen is distended with a G-tube in place, it is non tender. Extremities are free of edema, skin free of rash or lesions. Objective Labs 11/14/23 04:06 11/14/23 04:06 Labs: Laboratory Results - last 24 hr 11/14/23 04:06 WBC 3.9 L RBC 3.62 L Hgb 10.6 L Hct 31.7 L MCV 87.6 MCH 29.4 MCHC 33.5 RDW 16.3 H Plt Count 207 Neut % (Auto) Not Reportable Lymph % (Auto) Not Reportable [place] % (Auto) Not Reportable Eos % (Auto) Not Reportable Baso % (Auto) Not Reportable Lymph # (Auto) Not Reportable [place] # (Auto) Not Reportable Baso # (Auto) Not Reportable Total Counted 100 Seg Neutrophils % 54.0 D Band Neutrophils % 9.0 H Lymphocytes % (Manual) 25.0 Monocytes % (Manual) 8.0 Eosinophils % (Manual) 2.0 Basophils % (Manual) 1.0 Metamyelocytes % 1.0 H Neutrophils # (Manual) 2457 L Nucleated RBCs 1 H RBC Morphology Normal morphology Sodium 141 Potassium 3.3 L Chloride 106 Carbon Dioxide 30 BUN 34 H Creatinine 0.71 Estimated GFR > 60 BUN/Creatinine Ratio 47.9 H Glucose 295 H D Calcium 9.3 PFSH Medical History Obstructive sleep apnea on CPAP History of Hodgkin's lymphoma Hypothyroidism 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 Hypernatremia, present on admission and slowly improving. 2. Aspiration pneumonia, present on admission and improving. 3. Acute hypoxic respiratory failure, present on admission and active, now resolved 4. Transient hypotension and hypovolemia, present on admission and resolved. 5. Lactic acidosis, present on admission and resolved. 6. Acute kidney injury, present on admission and improved. 7. History of cardiac transplant, stable. 8. Esophageal dysmotility with G-tube since last summer, present on admission and active. 9. Intermittent regurgitation of enteral feeds, present on admission and active. 10. Remote Hodgkin's lymphoma with radiation esophagitis, stable. 11. Remote neck cancer, stable. Plan: -now off IV fluids for hypernatremia. Continue nutrition via G tube, now up to previous feeds. -continued antibiotics with Zosyn for aspiration pneumonia. Now complete after a 5 day course. Hypoxia now resolved. -the initial plan was a PICC line and TPN and then make arrangements for a G- tube to J-tube conversion. However and speaking with his GI doctor at [facility], Dr. Frazier, this was not the preferred plan. The PICC line failed due to anatomy. TPN was canceled. Dr. Mahajan suggested a promotility agent with possibilities being pyridostigmine at 30-60 mg t.i.d. plus possible bethanechol at 25-50 mg daily in addition to a scopolamine patch which he had been given before but had stopped using. -a scopolamine patch was placed on November 09 and Reglan q.i.d. scheduled was started. We do not have pyridostigmine orally available. The patient seems to be responding to Reglan which is a first-line promotility drug. He has markedly improved wit this, and tolerating his usual amount of tube feeds. -added simethicone 2/19 as patient reported gas which may help him tolerate a bit more as well. -therapies recommending SNF now, will work on placement -increased protonix from 10 to 40 BID, will continue Dr. Frazier ([phone]), his primary GI doctor . Code: Full, surrogate spouse Dispo: discharge to SNF, hopefully as soon as tomorrow. Time Spent With Patient Time with patient: 30 to 49 minutes with 50% spent counseling/coordinating care
--- NOTE | 2023-11-14 14:36 | CM.DPC ---
Addendum entered by TATA Leavitt 11/14/23 15:56: ADD: Per [facility] admission, they can accept pt as long as he is stable with G tube. BF Original Note: DCP SNF Planning Per MD, pt now having some desat issues and on oxy-mask and recommending SNF as pt quite below baseline. Per PT/OT, recommending SNF at d/c. Pt's enteral feeding months supply is in pt's hospital room and spouse has been assisting with G tube feedings. SW met bedside with pt and spouse and explained role and discussed SNF recommendation. They confirm pt has no hx of SNF and provided the SNF Choice list and discussed Medicare coverage of SNF. Spouse confirms that pt weak and needing more assist than baseline and that she cannot manage his bowel incontinence at home at this time and high fall risk. Spouse states pt has great [facility] coverage and his PCP is at [facility] and she had been trained as pt's caregiver and VA was providing some financial assist to her for caregiving but spouse plans to discuss additional CG with [employer] in the home for likely future needs. Spouse and pt preference is 1) [facility] due to location and then 2) [facility] SNFs. JOAN Pa kindly made referral to [facility] and they are reviewing. [facility] currently full for male beds. [facility] referral sent. PASRR done, no level II. Plan: SW to follow closely for [facility], [facility], [facility] review for SNF at d/c before strong enough for home with [facility]. TATA Leavitt
--- NOTE | 2023-11-14 19:55 | PC.NURSE ---
Patient tolerating TF bolus's well today without residual/ feeling bloated or n/v. He reports feeling hungry and requests boluses today. Noted BG still 300's. Per home feeding noted high calorie boost, is extremely high in carbohydrates. MD notified this evening of continued elevated BG's. Continuous monitoring.
[2023-11-14] MEDS: INSULIN GLARGINE 100 UNIT/ML 3ML PEN 10 UNIT SUBCUT (21:00)
[2023-11-14] MEDS: SODIUM CHLORIDE 0.9% FLUSH 10 ML IV (21:01)
--- NOTE | 2023-11-14 23:39 | PC.NURSE ---
Patient is alert and oriented. Breath sounds w/inspiratory and expiratory rhonchi throughout. Moist sounding cough and is self suctioning with yankour. Unable to converse in complete sentences but denied SOB. Oxygen per NC at 2L/min with sat of 97% so decreased to 1L/min and is maintaining in mid 90's. Home CPAP being used at night and is on continuous oximetry. HRR but tachy at [address] on telemetry. BP also elevated at 158/104 and was recently restarted on Carvedilol. Denied nausea and tolerated bolus tube feed. Abdomen is distended and few BT auscultated. Denied dysuria with urination and did have some frequency when medicated with Lasix. Is able to assist in repositioning. When he gets out of bed is provided 1 assist to BSC; gait not assessed. Refused SCD's so reminded of importance of ankle waving when awake; verbalized understanding. Denied pain. Fall risk score is moderate and bed alarm is activated although he does call appropriately.
[2023-11-15] VITALS: BP 126/78; PULSE 102; RESP 22; TEMP 35.9; O2SAT 94
[2023-11-15 04:00] VITALS: BP 154/103; PULSE 107; RESP 22; TEMP 36.1; O2SAT 90
[2023-11-15 04:56] LABS: Hematocrit 33.7 % (41-53); Hemoglobin 11.1 g/dL (13.5-17.5); Mean Corpuscular Hemoglobin 28.9 PG (26-34); Mean Corpuscular Volume 87.6 fL (80-100); Platelet Count 227 X10^3/uL (150-400); Red Blood Cell Count 3.84 X10^6/uL (4.5-5.9); Red Cell Distribution Width 15.8 % (11.6-14.8); White Blood Cell Count 3.1 X10^3/uL (4.5-11.0)
[2023-11-15 04:59] LABS: Add Manual Diff / Slide Review YES
[2023-11-15 05:07] LABS: BUN Creatinine Ratio 50.7 (6-22); Blood Urea Nitrogen 35 mg/dL (9-20); Calcium 9.6 mg/dL (8.4-10.2); Carbon Dioxide 32 mmol/L (22-32); Chloride 105 mmol/L (98-107); Estimated Glomerular Filt Rate > 60 mL/min (>60); Glucose 320 mg/dL (80-110); HEMOLYSIS < 15 (0-50); Potassium 4.1 mmol/L (3.4-5.1); Sodium 145 mmol/L (137-145)
[2023-11-15 05:18] LABS: Neutrophils Absolute Manual 1550 /uL (3000-5900); Total Cells Counted 100
[2023-11-15 05:20] LABS: Anisocytosis 1+
[2023-11-15 06:06] VITALS: O2SAT 95
--- NOTE | 2023-11-15 07:25 | PM.PN.1 ---
Subjective Subjective Interval history: He feels like he is improving. He is okay with going to alf facility for ongoing rehab. He does have a little bit of puffiness in his legs. The nurse noted a little bit of coarse sounds in his pulmonary exam today. He and his feel that he continues to improve, but remains weak. Exam Vital Signs (past 8 hours): - 11/15/23 00:00 11/15/23 04:00 11/15/23 06:06 Temperature 96.7 F L 96.9 F L Pulse Rate 102 H 107 H Respiratory Rate 22 22 Blood Pressure 126/78 154/103 H Pulse Oximetry 94 90 L 95 Oxygen Flow Rate 1 0 1 Fraction of Inspired Oxygen 28 SaO2/FiO2 Ratio 346 Oxygen Delivery Method Nasal Cannula Oxygen Flow Rate 1 Narrative Exam Narrative: NAD, soft voice. Lungs are notable for rales, normal rate and effort. Heart is regular, no murmur. Abdomen is non tender, G and J tubes are in place. Extremities with 1+ edema in the feet. Skin is pale. Objective Labs 11/15/23 04:35 11/15/23 04:35 Labs: Laboratory Results - last 24 hr 11/15/23 04:35 WBC 3.1 L RBC 3.84 L Hgb 11.1 L Hct 33.7 L MCV 87.6 MCH 28.9 MCHC 33.0 RDW 15.8 H Plt Count 227 Neut % (Auto) Not Reportable Lymph % (Auto) Not Reportable [place] % (Auto) Not Reportable Eos % (Auto) Not Reportable Baso % (Auto) Not Reportable Lymph # (Auto) Not Reportable [place] # (Auto) Not Reportable Baso # (Auto) Not Reportable Total Counted 100 Seg Neutrophils % 40.0 Band Neutrophils % 10.0 H Lymphocytes % (Manual) 21.0 L Atypical Lymphs % 1.0 H Monocytes % (Manual) 12.0 H Eosinophils % (Manual) 4.0 Basophils % (Manual) 2.0 H Metamyelocytes % 8.0 H Myelocytes % 2.0 H Neutrophils # (Manual) 1550 L Plt Morphology Comment RBC Morphology See below Anisocytosis 1+ H Sodium 145 Potassium 4.1 Chloride 105 Carbon Dioxide 32 BUN 35 H Creatinine 0.69 Estimated GFR > 60 BUN/Creatinine Ratio 50.7 H Glucose 320 H Calcium 9.6 PFSH Medical History Obstructive sleep apnea on CPAP History of Hodgkin's lymphoma Hypothyroidism 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 Hypernatremia, present on admission and slowly improving. 2. Aspiration pneumonia, present on admission and improving. 3. Acute hypoxic respiratory failure, present on admission and active, now resolved 4. Transient hypotension and hypovolemia, present on admission and resolved. 5. Lactic acidosis, present on admission and resolved. 6. Acute kidney injury, present on admission and improved. 7. History of cardiac transplant, stable. 8. Esophageal dysmotility with G-tube since last summer, present on admission and active. 9. Intermittent regurgitation of enteral feeds, present on admission and active. 10. Remote Hodgkin's lymphoma with radiation esophagitis, stable. 11. Remote neck cancer, stable. Plan: -continued antibiotics with Zosyn for aspiration pneumonia, complete after a 5 day course. Hypoxia now resolved. -a scopolamine patch was placed on November 09 and Reglan q.i.d. scheduled was started. We do not have pyridostigmine orally available. The patient seems to be responding to Reglan which is a first-line promotility drug. He has markedly improved wit this, and tolerating his usual amount of tube feeds. -added simethicone 11/13 as patient reported gas which may help him tolerate a bit more as well. -increased protonix from 10 to 40 BID, will continue -lasix 20 IV once now -start Floamx daily -SNF today if they can take. Dr. Frazier ([phone]), his primary GI doctor . Code: Full, surrogate spouse Time Spent With Patient Time with patient: 30 to 49 minutes with 50% spent counseling/coordinating care
[2023-11-15 08:00] VITALS: BP 137/85; PULSE 111; RESP 20; TEMP 36.1; O2SAT 94
[2023-11-15 08:30] VITALS: BP 148/91; PULSE 113
[2023-11-15] MEDS: HEPARIN 5,000 UNIT/ML VIAL 5000 UNIT SUBCUT (08:30)
[2023-11-15] MEDS: carvediloL 12.5 MG TABLET 25 MG TUBE (08:30)
[2023-11-15] MEDS: METOCLOPRAMIDE HCL 5 MG TABLET 10 MG PO ×2 (08:30→11:22)
[2023-11-15] MEDS: ATORVASTATIN 20 MG TABLET TUBE (08:30)
[2023-11-15] MEDS: MYCOPHENOLATE MOFETIL 200 MG/ML 2.5 EACH TUBE (08:31)
[2023-11-15] MEDS: OMEPRAZOLE 40 MG 40 EACH TUBE (08:31)
[2023-11-15] MEDS: ASPIRIN 81 MG CHEW TAB TUBE (08:31)
[2023-11-15] MEDS: INSULIN LISPRO 100 UNIT/ML 3ML VIAL 10 UNIT SUBCUT ×2 (08:32→12:19)
[2023-11-15] MEDS: TACROLIMUS 1 MG/ML 3.5 EACH TUBE (08:33)
[2023-11-15] MEDS: PSYLLIUM HUSK 1 PACKET PO (08:35)
[2023-11-15] MEDS: TRIMETH/SULFA 160/800 (DS) TABLET 0.5 TAB PO (08:40)
[2023-11-15 08:43] VITALS: O2SAT 95
--- NOTE | 2023-11-15 11:20 | PT.IPTN ---
Current Diagnoses Pneumonitis due to inhalation of food and vomit (11/07/23) Other specified health status (11/07/23) Physical Therapy Treatment Note M2 PT-IP Current Condition Start: 11/13/23 16:03 Freq: NEEDED Status: Active Protocol: Document 11/13/23 16:05 MB (Rec: 11/13/23 16:49 MB [id number]) Physical Therapy Current Condition Current Condition Evaluation Date 11/13/23 Treatment Diagnosis Weakness, per , ongoing aspiration, hypotension M3 PT-IP Subjective Start: 11/13/23 16:03 Freq: NEEDED Status: Active Protocol: Document 11/15/23 12:00 TS (Rec: 11/15/23 12:12 TS [id number]) Subjective Physical Therapy Visit Type Type Treatment Note Visit Start Time 11:20 Visit Stop Time 12:00 Number of SALES AGENT PROTECTIVE SERVICE Visits 1 Physical Therapy Visit Comments Patient Comments Pt found resting in bed, nursing and spouse in room, pt is agreeable to PT. M4 PT-IP Mobility and Gait Start: 11/13/23 16:03 Freq: NEEDED Status: Active Protocol: Document 11/15/23 12:00 TS (Rec: 11/15/23 12:12 TS [id number]) PT-Bed Mobility Assessment Supine to Sit Supine to Sit Standby Assistance Scooting Scooting to Edge of Bed Standby Assistance PT-Transfer Assessment Sit to and From Stand Sit to and from Stand Contact Guard Assistance Equipment Transfer Assistive Device Gait Belt,Front Wheeled Walker Orthotic/Prosthetic Devices or Brace: No Comments Mobility Comments Spo2 91% at rest. Supine to sit SBA with BUE support, pt slow to scoot to EOB. STS from bed CGA with use of FWW, pt stood ~1min for use of urinal. Pt ambulated in room CGA ~30' with use of FWW and required assist in managing o2 line. Pt ambulated to chair, Spo2 95% on 2L. STS x5 from chair SBA with cues for handplacement on arms of chair and use of FWW. Pt was left in chair, all needs met. Gait Assessment Gait Gait Assistance Required: Contact Guard Assist Distance (Feet) 30 Able to Maintain Weight Bearing Status Yes During Gait Assistive Devices Assistive Device Gait Belt,Front Wheeled Walker Orthotic/Prosthetic Devices or Brace: No Gait Deviations General Gait Pattern Decreased Stride Length, Decreased Feet Clearance, Flexed Trunk,Wide Based Gait Factors Limiting Gait Function Factors Limiting Gait Function Decreased Activity Tolerance, Decreased Strength,Difficulty Following Directions,Poor Balance,Poor Safety Awareness Comments Gait Comments See mobility comments PT-Balance Assessment Sitting Balance and Reactions Static Sitting Balance Ability Good Dynamic Sitting Balance Ability Fair Standing Balance and Reactions Static Standing Balance Ability Fair Dynamic Standing Balance Ability Fair Device Used FWW M5 PT-IP Objective Assessments Start: 11/13/23 16:03 Freq: NEEDED Status: Active Protocol: Document 11/13/23 16:05 MB (Rec: 11/13/23 16:49 MB [id number]) Orientation Orientation/Cognition Level of Alertness [place] Safety Awareness Decreased Safety Awareness Memory Description Short Term Impaired,4Th Grade Teacher Impaired Comments assists with answering questions and tends to correct pt's answers. He asks about going home today and seems very unsure and mentions he needs a lot of help currently, is known to be actively aspirating his tube feedings. Gross Range of Motion Upper Extremity ROM Impairments Defer to OT Lower Extremity ROM Assessment Within Functional Limits Strength Comments Strength Comments Pt does not follow MMT testing for LEs and appears to have functional strength at least 3 -/5 for transfer and stepping M6 PT-IP Treatment Start: 11/13/23 16:03 Freq: NEEDED Status: Active Protocol: Document 11/15/23 12:00 TS (Rec: 11/15/23 12:12 TS [id number]) Physical Therapy Treatment Education Education Provided Precautions,Safety M7 PT-IP Assessment and Plan Start: 11/13/23 16:03 Freq: NEEDED Status: Active Protocol: Document 11/15/23 12:00 TS (Rec: 11/15/23 12:12 TS [id number]) PT Summary Assessment and Plan Potential Rehabilitation Potential Fair Summary Impairments Strength,Balance,Cognition,Bed Mobility,Transfers,Gait, Activity Tolerance Progress Towards Goals Progressing Toward Goals Assessment Summary Som is making some progress with his mobility this session . He is SBA for bed mobility with HOB elevated. He performed STS x1 CGA and STS x5 SBA from chair. He progressed his gait to ~30' with FWW and 2L of o2, Spo2 after gait 95%. PT is recommending SNF at this time to progress strength and activity tolerance before safe d/c home. Goals Bed Mobility Goal Independent Transfer Goal Standby Assistance,Front Wheeled Walker Gait Goal Standby Assistance,Front Wheel Walker Gait Distance 25 Days to Meet Goals 10 Frequency of Treatment Frequency Of Treatment Once a Day Treatment Plan Physical Therapy Treatment Plan Bed Mobility Training,Transfer Training,Gait Training, Therapeutic Exercise,Balance Retraining,Discharge Planning, Neuromuscular Re-ed Precautions Other Precautions HOB increased d/t aspiration Weight Bearing Status Weight Bearing Status Weight Bear as Tolerated Discharge Recommendations PT Discharge Recommendations SNF Rehab Transportation Needs at Discharge Wheelchair/Cabulance
[2023-11-15] MEDS: TAMSULOSIN 0.4 MG CAPSULE PO (11:22)
[2023-11-15] MEDS: FUROSEMIDE 20 MG/2 ML VIAL IV (11:22)
--- NOTE | 2023-11-15 12:07 | PM.DS.1 ---
History of Present Illness History of Present Illness Chief complaint: sob, hypotensive, h/o heart transplant Narrative: The patient presented today with shortness of breath and hypotension. He has a 72-year-old male with a history of cardiac transplant at the [facility]. The patient also has esophageal dysfunction and has a feeding tube in place. He also has Hodgkin's lymphoma. The patient has a productive cough. In the field EMS found him to have 92% saturations on room air. He does not take oxygen at home. Apparently he has been having intermittent regurgitation over about 2 weeks of his tube feeds. He had distant radiation therapy for Hodgkin's lymphoma which resulted in cardiac failure and ultimate cardiac transplant in 2014. In developed esophageal dysfunction, he has had a G-tube in since last summer. He takes nothing by mouth. He was recently diagnosed with throat cancer treated with chemotherapy. This was about 3 years ago and he has had increased phlegm production since. He will develop episodes of increased phlegm production were sent him to lead to more fully forceful regurgitation of gastric contents. [facility] had brought up the idea of a J-tube previously to mitigate regurgitation. He has had a cough for several days and became quite weak over the last 24 hours to the point that he could not walk to the car this morning. EMS was called. He also has recurrent pleural effusions in his had around 10 thoracentesis before. They are attempting to establish care with pulmonology and [place] for thoracentesis and other needs. They have a pending appointment this Monday. Discharge Providers Provider Date of admission: 11/07/23 17:04 Discharge Date: 11/15/23 Primary care physician: Jose D Riddle MD Consults: 11/09/23 10:40 Consult to Dietitian, Adult Routine Comment: verbal order from Dr. Federico Bowling Reason For Exam: TPN 11/11/23 12:32 Consult to Home Health Routine Comment: Reason For Exam: Home health services upon discharge 11/13/23 10:35 Consult to Occupational Therapy Evaluate & Treat Comment: Physician Instructions: Evaluate and treat Consult to Physical Therapy Evaluate & Treat Comment: Physician Instructions: Evaluate and Treat Discharge provider: Federico Bowling MD Summary Hospital Course Discharge Diagnosis: 1. Hypernatremia, present on admission and slowly improving. 2. Aspiration pneumonia, present on admission and improving. 3. Acute hypoxic respiratory failure, present on admission and active, now resolved 4. Transient hypotension and hypovolemia, present on admission and resolved. 5. Lactic acidosis, present on admission and resolved. 6. Acute kidney injury, present on admission and improved. 7. History of cardiac transplant, stable. 8. Esophageal dysmotility with G-tube since last summer, present on admission and active. 9. Intermittent regurgitation of enteral feeds, present on admission and active. 10. Remote Hodgkin's lymphoma with radiation esophagitis, stable. 11. Remote neck cancer, stable. Hospital Course: The patient was initially admitted with probable aspiration. He was treated with Zosyn for 5 days and improved. His oxygen demand was able to wean. He developed hypernatremia which required D5W to correct. His case was discussed with his GI doctor and the patient was started on scopolamine patch as well as Reglan AC to help with pro mobility. His bolus tube feeds were resumed which is an 8 oz bottle of boost that he takes about 4 times a day. He had also improvement of his symptoms with a omeprazole sprinkle at 40 b.i.d. and simethicone as needed. He did have mild fluid accumulation was treated with Lasix 20 IV on the day of discharge and started on Flomax per his 's request for chronic BPH symptoms including polyuria. At the time of discharge the patient is quite debilitated but slowly improving. Status at Discharge Cognitive/behavioral status at discharge: oriented Functional status at discharge: uses cane/walker Overall status at discharge: patient is progressing back to baseline Time Spent with Patient Time spent: Greater than 30 minutes Exam Vital Signs (past 8 hours): - 11/15/23 06:06 11/15/23 08:00 11/15/23 08:00 Temperature 96.9 F L Pulse Rate 111 H Respiratory Rate 20 Blood Pressure 137/85 Pulse Oximetry 95 94 Oxygen Delivery Method Nasal Cannula Oxygen Flow Rate 1 0 11/15/23 08:30 11/15/23 08:43 Temperature Pulse Rate 113 H Respiratory Rate Blood Pressure 148/91 H Pulse Oximetry 95 Oxygen Delivery Method Nasal Cannula Oxygen Flow Rate 1 Fraction of Inspired Oxygen 28 SaO2/FiO2 Ratio 346 Oxygen Delivery Method Nasal Cannula Oxygen Flow Rate 1 Narrative Exam Narrative: NAD, soft voice. Lungs are notable for rales, normal rate and effort. Heart is regular, no murmur. Abdomen is non tender, G and J tubes are in place. Extremities with 1+ edema in the feet. Skin is pale. Objective Labs 11/15/23 04:35 11/15/23 04:35 Labs: Laboratory Results - last 24 hr 11/15/23 04:35 WBC 3.1 L RBC 3.84 L Hgb 11.1 L Hct 33.7 L MCV 87.6 MCH 28.9 MCHC 33.0 RDW 15.8 H Plt Count 227 Neut % (Auto) Not Reportable Lymph % (Auto) Not Reportable [place] % (Auto) Not Reportable Eos % (Auto) Not Reportable Baso % (Auto) Not Reportable Lymph # (Auto) Not Reportable [place] # (Auto) Not Reportable Baso # (Auto) Not Reportable Total Counted 100 Seg Neutrophils % 40.0 Band Neutrophils % 10.0 H Lymphocytes % (Manual) 21.0 L Atypical Lymphs % 1.0 H Monocytes % (Manual) 12.0 H Eosinophils % (Manual) 4.0 Basophils % (Manual) 2.0 H Metamyelocytes % 8.0 H Myelocytes % 2.0 H Neutrophils # (Manual) 1550 L Plt Morphology Comment RBC Morphology See below Anisocytosis 1+ H Sodium 145 Potassium 4.1 Chloride 105 Carbon Dioxide 32 BUN 35 H Creatinine 0.69 Estimated GFR > 60 BUN/Creatinine Ratio 50.7 H Glucose 320 H Calcium 9.6 PFSH Medical History Obstructive sleep apnea on CPAP History of Hodgkin's lymphoma Hypothyroidism Insulin dependent diabetes mellitus Large B-cell lymphoma Acquired immunocompromised state Surgical History Heart transplant status Family History Father Myocardial infarction Mother Old age Social History household members: spouse Smoking Status: Former smoker alcohol intake: current Discharge Assessment & Plan Assessment and Plan Assessment: 1. Hypernatremia, present on admission and slowly improving. 2. Aspiration pneumonia, present on admission and improving. 3. Acute hypoxic respiratory failure, present on admission and active, now resolved 4. Transient hypotension and hypovolemia, present on admission and resolved. 5. Lactic acidosis, present on admission and resolved. 6. Acute kidney injury, present on admission and improved. 7. History of cardiac transplant, stable. 8. Esophageal dysmotility with G-tube since last summer, present on admission and active. 9. Intermittent regurgitation of enteral feeds, present on admission and active. 10. Remote Hodgkin's lymphoma with radiation esophagitis, stable. 11. Remote neck cancer, stable. Plan of Treatment: His antibiotics were completed, he will be discharged to senior care for rehabilitation efforts. The patient will be continued on most medications with the addition of Flomax and omeprazole sprinkles. His chronic cardiac medications will be continued. The patient will follow up in [facility] when medically stable from his rehabilitation. Note that his primary mall manager was wanting to try prokinetic agents before proceeding with the conversion of his current tube to a J-tube. She would concerns that his chronic regurgitation symptoms may not improve with position change alone. His [facility] mall manager is Dr. Frazier,[phone] Discharge Plan Discharge Plan Patient Disposition: SNF Transfer to: [facility] Discharge orders & Medications Prescriptions: New metoclopramide HCl 5 mg Tablet 10 mg PO ACHS Qty: 60 0RF tamsulosin [Flomax] 0.4 mg Capsule 0.4 mg PO DAILY Qty: 30 0RF insulin lispro [Humalog U-100 Insulin] 100 unit/mL Solution 10 unit SUBCUT AC Qty: 10 0RF scopolamine base [Transderm-Scop] 1 mg over 3 days Patch 3 Day 1 patch topical Q72H Qty: 10 0RF insulin glargine [Lantus Solostar U-100 Insulin] 100 unit/mL (3 mL) Insulin Pen 20 unit SUBCUT BEDTIME Qty: 30 0RF Omeprazole Sprinkle 40 mg crystals 40 mg feeding tube BID Qty: 60 1RF Continued alendronate 70 mg tablet 70 mg PO QWEEK levothyroxine 100 mcg capsule 100 mcg DAILY mycophenolate mofetil 200 mg/mL suspension for reconstitution 2.5 mg feeding tube BID famotidine 20 mg Tablet 20 mg feeding tube BID Xy-[id number]-[id number] 133 mg Tablet 133 mg 5XD Rx Instructions: 2 in the am, 1 at lunch, 2 at dinner albuterol sulfate 90 mcg/actuation aerosol powdr breath activated 2 inh inhalation Q4H PRN (Reason: shortness of breath or wheezing) Qty: 1 0RF carvedilol 25 mg tablet 25 mg feeding tube BID atorvastatin 20 mg tablet 20 mg feeding tube DAILY sulfamethoxazole-trimethoprim 400-80 mg tablet 1 tab feeding tube DAILY aspirin 81 mg Tablet 81 mg DAILY furosemide 20 mg tablet 10 mg feeding tube DAILY diphenhydramine-acetaminophen 25-500 mg-mg/mL Solution 2 ml feeding tube BEDTIME guaifenesin 600 mg Tablet Extended Release 12hr 600 mg USEASDIRECTD Rx Instructions: 1200mg morning and night and 600mg at noon Steglatro 5 mg tablet 5 mg feeding tube DAILY Tacrolimus 1 MG/ML solution 3.5 ml feeding tube BID Discontinued trazodone 50 mg Tablet 50 mg PO BEDTIME losartan 25 mg tablet 25 mg feeding tube BEDTIME insulin aspart U-100 [Novolog FlexPen U-100 Insulin] 100 unit/mL (3 mL) insulin pen 12 unit SUBCUT 5XD Patient Comments: [NO ORIGINAL SIG] insulin glargine [Lantus Solostar U-100 Insulin] 100 unit/mL (3 mL) insulin pen 10 unit SUBCUT ONCE PM Prilosec 10 mg susp,delayed release for recon 10 mg feeding tube BID Medication counseling provided by Pharmacist: No Follow up/Referrals: Jose D Riddle MD [Primary Care Provider] - Discharge Health Status Multidrug resistant organism: No MDRO Diet/Activity/Treatments Diet: Nothing by Mouth Diet comment: All tube feeding through J tube (Not G tube) Activity: as tolerated Skin/Wound/Dressing Care Report to your healthcare provider any signs of infection, such as:: chills, fever, increased pain and unusual drainage Special Rehabilitation Services Rehab type: Physical therapy and Occupational therapy Visit Report/Discharge Packet Stand Alone Forms: Patient Portal/API Discharge Data Primary Care Provider: Jose D Riddle
[2023-11-15] MEDS: INSULIN LISPRO 100 UNIT/ML 3ML VIAL SUBCUT (12:19)
--- NOTE | 2023-11-15 12:53 | CM.DPNOTE ---
DC Note Patient discharged to SNF today and [facility] accepts for admission. DC orders completed by Dr Bowling. Reviewed DCP w/patient and spouse Sharri; both remain agreeable. Spouse Sharri will bring patient's Boost cartons, patient uses 5 daily. Spouse has approx a three week supply. This has been reviewed by [facility] and approved. JU Pa, assisting with coordination, completed and signed med list, rx, PASRR, DC Summary sent to Damari at [facility]. Plan: Discharge to [facility] H+R via cabulance, product picker at 1330 JW
== END 2023-11-15 13:54 | DRG 871 ==
LOC: ED 16:36 → AC 17:05
PROVIDERS: Student in an Organized Health Care Education/Training Program; Admitting Provider Hospitalist; Emergency Provider Emergency Medicine; Family Provider Internal Medicine; PCP Student in an Organized Health Care Education/Training Program; Referring Provider Emergency Medicine; Visit Provider Hospitalist
DX: A41.9 Sepsis, unspecified organism (principal); J69.0 Pneumonitis due to inhalation of food and vomit; J96.01 Acute respiratory failure with hypoxia; Z94.1 Heart transplant status; E87.20 Acidosis, unspecified; E87.0 Hyperosmolality and hypernatremia; D84.821 Immunodeficiency due to drugs; N17.9 Acute kidney failure, unspecified; K20.80 Other esophagitis without bleeding; R65.20 Severe sepsis without septic shock; K22.89 Other specified disease of esophagus; E86.1 Hypovolemia; E03.9 Hypothyroidism, unspecified; Z79.621 Long term (current) use of calcineurin inhibitor; Z93.1 Gastrostomy status; Z85.71 Personal history of Hodgkin lymphoma; Z87.891 Personal history of nicotine dependence
CPT/HCPCS: 36415; 71045; 80048; 80053; 81003; 82550; 82962; 83605; 83690; 83735; 83880; 84100; 84134; 84145; 84478; 84484; 85007; 85025; 85610; 85730; 87040; 87633; 94760; 94762; 96365; 97116; 97161; 97166; 97530; 97535; 99285; C9113; J1644; J1815; J1940; J2543; J7050; J7507

== ENCOUNTER 2023-11-16 11:31 | Emergency (ER) | payer MEDICARE, OTHER, SELFPAY ==
[2023-11-07 17:10] VITALS: BMI 24.2
--- NOTE | 2023-11-16 11:40 | ED.CPR ---
HPI - CPR General Chief Complaint: Cardiac Arrest/CPR Stated Complaint: cardiac arrest Time Seen by Provider: 11/16/23 11:39 History of Present Illness HPI narrative: Patient 72-year-old history of heart transplant aspiration pneumonia esophageal dysfunction feeding tube in place also has Hodgkin's lymphoma presents today with CPR in progress. He was discharged yesterday from the hospital after being admitted for 9 days discharge yesterday again with the aspiration pneumonia hypernatremia went to rehab facility. Apparently collapsed in front of CPR was started immediately. He was given 1 round of epinephrine EMS reports ROSC, however lost pulses again EN route. He is now received 2nd dose of epinephrine. now at bedside reports she wishes to withdrawal care and make him comfortable. Related Data Home Medications Medication Instructions Recorded Confirmed alendronate 70 mg tablet 70 mg PO QWEEK 02/21/19 11/07/23 levothyroxine 100 mcg capsule 100 mcg DAILY 02/21/19 11/07/23 famotidine 20 mg tablet 20 mg feeding tube BID 11/19/20 11/07/23 magnesium oxide-magnesium amino 133 mg 5XD 09/19/22 11/07/23 acid chelate 133 mg tablet (El-Fjln-Zvycwdk) mycophenolate mofetil 200 mg/mL 2.5 mg feeding tube BID 10/20/23 11/07/23 oral suspension aspirin 81 mg tablet 81 mg DAILY 11/07/23 11/07/23 atorvastatin 20 mg tablet 20 mg feeding tube DAILY 11/07/23 11/07/23 carvedilol 25 mg tablet 25 mg feeding tube BID 11/07/23 11/07/23 diphenhydramine 25 2 ml feeding tube BEDTIME 11/07/23 11/07/23 mg-acetaminophen 500 mg/15 mL oral solution ertugliflozin 5 mg tablet 5 mg feeding tube DAILY 11/07/23 11/07/23 (Steglatro) furosemide 20 mg tablet 10 mg feeding tube DAILY 11/07/23 11/07/23 guaifenesin 600 mg tablet, 600 mg USEASDIRECTD 11/07/23 11/07/23 extended release 12 hr sulfamethoxazole 400 1 tab feeding tube DAILY 11/07/23 11/07/23 mg-trimethoprim 80 mg tablet Tacrolimus 3.5 ml feeding tube BID 11/08/23 11/08/23 Previous Rx's Medication Instructions Recorded albuterol sulfate 90 mcg/actuation 2 inh inhalation Q4H PRN shortness 09/22/22 breath activated powder inhaler of breath or wheezing #1 ea Omeprazole Sprinkle 40 mg feeding tube BID #60 days 11/15/23 insulin glargine 100 unit/mL (3 20 unit (0.2 mL) SUBCUT BEDTIME 11/15/23 mL) subcutaneous pen (Lantus #30 mL Solostar U-100 Insulin) insulin lispro 100 unit/mL 10 unit (0.1 mL) SUBCUT AC #10 mL 11/15/23 subcutaneous solution (Humalog U-100 Insulin) metoclopramide HCl 5 mg tablet 10 mg (2 x 5 mg) PO ACHS #60 tabs 11/15/23 scopolamine base 1 mg over 3 days 1 patch topical Q72H #10 ea 11/15/23 transdermal patch (Transderm-Scop) tamsulosin 0.4 mg capsule (Flomax) 0.4 mg PO DAILY #30 caps 11/15/23 Allergies Allergy/AdvReac Type Severity Reaction Status Date / Time amlodipine Allergy Severe Angioedema Verified 11/08/23 14:00 fish oil [FISH OIL] Allergy Unknown ITCHING Verified 11/08/23 14:00 hydrocodone [HYDROCODONE] AdvReac Unknown Nausea Verified 11/08/23 14:00 Patient History Medical History Obstructive sleep apnea on CPAP History of Hodgkin's lymphoma Hypothyroidism Insulin dependent diabetes mellitus Large B-cell lymphoma Acquired immunocompromised state Surgical History Heart transplant status Family History Father Myocardial infarction Mother Old age Social History household members: spouse Smoking Status: Former smoker alcohol intake: current Smoking Status: Former smoker alcohol intake frequency: holidays/special occasions only Substance Use Type: does not use Exam Initial Vital Signs Initial Vital Signs: Gen.: Pale cool unresponsive HEENT: Pupils fixed dilated, ET tube in place Lungs: Breath sounds with bagging Cardiac: Initially having femoral and carotid pulses, ultrasound does show cardiac activity Abdomen: Peg tube in place abdominal pain Extremities: No gross bony deformity Neurologic: GCS 3 MDM - Cardiac Arrest/CPR MDM Narrative Medical decision making narrative: Patient presents CPR cardiac arrest multiple comorbidities complicating health history. at bedside where he wishes us to withdraw care comfort only. No further epinephrine or CPR done in the ED. patient passed peacefully with at bedside Dr. Bowling hospitalist came to ED very familiar with patient discharged him yesterday thinks probable recurrent aspiration. Time of 11:45 a.m. Discharge Plan Departure Patient Disposition: Clinical Impression: Cardiac arrest, Aspiration pneumonia
--- NOTE | 2023-11-16 12:06 | PC.NURSE ---
Pt arrives via EMS CPR in progress, PEA rhythm, physician at bedside, arrived within minutes, requested no further intervention. Physician called TOD at [phone]. Charge aware.
--- NOTE | 2023-11-16 14:00 | PC.NURSE ---
Called [facility], not approved for tissue/organ donation. Per [facility], not approved to eye donation. Cleared by Plate Glass Installer @ [place]. [place] to forklift picker body. ED physician aware of [facility] online documentation requirement. Ben to forklift picker patient.
== END 2023-11-16 15:00 | disposition expired ==
PROVIDERS: Emergency Provider Emergency Medicine; Family Provider Internal Medicine; PCP Student in an Organized Health Care Education/Training Program
DX: I46.9 Cardiac arrest, cause unspecified (principal); J69.0 Pneumonitis due to inhalation of food and vomit
CPT/HCPCS: 99282